=== PATIENT | female | born 1970 | race Two or more races ===

== ENCOUNTER → 2019-11-26 09:03 | Outpatient (BNVA) | payer OTHER, SELFPAY | PROVIDERS: PCP Internal Medicine; Referring Provider Internal Medicine; Visit Provider Dietitian, Registered | DX: Z76.89 Persons encountering health services in other specified circumstances (principal) ==

== ENCOUNTER → 2020-02-23 13:11 | Outpatient (BNVA) | payer OTHER, SELFPAY | PROVIDERS: PCP Internal Medicine; Referring Provider Internal Medicine; Visit Provider Dietitian, Registered | DX: Z76.89 Persons encountering health services in other specified circumstances (principal) ==

== ENCOUNTER → 2020-05-04 16:13 | Outpatient (BNVA) | payer OTHER, SELFPAY | PROVIDERS: PCP Internal Medicine; Visit Provider Internal Medicine Gastroenterology ==

== ENCOUNTER → 2020-05-24 10:20 | Outpatient (BNVA) | payer OTHER, SELFPAY | PROVIDERS: PCP Internal Medicine; Visit Provider Surgery | DX: K64.9 Unspecified hemorrhoids (principal) | CPT/HCPCS: 46600 ==

== ENCOUNTER 2020-06-09 08:34 | Day surgery (SDC) | payer OTHER, SELFPAY ==
[2020-06-02 16:02] VITALS: BMI 35.2
--- NOTE | 2020-06-07 13:34 | HO.ANESPROP2 ---
Documented by User: Zahra Nascimento 06/07/20 13:37 HPI - Anesthesia Eval Consult details Narrative: 50yo F for EUA, Hemorrhoidectomy PMFSH Active Problems Active Problems: All Active Problems (Updated 06/02/20 @ 15:52 by Marcie Bess) Obesity (BMI 30-39.9) (Acute) Oropharyngeal dysphagia (Acute) Internal hemorrhoids (Acute) History of colon polyps (Acute) Bleeding hemorrhoids (Acute) Chronic constipation (Acute) Irritable bowel syndrome (Acute) Past Medical History Medical History Admission for repair of scarred tissue Asthma Bleeding hemorrhoids Chronic constipation GERD (gastroesophageal reflux disease) Irritable bowel syndrome Family History Family History Father Diabetes Brother Heart attack Paternal Grandmother Cancer Maternal Grandmother Cancer Surgical History Surgical History H/O colonoscopy H/O eye surgery H/O: hysterectomy History of arthroscopy of both knees History of esophagogastroduodenoscopy (EGD) Hx of appendectomy Social History Social History Household Members: Spouse Are you a primary home care assistant to a significant other at home: No Do you presently have visiting nurse or other home services: No Alcohol intake: current Alcohol intake frequency: does not drink Smoking Status: Never smoker Use of substances other than those prescribed or required for medical reasons: No Have you been hit, kicked, punched, or otherwise hurt by someone within the past year? If so, by whom?: No Advance Directives: No Advance Directives Information Provided: No Advance Directives on File: No Recently lost weight without trying: No Meds Allergies Allergy/AdvReac Type Severity Reaction Status Date / Time aspirin [ASPIRIN] Allergy Severe HIVES Verified 06/02/20 16:00 Fish Containing Products Allergy Severe HIVES/DYSPN Verified 06/02/20 16:00 EA oxycodone [From PERCOCET] Allergy Severe PALPITATION Verified 06/02/20 16:00 S/HIVES pumpkin Allergy Severe THROAT Verified 06/02/20 16:00 SWELLING squash Allergy Severe THROAT Verified 06/02/20 16:00 SWELLING Home Medications Medication Instructions Recorded Confirmed Last Taken Type albuterol sulfate 90 mcg/actuation 2 puff INHALATION Q6H PRN 05/24/20 06/02/20 Unknown History aerosol inhaler fluticasone propionate [Flovent 2 puff INHALATION BID 06/02/20 06/02/20 Unknown History HFA] Exam Exam Date and Time: June 07, 2020 1334 Height,Weight and Vital Signs: Height 5 ft Weight 81.647 kg Assessment and Plan Assessment Anesthesia Assessment: Chart Reviewed Documented by User: Mel Lebron 06/09/20 09:32 [facility], [facility] Past Medical History Medical History Admission for repair of scarred tissue Asthma Bleeding hemorrhoids Chronic constipation GERD (gastroesophageal reflux disease) Irritable bowel syndrome Family History Family History Father Diabetes Brother Heart attack Paternal Grandmother Cancer Maternal Grandmother Cancer Surgical History Surgical History H/O colonoscopy H/O eye surgery H/O: hysterectomy History of arthroscopy of both knees History of esophagogastroduodenoscopy (EGD) Hx of appendectomy Social History Social History Household Members: Spouse Are you a primary home care assistant to a significant other at home: No Do you presently have visiting nurse or other home services: No Alcohol intake: current Alcohol intake frequency: does not drink Smoking Status: Never smoker Use of substances other than those prescribed or required for medical reasons: No Have you been hit, kicked, punched, or otherwise hurt by someone within the past year? If so, by whom?: No Advance Directives: No Advance Directives Information Provided: No Advance Directives on File: No Recently lost weight without trying: No Meds Allergies Allergy/AdvReac Type Severity Reaction Status Date / Time aspirin [ASPIRIN] Allergy Severe HIVES Verified 06/02/20 16:00 Fish Containing Products Allergy Severe HIVES/DYSPN Verified 06/02/20 16:00 EA oxycodone [From PERCOCET] Allergy Severe PALPITATION Verified 06/02/20 16:00 S/HIVES pumpkin Allergy Severe THROAT Verified 06/02/20 16:00 SWELLING squash Allergy Severe THROAT Verified 06/02/20 16:00 SWELLING Home Medications Medication Instructions Recorded Confirmed Last Taken Type albuterol sulfate 90 mcg/actuation 2 puff INHALATION Q6H PRN 05/24/20 06/02/20 Unknown History aerosol inhaler fluticasone propionate [Flovent 2 puff INHALATION BID 06/02/20 06/02/20 Unknown History HFA] Exam Airway Mallampati Class: II TM Dist: >3cm Neck ROM: Full Loose/Missing/Broken Teeth: No Heart: RRR Lungs: CTA Assessment and Plan Assessment Anesthesia Assessment: Anesthesia Plan Discussed and Chart Reviewed Final Anesthetic Review NPO: Yes ASA Class: II Final Preanesthetic Review: Meds/Allgs Chart Reviewed, Consent Obtained/Reviewed and Anes Risks/Benef Reviewed Patient Risk: Low Procedure Risk: Intermediate Anesthetic Plan Anesthetic Plan: GA Disposition: Standard PACU
[2020-06-09] VITALS (9 sets, daily range): BP systolic 101–130; BP diastolic 52–79; PULSE 71–91; RESP 12–16; TEMP 36.1–36.6; O2SAT 91–100
[2020-06-09] MEDS: Lactated Ringers 1,000 ML 100 ML IVCONT (09:15)
--- NOTE | 2020-06-09 09:28 | MHC.SHP ---
Pre-Procedural Eval Section B Chief Complaint: Bleeding hemorrhoids Allergies: Allergies Allergy/AdvReac Type Severity Reaction Status Date / Time aspirin [ASPIRIN] Allergy Severe HIVES Verified 06/02/20 16:00 Fish Containing Products Allergy Severe HIVES/DYSPN Verified 06/02/20 16:00 EA oxycodone [From PERCOCET] Allergy Severe PALPITATION Verified 06/02/20 16:00 S/HIVES pumpkin Allergy Severe THROAT Verified 06/02/20 16:00 SWELLING squash Allergy Severe THROAT Verified 06/02/20 16:00 SWELLING Plan I have reviewed the history and physical and performed a pertinent physical examination on my patient. No changes have occurred unless specified.
--- NOTE | 2020-06-09 10:21 | W.PM.OPN ---
Operative Note Operative Note Date of Service: 06/09/20 Narrative: Preop diagnosis: External hemorrhoids with pain and bleeding Postop diagnosis: The same Procedure: Exam under anesthesia, hemorrhoidectomy x2 columns Surgeon: Jony Graff MD The patient is a 50-year-old female with chronic problems with pain and bleeding of her hemorrhoids. She describes bulky hemorrhoidal columns and these were seen on examination in the office. She wanted to proceed with hemorrhoidectomy. She understood the technique of the procedure as well as the risks, benefits, and alternatives. She was brought to the operating room and placed in prone -knife position under general anesthesia via endotracheal tube. The buttocks were retracted with wide tape laterally. The perianal area was prepped and draped in the usual sterile fashion. A surgical time-out was done. The patient received Cefotan 2 g IV preoperatively. Examination of the anal orifice revealed bulky hemorrhoidal columns on the left posterior as well as on the right anterior. This appeared to be mostly external hemorrhoids. I inserted the Jose Gan retractor. I examined the anal canal circumferentially. There were no other lesions seen. These bulky hemorrhoidal columns were seen and were mostly external although with some internal component. I applied a Cornell grasper at the hemorrhoidal column anteriorly and this was retracted out into the field. I placed figure-eight stitch at the pedicle using chromic 3-0 and made an incision around this hemorrhoidal column to the perianal skin using a blade 15. His hemorrhoid column was then excised above the plane of sphincters using scissors. I closed this incision with a running chromic 3-0 stitch with additional hemostatic sutures being placed. I proceeded to apply a Cornell grasper at the hemorrhoidal column posteriorly as well. Again I made a [id number] stitch at the pedicle. I made an incision around this hemorrhoidal column of the perianal skin using blade 15. I excised this above the plane of sphincters using scissors. I closed this incision with running chromic 3-0 stitch. Hemostasis was ensured by additional chromic 3-0 [id number] sutures. Once hemostasis was ensured I proceeded toe then infiltrate the perianal area with Marcaine 0.5% for postop analgesia. The procedure was then completed. The patient tolerated the procedure well. There were no complications noted. Initial and final counts of sponges and instruments were correct. Estimated blood loss about 20 cc The patient was extubated without difficulty and transferred to the recovery room with stable vital signs.
--- NOTE | 2020-06-09 10:25 | PM.OP ---
Brief Operative Note Date of Service: 06/09/20 Pre-op diagnosis: hemorrhoids with complication Post-op diagnosis: same Procedure: Exam under anesthesia hemorrhoidectomy Surgeon: Jony Graff MD Anesthesia: GETA Estimated blood loss (mL): 20 Pathology: other (Hemorrhoids) Condition: stable Disposition: PACU
[2020-06-09] MEDS: Acetaminophen 325 MG TABLET 650 MG PO (12:21)
== END 2020-06-09 13:59 | disposition home or self-care (01) ==
PROVIDERS: PCP Internal Medicine; Visit Provider Surgery
PROC: (CPT 46260; principal; 2020-06-09 10:10)
DX: K64.8 Other hemorrhoids (principal); K64.4 Residual hemorrhoidal skin tags; K59.09 Other constipation; K21.9 Gastro-esophageal reflux disease without esophagitis; J45.909 Unspecified asthma, uncomplicated; Z79.51 Long term (current) use of inhaled steroids; Z79.899 Other long term (current) drug therapy; Z88.8 Allergy status to other drugs, medicaments and biological substances
CPT/HCPCS: 46260; 88304; J1100; J1170; J2250; J2405; J3010

== ENCOUNTER → 2020-06-22 11:14 | Outpatient (BNVA) | payer OTHER, SELFPAY | PROVIDERS: PCP Internal Medicine; Visit Provider Surgery ==

== ENCOUNTER → 2020-07-20 08:50 | Outpatient (BNVA) | payer OTHER, SELFPAY | PROVIDERS: PCP Internal Medicine; Visit Provider Surgery ==

== ENCOUNTER → 2020-11-09 12:55 | Outpatient (BNVA) | payer OTHER, SELFPAY | PROVIDERS: PCP Internal Medicine; Visit Provider Internal Medicine Gastroenterology ==

== ENCOUNTER 2020-11-25 23:24 | Emergency (ER) | payer OTHER, SELFPAY ==
--- NOTE | ~2020-11-25 | XR_ITS ---
EXAMINATION: XR CHEST CLINICAL INFORMATION: Cough. Chest tightness. COMPARISON: 05/05/2019 TECHNIQUE: 2 views of the chest were obtained. FINDINGS: The lungs are well expanded. There is no focal consolidation, edema, or effusion. No pneumothorax. The cardiomediastinal silhouette is within normal limits. No acute osseous abnormality. XR/XR chest 2V IMPRESSION: Clear lungs.
[2020-11-26 00:04] VITALS: BP 135/73; PULSE 86; RESP 16; TEMP 36.9; O2SAT 99; BMI 36.5
--- NOTE | 2020-11-26 00:15 | ECG_ITS ---
Test Reason : CHEST TIGHTNESS Blood Pressure : / mmHG Vent. Rate : 070 BPM Atrial Rate : 070 BPM P-R Int : 172 ms QRS Dur : 080 ms QT Int : 428 ms P-R-T Axes : 064 006 038 degrees QTc Int : 462 ms Normal sinus rhythm Normal ECG When compared with ECG of 26-NOV-2020 00:17, No significant change was found Referred By: Mel Hidalgo Electronically Signed By:THALIA ISSA
--- NOTE | 2020-11-26 00:17 | ECG_ITS ---
Test Reason : CHEST ALIX Blood Pressure : / mmHG Vent. Rate : 077 BPM Atrial Rate : 077 BPM P-R Int : 158 ms QRS Dur : 080 ms QT Int : 394 ms P-R-T Axes : 063 006 038 degrees QTc Int : 445 ms Normal sinus rhythm Normal ECG When compared with ECG of 05-MAY-2019 16:11, No significant change was found Referred By: Mel Hidalgo Electronically Signed By:THALIA ISSA
[2020-11-26] MEDS: Acetaminophen 325 MG TABLET 975 MG PO (02:04)
[2020-11-26 02:25] LABS: Appearance Urine HAZY; Color Urine YELLOW; Glucose Urine UA NEG (NEG); Leukocyte Esterase Urine NEG (NEG); Nitrite Urine NEG (NEG); Specific Gravity - Urine 1.025 (1.005-1.025); UACC Culture Trigger NO; Urine Blood 2+ (NEG); Urine Ketones NEG (NEG); Urine Protein NEG (NEG-TRACE)
[2020-11-26 02:27] LABS: UPreg QC Valid YES; Urine Pregnancy NEGATIVE (NEGATIVE)
[2020-11-26 02:34] LABS: Bacteria Urine 3+ /LPF; Mucus Urine 2+ /LPF; Squamous Epithelial Cell Urine 1+ /LPF
[2020-11-26 03:25] LABS: MANUAL DIFF FLAG NO
[2020-11-26 03:27] LABS: Basophils Absolute Auto 0.1 X10*3/uL (0.0-0.2); Basophils Percent Auto 0.4 % (0-2); Eosinophils Absolute Auto 0.2 X10*3/uL (0.0-0.4); Eosinophils Percent Auto 1.2 % (0-4); Hematocrit 35.6 % (37-47); Hemoglobin 11.9 g/dl (12.0-16.0); Imm Gran Abs Auto 0.04 X10*3/uL (0.00-0.03); Imm Gran Pct Auto 0.3 % (0.0-0.4); Lymphocytes Absolute Auto 2.5 X10*3/uL (1.2-4.9); Lymphocytes Percent Auto 17.2 % (20-40); Mean Corpuscular HGB Conc 33.4 g/dl (31.0-35.0); Mean Corpuscular Hemoglobin 31.1 pg (27.0-33.0); Monocytes Absolute Auto 0.9 X10*3/uL (0.1-1.2); Monocytes Percent Auto 6.2 % (2-11); Neutrophils Absolute Auto 11.1 X10*3/uL (2.0-8.3); Neutrophils Percent Auto 74.7 % (45-73); Platelet Count 331 X10*3/uL (160-400); Red Blood Count 3.83 X10*6/uL (4.20-5.50); White Blood Count 14.8 X10*3/uL (4.8-10.8)
[2020-11-26 03:48] LABS: Alanine Aminotransferase 18 U/L (0-31); Alkaline Phosphatase 86 U/L (39-117); Anion Gap 11 (12-20); Aspartate Amino Transferase 17 U/L (5-31); Bilirubin Total 0.6 mg/dL (0.0-1.0); Blood Urea Nitrogen 10 mg/dL (9-16); Calcium 9.2 mg/dL (8.4-10.2); Carbon Dioxide 27 mmol/L (22-29); Chloride 104 mmol/L (96-108); Creatinine Clr Calc Pharmacy 84.4; Estimated Glomerular Filt Rate > 60; Glucose Random 102 mg/dL (60-115); Potassium 3.7 mmol/L (3.3-5.1); Sodium 138 mmol/L (135-145); Total Protein 6.9 g/dL (6.5-8.0)
--- NOTE | 2020-11-26 04:41 | ED.GENADULT ---
HPI - General Adult General Chief complaint: General Medical Stated complaint: chest tightness, body pain Time Seen by Provider: 11/26/20 01:23 Source: patient Mode of arrival: ambulatory History of Present Illness HPI narrative: 50-year-old female with history of fibromyalgia states that she has had burning sensation and body aches all down her back in into her legs without fever, chills, nausea, vomiting, urinary pain/burning/frequency, and she denies any shortness of breath. She denies any trauma. Related Data Home Medications Medication Instructions Recorded Confirmed albuterol sulfate 90 mcg/actuation 2 puff INHALATION Q6H PRN 05/24/20 11/09/20 aerosol inhaler fluticasone propionate 110 2 puff INHALATION BID 06/02/20 11/09/20 mcg/actuation HFA aerosol inhaler (Flovent HFA) ondansetron 4 mg disintegrating mg PO 11/09/20 11/09/20 tablet Previous Rx's Medication Instructions Recorded dicyclomine 20 mg tablet 20 mg PO TID 90 Days #270 tab 01/12/20 acetaminophen 650 mg 650 mg PO Q8H PRN #30 tab 06/09/20 tablet,extended release (Tylenol 8 Hour) tramadol 50 mg tablet 50 mg PO Q6H PRN #40 tab 06/09/20 menthol 0.44 %-zinc oxide 20.6 % 1 appl TOPICAL QID PRN #71 g 06/22/20 topical ointment (Calmoseptine) docusate sodium 100 mg capsule 100 mg PO BID #60 cap 11/09/20 (Colace) lansoprazole 30 mg capsule,delayed 30 mg PO BID 90 Days #180 cap 11/09/20 release Allergies Allergy/AdvReac Type Severity Reaction Status Date / Time aspirin [ASPIRIN] Allergy Severe HIVES Verified 11/09/20 12:56 Fish Containing Products Allergy Severe HIVES/DYSPN Verified 11/09/20 12:56 EA oxycodone [From PERCOCET] Allergy Severe PALPITATION Verified 11/09/20 12:56 S/HIVES pumpkin Allergy Severe THROAT Verified 11/09/20 12:56 SWELLING squash Allergy Severe THROAT Verified 11/09/20 12:56 SWELLING Zucchini Allergy Mild Hives, Uncoded 11/09/20 12:57 Dysphagia Review of Systems Review of Systems: Pertinent positives and negatives as stated in HPI and 10 point review of systems is otherwise negative. [facility] Past Medical History Source: nursing notes reviewed Medical History Admission for repair of scarred tissue Asthma Bleeding hemorrhoids Chronic constipation GERD (gastroesophageal reflux disease) Irritable bowel syndrome Surgical History H/O colonoscopy H/O eye surgery H/O: hysterectomy History of arthroscopy of both knees History of esophagogastroduodenoscopy (EGD) Hx of appendectomy Family History Family History Father Diabetes Brother Heart attack Paternal Grandmother Cancer Maternal Grandmother Cancer Social History Social History Household Members: Spouse Are you a primary hospice care consultant to a significant other at home: No Do you presently have visiting nurse or other home services: No Alcohol intake: never Patient Tobacco Use Status: Never used Tobacco Use of substances other than those prescribed or required for medical reasons: No Advance Directives: No Advance Directives Information Provided: Yes Patient : No Physical Exam Vital Signs: Vital Signs: Last Vital Signs Temp 98.2 F 11/26/20 05:13 Pulse 73 11/26/20 05:13 Resp 18 11/26/20 05:13 BP 104/60 11/26/20 05:13 Pulse Ox 97 11/26/20 05:13 Body Mass Index 36.5 VITAL SIGNS: Reviewed. GENERAL: Well developed, well nourished, in no acute distress. HEAD: Normocephalic/atraumatic EYES: PERRLA, EOMI OROPHARYNX: no oral lesions noted, posterior pharynx clear LUNGS: Normal breath sounds. No adventitious sounds or accessory muscle use. SpO2<97> CARDIOVASCULAR: Regular rate and rhythm without noted murmurs ABDOMEN: Soft, non-tender, non-distended with bowel sounds, no CVA tenderness MUSCULOSKELETAL: No tenderness, deformities, or effusions noted on gross inspection. EXTREMITIES: No cyanosis, clubbing or edema. SKIN: Inspection of the skin reveals no rashes NEUROLOGIC: Alert and oriented x 4. Strength and sensation to light touch were grossly intact x 4. Course Course Course Narrative: 50-year-old female with history and clinical presentation suggestive of acute chronic exacerbation of underlying fibromyalgia, low clinical suspicion for renal colic/diverticulitis but will rule out UTI or infectious etiologies. Patient responded well to 1 g of Tylenol and review of all labs are without acute findings. Despite there being a leukocytosis abdomen is otherwise benign, UA is clear, and chest x-ray is without acute findings. Patient was discharged in stable condition and had had complete resolution of her symptoms. Medical Decision Making Lab Data Result diagrams: 11/26/20 03:21 11/26/20 03:21 Labs: Lab Results 11/26/20 11/26/20 11/26/20 Range/Units 02:11 02:11 03:21 WBC 14.8 H (4.8-10.8) X10*3/uL RBC 3.83 L (4.20-5.50) X10*6/uL Hgb 11.9 L (12.0-16.0) g/dl Hct 35.6 L (37-47) % MCV 93.0 (80-98) fL MCH 31.1 (27.0-33.0) pg MCHC 33.4 (31.0-35.0) g/dl RDW 12.0 (11.0-16.0) % Plt Count 331 (160-400) X10*3/uL MPV 10.0 (9.4-12.3) fL Immature Gran % (Auto) 0.3 (0.0-0.4) % Neut % (Auto) 74.7 H (45-73) % Lymph % (Auto) 17.2 L (20-40) % [place] % (Auto) 6.2 (2-11) % Eos % (Auto) 1.2 (0-4) % Baso % (Auto) 0.4 (0-2) % Lymph # (Auto) 2.5 (1.2-4.9) X10*3/uL [place] # (Auto) 0.9 (0.1-1.2) X10*3/uL Eos # (Auto) 0.2 (0.0-0.4) X10*3/uL Baso # (Auto) 0.1 (0.0-0.2) X10*3/uL Abs Immat Gran (auto) 0.04 H (0.00-0.03) X10*3/uL Absolute Neuts (auto) 11.1 H (2.0-8.3) X10*3/uL Absolute Nucleated RBC 0.000 (0.0-0.012) X10*3/uL Nucleated RBC % (auto) 0.0 (0.0-0.2) /100WBC Sodium (135-145) mmol/L Potassium (3.3-5.1) mmol/L Chloride (96-108) mmol/L Carbon Dioxide (22-29) mmol/L Anion Gap (12-20) BUN (9-16) mg/dL Creatinine (0.5-1.4) mg/dL Estim Creat Clear Calc Estimated GFR Random Glucose (60-115) mg/dL Calcium (8.4-10.2) mg/dL Total Bilirubin (0.0-1.0) mg/dL AST (5-31) U/L ALT (0-31) U/L Alkaline Phosphatase (39-117) U/L Total Protein (6.5-8.0) g/dL Albumin (3.5-5.0) g/dL Urine Color YELLOW Urine Appearance HAZY Urine pH 6.0 (5.0-8.0) Ur Specific [place] 1.025 (1.005-1.025) Urine Protein NEG (NEG-TRACE) MG/DL Urine Glucose (UA) NEG (NEG) MG/DL Urine Ketones NEG (NEG) MG/DL Urine Blood 2+ H (NEG) Urine Nitrite NEG (NEG) Ur Leukocyte Esterase NEG (NEG) Urine RBC 1-4 (0) /HPF Urine WBC 1-4 (0-4) /HPF Ur Squamous Epith Cells 1+ /LPF Urine Bacteria 3+ /LPF Urine Mucus 2+ /LPF Urine Test NEGATIVE (NEGATIVE) 11/26/20 Range/Units 03:21 WBC (4.8-10.8) X10*3/uL RBC (4.20-5.50) X10*6/uL Hgb (12.0-16.0) g/dl Hct (37-47) % MCV (80-98) fL MCH (27.0-33.0) pg MCHC (31.0-35.0) g/dl RDW (11.0-16.0) % Plt Count (160-400) X10*3/uL MPV (9.4-12.3) fL Immature Gran % (Auto) (0.0-0.4) % Neut % (Auto) (45-73) % Lymph % (Auto) (20-40) % [place] % (Auto) (2-11) % Eos % (Auto) (0-4) % Baso % (Auto) (0-2) % Lymph # (Auto) (1.2-4.9) X10*3/uL [place] # (Auto) (0.1-1.2) X10*3/uL Eos # (Auto) (0.0-0.4) X10*3/uL Baso # (Auto) (0.0-0.2) X10*3/uL Abs Immat Gran (auto) (0.00-0.03) X10*3/uL Absolute Neuts (auto) (2.0-8.3) X10*3/uL Absolute Nucleated RBC (0.0-0.012) X10*3/uL Nucleated RBC % (auto) (0.0-0.2) /100WBC Sodium 138 (135-145) mmol/L Potassium 3.7 (3.3-5.1) mmol/L Chloride 104 (96-108) mmol/L Carbon Dioxide 27 (22-29) mmol/L Anion Gap 11 L (12-20) BUN 10 (9-16) mg/dL Creatinine 0.77 (0.5-1.4) mg/dL Estim Creat Clear Calc 84.4 Estimated GFR > 60 Random Glucose 102 (60-115) mg/dL Calcium 9.2 (8.4-10.2) mg/dL Total Bilirubin 0.6 (0.0-1.0) mg/dL AST 17 (5-31) U/L ALT 18 (0-31) U/L Alkaline Phosphatase 86 (39-117) U/L Total Protein 6.9 (6.5-8.0) g/dL Albumin 4.0 (3.5-5.0) g/dL Urine Color Urine Appearance Urine pH (5.0-8.0) Ur Specific [place] (1.005-1.025) Urine Protein (NEG-TRACE) MG/DL Urine Glucose (UA) (NEG) MG/DL Urine Ketones (NEG) MG/DL Urine Blood (NEG) Urine Nitrite (NEG) Ur Leukocyte Esterase (NEG) Urine RBC (0) /HPF Urine WBC (0-4) /HPF Ur Squamous Epith Cells /LPF Urine Bacteria /LPF Urine Mucus /LPF Urine Test (NEGATIVE) ECG Data Attestation: I personally reviewed and interpreted this ECG as follows: Prior ECG tracings: available for review (05/05/2019 no acute changes on comparison) Interpretation: Normal sinus rhythm, HR -70, no STEMI, SD/QRS/QTC with in normal limits Discharge Plan Discharge Clinical Impression: Body aches Patient Disposition: Home, Self-Care Instructions: Fibromyalgia (ED) Additional Instructions: 1. Resume all home medications as prescribed. 2. Tylenol 1000 mg, orally, every 6 hours as needed for pain control. Do not exceed 4000 mg within 24 hours. 3. Follow-up with your primary care provider on Friday morning for re-evaluation further outpatient management. Return to the ER for acute worsening of symptoms. Prescriptions: No Action dicyclomine 20 mg tablet 20 mg PO TID 90 Days Qty: 270 RF: 1 Flovent HFA 110 mcg/actuation HFA aerosol inhaler 2 puff inhalation BID RF: 0 tramadol 50 mg tablet 50 mg PO Q6H PRN (Reason: pain) Qty: 40 RF: 0 acetaminophen [Tylenol 8 Hour] 650 mg tablet extended release 650 mg PO Q8H PRN (Reason: pain) Qty: 30 RF: 0 ondansetron 4 mg tablet,disintegrating PO RF: 0 docusate sodium [Colace] 100 mg capsule 100 mg PO BID Qty: 60 RF: 3 lansoprazole 30 mg capsule,delayed release(DR/EC) 30 mg PO BID 90 Days Qty: 180 RF: 1 albuterol sulfate 90 mcg/actuation HFA aerosol inhaler 2 puff inhalation Q6H PRN (Reason: Wheezing) RF: 0 Calmoseptine 0.44-20.6 % ointment 1 appl topical QID PRN (Reason: skin irritation) Qty: 71 RF: 0 Interventions: ED Discharge Assessment Last Done: 11/26/20 05:09 Discharge Date/Time: 11/26/20 05:32
[2020-11-26 05:13] VITALS: BP 104/60; PULSE 73; RESP 18; TEMP 36.8; O2SAT 97
--- NOTE | 2020-11-26 05:14 | PC.NURSE ---
Pt alert and oriented x4, calm and cooperative. Pt states pain has improved and is ready for dc. Pt educated on dc. Pt left with spouse. No IV in place. Vitals stable. Pt ambulated and steady on feet.
== END 2020-11-26 05:32 | disposition home or self-care (01) ==
PROVIDERS: Emergency Provider Student in an Organized Health Care Education/Training Program
DX: M79.10 Myalgia, unspecified site (principal); R07.89 Other chest pain; Z79.899 Other long term (current) drug therapy
CPT/HCPCS: 36415; 71046; 80053; 81001; 81025; 85025; 93005; 99283; 99285

== ENCOUNTER → 2021-03-08 11:04 | Outpatient (BNVA) | payer OTHER, SELFPAY | PROVIDERS: PCP Internal Medicine; Visit Provider Internal Medicine Gastroenterology ==

== ENCOUNTER → 2022-02-27 14:06 | Outpatient (BNVA) | payer OTHER, SELFPAY | PROVIDERS: PCP Internal Medicine; Visit Provider Physician Assistant Surgical | DX: E66.9 Obesity, unspecified (principal) ==

== ENCOUNTER → 2022-04-02 15:58 | Outpatient (BNVA) | payer OTHER, SELFPAY | PROVIDERS: PCP Internal Medicine; Visit Provider Dietitian, Registered | DX: E66.9 Obesity, unspecified (principal) | CPT/HCPCS: 97802 ==

== ENCOUNTER → 2022-04-08 13:11 | Outpatient (BNVA) | payer OTHER, SELFPAY | PROVIDERS: PCP Internal Medicine; Visit Provider Physician Assistant Surgical | DX: Z13.89 Encounter for screening for other disorder (principal) ==

== ENCOUNTER → 2022-04-10 12:17 | Outpatient (REF) | payer OTHER, SELFPAY ==
--- NOTE | ~2022-04-10 | XR_ITS ---
EXAMINATION: XR CHEST CLINICAL INFORMATION: Obesity COMPARISON: Previous chest x-ray November 2020 TECHNIQUE: 2 views of the chest were obtained. FINDINGS: No significant abnormality is noted involving the heart, lungs, mediastinum, bony thorax or soft tissues. XR/XR chest 2V IMPRESSION: Unremarkable examination.
--- NOTE | 2022-04-10 12:23 | ECG_ITS ---
Test Reason : E66.9 Obesity Blood Pressure : / mmHG Vent. Rate : 072 BPM Atrial Rate : 072 BPM P-R Int : 156 ms QRS Dur : 076 ms QT Int : 392 ms P-R-T Axes : 053 002 030 degrees QTc Int : 429 ms Normal sinus rhythm Normal ECG When compared with ECG of 26-NOV-2020 04:32, No significant change was found Referred By: José Cuevas Electronically Signed By:Luisito Olmstead
[2022-04-10 12:30] LABS: MANUAL DIFF FLAG NO
[2022-04-10 13:04] LABS: Basophils Absolute Auto 0.1 X10*3/uL (0.0-0.2); Basophils Percent Auto 0.7 % (0-2); Eosinophils Absolute Auto 0.2 X10*3/uL (0.0-0.4); Eosinophils Percent Auto 2.9 % (0-4); Hematocrit 39.5 % (37.0-47.0); Hemoglobin 12.7 g/dl (12.0-16.0); Imm Gran Abs Auto 0.03 X10*3/uL (0.00-0.03); Imm Gran Pct Auto 0.4 % (0.0-0.4); Lymphocytes Absolute Auto 1.9 X10*3/uL (1.2-4.9); Lymphocytes Percent Auto 22.6 % (20-40); Mean Corpuscular HGB Conc 32.2 g/dl (31.0-35.0); Mean Corpuscular Volume 93.2 fL (80.0-98.0); Mean Platelet Volume 11.5 fL (9.4-12.3); Monocytes Absolute Auto 0.5 X10*3/uL (0.1-1.2); Monocytes Percent Auto 5.6 % (2-11); Neutrophils Absolute Auto 5.6 x10*3/uL (2.0-8.3); Neutrophils Percent Auto 67.8 % (45-73); Platelet Count 318 X10*3/uL (160-400); Red Blood Count 4.24 X10*6/uL (4.20-5.50); Red Cell Distribution Width 11.6 % (11.0-16.0); White Blood Count 8.2 X10*3/uL (4.8-10.8)
[2022-04-10 13:13] LABS: Estimated Average Glucose 91 mg/dL; Hemoglobin A1c % 4.8 %
[2022-04-10 13:53] LABS: Alanine Aminotransferase 33 U/L (0-31); Albumin Level 4.2 g/dL (3.5-5.0); Alkaline Phosphatase 90 U/L (39-117); Anion Gap 13 (12-20); Aspartate Amino Transferase 27 U/L (5-31); Bilirubin Total 0.6 mg/dL (0.0-1.0); Blood Urea Nitrogen 14 mg/dL (9-16); Calcium 9.1 mg/dL (8.4-10.2); Carbon Dioxide 23 mmol/L (22-29); Chloride 109 mmol/L (96-108); Cholesterol 176 mg/dL; Estimated Glomerular Filt Rate > 60; Glucose Random 97 mg/dL (60-115); HDL Cholesterol 36 mg/dL; Iron 118 mcg/dL (30-160); LDL Cholesterol Calculated 114 mg/dl; Percent Iron Saturation 38 % (15-50); Potassium 4.4 mmol/L (3.3-5.1); Sodium 141 mmol/L (135-145); Total Iron Binding Capacity 312 mcg/dL (228-428); Triglycerides 133 mg/dL; Unsaturated Iron Binding 194 ug/dL
[2022-04-10 14:11] LABS: Ferritin 130 ng/mL (10-250); Folate 9.4 ng/mL (> or = 4.0); Insulin 17 uU/mL (2-29); TSH reflex Free T4 2.11 uIU/mL (0.32-4.0); Vitamin B12 441 pg/mL (200-900); Vitamin D 25-OH Total 11.2 ng/mL (>30)
[2022-04-11 14:59] LABS: Calcium (PTHI) 9.2 mg/dL (8.6-10.4); PTHI 93 pg/mL (16-77)
[2022-04-15 14:34] LABS: Zinc 74 mcg/dL (60-130)
[2022-04-16 22:09] LABS: Vitamin A 36 mcg/dL (38-98)
[2022-04-18 14:33] LABS: Vitamin B1 11 nmol/L (8-30)
== END ==
LOC: HO.CARD 12:17
PROVIDERS: Visit Provider Physician Assistant Surgical
DX: E66.9 Obesity, unspecified (principal); G47.33 Obstructive sleep apnea (adult) (pediatric)
CPT/HCPCS: 36415; 71046; 80053; 80061; 82306; 82607; 82728; 82746; 83036; 83525; 83540; 83970; 84425; 84443; 84590; 84630; 85025; 86140; 93005

== ENCOUNTER → 2022-04-16 08:28 | Outpatient (BNVA) | payer OTHER, SELFPAY | PROVIDERS: PCP Internal Medicine; Visit Provider Physician Assistant Surgical | DX: Z13.89 Encounter for screening for other disorder (principal) ==

== ENCOUNTER 2022-04-16 18:22 | Outpatient (REF) | payer OTHER, SELFPAY ==
[2022-04-17 14:14] LABS: H Pylori Breath Test Negative (Negative)
== END 2022-04-16 18:23 | disposition home or self-care (01) ==
LOC: HO.LNP 18:22
PROVIDERS: Visit Provider Physician Assistant Surgical
DX: E66.9 Obesity, unspecified (principal); G47.33 Obstructive sleep apnea (adult) (pediatric)
CPT/HCPCS: 83013

== ENCOUNTER 2022-04-19 19:55 | Emergency (ER) | payer OTHER, SELFPAY ==
--- NOTE | ~2022-04-19 | XR_ITS ---
EXAMINATION: XR ABDOMEN KUB CLINICAL INDICATION: Rectal pain and constipation COMPARISON: CT abdomen pelvis 06/28/2018 TECHNIQUE: AP view of the abdomen. FINDINGS: Small amount of formed stool in the rectum and scattered throughout the nondilated colon. No dilated air-filled bowel loops. No appreciable bowel wall thickening. No gross large volume free air on this limited supine exam. Visualized lung bases appear clear. No acute osseous injury identified. XR/XR KUB IMPRESSION: Nonobstructive bowel gas pattern.
--- NOTE | 2022-04-19 20:07 | ED.GENADULT ---
HPI - General Adult General Chief complaint: Abdominal Pain <BHARAT Lamb - Last Filed: 04/19/22 20:08> Stated complaint: lower abd pain, constipated <BHARAT Lamb - Last Filed: 04/19/22 20:08> Time Seen by Provider: 04/19/22 23:38 <BHARAT Lamb - Last Filed: 04/19/22 20:08> Source: patient <Dmitriy Sanchez MD - Last Filed: 04/20/22 00:35> Mode of arrival: ambulatory <Dmitriy Sanchez MD - Last Filed: 04/20/22 00:35> Limitations: no limitations <Dmitriy Sanchez MD - Last Filed: 04/20/22 00:35> History of Present Illness HPI narrative: 51-year-old female who presents emergency department for evaluation constipation. She states that she has a history of IBS and has periods of constipation appears of diarrhea. She states she was unable to move her bowels for 2 days. She states that since having a hemorrhoidectomy 1 year prior she has had more difficulty with constipation. Patient states she was having lower abdominal pain which she describes as a cramping sensation which was worse whenever she tried to move her bowels. She states she had chills and nausea but no vomiting. <Dmitriy Sanchez MD - Last Filed: 04/20/22 00:35> Related Data Home medications: Home Medications Medication Instructions Recorded Confirmed albuterol sulfate 90 mcg/actuation 2 puff inhalation Q6H PRN Wheezing 05/24/20 02/27/22 aerosol inhaler fluticasone propionate 110 2 puff inhalation BID 06/02/20 02/27/22 mcg/actuation HFA aerosol inhaler (Flovent HFA) Previous Rx's Medication Instructions Recorded lansoprazole 30 mg capsule,delayed 30 mg PO BID 90 days #180 caps 03/08/21 release sennosides 8.6 mg-docusate sodium 1 tab-cap PO BEDTIME 90 days #90 04/03/22 50 mg tablet (Laxative Stool tabs Softener With Senna) cholecalciferol (vitamin D3) 125 125 mcg PO DAILY #90 caps 04/10/22 mcg (5,000 unit) capsule cyanocobalamin (vitamin B-12) 500 500 mcg PO DAILY #90 tabs 04/10/22 mcg tablet <BHARAT Lamb - Last Filed: 04/19/22 20:08> Allergies/adverse reactions: Allergies Allergy/AdvReac Type Severity Reaction Status Date / Time aspirin [ASPIRIN] Allergy Severe HIVES Verified 02/27/22 14:21 Fish Containing Products Allergy Severe HIVES/DYSPN Verified 02/27/22 14:21 EA oxycodone [From PERCOCET] Allergy Severe PALPITATION Verified 02/27/22 14:21 S/HIVES pumpkin Allergy Severe THROAT Verified 02/27/22 14:21 SWELLING squash Allergy Severe THROAT Verified 02/27/22 14:21 SWELLING Zucchini Allergy Mild Hives, Uncoded 11/09/20 12:57 Dysphagia <BHARAT Lamb - Last Filed: 04/19/22 20:08> Review of Systems Review of Systems: Yes all other systems are reviewed and are negative <Dmitriy Sanchez MD - Last Filed: 04/20/22 00:35> [facility] Past Medical History Medical History: Medical History Admission for repair of scarred tissue Asthma Bleeding hemorrhoids Chronic constipation GERD (gastroesophageal reflux disease) Irritable bowel syndrome <BHARAT Lamb - Last Filed: 04/19/22 20:08> Surgical History: Surgical History H/O colonoscopy H/O eye surgery H/O: hysterectomy History of arthroscopy of both knees History of esophagogastroduodenoscopy (EGD) Hx of appendectomy <BHARAT Lamb - Last Filed: 04/19/22 20:08> Family History Family History: Family History Father Diabetes Brother Heart attack Paternal Grandmother Cancer Maternal Grandmother Cancer <BHARAT Lamb - Last Filed: 04/19/22 20:08> Social History Social History: Social History Household Members: Spouse Are you a primary post anesthesia care unit nurse to a significant other at home: No Do you presently have visiting nurse or other home services: No Alcohol intake: never Patient Tobacco Use Status: Never used Tobacco Advance Directives: No Advance Directives Information Provided: No <BHARAT Lamb - Last Filed: 04/19/22 20:08> Physical Exam ED Vital Signs: Vital Signs - 24 hr 04/19/22 20:08 04/19/22 23:48 Temperature 97.6 F 97.8 F Pulse Rate 96 78 Respiratory Rate 16 20 Blood Pressure 129/88 115/54 L Pulse Oximetry 99 97 Oxygen Delivery Method Room Air Room Air BMI result Body Mass Index 29.8 <BHARAT Lamb - Last Filed: 04/19/22 20:08> Vital Signs - 24 hr 04/19/22 20:08 04/19/22 23:48 Temperature 97.6 F 97.8 F Pulse Rate 96 78 Respiratory Rate 16 20 Blood Pressure 129/88 115/54 L Pulse Oximetry 99 97 Oxygen Delivery Method Room Air Room Air BMI result Body Mass Index 29.8 Vital signs were normal. <Dmitriy Sanchez MD - Last Filed: 04/20/22 00:35> General: Awake, alert, female patient, very pleasant cooperative, no distress HEENT: Head normal cephalic atraumatic, pupils equal round reactive light, sclera contact however normal, mouth revealed moist membranes Neck: Supple Lungs: Clear to auscultation Abdomen: Soft, nontender, nondistended, normoactive bowel sounds Back: No CVA tender Extremities: Normal Neuro: Nonfocal <Dmitriy Sanchez MD - Last Filed: 04/20/22 00:35> Course Course Course Narrative: RME performed by Emily Leija PA-C. Patient is a 51 year old female presenting to the emergency department with rectal pain, abdominal pain, and constipation. Labs ordered. Patient placed back in the waiting room pending results and room availability. <BHARAT Lamb - Last Filed: 04/19/22 20:08> Medical Decision Making Medical Decision Making MDM Narrative: 51-year-old female who presents emergency department for evaluation of constipation x2 days with lower abdominal pain, chills and nausea. Patient's filled examination was unremarkable. Vital signs were normal. Laboratory evaluation included a CBC, CMP and lipase which were normal. While the patient was waiting to be evaluated in the emergency department she states she had a large bowel movement is feeling significantly better. Patient was advised to continue taking her medications as prescribed by your providers and she was also advised to increase the fiber in her diet and use Metamucil once a day. <Dmitriy Sanchez MD - Last Filed: 04/20/22 00:35> Differential Diagnosis Differential diagnosis includes but is not limited to constipation, obstipation, bowel obstruction <Dmitriy Sanchez MD - Last Filed: 04/20/22 00:35> Lab Data MDM Lab Attestation statement: I reviewed the patient's lab results. <Dmitriy Sanchez MD - Last Filed: 04/20/22 00:35> Result Diagrams: 04/19/22 20:28 04/19/22 20:28 <BHARAT Lamb - Last Filed: 04/19/22 20:08> Labs: Lab Results 04/19/22 04/19/22 Range/Units 20:28 20:28 WBC 10.6 (4.8-10.8) X10*3/uL RBC 4.31 (4.20-5.50) X10*6/uL Hgb 13.0 (12.0-16.0) g/dl Hct 38.8 (37.0-47.0) % MCV 90.0 (80.0-98.0) fL MCH 30.2 (27.0-33.0) pg MCHC 33.5 (31.0-35.0) g/dl RDW 11.6 (11.0-16.0) % Plt Count 341 (160-400) X10*3/uL MPV 10.8 (9.4-12.3) fL Immature Gran % (Auto) 0.4 (0.0-0.4) % Neut % (Auto) 69.1 (45-73) % Lymph % (Auto) 22.4 (20-40) % [place] % (Auto) 5.2 (2-11) % Eos % (Auto) 2.4 (0-4) % Baso % (Auto) 0.5 (0-2) % Lymph # (Auto) 2.4 (1.2-4.9) X10*3/uL [place] # (Auto) 0.6 (0.1-1.2) X10*3/uL Eos # (Auto) 0.3 (0.0-0.4) X10*3/uL Baso # (Auto) 0.1 (0.0-0.2) X10*3/uL Abs Immat Gran (auto) 0.04 H (0.00-0.03) X10*3/uL Absolute Neuts (auto) 7.3 (2.0-8.3) x10*3/uL Absolute Nucleated RBC 0.000 (0.0-0.012) X10*3/uL Nucleated RBC % (auto) 0.0 (0.0-0.2) /100WBC Sodium 139 (135-145) mmol/L Potassium 4.2 (3.3-5.1) mmol/L Chloride 105 (96-108) mmol/L Carbon Dioxide 27 (22-29) mmol/L Anion Gap 11 L (12-20) BUN 18 H (9-16) mg/dL Creatinine 0.85 (0.5-1.4) mg/dL Estim Creat Clear Calc 85.4 Estimated GFR > 60 Random Glucose 116 H (60-115) mg/dL Calcium 9.5 (8.4-10.2) mg/dL Magnesium 2.0 (1.6-2.6) mg/dL Total Bilirubin 0.5 (0.0-1.0) mg/dL AST 26 (5-31) U/L ALT 25 (0-31) U/L Alkaline Phosphatase 86 (39-117) U/L Total Protein 7.5 (6.5-8.0) g/dL Albumin 4.5 (3.5-5.0) g/dL Lipase 14 (8-78) U/L <BHARAT Lamb - Last Filed: 04/19/22 20:08> Lab Results 04/19/22 04/19/22 Range/Units 20:28 20:28 WBC 10.6 (4.8-10.8) X10*3/uL RBC 4.31 (4.20-5.50) X10*6/uL Hgb 13.0 (12.0-16.0) g/dl Hct 38.8 (37.0-47.0) % MCV 90.0 (80.0-98.0) fL MCH 30.2 (27.0-33.0) pg MCHC 33.5 (31.0-35.0) g/dl RDW 11.6 (11.0-16.0) % Plt Count 341 (160-400) X10*3/uL MPV 10.8 (9.4-12.3) fL Immature Gran % (Auto) 0.4 (0.0-0.4) % Neut % (Auto) 69.1 (45-73) % Lymph % (Auto) 22.4 (20-40) % [place] % (Auto) 5.2 (2-11) % Eos % (Auto) 2.4 (0-4) % Baso % (Auto) 0.5 (0-2) % Lymph # (Auto) 2.4 (1.2-4.9) X10*3/uL [place] # (Auto) 0.6 (0.1-1.2) X10*3/uL Eos # (Auto) 0.3 (0.0-0.4) X10*3/uL Baso # (Auto) 0.1 (0.0-0.2) X10*3/uL Abs Immat Gran (auto) 0.04 H (0.00-0.03) X10*3/uL Absolute Neuts (auto) 7.3 (2.0-8.3) x10*3/uL Absolute Nucleated RBC 0.000 (0.0-0.012) X10*3/uL Nucleated RBC % (auto) 0.0 (0.0-0.2) /100WBC Sodium 139 (135-145) mmol/L Potassium 4.2 (3.3-5.1) mmol/L Chloride 105 (96-108) mmol/L Carbon Dioxide 27 (22-29) mmol/L Anion Gap 11 L (12-20) BUN 18 H (9-16) mg/dL Creatinine 0.85 (0.5-1.4) mg/dL Estim Creat Clear Calc 85.4 Estimated GFR > 60 Random Glucose 116 H (60-115) mg/dL Calcium 9.5 (8.4-10.2) mg/dL Magnesium 2.0 (1.6-2.6) mg/dL Total Bilirubin 0.5 (0.0-1.0) mg/dL AST 26 (5-31) U/L ALT 25 (0-31) U/L Alkaline Phosphatase 86 (39-117) U/L Total Protein 7.5 (6.5-8.0) g/dL Albumin 4.5 (3.5-5.0) g/dL Lipase 14 (8-78) U/L <Dmitriy Sanchez MD - Last Filed: 04/20/22 00:35> Discharge Plan Discharge Clinical Impression: Constipation Qualifiers: Constipation type: unspecified constipation type Qualified Code(s): K59.00 - Constipation, unspecified <BHARAT Lamb - Last Filed: 04/19/22 20:08> Patient Disposition: Home, Self-Care <BHARAT Lamb - Last Filed: 04/19/22 20:08> Instructions: Constipation (ED) <BHARAT Lamb - Last Filed: 04/19/22 20:08> Additional Instructions: Continue taking your medications as prescribed by your providers. Take Metamucil 1 tsp in 8 oz of water/fluid daily. This will increase the fiber in your diet and hopefully help prevent recurrence of your constipation. Follow-up with your doctor in 2 days. Please return to the emergency department if your symptoms get worse or if you develop any symptoms that are concerning to you. <BHARAT Lamb - Last Filed: 04/19/22 20:08> Prescriptions: No Action sennosides-docusate sodium [Lax Stool Softener With Senna] 8.6-50 mg tablet 1 tab-cap PO BEDTIME 90 Days Qty: 90 1RF cholecalciferol (vitamin D3) 125 mcg (5,000 unit) capsule 125 mcg PO DAILY Qty: 90 0RF cyanocobalamin (vitamin B-12) 500 mcg tablet 500 mcg PO DAILY Qty: 90 0RF Flovent HFA 110 mcg/actuation HFA aerosol inhaler 2 puff inhalation BID albuterol sulfate 90 mcg/actuation HFA aerosol inhaler 2 puff inhalation Q6H PRN (Reason: Wheezing) lansoprazole 30 mg capsule,delayed release(DR/EC) 30 mg PO BID 90 Days Qty: 180 1RF <BHARAT Lamb - Last Filed: 04/19/22 20:08>
[2022-04-19 20:08] VITALS: BP 129/88; PULSE 96; RESP 16; TEMP 36.4; O2SAT 99; BMI 29.8
[2022-04-19 20:36] LABS: MANUAL DIFF FLAG NO
[2022-04-19 20:37] LABS: Basophils Absolute Auto 0.1 X10*3/uL (0.0-0.2); Basophils Percent Auto 0.5 % (0-2); Eosinophils Absolute Auto 0.3 X10*3/uL (0.0-0.4); Eosinophils Percent Auto 2.4 % (0-4); Hematocrit 38.8 % (37.0-47.0); Imm Gran Abs Auto 0.04 X10*3/uL (0.00-0.03); Imm Gran Pct Auto 0.4 % (0.0-0.4); Lymphocytes Absolute Auto 2.4 X10*3/uL (1.2-4.9); Lymphocytes Percent Auto 22.4 % (20-40); Mean Corpuscular HGB Conc 33.5 g/dl (31.0-35.0); Mean Corpuscular Hemoglobin 30.2 pg (27.0-33.0); Mean Platelet Volume 10.8 fL (9.4-12.3); Monocytes Absolute Auto 0.6 X10*3/uL (0.1-1.2); Monocytes Percent Auto 5.2 % (2-11); Neutrophils Absolute Auto 7.3 x10*3/uL (2.0-8.3); Neutrophils Percent Auto 69.1 % (45-73); Platelet Count 341 X10*3/uL (160-400); Red Blood Count 4.31 X10*6/uL (4.20-5.50); Red Cell Distribution Width 11.6 % (11.0-16.0); White Blood Count 10.6 X10*3/uL (4.8-10.8)
[2022-04-19 20:59] LABS: Alanine Aminotransferase 25 U/L (0-31); Albumin Level 4.5 g/dL (3.5-5.0); Alkaline Phosphatase 86 U/L (39-117); Anion Gap 11 (12-20); Aspartate Amino Transferase 26 U/L (5-31); Bilirubin Total 0.5 mg/dL (0.0-1.0); Blood Urea Nitrogen 18 mg/dL (9-16); Calcium 9.5 mg/dL (8.4-10.2); Carbon Dioxide 27 mmol/L (22-29); Chloride 105 mmol/L (96-108); Creatinine Clr Calc Pharmacy 85.4; Estimated Glomerular Filt Rate > 60; Glucose Random 116 mg/dL (60-115); Lipase 14 U/L (8-78); Potassium 4.2 mmol/L (3.3-5.1); Sodium 139 mmol/L (135-145); Total Protein 7.5 g/dL (6.5-8.0)
--- NOTE | 2022-04-19 22:57 | PC.NURSE ---
pt brought back from waiting room this rn assumed care of pt @ [id number]. partner at bedside. pt provided with urine specimen yumiko when able to produce urine. pt awaiting to be seen by ed provider
[2022-04-19 23:48] VITALS: BP 115/54; PULSE 78; RESP 20; TEMP 36.6; O2SAT 97
--- NOTE | 2022-04-19 23:48 | MHC.EDTECH ---
Pt unable to provide urine sample at this time. Pt made aware that sample is ordered and given water. Pt call ivis in reach and Nanci Morrison made aware
--- NOTE | 2022-04-20 00:46 | PC.NURSE ---
pt ambulatory at discharge. vss. skin pwd. pt provided with discharge packet. pt verbalized understanding of discharge plan
== END 2022-04-20 00:47 | disposition home or self-care (01) ==
PROVIDERS: Physician Assistant Medical; Emergency Provider Emergency Medicine Emergency Medical Services
DX: K59.00 Constipation, unspecified (principal); R10.30 Lower abdominal pain, unspecified; Z79.899 Other long term (current) drug therapy
CPT/HCPCS: 36415; 74018; 80053; 83690; 83735; 85025; 99283; 99284

== ENCOUNTER → 2022-04-29 13:47 | Outpatient (BNVA) | payer OTHER, SELFPAY | PROVIDERS: Visit Provider Physician Assistant Surgical | DX: Z13.89 Encounter for screening for other disorder (principal) ==

== ENCOUNTER → 2022-04-30 11:00 | Outpatient (BNVA) | payer OTHER, SELFPAY | PROVIDERS: Referring Provider Physician Assistant Surgical; Visit Provider Counselor Mental Health | DX: F43.20 Adjustment disorder, unspecified (principal); E66.9 Obesity, unspecified | CPT/HCPCS: 90791 ==

== ENCOUNTER 2022-05-27 08:33 | Outpatient (REF) | payer OTHER, SELFPAY ==
--- NOTE | ~2022-05-27 | FL_ITS ---
EXAMINATION: XR FLUOROSCOPY UPPER GI WITH AIR CLINICAL INFORMATION: Obesity. COMPARISON: None available. TECHNIQUE: Routine upper GI air-contrast study was performed in upright and lying position. FINDINGS: Following oral administration of thick barium and effervescent granules there is normal antegrade flow seen of bolus from the oral cavity through the pharynx, esophagus into stomach without any evidence of obstruction, narrowing or stricture. The course, caliber and peristalsis of the esophagus is normal. On placing patient supine and prone the course, caliber and peristalsis of the stomach and duodenum is normal. The mucosal pattern of stomach and the duodenum is normal. No gastroesophageal reflux or hiatal hernia seen. FLUOROSCOPY TIME: 1.9 minutes DOSE AREA PRODUCT: 28.581 uGy-m2 (microgray-meter squared) FL/FL upper GI w air IMPRESSION: Unremarkable upper GI examination.
== END 2022-05-27 08:34 | disposition home or self-care (01) ==
LOC: HO.US 08:33
PROVIDERS: Visit Provider Physician Assistant Surgical
DX: Z01.818 Encounter for other preprocedural examination (principal); E66.9 Obesity, unspecified; K21.9 Gastro-esophageal reflux disease without esophagitis; G47.33 Obstructive sleep apnea (adult) (pediatric)
CPT/HCPCS: 74246

== ENCOUNTER 2022-05-28 08:16 | Outpatient (REF) | payer OTHER, SELFPAY ==
--- NOTE | ~2022-05-28 | US_ITS ---
EXAMINATION: US COMPLETE ABDOMEN WITH LIVER ELASTOGRAPHY CLINICAL INFORMATION: Obesity COMPARISON: CT of the abdomen and pelvis June 2018 TECHNIQUE: Real-time imaging of the abdominal viscera. Noninvasive ultrasound liver fibrosis assessment is performed using Danay ElastPQ point quantification shear wave elastography (2D-SWE) with a C5-2 MHz transducer. Multiple elastography samples are obtained. FINDINGS: PANCREAS: Normal. ABDOMINAL AORTA: The proximal, middle, and distal aortic segments are normal in caliber. INFERIOR VENA CAVA: Visualized portions are normal. LIVER: Liver texture echotexture is increased. The liver demonstrates normal size, and contour. No focal lesion or intrahepatic biliary duct dilatation. The right lobe measures 15 cm in length. The left lobe measures 13 cm in length. Portal flow is normal/hepatopedal Shear wave liver elastography median stiffness is 1.4 m/s (reference: normal median stiffness is 1.3 m/s or less). IQR/median stiffness to assess sampling precision is 0.06 (reference: good quality data set is IQR/median stiffness of 0.15 or less). GALLBLADDER: Normal. The gallbladder is physiologically distended without evidence of stones, sludge, polyps, wall thickening or pericholecystic fluid. COMMON BILE DUCT: Normal in caliber measuring 0.7 cm in diameter. RIGHT KIDNEY: Normal. No hydronephrosis. No renal calculi or focal parenchymal lesions. The kidney measures 11 cm in maximum dimension. LEFT KIDNEY: Normal. No hydronephrosis. No renal calculi or focal parenchymal lesions. The kidney measures 10 cm in maximum dimension. SPLEEN: Normal. The spleen measures 8 cm in maximum dimension. FREE FLUID: None. US/US abdomen comp w elastography IMPRESSION: 1. Impression: Echogenic liver probably representing fatty infiltration. 2. Liver elastography: Adequate liver sampling. Normal liver stiffness. REFERENCE: Society of Radiologists in Ultrasound Liver Stiffness Thresholds (2020): LIVER STIFFNESS THRESHOLDS: *Liver Stiffness equal or less than 1.3 m/s: High probability of being normal. *Liver Stiffness less than 1.7 m/s: In the absence of other known clinical signs, rules out compensated advanced chronic liver disease. *Liver Stiffness 1.7-2.1 m/s: Suggestive of compensated advanced chronic liver disease but need further test for confirmation. *Liver Stiffness over 2.1 m/s: Rules in compensated advanced chronic liver disease. *Liver Stiffness over 2.4 m/s: Suggestive of clinically significant portal hypertension. QUALITY OF DATA SET: *IQR/Median value equal or less than 0.15 implies a quality data set. *IQR/Median value over 0.15 implies a poor quality data set. SIGNIFICANT CHANGE FROM PRIOR EXAM: Significant change if liver stiffness measurement is 10% or greater from prior exam. OTHER CONSIDERATIONS: The stage of liver fibrosis may be overestimated in the setting of acute hepatitis, liver inflammation, elevated liver function tests, hepatic vascular congestion, obstructive cholestasis, non-fasting state, and infiltrative diseases such as amyloidosis and lymphoma. In some patients with NAFLD, the liver stiffness thresholds for compensated advanced chronic liver disease may be lower. In causes other than viral hepatitis and NAFLD, liver stiffness thresholds are not well established.
== END 2022-05-28 08:17 | disposition home or self-care (01) ==
LOC: HO.US 08:16
PROVIDERS: Visit Provider Physician Assistant Surgical
DX: E66.9 Obesity, unspecified (principal); G47.33 Obstructive sleep apnea (adult) (pediatric)
CPT/HCPCS: 76705; 76981

== ENCOUNTER → 2022-06-18 15:31 | Outpatient (BNVA) | payer OTHER, SELFPAY | PROVIDERS: Visit Provider Surgery | DX: E66.9 Obesity, unspecified (principal); K58.9 Irritable bowel syndrome, unspecified; K59.09 Other constipation; K64.9 Unspecified hemorrhoids; G47.33 Obstructive sleep apnea (adult) (pediatric); F43.20 Adjustment disorder, unspecified; Z68.34 Body mass index [BMI] 34.0-34.9, adult | CPT/HCPCS: 99212 ==

== ENCOUNTER → 2022-07-02 09:09 | Outpatient (BNVA) | payer OTHER, SELFPAY | PROVIDERS: PCP Student in an Organized Health Care Education/Training Program; Visit Provider Physician Assistant Surgical ==

== ENCOUNTER → 2022-07-08 09:39 | Outpatient (BNVA) | payer OTHER, SELFPAY | PROVIDERS: PCP Student in an Organized Health Care Education/Training Program; Visit Provider Surgery | DX: E66.9 Obesity, unspecified (principal); G47.33 Obstructive sleep apnea (adult) (pediatric); R13.12 Dysphagia, oropharyngeal phase ==

== ENCOUNTER → 2022-07-09 08:09 | Outpatient (BNVA) | payer OTHER, SELFPAY | PROVIDERS: PCP Internal Medicine; Visit Provider Internal Medicine Gastroenterology ==

== ENCOUNTER → 2022-07-12 12:59 | Outpatient (BNVA) | payer OTHER, SELFPAY | PROVIDERS: PCP Student in an Organized Health Care Education/Training Program; Visit Provider Surgery ==

== ENCOUNTER 2022-07-17 07:42 | Inpatient (IN) | payer OTHER, SELFPAY ==
[2022-07-11 10:14] VITALS: BMI 32.7
[2022-07-12 12:59] LABS: MANUAL DIFF FLAG NO
[2022-07-12 14:02] LABS: Basophils Absolute Auto 0.1 X10*3/uL (0.0-0.2); Basophils Percent Auto 0.5 % (0-2); Eosinophils Absolute Auto 0.1 X10*3/uL (0.0-0.4); Eosinophils Percent Auto 1.4 % (0-4); Hematocrit 40.2 % (37.0-47.0); Hemoglobin 13.3 g/dl (12.0-16.0); Imm Gran Abs Auto 0.03 X10*3/uL (0.00-0.03); Imm Gran Pct Auto 0.3 % (0.0-0.4); Lymphocytes Percent Auto 20.5 % (20-40); Mean Corpuscular HGB Conc 33.1 g/dl (31.0-35.0); Mean Corpuscular Hemoglobin 30.2 pg (27.0-33.0); Mean Corpuscular Volume 91.4 fL (80.0-98.0); Mean Platelet Volume 11.9 fL (9.4-12.3); Monocytes Absolute Auto 0.6 X10*3/uL (0.1-1.2); Monocytes Percent Auto 6.2 % (2-11); Neutrophils Absolute Auto 6.8 x10*3/uL (2.0-8.3); Neutrophils Percent Auto 71.1 % (45-73); Platelet Count 321 X10*3/uL (160-400); Red Cell Distribution Width 11.9 % (11.0-16.0); White Blood Count 9.5 X10*3/uL (4.8-10.8)
[2022-07-12 14:12] LABS: Prothrombin Time 11.7 SEC (10.0-13.1)
[2022-07-12 14:13] LABS: Estimated Average Glucose 97 mg/dL
[2022-07-12 14:15] LABS: Partial Thromboplastin Time 38.9 SEC (26.0-36.4)
[2022-07-12 14:38] LABS: Alanine Aminotransferase 26 U/L (0-31); Albumin Level 4.5 g/dL (3.5-5.0); Alkaline Phosphatase 92 U/L (39-117); Anion Gap 14 (12-20); Aspartate Amino Transferase 23 U/L (5-31); Bilirubin Total 0.5 mg/dL (0.0-1.0); Blood Urea Nitrogen 23 mg/dL (9-16); C Reactive Protein 1.87 mg/dL (< or = 0.50); Calcium 9.7 mg/dL (8.4-10.2); Carbon Dioxide 27 mmol/L (22-29); Chloride 104 mmol/L (96-108); Cholesterol 182 mg/dL; Creatinine Clr Calc Pharmacy 72.2; Estimated Glomerular Filt Rate > 60; Glucose Random 82 mg/dL (60-115); HDL Cholesterol 39 mg/dL; Iron 67 mcg/dL (30-160); LDL Cholesterol Calculated 124 mg/dl; Percent Iron Saturation 21 % (15-50); Potassium 4.3 mmol/L (3.3-5.1); Sodium 141 mmol/L (135-145); Total Iron Binding Capacity 325 mcg/dL (228-428); Total Protein 7.8 g/dL (6.5-8.0); Triglycerides 97 mg/dL; Unsaturated Iron Binding 258 ug/dL
[2022-07-12 15:00] LABS: Ferritin 146 ng/mL (10-250); TSH reflex Free T4 2.28 uIU/mL (0.32-4.0); Vitamin B12 1644 pg/mL (200-900); Vitamin D 25-OH Total 63.4 ng/mL (>30)
--- NOTE | 2022-07-15 15:07 | HO.ANESPROP2 ---
Documented by User: Zahra Nascimento NP 07/15/22 15:08 HPI - Anesthesia Eval Consult details Narrative: 52yo F for Gastrectomy Sleeve,Egd,poss diaphragmatic Hernia,poss ventral hernia, poss open PMFSH Active Problems Active Problems: All Active Problems (Updated 07/11/22 @ 10:02 by Nichole Carson RN) Obesity (BMI 30-39.9) (Acute) Oropharyngeal dysphagia (Acute) Internal hemorrhoids (Acute) History of colon polyps (Acute) JOSE (obstructive sleep apnea) (Acute) Adjustment disorder, unspecified (Acute) Bleeding hemorrhoids (Acute) Chronic constipation (Acute) Irritable bowel syndrome (Acute) Past Medical History Medical History Admission for repair of scarred tissue Anxiety Arthritis Asthma Bleeding hemorrhoids Chronic constipation GERD (gastroesophageal reflux disease) Irritable bowel syndrome Sleep apnea Family History Family History Father Diabetes Brother Heart attack Paternal Grandmother Cancer Maternal Grandmother Cancer Surgical History Surgical History (Updated 07/17/22 @ 10:25 by Brittney Beckett MD) H/O colonoscopy H/O eye surgery H/O: hysterectomy History of arthroscopy of both knees History of esophagogastroduodenoscopy (EGD) Hx of appendectomy Hx of breast reduction, elective Hx of hemorrhoidectomy Vina teeth extracted Social History Social History Household Members: Spouse Are you a primary post acute care registered nurse to a significant other at home: Yes Do you presently have visiting nurse or other home services: No Alcohol intake: never Patient Tobacco Use Status: Never used Tobacco Use of substances other than those prescribed or required for medical reasons: No Have you been hit, kicked, punched, or otherwise hurt by someone within the past year? If so, by whom?: No Are you DNR?: No Advance Directives: No Advance Directives Information Provided: No Advance Directives on File: No Recently lost weight without trying: No Eating poorly because of decreased appetite: No Nutrition Risks: No Nutritional Risk Patient : No Poor oral hygiene: No Meds Allergies Allergy/AdvReac Type Severity Reaction Status Date / Time aspirin [ASPIRIN] Allergy Severe HIVES Verified 07/09/22 08:26 Fish Containing Products Allergy Severe HIVES/DYSPN Verified 07/09/22 08:26 EA oxycodone [From PERCOCET] Allergy Severe PALPITATION Verified 07/09/22 08:26 S/HIVES pumpkin Allergy Severe THROAT Verified 07/09/22 08:26 SWELLING squash Allergy Severe THROAT Verified 07/09/22 08:26 SWELLING Zucchini Allergy Mild Hives, Uncoded 07/09/22 08:26 Dysphagia Home Medications Medication Instructions Recorded Confirmed Last Taken Type albuterol sulfate 90 mcg/actuation 2 puff inhalation Q6H PRN Wheezing 05/24/20 07/11/22 Unknown History aerosol inhaler fluticasone propionate 110 2 puff inhalation BID 06/02/20 07/11/22 Unknown History mcg/actuation HFA aerosol inhaler (Flovent HFA) trospium 60 mg capsule,extended 60 mg PO DAILY 07/09/22 07/11/22 Unknown History release 24 hr buspirone 5 mg tablet 5 mg PO TID PRN Anxiety 07/11/22 07/11/22 Unknown History Exam Exam Date and Time: July 15, 2022 1508 Height,Weight and Vital Signs: Height 5 ft Weight 75.977 kg Pertinent Lab Results Pertinent Lab Results: Laboratory Tests 07/12/22 07/12/22 07/12/22 12:55 12:56 12:56 WBC 9.5 RBC 4.40 Hgb 13.3 Hct 40.2 MCV 91.4 MCH 30.2 MCHC 33.1 RDW 11.9 Plt Count 321 MPV 11.9 Immature Gran % (Auto) 0.3 Neut % (Auto) 71.1 Lymph % (Auto) 20.5 Meagher % (Auto) 6.2 Eos % (Auto) 1.4 Baso % (Auto) 0.5 Lymph # (Auto) 2.0 Meagher # (Auto) 0.6 Eos # (Auto) 0.1 Baso # (Auto) 0.1 Abs Immat Gran (auto) 0.03 Absolute Neuts (auto) 6.8 Absolute Nucleated RBC 0.000 Nucleated RBC % (auto) 0.0 PT 11.7 INR 1.0 APTT 38.9 H Sodium Potassium Chloride Carbon Dioxide Anion Gap BUN Creatinine Estim Creat Clear Calc Estimated GFR Random Glucose Estimat Average Glucose Hemoglobin A1c % Calcium Iron TIBC % Saturation Unsat Iron Binding Ferritin Total Bilirubin AST ALT Alkaline Phosphatase C-Reactive Protein Total Protein Albumin Triglycerides Cholesterol LDL Cholesterol, Calc HDL Cholesterol Vitamin B12 25-OH Vitamin D Total TSH Blood Type O Positive Antibody Screen NEGATIVE 07/12/22 07/12/22 12:56 12:56 WBC RBC Hgb Hct MCV MCH MCHC RDW Plt Count MPV Immature Gran % (Auto) Neut % (Auto) Lymph % (Auto) Meagher % (Auto) Eos % (Auto) Baso % (Auto) Lymph # (Auto) Meagher # (Auto) Eos # (Auto) Baso # (Auto) Abs Immat Gran (auto) Absolute Neuts (auto) Absolute Nucleated RBC Nucleated RBC % (auto) PT INR APTT Sodium 141 Potassium 4.3 Chloride 104 Carbon Dioxide 27 Anion Gap 14 BUN 23 H Creatinine 0.83 Estim Creat Clear Calc 72.2 Estimated GFR > 60 Random Glucose 82 Estimat Average Glucose 97 Hemoglobin A1c % 5.0 Calcium 9.7 Iron 67 TIBC 325 % Saturation 21 Unsat Iron Binding 258 Ferritin 146 Total Bilirubin 0.5 AST 23 ALT 26 Alkaline Phosphatase 92 C-Reactive Protein 1.87 H Total Protein 7.8 Albumin 4.5 Triglycerides 97 Cholesterol 182 LDL Cholesterol, Calc 124 HDL Cholesterol 39 Vitamin B12 1644 H 25-OH Vitamin D Total 63.4 TSH 2.28 Blood Type Antibody Screen Narrative Narrative: EKG 03/2022 Vent. Rate : 072 BPM ? ? Atrial Rate : 072 BPM ?? P-R Int : 156 ms? QRS Dur : 076 ms ? ? QT Int : 392 ms ? ? ? P-R-T Axes : 053 002 030 degrees ?? QTc Int : 429 ms ? Normal sinus rhythm Normal ECG When compared with ECG of 26-NOV-2020 04:32, No significant change was found Assessment and Plan Assessment Anesthesia Assessment: Chart Reviewed Documented by User: Brittney Beckett MD 07/17/22 10:28 [facility] Active Problems Active Problems: All Active Problems (Updated 07/17/22 @ 10:20by Brittney Beckett MD) Obesity (BMI 30-39.9) (Acute) Oropharyngeal dysphagia (Acute) Internal hemorrhoids (Acute) History of colon polyps (Acute) JOSE (obstructive sleep apnea) (Acute). Uses CPAP machine Adjustment disorder, unspecified (Acute) Bleeding hemorrhoids (Acute) Chronic constipation (Acute) Irritable bowel syndrome (Acute) Asthma. Stable. Inhaler prn Anxiety Past Medical History Medical History Admission for repair of scarred tissue Anxiety Arthritis Asthma Bleeding hemorrhoids Chronic constipation GERD (gastroesophageal reflux disease) Irritable bowel syndrome Sleep apnea Family History Family History Father Diabetes Brother Heart attack Paternal Grandmother Cancer Maternal Grandmother Cancer Family history of problems with anesthesia: No Surgical History Surgical History (Updated 07/17/22 @ 10:25 by Brittney Beckett MD) H/O colonoscopy H/O eye surgery H/O: hysterectomy History of arthroscopy of both knees History of esophagogastroduodenoscopy (EGD) Hx of appendectomy Hx of breast reduction, elective Hx of hemorrhoidectomy Vina teeth extracted History of Problems with Anesthesia: No Social History Social History Household Members: Spouse Are you a primary post acute care registered nurse to a significant other at home: Yes Do you presently have visiting nurse or other home services: No Alcohol intake: never Patient Tobacco Use Status: Never used Tobacco Use of substances other than those prescribed or required for medical reasons: No Have you been hit, kicked, punched, or otherwise hurt by someone within the past year? If so, by whom?: No Are you DNR?: No Advance Directives: No Advance Directives Information Provided: No Advance Directives on File: No Recently lost weight without trying: No Eating poorly because of decreased appetite: No Nutrition Risks: No Nutritional Risk Patient : No Poor oral hygiene: No Meds Allergies Allergy/AdvReac Type Severity Reaction Status Date / Time aspirin [ASPIRIN] Allergy Severe HIVES Verified 07/09/22 08:26 Fish Containing Products Allergy Severe HIVES/DYSPN Verified 07/09/22 08:26 EA oxycodone [From PERCOCET] Allergy Severe PALPITATION Verified 07/09/22 08:26 S/HIVES pumpkin Allergy Severe THROAT Verified 07/09/22 08:26 SWELLING squash Allergy Severe THROAT Verified 07/09/22 08:26 SWELLING Zucchini Allergy Mild Hives, Uncoded 07/09/22 08:26 Dysphagia Home Medications Medication Instructions Recorded Confirmed Last Taken Type albuterol sulfate 90 mcg/actuation 2 puff inhalation Q6H PRN Wheezing 05/24/20 07/11/22 Unknown History aerosol inhaler fluticasone propionate 110 2 puff inhalation BID 06/02/20 07/11/22 Unknown History mcg/actuation HFA aerosol inhaler (Flovent HFA) trospium 60 mg capsule,extended 60 mg PO DAILY 07/09/22 07/11/22 Unknown History release 24 hr buspirone 5 mg tablet 5 mg PO TID PRN Anxiety 07/11/22 07/11/22 Unknown History Exam Height,Weight and Vital Signs: Height 5 ft Weight 75.977 kg Vital Signs Temp Pulse Resp BP Pulse Ox O2 Del Method 07/17/22 08:24 97.2 F 81 16 102/50 L 97 Room Air Pertinent Lab Results Pertinent Lab Results: Laboratory Tests 07/12/22 07/12/22 07/12/22 12:55 12:56 12:56 WBC 9.5 RBC 4.40 Hgb 13.3 Hct 40.2 MCV 91.4 MCH 30.2 MCHC 33.1 RDW 11.9 Plt Count 321 MPV 11.9 Immature Gran % (Auto) 0.3 Neut % (Auto) 71.1 Lymph % (Auto) 20.5 Meagher % (Auto) 6.2 Eos % (Auto) 1.4 Baso % (Auto) 0.5 Lymph # (Auto) 2.0 Meagher # (Auto) 0.6 Eos # (Auto) 0.1 Baso # (Auto) 0.1 Abs Immat Gran (auto) 0.03 Absolute Neuts (auto) 6.8 Absolute Nucleated RBC 0.000 Nucleated RBC % (auto) 0.0 PT 11.7 INR 1.0 APTT 38.9 H Sodium Potassium Chloride Carbon Dioxide Anion Gap BUN Creatinine Estim Creat Clear Calc Estimated GFR Random Glucose Estimat Average Glucose Hemoglobin A1c % Calcium Iron TIBC % Saturation Unsat Iron Binding Ferritin Total Bilirubin AST ALT Alkaline Phosphatase C-Reactive Protein Total Protein Albumin Triglycerides Cholesterol LDL Cholesterol, Calc HDL Cholesterol Vitamin B12 25-OH Vitamin D Total TSH Blood Type O Positive Antibody Screen NEGATIVE 07/12/22 07/12/22 12:56 12:56 WBC RBC Hgb Hct MCV MCH MCHC RDW Plt Count MPV Immature Gran % (Auto) Neut % (Auto) Lymph % (Auto) Meagher % (Auto) Eos % (Auto) Baso % (Auto) Lymph # (Auto) Meagher # (Auto) Eos # (Auto) Baso # (Auto) Abs Immat Gran (auto) Absolute Neuts (auto) Absolute Nucleated RBC Nucleated RBC % (auto) PT INR APTT Sodium 141 Potassium 4.3 Chloride 104 Carbon Dioxide 27 Anion Gap 14 BUN 23 H Creatinine 0.83 Estim Creat Clear Calc 72.2 Estimated GFR > 60 Random Glucose 82 Estimat Average Glucose 97 Hemoglobin A1c % 5.0 Calcium 9.7 Iron 67 TIBC 325 % Saturation 21 Unsat Iron Binding 258 Ferritin 146 Total Bilirubin 0.5 AST 23 ALT 26 Alkaline Phosphatase 92 C-Reactive Protein 1.87 H Total Protein 7.8 Albumin 4.5 Triglycerides 97 Cholesterol 182 LDL Cholesterol, Calc 124 HDL Cholesterol 39 Vitamin B12 1644 H 25-OH Vitamin D Total 63.4 TSH 2.28 Blood Type Antibody Screen Laboratory Results - last 24 hr 07/16/22 13:47 COVID-19 ([facility]) Negative COVID-19 Clin Com See Note Airway Mallampati Class: II TM Dist: >3cm Neck ROM: Full Loose/Missing/Broken Teeth: Yes (Missing wisdom teeth. Denies broken or loose teeth) Heart: RRR Lungs: CTAB. No wheezing Assessment and Plan Assessment Anesthesia Assessment: Anesthesia Plan Discussed Final Anesthetic Review Family History of Problems with Anesthesia: No History of Problems with Anesthesia: No NPO: Yes ASA Class: III Final Preanesthetic Review: No Changes in Pt Med Stat, Meds/Allgs Chart Reviewed, Consent Obtained/Reviewed and Anes Risks/Benef Reviewed Patient Risk: Intermediate Procedure Risk: Intermediate Assessment/Block/Sedation in SS: Assess/Block/Sedation- Anesthetic Plan Anesthetic Plan: GA Disposition: Standard PACU and Inp. Admit - Standard Bed
[2022-07-15 15:54] LABS: Calcium (PTHI) 9.8 mg/dL (8.6-10.4); PTHI 51 pg/mL (16-77)
[2022-07-16 14:09] LABS: COVID-19 Test Negative (Negative); IDNOW Serial# 08D9AD1C
[2022-07-17] VITALS (12 sets, daily range): BP systolic 102–131; BP diastolic 50–85; PULSE 76–99; RESP 16–18; TEMP 36.2–36.9; O2SAT 91–98; BMI 31.8
--- OUTSIDE RECORDS SUMMARY | 2022-07-17 07:47 | XMS_ITS | Continuity of Care Document ---
Author Name Unknown Organization [facility] Address Unknown Care Team Providers Care Signal Tower Director Name Role Phone José Davis MD Primary Care Physician [place] [facility] [place](s): 08/29/21 - 09/28/21 [facility] Allergies, Adverse Reactions, Alerts Substance Reaction Severity Status aspirin hives Active narcotic analgesics Active Fish hives Active Pollen Active Other Food Allergy pumpkin, zuchinni, squash Active Percocet 5/325 palpitations Active traMADol hallucinations Active Immunizations Given and Recorded Vaccine Date Status Refusal Reason SARS-CoV-2 (COVID-19) mRNA-1273 vaccine 04/13/20 R ecorded SARS-CoV-2 (COVID-19) mRNA-1273 vaccine 03/16/20 R ecorded influenza virus vaccine, inactivated 1 12/28/19 Gi jb influenza virus vaccine, inactivated 2 03/02/19 Gi jb influenza virus vaccine, inactivated 01/27/18 Give n influenza virus vaccine, inactivated 01/31/16 Give n influenza virus vaccine, inactivated 11/23/13 Give n influenza virus vaccine, inactivated 03/09/12 Give n pneumococcal 23-valent vaccine 06/04/17 Given tetanus/diphtheria/pertussis, acel(Tdap) 01/31/16 Given tetanus-diphtheria toxoids (Td) 05/12/02 Given 1Result Comment: [facility] [id number] 2Result Comment: [facility] [id number] Medications albuterol 0.083% inhalation solution 3 mL = 2.5 mg, Inhalation, Every 6 hours, PRN as needed for wheezing, # 125 each, 5 Refills, Maintenance, 06/08/18 8:19:36 EDT Start Date: 06/08/18 Status: Ordered albuterol CFC free 90 mcg/inh inhalation aerosol 2, puffs, Inhalation, Every 6 hours, PRN, # 1 each, Refills 2, Tot. Refills 2, Maintenance, 05/07/19 8:27:00 EDT, Aerosol, Route to Pharmacy Electronically, [id number], [facility]/pharmacy #[id number], 152, cm, 05/07/19 7:59:00 EDT, Heigh... Start Date: 05/07/19 Status: Ordered Combivent Respimat 20 mcg-100 mcg/inh inhalation aerosol TAKE 1 INHALATION INTO THE LUNGS ONCE DAILY Start Date: 07/11/21 Status: Ordered fluticasone CFC free 110 mcg/inh inhalation aerosol 2 puffs, Inhalation, 2 times a day, # 3 each, 3 Refills, Maintenance, 01/27/20 13:31:00 EST, Aerosol, [facility], 152, cm, 12/28/19 15:10:00 EST, Height Start Date: 01/27/20 Status: Ordered hydrocortisone 2.5% topical cream 0 Refills, Maintenance, 06/29/19 13:49:00 EDT Start Date: 06/29/19 Status: Ordered HydrOXYzine Prescribed by derm, 0 Refills, Maintenance, 11/27/17 15:22:45 EDT Start Date: 11/27/17 Status: Ordered lansoprazole 30 mg oral enteric coated capsule TAKE 1 CAPSULE BY MOUTH TWICE A DAY Start Date: 07/11/21 Status: Ordered Senna Plus 50 mg-8.6 mg oral tablet 1 tablet, By Mouth, 2 times a day, 0 Refills, Maintenance, 03/02/19 14:15:00 EST Start Date: 03/02/19 Status: Ordered sucralfate 1 gm oral tablet 1 Gm, 1, tablet, By Mouth, 4 times a day, # 120 tablet, Refills 0, Maintenance, 02/22/19 12:49:00 EST Start Date: 02/22/19 Status: Ordered Problem List Condition Effective Dates Status Health Status Inform ant Adjustment disorder with anxiety(Confirmed) Active Asthma(Confirmed) Active Dysplasia of cervix, high gr dante BRII 2(Confirmed) 2005 Active ; Chronic urticaria(Confirmed) 02/2005 Active Constipation, chronic(Confirmed) Active Eczema(Confirmed) Active History of adenomatous polyp of colon(Confirmed) 2 09/22/16 Active Microscopic hematuria(Confirmed) 1999 Active Migraine(Confirmed) 2005 Active Nonulcer dyspepsia(Confirmed) 2003 Active Obese class II(Confirmed) Active Obsessive behavior(Confirmed) Active Obstructive sleep apnea (AH! 16.4, O2 85%)(Confirmed) 10/23/19 Active 1Status post hysterectomy 2tubular and serrated Social History Social History Type Response Smoking Status Never smoker entered on: 05/21/13 Sex
--- OUTSIDE RECORDS SUMMARY | 2022-07-17 07:47 | XMS_ITS | Continuity of Care Document ---
Author Name Unknown Organization [facility] Address [address] [place], [place] [address]i ve [address] [place] [address]- Care Team Providers Care Upholstery Parts Sorter Name Role Phone José Davis MD Primary Care Physician Encounter [facility] Date(s): 09/03/21 - 11/01/21 [facility] [address] [place] [address]- Attending Physician: Dhruv Barron Referring Physician: José Davis MD Allergies, Adverse Reactions, Alerts Substance Reaction Severity [...] toxoids (Td) 05/12/02 Given 1Result Comment: FLU [facility] [id number] 2Result Comment: FL[facility] [id number] Medications albuterol 0.083% inhalation solution 3 mL [...] 8:27:00 EDT, Aerosol, Route to Pharmacy Electronically, [id number], [facility]/pharmacy #[id number], 152, cm, 05/07/19 7:59:00 EDT, Heigh... [...] Status Never smoker entered on: 05/21/13 Sex Care Team Personnel Name: Susan RIOS, José Bowden [facility] [place], [place] [address]
--- OUTSIDE RECORDS SUMMARY | 2022-07-17 07:47 | XMS_ITS | Continuity of Care Document ---
Author Name Unknown Organization [facility] Address [address] [place] [address]- Care Team Providers Care Coke Crusher Operator Name Role Phone Susan RIOS, José Bowden Primary Care Physician En[place] [facility] [place] Date(s): 10/24/20 - 11/23/20 [facility] [address] [place] [address]- Allergies, Adverse Reactions, Alerts Substance Reaction Severity [...] toxoids (Td) 05/12/02 Given 1Result Comment: FLU [facility] [id number] 2Result Comment: FLU [facility] [id number] Medications albuterol 0.083% inhalation solution 3 mL [...] 8:27:00 EDT, Aerosol, Route to Pharmacy Electronically, [id number], [facility]/pharmacy #[id number], 152, cm, 05/07/19 7:59:00 EDT, Heigh... Start Date: 05/07/19 Status: Ordered baclofen 10 mg oral tablet 10 mg, 1, tablet, By Mouth, 3 times a day, # 30 tablet, Refills 0, Tot. Refills 0, Maintenance, 03/27/20 10:25:00 EST, Route to Pharmacy Electronically, [facility]/pharmacy #[id number], Partial fill upon patient request if the prescription is for a schedule II opi... Start Date: 03/27/20 Stop Date: 04/06/20 Status: Ordered CPAP Machine See Instructions, # 1 each, Maintenance, Auto CPAP 6-16 cm pressure with heat, humidity and compliance tracking, 11/02/19 13:35:00 EDT, Compound Start Date: 11/02/19 Status: Ordered CPAP Equipment See Instructions, # 1 each, Refills 11, Tot. Refills 11, Maintenance, Mask, tubing, filters, head gear, chin strap, water chamber. Use nightly with compressor, 11/02/19 13:35:00 EDT, Compound Start Date: 11/02/19 Status: Ordered dicyclomine 20 mg oral tablet 1 tablet = 20 mg, By Mouth, 4 times a day, 0 Refills, Maintenance, 02/22/19 12:49:00 EST Start Date: 02/22/19 Status: Ordered fluticasone CFC free 110 mcg/inh [...] 15:22:45 EDT Start Date: 11/27/17 Status: Ordered Senna Plus 50 mg-8.6 mg [...] Effective Dates Status Health Status Inform ant Colon adenomas (tubular and serrated)(Confirmed) 09/22/16 Active Adjustment disorder with anxiety(Confirmed) Active Asthma(Confirmed) Active Dysplasia of cervix, high gr dante BRII 2(Confirmed) 2005 Active ; Chronic urticaria(Confirmed) 02/2005 Active Constipation, chronic(Confirmed) Active Eczema(Confirmed) Active Microscopic hematuria(Confirmed) 1999 Active Migraine(Confirmed) 2005 Active Nonulcer dyspepsia(Confirmed) 2003 Active Obsessive behavior(Confirmed) Active Obstructive sleep apnea (AH! 16.4, O2 85%)(Confirmed) 10/23/19 Active 1Status post hysterectomy Social History Social History Type Response Smoking Status Never smoker entered on: 05/21/13 Sex
--- OUTSIDE RECORDS SUMMARY | 2022-07-17 07:47 | XMS_ITS | Continuity of Care Document ---
Author Name Unknown Organization [facility] Address [address] [place] [address]- Care Team Providers Care Classroom Paraprofessional Name Role Phone José Davis MD Primary Care Physician [place] [facility] [place] [facility] [place](s[place] 03/16/19 - 07/14/19 [facility] [address] [place] [address]- [facility] Attending Physician: José Davis MD Allergies, Adverse Reactions, Alerts Substance Reaction Severity Status aspirin hives Active narcotic analgesics Active Fish hives Active Pollen Active Other Food Allergy pumpkin, zuchinni, squash Active Percocet 5/325 palpitations Active traMADol hallucinations Active Immunizations Given and Recorded Vaccine Date Status Refusal Reason influenza virus vaccine, inactivated 1 03/02/19 Gi jb influenza virus vaccine, inactivated 01/27/18 Give n influenza virus vaccine, inactivated 01/31/16 Give n influenza virus vaccine, inactivated 11/23/13 Give n influenza virus vaccine, inactivated 03/09/12 Give n pneumococcal 23-valent vaccine 06/04/17 Given tetanus/diphtheria/pertussis, acel(Tdap) 01/31/16 Given tetanus-diphtheria toxoids (Td) 05/12/02 Given 1Result Comment: FLU [facility] [id number] Medications albuterol 0.083% inhalation solution 3 mL [...] 8:27:00 EDT, Aerosol, Route to Pharmacy Electronically, [id number], [facility]/pharmacy #[id number], 152, cm, 05/07/19 7:59:00 EDT, Heigh... Start Date: 05/07/19 Status: Ordered busPIRone 5 mg oral tablet 5 mg, 1, tablet, By Mouth, 3 times a day, 2 tablets 3 times a day as of 06/29/2019, # 90 tablet, Refills 5, Tot. Refills 5, Maintenance, 06/28/19 16:34:00 EDT, Route to Pharmacy Electronically, [facility]/pharmacy #[id number], 152, cm, 05/07/19 7:59:00 EDT, Height,... Start Date: 06/28/19 Stop Date: 12/25/19 Status: Ordered dicyclomine 20 mg oral tablet 1 tablet = 20 mg, By Mouth, 4 times a day, 0 Refills, Maintenance, 02/22/19 12:49:00 EST Start Date: 02/22/19 Status: Ordered doxycycline hyclate 100 mg oral tablet 1 tablet = 100 mg, By Mouth, 2 times a day, for 10 days, # 20 tablet, 0 Refills, Acute 07/16/19 16:34:00 EDT, 07/06/19 16:34:00 EDT, [facility]/pharmacy #[id number], 152, cm, 07/06/19 16:02:00 EDT, Height, 82.7, kg, 11/24/17 15:44:00 EDT, Dry Weight Start Date: 07/06/19 Stop Date: 07/16/19 Status: Ordered fluticasone CFC free 110 mcg/inh inhalation aerosol 2 puffs, Inhalation, 2 times a day, # 12 Gm, 2 Refills, Maintenance, 05/07/19 8:26:00 EDT, Aerosol,[facility]/pharmacy #[id number], 152, cm, 05/07/19 7:59:00 EDT, Height, 82.7, kg, 11/24/17 15:44:00 EDT, Dry Weight Start Date: 05/07/19 Status: Ordered hydrocortisone 2.5% topical cream 0 Refills, Maintenance, 06/29/19 13:49:00 EDT Start Date: 06/29/19 Status: Ordered HydrOXYzine Prescribed by derm, 0 Refills, Maintenance, 11/27/17 15:22:45 EDT Start Date: 11/27/17 Status: Ordered lansoprazole 30 mg oral enteric coated capsule 0 Refills, Maintenance, 06/29/19 13:49:00 EDT Start Date: 06/29/19 Status: Ordered raNITIdine 300 mg oral capsule 1 capsule = 300 mg, By Mouth, Daily at bedtime, # 30 capsule, 0 Refills, Maintenance, 06/29/19 13:50:00 EDT, Capsule Start Date: 06/29/19 Status: Ordered Senna Plus 50 mg-8.6 mg [...] Nonulcer dyspepsia(Confirmed) 2003 Active Obsessive behavior(Confirmed) Active 1Status post hysterectomy Social History Social History Type Response Smoking Status Never smoker entered on: 05/21/13 Sex
--- OUTSIDE RECORDS SUMMARY | 2022-07-17 07:47 | XMS_ITS | Continuity of Care Document ---
Author Name Unknown Organization [facility] ter Address [address] [place] [address]- Care Team Providers Care Stone Rigger Name Role Phone José Davis MD Primary Care Physician [place] [facility] [place] - 03/10/[address] [address]- [facility] Attending Physician: José Davis MD Allergies, [...] toxoids (Td) 05/12/02 Given 1Result Comment: FLU [facility] [id number] Medications albuterol 0.083% inhalation solution 3 mL = 2.5 mg, Inhalation, Every 6 hours, PRN as needed for wheezing, # 125 each, 5 Refills, Maintenance, 06/08/18 8:19:36 EDT Start Date: 06/08/18 Status: Ordered albuterol CFC free 90 mcg/inh inhalation aerosol 2, puffs, Inhalation, Every 6 hours, PRN, # 1 each, Refills 2, Tot. Refills 2, Maintenance, 11/24/17 16:17:59 EDT, Aerosol, Route to Pharmacy Electronically, [id number], [facility]/pharmacy #[id number], Compound Start Date: 11/24/17 Status: Ordered dicyclomine 20 mg oral tablet 1 tablet = 20 mg, By Mouth, 4 times a day, 0 Refills, Maintenance, 02/22/19 12:49:00 EST Start Date: 02/22/19 Status: Ordered Flovent 110 mcg Inhaler HFA 2, puffs, Inhalation, 3 times a day, Refills 0, Maintenance, 03/02/19 14:15:00 EST Start Date: 03/02/19 Status: Ordered HydrOXYzine Prescribed by derm, 0 Refills, Maintenance, 11/27/17 15:22:45 EDT Start Date: 11/27/17 Status: Ordered MiraLax oral powder for reconstitution 17 g, By Mouth, Daily, (dissolve in water or juice), # 527 Gm, 11 Refills, Maintenance, 08/11/18 17:19:34 EDT Start Date: 08/11/18 Status: Ordered pantoprazole 40 mg oral delayed release tablet 1 tablet = 40 mg, By Mouth, 2 times a day, # 60 tablet, 0 Refills, Maintenance, 03/02/19 14:15:00 EST, CR Tablet Start Date: 03/02/19 Status: Ordered raNITIdine 300 mg oral tablet 1 tablet = 300 mg, By Mouth, 2 times a day, 0 Refills, Maintenance, 03/02/19 14:20:00 EST Start Date: 03/02/19 Status: Ordered Senna Plus 50 mg-8.6 mg [...]
--- OUTSIDE RECORDS SUMMARY | 2022-07-17 07:48 | XMS_ITS | Continuity of Care Document ---
Author Name Unknown Organization [facility] Adult Address [address] [place] [address]- Care Team Providers Care Shell Maker Lockstitch Name Role Phone José Davis MD Primary Care Physician Encounter [facility] Date(s): 01/03/20 - 02/02/20 [facility] Adult [address] [place] [address]- Allergies, Adverse Reactions, Alerts Substance Reaction Severity Status aspirin hives Active narcotic analgesics Active Fish hives Active Pollen Active Other Food Allergy pumpkin, zuchinni, squash Active Percocet 5/325 palpitations Active traMADol hallucinations Active Immunizations Given and Recorded Vaccine Date Status Refusal Reason influenza virus vaccine, inactivated 1 12/28/19 Gi jb influenza virus vaccine, inactivated 2 03/02/19 Gi jb influenza virus vaccine, inactivated 01/27/18 Give n influenza virus vaccine, inactivated 01/31/16 Give n influenza virus vaccine, inactivated 11/23/13 Give n influenza virus vaccine, inactivated 03/09/12 Give n pneumococcal 23-valent vaccine 06/04/17 Given tetanus/diphtheria/pertussis, acel(Tdap) 01/31/16 Given tetanus-diphtheria toxoids (Td) 05/12/02 Given 1Result Comment: FLU [facility] 30538-531-90 2Result Comment: FLU [facility] 70104-381-25 Medications albuterol 0.083% inhalation solution 3 mL [...] 8:27:00 EDT, Aerosol, Route to Pharmacy Electronically, [id number], [facility]/pharmacy #[id number], 152, cm, 05/07/19 7:59:00 EDT, Heigh... Start Date: 05/07/19 Status: Ordered CPAP Machine See Instructions, # [...] 13:49:00 EDT Start Date: 06/29/19 Status: Ordered Senna Plus [...]
--- OUTSIDE RECORDS SUMMARY | 2022-07-17 07:48 | XMS_ITS | Continuity of Care Document ---
Author Name Unknown Organization [facility] Adult Address [address] [place] [address]- Care Team Providers Care Dining Car Waiter/Waitress Name Role Phone José Davis MD Primary Care Physician Encounter [facility] [place] Date(s): 09/08/19 - 10/08/19 [facility] Adult [address] [place] [address]- [facility] Allergies, Adverse Reactions, Alerts Substance Reaction Severity [...] toxoids (Td) 05/12/02 Given 1Result Comment: FLU [facility] 42550-412-16 Medications albuterol 0.083% inhalation solution 3 mL [...] 8:27:00 EDT, Aerosol, Route to Pharmacy Electronically, [id number], [facility]/pharmacy #[id number], 152, cm, 05/07/19 7:59:00 EDT, Heigh... Start Date: 05/07/19 Status: Ordered busPIRone 5 mg oral tablet 5 mg, 1, tablet, By Mouth, 3 times a day, 2 tablets 3 times a day as of 06/29/2019, # 90 tablet, Refills 5, Tot. Refills 5, Maintenance, 06/28/19 16:34:00 EDT, Route to Pharmacy Electronically, [facility]/pharmacy #[id number], 152, cm, 05/07/19 7:59:00 EDT, Height,... Start Date: 06/28/19 Stop Date: 12/25/19 Status: Ordered dicyclomine 20 mg oral tablet 1 tablet = 20 mg, By Mouth, 4 times a day, 0 Refills, Maintenance, 02/22/19 12:49:00 EST Start Date: 02/22/19 Status: Ordered fluticasone CFC free 110 mcg/inh inhalation aerosol 2 puffs, Inhalation, 2 times a day, # 12 Gm, 2 Refills, Maintenance, 09/12/19 22:43:00 EDT, [facility]ol[id number], cm, 07/06/19 16:02:00 EDT, Height, 82.7, kg, 11/24/17 15:44:00 EDT, Dry Weight Start Date: 09/12/19 Status: Ordered hydrocortisone 2.5% topical cream 0 [...]
--- OUTSIDE RECORDS SUMMARY | 2022-07-17 07:48 | XMS_ITS | Continuity of Care Document ---
Author Name Unknown Organization [facility] Adult Address [address] [place] [address]- Care Team Providers Care Community Advocate Name Role Phone José Davis MD Primary Care Physician [place] [facility] [place](s): 02/29/20 - 03/30/20 [facility] Adult [address] [place] [address]- Allergies, Adverse Reactions, Alerts Substance Reaction Severity [...] toxoids (Td) 05/12/02 Given 1Result Comment: FLU [facility] 23180-967-40 2Result Comment: FLU [facility] 69074-899-63 Medications albuterol 0.083% inhalation solution 3 mL [...] 8:27:00 EDT, Aerosol, Route to Pharmacy Electronically, [id number], [facility]/pharmacy #[id number], 152, cm, 05/07/19 7:59:00 EDT, Heigh... Start Date: 05/07/19 Status: Ordered baclofen 10 mg oral tablet 10 mg, 1, tablet, By Mouth, 3 times a day, # 30 tablet, Refills 0, Tot. Refills 0, Maintenance, 03/27/20 10:25:00 EST, Route to Pharmacy Electronically, [facility]/pharmacy #[id number], Partial fill upon patient request if [...]
--- OUTSIDE RECORDS SUMMARY | 2022-07-17 07:48 | XMS_ITS | Continuity of Care Document ---
Author Name Unknown Organization [facility] Adult Address [address] [place] [address]- Care Team Providers Care Commercial Analyst Name Role Phone Vianney Brandon Primary Care Physician Encounter [facility] Date(s): 02/27/22 - 03/29/22 [facility] Adult [address] [place] [address]- Allergies, Adverse Reactions, Alerts Substance Reaction Severity Status aspirin hives Active narcotic analgesics Active Fish hives Active traMADol hallucinations Active Percocet 5/325 palpitations Active Pollen Active Other Food Allergy pumpkin, zuchinni, squash Active Immunizations Given and Recorded Vaccine Date Status Refusal Reason pneumococcal 20-valent conjugate vaccine 1 03/01/22 Given influenza virus vaccine, inactivated 03/01/22 Give n influenza virus vaccine, inactivated 2 12/28/19 Gi jb influenza virus vaccine, inactivated 3 03/02/19 Gi jb influenza virus vaccine, inactivated 01/27/18 Give n influenza virus vaccine, inactivated 01/31/16 Give n influenza virus vaccine, inactivated 11/23/13 Give n influenza virus vaccine, inactivated 03/09/12 Give n [id number] bivalent booster vax 11/15/21 Recorded SARS-CoV-2 (COVID-19) mRNA-1273 vaccine 04/13/20 R ecorded SARS-CoV-2 (COVID-19) mRNA-1273 vaccine 03/16/20 R ecorded pneumococcal 23-valent vaccine 06/04/17 Given tetanus/diphtheria/pertussis, acel(Tdap) 01/31/16 Given tetanus-diphtheria toxoids (Td) 05/12/02 Given 1Result Comment: [facility] [id number] 2Result Comment: FLU [facility] 05995-229-22 3Result Comment: FLU [facility] 81243-267-88 Medications albuterol 0.083% inhalation solution 3 mL [...] 8:27:00 EDT, Aerosol, Route to Pharmacy Electronically, [id number], [facility]/pharmacy #[id number], 152, cm, 05/07/19 7:59:00 EDT, Heigh... Start Date: 05/07/19 Status: Ordered Combivent Respimat 20 mcg-100 mcg/inh inhalation aerosol TAKE 1 INHALATION INTO THE LUNGS ONCE DAILY Start Date: 07/11/21 Status: Ordered CPAP Machine See Instructions, # 1 each, Maintenance, use nightly for [place] Dx G47.33 AutoCPAP 6-16 cm H20, use Daily when sleeping, 03/01/22 13:08:00 EST, Supply Start Date: 03/01/22 Status: Ordered CPAP Equipment See Instructions, # 1 each, Refills 11, Tot. Refills 11, Maintenance, Dx G47.33 Mask tubing filtershead gear chin strap water chamber, 03/01/22 13:08:00 EST, Supply Start Date: 03/01/22 Status: Ordered fluticasone CFC free 110 mcg/inh [...] 12:49:00 EST Start Date: 02/22/19 Status: Ordered trospium chloride 20 mg oral tablet 1 tablet = 20 mg, By Mouth, 2 times a day, # 60 tablet, 0 Refills, Maintenance, 01/30/22 12:38:00 EST, Tablet, Partial fill upon patient request if the prescription is for a schedule II opioid drug. Start Date: 01/30/22 Status: Ordered Problem List Condition Confirmation Course Effective Dates Status Health St atus Informant Adjustment disorder with anxiety Confirmed Active Asthma Confirmed Active Dysplasia of cervix, high grade BRII 2 1 Confirmed 2005 Active ; Chronic urticaria Confirmed 02/2005 Active Constipation, chronic Confirmed Active Eczema Confirmed Active History of adenomatous polyp of colon 2 Confirmed 09/22/16 Active Microscopic hematuria Confirmed 1999 Active Migraine Confirmed 2005 Active Nonulcer dyspepsia Confirmed 2003 Active Obsessive behavior Confirmed Active Obstructive sleep apnea (AH! 16.4, O2 85%) Confirmed 10/23/19 Active Severe obesity (BMI 35.0-39.9) with comorbidity Confirmed Active 1Status post hysterectomy 2tubular and serrated Social History Social History Type Response Smoking Status Never smoker entered on: 05/21/13 Sex Patient Care team information Care Team Personnel Name: Shane Sánchez RN, Jazmyne Position: [facility] RN Member Role: Primary Care Nurse Name: Vianney Brandon Position: [facility] Associate Professional Member Role: PCP Address: Address: [address] [place] [address]. [address] [place] [address]- Care Team Related Persons Name: MIKE LEACH Address: [address] [address]
--- OUTSIDE RECORDS SUMMARY | 2022-07-17 07:48 | XMS_ITS | Continuity of Care Document ---
Author Name Unknown Organization [facility] ter Address [address] [place] [address]- Care Team Providers Care Sample Wrapper Name Role Phone José Davis MD Primary Care Physician Encounter [facility] Date(s): 01/01/20 - 02/20/[address] [address] Attending Physician: José Davis MD Admitting Physician: José Davis MD Referring Physician: José Davis MD Allergies, Adverse [...] toxoids (Td) 05/12/02 Given 1Result Comment: FLU [facility] 88100-539-53 2Result Comment: FLU [facility] 64937-356-80 Medications albuterol 0.083% inhalation solution 3 mL [...] 8:27:00 EDT, Aerosol, Route to Pharmacy Electronically, [id number], [facility]/pharmacy #[id number], 152, cm, 05/07/19 7:59:00 EDT, Hearacelis... Start Date: 05/07/19 Status: Ordered CPAP Machine [...]
--- OUTSIDE RECORDS SUMMARY | 2022-07-17 07:48 | XMS_ITS | Continuity of Care Document ---
Author Name Unknown Organization [facility] Adult Address [address] [place] [address]- Care Team Providers Care Manager Software Name Role Phone José Davis MD Primary Care Physician En[place] [facility] Date(s): 03/27/20 - 04/26/[address] [facility] Adult [address] [place] [address]- Allergies, Adverse Reactions, Alerts Substance Reaction Severity [...] toxoids (Td) 05/12/02 Given 1Result Comment: FLU [facility] 92269-443-64 2Result Comment: FLU [facility] 67409-061-54 Medications albuterol 0.083% inhalation solution 3 mL [...] 8:27:00 EDT, Aerosol, Route to Pharmacy Electronically, [id number], [facility]/pharmacy #[id number], 152, cm, 05/07/19 7:59:00 EDT, Heigh... Start Date: 05/07/19 Status: Ordered baclofen 10 mg oral tablet 10 mg, 1, tablet, By Mouth, 3 times a day, # 30 tablet, Refills 0, Tot. Refills 0, Maintenance, 03/27/20 10:25:00 EST, Route to Pharmacy Electronically, [facility]/pharmacy #[id number], Partial fill upon patient request if [...]
--- OUTSIDE RECORDS SUMMARY | 2022-07-17 07:48 | XMS_ITS | Continuity of Care Document ---
Author Name Unknown Organization [facility] Adult Address [address] [place] [address]- Care Team Providers Care Inspector Eyeglass Frames Name Role Phone José Davis MD Primary Care Physician [place] [facility] [place] 03/[place]/20 - 04/07/20 [facility] Adult [address] [place] [address]- Encounter Diagnosis Back pain(Discharge Diagnosis) - 03/31/20 Obstructive sleep apnea (AH! 16.4, O2 85%)(Discharge Diagnosis) - 03/31/20 Nonulcer dyspepsia(Discharge Diagnosis) - 03/31/20 Dyspnea on effort(Discharge Diagnosis) - 03/31/20 Attending Physician: José Davis MD Allergies, Adverse [...] toxoids (Td) 05/12/02 Given 1Result Comment: FLU [facility] 10007-520-06 2Result Comment: FLU [facility] 06257-576-18 Medications albuterol 0.083% inhalation solution 3 mL [...] 8:27:00 EDT, Aerosol, Route to Pharmacy Electronically, [id number], [facility]/pharmacy #[id number], 152, cm, 05/07/19 7:59:00 EDT, Heigh... Start Date: 05/07/19 Status: Ordered baclofen 10 mg oral tablet 10 mg, 1, tablet, By Mouth, 3 times a day, # 30 tablet, Refills 0, Tot. Refills 0, Maintenance, 03/27/20 10:25:00 EST, Route to Pharmacy Electronically, [facility]/pharmacy #[id number], Partial fill upon patient [...] O2 85%)(Confirmed) 10/23/19 Active 1Status post hysterectomy Diagnosis Diagnosis Type Effective Dates Health Status Clinical Service Informant Back pain Discharge Diagnosis 03/31/20 Obstructive sleep apnea (AH! 16.4, O2 85%) Discharge Diagnosis 03/31/20 Nonulcer dyspepsia Discharge Diagnosis 03/31/20 Dyspnea on effort Discharge Diagnosis 03/31/20 Vital Signs Most recent to oldest [Reference Range]: 1 Height 152 cm (03/31/20 10:05 AM) Social History Social History Type Response Smoking Status Never smoker entered on: 05/21/13 Sex
--- OUTSIDE RECORDS SUMMARY | 2022-07-17 07:48 | XMS_ITS | Continuity of Care Document ---
Author Name Unknown Organization [facility] Adult Address [address] [place] [address]- Care Team Providers Care Agribusiness Professor Name Role Phone Susan RIOS, José Bowden Primary Care Physician Encounter [place] Date(s): 09/11/20 - 10/11/20 [facility] Adult [address] [place] [address]- Allergies, Adverse Reactions, Alerts Substance Reaction Severity [...] toxoids (Td) 05/12/02 Given 1Result Comment: FLU [facility] 78733-266-84 2Result Comment: FLU [facility] 58961-351-14 Medications albuterol 0.083% inhalation solution 3 mL [...] 8:27:00 EDT, Aerosol, Route to Pharmacy Electronically, [id number], [facility]/pharmacy #[id number], 152, cm, 05/07/19 7:59:00 EDT, Heigh... Start Date: 05/07/19 Status: Ordered baclofen 10 mg oral tablet 10 mg, 1, tablet, By Mouth, 3 times a day, # 30 tablet, Refills 0, Tot. Refills 0, Maintenance, 03/27/20 10:25:00 EST, Route to Pharmacy Electronically, [facility]/pharmacy #[id number], Partial fill upon [...]
--- OUTSIDE RECORDS SUMMARY | 2022-07-17 07:48 | XMS_ITS | Continuity of Care Document ---
Author Name Unknown Organization [facility] Adult Address [address] [place] [address]- Care Team Providers Care Soda Drier Feeder Name Role Phone José Davis MD Primary Care Physician En[place] [facility] [place] Date(s): 03/02/19 - 03/09/19 [facility] Adult [address] [place] [address] [facility] Encounter Diagnosis Dizziness(Discharge Diagnosis) - 03/02/19 Hematochezia(Discharge Diagnosis) - 03/02/19 Paresthesias(Discharge Diagnosis) - 03/02/19 Attending Physician: José Davis MD Allergies, Adverse [...] toxoids (Td) 05/12/02 Given 1Result Comment: FLU [facility] 57211-070-53 Medications albuterol 0.083% inhalation solution 3 mL [...] 16:17:59 EDT, Aerosol, Route to Pharmacy Electronically, [id number], [facility]/pharmacy #[id number], Compound Start Date: 11/24/17 [...] Active Obsessive behavior(Confirmed) Active 1Status post hysterectomy Diagnosis Diagnosis Type Effective Dates Health Status Cl inical Service Informant Dizziness Discharge Diagnosis 03/02/19 Hematochezia Discharge Diagnosis 03/02/19 Paresthesias Discharge Diagnosis 03/02/19 Vital Signs Most recent to oldest [Reference Range]: 1 Height 152 cm (03/02/19 1:44 PM) Weight 79.3 kg (03/02/19 1:44 PM) Oxygen Saturation [94-100 %] 99 % (03/02/19 1:44 PM) Pulse Rate [55-90 bpm] 92 bpm *H* (03/02/19 1:44 PM) Body Mass Index [18.5-24.99] 34.32 *>HHI* (03/02/19 1:44 PM) Blood Pressure [90-138/55-84 mm Hg] 110/ 62mm Hg (03/02/19 1:44 PM) Mode of Delivery (Oxygen) Room air (03/02/19 1:44 PM) Blood pressure sites Arm, left (03/02/19 1:44 PM) Weight Obtained Via Standing scale (03/02/19 1:44 PM) Social History Social History Type Response Smoking Status Never smoker entered on: 05/21/13 Sex
--- OUTSIDE RECORDS SUMMARY | 2022-07-17 07:48 | XMS_ITS | Continuity of Care Document ---
Author Name Unknown Organization [facility] Adult Address [address] [place] [address]- Care Team Providers Care Computational Scientist Name Role Phone Vianney Brandon Primary Care Physician Encounter [facility] Date(s): 03/01/22 - 03/31/[address] [facility] Adult [address] [place] [address]- Encounter Diagnosis Viral respiratory infection(Discharge Diagnosis) - 02/09/21 Urinary urgency(Discharge Diagnosis) - 02/09/21 Attending Physician: Admtr, Get Allergies, Adverse Reactions, Alerts Substance Reaction Severity Status aspirin hives Active narcotic analgesics Active traMADol hallucinations Active Percocet 5/325 palpitations Active Fish hives Active Pollen Active Other [...] influenza virus vaccine, inactivated 03/09/12 Give n [id number] bivalent booster vax 11/15/21 Recorded SARS-CoV-2 (COVID-19) mRNA-1273 vaccine 04/13/20 R ecorded SARS-CoV-2 (COVID-19) mRNA-1273 vaccine 03/16/20 R ecorded pneumococcal 23-valent vaccine 06/04/17 Given tetanus/diphtheria/pertussis, acel(Tdap) 01/31/16 Given tetanus-diphtheria toxoids (Td) 05/12/02 Given 1Result Comment: [facility] [id number] 2Result Comment: FLU [facility] 63658-992-43 3Result Comment: FLU [facility] 07229-030-21 Medications albuterol 0.083% inhalation solution 3 mL [...] 8:27:00 EDT, Aerosol, Route to Pharmacy Electronically, [id number], [facility]/pharmacy #[id number], 152, cm, 05/07/19 7:59:00 EDT, Hearacelis... Start Date: 05/07/19 Status: Ordered Combivent Respimat [...] Active 1Status post hysterectomy 2tubular and serrated Diagnosis Diagnosis Type Effective Dates Health Status Clinical Service Informant Viral respiratory infection Discharge Diagnosis 02/09/21 Urinary urgency Discharge Diagnosis 02/09/21 Procedures Procedure Date Related Diagnosis Body Site Status Hemorrhoidectomy 06/09/20 Complete d Colonoscopy 1, 2 04/23/19 Complete d Esophagogastroduodenoscopy and biopsy 04/23/19 Completed 1TA transverse colon 25 year repeat Social History Social History Type Response Smoking Status Never smoker entered on: 05/21/13 Sex EKG study * Event Display: EKG Authored Date: Note * Event Display: Non [facility] Lab Results Authored Date: * Event Display: Non [facility] Lab Results Authored Date: * Event Display: Non [facility] Lab Results Authored Date: * Event Display: Non [facility] Lab Results Authored Date: * Event Display: Non [facility] Lab Results Authored Date: * Event Display: Non [facility] Lab Results Authored Date: * Event Display: Radiology Result Scanned Authored Date: * Rafat Mack: PERFORM Event Display: Radiology Results Scanned Authored Date: * Claudia Zhao: PERFORM Event Display: Radiology Results Scanned Authored Date: Patient Care team information Care Team Personnel Name: Jazmyne Segundo RN Position: [facility] RN Member Role: Primary Care Nurse Name: Vianney Brandon Position: [facility] Associate Professional Member Role: PCP Address: Address: [address] [place] [address]. [address] [place] [address]- Care Team Related Persons Name: MIKE ELACH Address: [address] [address]
--- OUTSIDE RECORDS SUMMARY | 2022-07-17 07:48 | XMS_ITS | Continuity of Care Document ---
Author Name Unknown Organization [facility] Adult Address [address] [place] [address]- Care Team Providers Care Counterintelligence Analyst Name Role Phone José Davis MD Primary Care Physician [place] [facility] [place] Date(s): 07/06/19 - 08/05/19 [facility] Adult [address] [place] [address]- [facility] Attending Physician: Admtr, Ar8 Allergies, Adverse Reactions, Alerts Substance Reaction Severity [...] (Td) 05/12/02 Given 1Result Comment: FLU [facility] 38718-396-95 Medications albuterol 0.083% inhalation solution 3 mL [...] 8:27:00 EDT, Aerosol, Route to Pharmacy Electronically, [id number], [facility]/pharmacy #[id number], 152, cm, 05/07/19 7:59:00 EDT, Heigh... Start Date: 05/07/19 Status: Ordered busPIRone 5 mg oral tablet 5 mg, 1, tablet, By Mouth, 3 times a day, 2 tablets 3 times a day as of 06/29/2019, # 90 tablet, Refills 5, Tot. Refills 5, Maintenance, 06/28/19 16:34:00 EDT, Route to Pharmacy Electronically, [facility]/pharmacy #[id number], 152, cm, 05/07/19 [...] Gm, 2 Refills, Maintenance, 05/07/19 8:26:00 EDT, [id number], cm, 05/07/19 7:59:00 EDT, Height, [...] Active Obsessive behavior(Confirmed) Active 1Status post hysterectomy Procedures Procedure Date Related Diagnosis Body Site Status Colonoscopy 1 04/23/19 Completed 1TA transverse colon Social History Social History Type Response Smoking Status Never smoker entered on: 05/21/13 Sex
--- OUTSIDE RECORDS SUMMARY | 2022-07-17 07:48 | XMS_ITS | Continuity of Care Document ---
Author Name Unknown Organization [facility] Adult Address [address] [place] [address]- Care Team Providers Care Ticker Wirer Name Role Phone José Dvais MD Primary Care Physician Encounter [facility] Date(s): 02/04/20 - 03/05/20 [facility] Adult [address] [place] [address]- Allergies, Adverse Reactions, Alerts Substance Reaction Severity [...] toxoids (Td) 05/12/02 Given 1Result Comment: FLU [facility] 29844-747-23 2Result Comment: FLU [facility] 11481-943-40 Medications albuterol 0.083% inhalation solution 3 mL [...] 8:27:00 EDT, Aerosol, Route to Pharmacy Electronically, [id number], [facility]/pharmacy #[id number], 152, cm, 05/07/19 7:59:00 EDT, [...]
--- OUTSIDE RECORDS SUMMARY | 2022-07-17 07:48 | XMS_ITS | Continuity of Care Document ---
Author Name Unknown Organization [facility] Address [address] [place] [address]- Care Team Providers Care Shopping Centre Manager Name Role Phone Susan RIOS, José Bowden Primary Care Physician Encounter [facility] ACCT R [id number] Date(s): 12/14/21 - 01/13/22 [facility] [address] [place] [address]- Attending Physician: Get Zelaya Admitting Physician: Admtr, Ar8 Referring Physician: Admtr, Ar8 Allergies, Adverse Reactions, Alerts [...] influenza virus vaccine, inactivated 2 03/02/19 Gi bj influenza virus vaccine, inactivated 01/27/18 Give n influenza virus vaccine, inactivated 01/31/16 Give n influenza virus vaccine, inactivated 11/23/13 Give n influenza virus vaccine, inactivated 03/09/12 Give n pneumococcal 23-valent vaccine 06/04/17 Given tetanus/diphtheria/pertussis, acel(Tdap) 01/31/16 Given tetanus-diphtheria toxoids (Td) 05/12/02 Given 1Result Comment: FLU [facility] 29268-241-05 2Result Comment: FLU [facility] 21087-196-93 Medications albuterol 0.083% inhalation solution 3 mL [...] 8:27:00 EDT, Aerosol, Route to Pharmacy Electronically, [id number], [facility]/pharmacy #[id number], 152, cm, 05/07/19 7:59:00 [...] Date: 02/22/19 Status: Ordered Problem List Condition Confirmation Course [...] 2005 Active 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 16.4, O2 85%) Confirmed 10/23/19 Active 1Status post hysterectomy 2tubular and serrated Social History Social History Type Response Smoking Status Never smoker entered on: 05/21/13 Sex Patient Care team information Care Team Personnel Name: Jazmyne Segundo RN Position: [facility] PCO RN Member Role: Primary Care Nurse Name: José Davis MD Position: [facility] Primary Care Physician Member Role: PCP Address: Address: [employer] [address] [place] [address]- Care Team Related Persons Name: MIKE LEACH Address: home [address] [place] [address]
--- OUTSIDE RECORDS SUMMARY | 2022-07-17 07:48 | XMS_ITS | Continuity of Care Document ---
Author Name Unknown Organization [facility] Address [address] [place] [address]- Care Team Providers Care Compactor Driver Name Role Phone José Davis MD Primary Care Physician Encounter [facility] ACCT R [id number] Date(s): 12/14/21 - 12/21/21 [facility] [address] [place] [address]- Attending Physician: Vahe Randall DO Referring Physician: José Davis MD Allergies, Adverse Reactions, Alerts Substance Reaction Severity Status aspirin hives Active narcotic analgesics Active Percocet 5/325 palpitations Active traMADol hallucinations Active Other Food Allergy pumpkin, zuchinni, squash Active Fish hives Active Pollen Active Immunizations Given and Recorded Vaccine Date [...] toxoids (Td) 05/12/02 Given 1Result Comment: FLU [facility] 60036-635-19 2Result Comment: FLU [facility] 03994-847-29 Medications albuterol 0.083% inhalation solution 3 mL [...] 8:27:00 EDT, Aerosol, Route to Pharmacy Electronically, [id number], [facility]/pharmacy #[id number], 152, cm, 05/07/19 7:59:00 EDT, Heigh... [...] Active 1Status post hysterectomy 2tubular and serrated Vital Signs Most recent to oldest [Reference Range]: 1 2 Height 152 cm (12/14/21 6:31 PM) 152 cm (12/14/21 6:14 PM) Oxygen Saturation [94-100 %] 99 % (12/14/21 6:31 PM) Pulse Rate [55-90 bpm] 76 bpm (12/14/21 6:31 PM) Blood Pressure [90-138/55-84 mm Hg] 111/ 55mm Hg (12/14/21 6:31 PM) Respiratory Rate [16-30 br/min] 16 br/mi n (12/14/21 6:31 PM) Temperature [96.8-100.4 DegF] 98.6 DegF (12/14/21 6:31 PM) Mode of Delivery (Oxygen) Room air (12/14/21 6:31 PM) Room air (12/14/21 6:14 PM) Blood pressure sites Arm, left (12/14/21 6:31 PM) Arm, right (12/14/21 6:14 PM) Temperature Route Temporal (12/14/21 6:14 PM) Social History Social History Type Response Smoking Status Never smoker entered on: 05/21/13 Sex Patient Care team information Personnel Name: José Davis MD Address: Address: [address] Floor [facility] [place], [place] [address]
--- OUTSIDE RECORDS SUMMARY | 2022-07-17 07:48 | XMS_ITS | Continuity of Care Document ---
Author Name Unknown Organization [facility] Address [address] [place] [address]- Care Team Providers Care Assembly Machine Feeder Name Role Phone Susan RIOS, José Bowden Primary Care Physician Encounter [facility] Date(s): 01/30/21 - 03/01/21 [facility] Adult [address] [place] [address]- Allergies, Adverse Reactions, Alerts Substance Reaction Severity [...] (Td) 05/12/02 Given 1Result Comment: FLU [facility] 15418-043-74 2Result Comment: FLU [facility] 06585-060-19 Medications albuterol 0.083% inhalation solution 3 mL [...] 8:27:00 EDT, Aerosol, Route to Pharmacy Electronically, [id number], [facility]/pharmacy #[id number], 152, cm, 05/07/19 7:59:00 EDT, Heigh... Start Date: 05/07/19 Status: Ordered baclofen 10 mg oral tablet 10 mg, 1, tablet, By Mouth, 3 times a day, # 30 tablet, Refills 0, Tot. Refills 0, Maintenance, 03/27/20 10:25:00 EST, Route to Pharmacy Electronically, [facility]/pharmacy #[id number], Partial fill upon [...]
--- OUTSIDE RECORDS SUMMARY | 2022-07-17 07:48 | XMS_ITS | Continuity of Care Document ---
Author Name Unknown Organization [facility] Address [address] [place] [address]- Care Team Providers Care Patternmaker Helper Name Role Phone José Davis MD Primary Care Physician Encounter [facility] Date(s): 03/31/20 - 04/30/20 [facility] Adult [address] [place] [address]- Attending Physician: Admtr, Ar8 Allergies, Adverse Reactions, [...] (Td) 05/12/02 Given 1Result Comment: FLU [facility] 13212-008-27 2Result Comment: FLU [facility] 21183-338-58 Medications albuterol 0.083% inhalation solution 3 mL [...] 8:27:00 EDT, Aerosol, Route to Pharmacy Electronically, [id number], [facility]/pharmacy #[id number], 152, cm, 05/07/19 7:59:00 EDT, Heigh... Start Date: 05/07/19 Status: Ordered baclofen 10 mg oral tablet 10 mg, 1, tablet, By Mouth, 3 times a day, # 30 tablet, Refills 0, Tot. Refills 0, Maintenance, 03/27/20 10:25:00 EST, Route to Pharmacy Electronically, [facility]/pharmacy #[id number], Partial fill upon [...] O2 85%)(Confirmed) 10/23/19 Active 1Status post hysterectomy Procedures Procedure Date Related Diagnosis Body Site Status Colonoscopy 1 04/23/19 Completed 1TA transverse colon Social History Social History Type Response Smoking Status Never smoker entered on: 05/21/13 Sex
--- OUTSIDE RECORDS SUMMARY | 2022-07-17 07:48 | XMS_ITS | Continuity of Care Document ---
Author Name Unknown Organization [facility] ter Address [address] [place] [address]- Care Team Providers Care Resolution Analyst Name Role Phone José Davis MD Primary Care Physician Encounter [facility] Date(s): 12/21/21 - 01/30/[address] [address] Attending Physician: José Davis MD Admitting Physician: José Davis MD Referring Physician: José Davis MD Allergies, Adverse Reactions, Alerts Substance Reaction Severity Status aspirin hives Active narcotic analgesics Active Other Food Allergy pumpkin, zuchinni, squash Active traMADol hallucinations Active Percocet 5/325 palpitations Active Fish hives Active Pollen Active Immunizations [...] toxoids (Td) 05/12/02 Given 1Result Comment: FLU [facility] 68552-214-63 2Result Comment: FLU [facility] 19136-517-30 Medications albuterol 0.083% inhalation solution 3 mL [...] 8:27:00 EDT, Aerosol, Route to Pharmacy Electronically, [id number], [facility]/pharmacy #[id number], 152, cm, 05/07/19 7:59:00 [...] Team Personnel Name: Jazmyne Segundo RN Position: [facility] PCO RN Member Role: Primary Care Nurse Name: José Davis MD Position: [facility] Primary Care Physician Member Role: PCP Address: Address: [address] [place] [address]- Care Team Related Persons Name: MIKE LEACH Address: home [address] [place] [address]
--- OUTSIDE RECORDS SUMMARY | 2022-07-17 07:48 | XMS_ITS | Continuity of Care Document ---
Author Name Unknown Organization [facility] Address [address] [place] [address]- Care Team Providers Care Senior Geotechnical Engineer Name Role Phone José Davis MD Primary Care Physician Encounter [facility] Date(s): 07/11/21 - 08/10/21 [facility] Adult [address] [place] [address]- Encounter Diagnosis Viral respiratory infection(Discharge Diagnosis) - 02/09/21 Urinary urgency(Discharge Diagnosis) - 02/09/21 Attending Physician: Admtr, Ar8 Allergies, Adverse Reactions, [...] 05/12/02 Given 1Result Comment: FLU [facility] 32257-122-80 2Result Comment: FLU [facility] 85982-908-10 Medications albuterol 0.083% inhalation solution 3 mL [...] 8:27:00 EDT, Aerosol, Route to Pharmacy Electronically, [id number], [facility]/pharmacy #[id number], 152, cm, 05/07/19 7:59:00 EDT, [place]... Start Date: 05/07/19 Status: Ordered Combivent Respimat [...]
--- OUTSIDE RECORDS SUMMARY | 2022-07-17 07:48 | XMS_ITS | Continuity of Care Document ---
Author Name Unknown Organization [facility] Address [address] [place] [address]- Care Team Providers Care Grinding Machine Operator Automatic Name Role Phone José Davis MD Primary Care Physician Encounter [facility] Date(s): 02/07/20 - 03/08/20 [facility] Adult [address] [place] [address]- Attending Physician: Admtr, Ar8 Allergies, Adverse Reactions, [...] (Td) 05/12/02 Given 1Result Comment: FLU [facility] 65205-823-76 2Result Comment: [facility]U [facility] 93094-934-05 Medications albuterol 0.083% inhalation solution 3 mL [...] 8:27:00 EDT, Aerosol, Route to Pharmacy Electronically, [id number], [facility]/pharmacy #[id number], 152, cm, 05/07/19 7:59:00 EDT, [...]
--- OUTSIDE RECORDS SUMMARY | 2022-07-17 07:48 | XMS_ITS | Continuity of Care Document ---
Author Name Unknown Organization [facility] Address [address] [place] [address]- Care Team Providers Care Client Business Manager Name Role Phone José Davis MD Primary Care Physician Encounter [facility] Date(s): 04/08/20 - 05/08/20 [facility] Adult [address] [place] [address]- Allergies, Adverse Reactions, Alerts Substance Reaction Severity [...] (Td) 05/12/02 Given 1Result Comment: FLU [facility] 03940-841-59 2Result Comment: FLU [facility] 12778-808-25 Medications albuterol 0.083% inhalation solution 3 mL [...] 8:27:00 EDT, Aerosol, Route to Pharmacy Electronically, [id number], [facility]/pharmacy #[id number], 152, cm, 05/07/19 7:59:00 EDT, Heigh... Start Date: 05/07/19 Status: Ordered baclofen 10 mg oral tablet 10 mg, 1, tablet, By Mouth, 3 times a day, # 30 tablet, Refills 0, Tot. Refills 0, Maintenance, 03/27/20 10:25:00 EST, Route to Pharmacy Electronically, [facility]/pharmacy #[id number], Partial fill upon patient request [...]
--- OUTSIDE RECORDS SUMMARY | 2022-07-17 07:48 | XMS_ITS | Continuity of Care Document ---
Author Name Unknown Organization [facility] Address [address] [place] [address]- Care Team Providers Care Roasterman Name Role Phone José Davis MD Primary Care Physician Encounter [facility] Date(s): 09/08/20 - 10/08/20 [facility] Adult [address] [place] [address]- Attending Physician: Admtr, Ar8 Allergies, Adverse Reactions, [...] 05/12/02 Given 1Result Comment: FLU [facility] 44649-178-54 2Result Comment: FLU [facility] 94354-043-91 Medications albuterol 0.083% inhalation solution 3 mL = 2.5 mg, Inhalation, Every 6 hours, PRN as needed for wheezing, # 125 each, 5 Refills, Maintenance, 04/15/19 8:19:36 EDT Start Date: 06/08/18 Status: Ordered albuterol CFC free 90 mcg/inh inhalation aerosol 2, puffs, Inhalation, Every 6 hours, PRN, # 1 each, Refills 2, Tot. Refills 2, Maintenance, 05/07/19 8:27:00 EDT, Aerosol, Route to Pharmacy Electronically, [id number], [facility]/pharmacy #[id number], 152, cm, 05/07/19 7:59:00 EDT, Heigh... Start Date: 05/07/19 Status: Ordered baclofen 10 mg oral tablet 10 mg, 1, tablet, By Mouth, 3 times a day, # 30 tablet, Refills 0, Tot. Refills 0, Maintenance, 03/27/20 10:25:00 EST, Route to Pharmacy Electronically, [facility]/pharmacy #[id number], Partial fill upon patient request [...] Site Status Hemorrhoidectomy 06/09/20 Complete d Colonoscopy 1 04/23/19 Completed 1TA transverse colon Social History Social History Type Response Smoking Status Never smoker entered on: 05/21/13 Sex
--- OUTSIDE RECORDS SUMMARY | 2022-07-17 07:48 | XMS_ITS | Continuity of Care Document ---
Author Name Unknown Organization [facility] Address [address] [place] [address]- Care Team Providers Care Toll Testboard Worker Name Role Phone José Davis MD Primary Care Physician [place] [facility] Date(s): 07/09/21 - 08/08/21 [facility] Adult [address] [place] [address]- Allergies, Adverse Reactions, Alerts Substance Reaction Severity [...] 05/12/02 Given 1Result Comment: FLU [facility] 85607-209-73 2Result Comment: FLU [facility] 33405-497-56 Medications albuterol 0.083% inhalation solution 3 mL [...] 8:27:00 EDT, Aerosol, Route to Pharmacy Electronically, [id number], [facility]/pharmacy #[id number], 152, cm, 05/07/19 7:59:00 EDT, [...]
--- OUTSIDE RECORDS SUMMARY | 2022-07-17 07:48 | XMS_ITS | Continuity of Care Document ---
Author Name Unknown Organization [facility] Address [address] [place] [address]- Care Team Providers Care Whiting Can Worker Name Role Phone José Davis MD Primary Care Physician Encounter [facility] ACCT R [id number] Date(s): 09/08/20 - 09/15/20 [facility] Adult [address] [place] [address]- Encounter Diagnosis Pain in joint, multiple sites(Discharge Diagnosis) - 09/08/20 Muscle pain(Discharge Diagnosis) - 09/08/20 Paresthesias(Discharge Diagnosis) - 09/08/20 Attending Physician: José Davis MD Allergies, Adverse [...] (Td) 05/12/02 Given 1Result Comment: FLU [facility] 67907-767-67 2Result Comment: FLU [facility] 65784-550-70 Medications albuterol 0.083% inhalation solution 3 mL [...] 8:27:00 EDT, Aerosol, Route to Pharmacy Electronically, [id number], [facility]/pharmacy #[id number], 152, cm, 05/07/19 7:59:00 EDT, Heigh... Start Date: 05/07/19 Status: Ordered baclofen 10 mg oral tablet 10 mg, 1, tablet, By Mouth, 3 times a day, # 30 tablet, Refills 0, Tot. Refills 0, Maintenance, 03/27/20 10:25:00 EST, Route to Pharmacy Electronically, [facility]/pharmacy #[id number], Partial fill upon patient request [...] Effective Dates Health Status Clinical Service Informant Pain in joint, multiple sites Discharge Diagnosis 09/08/20 Muscle pain Discharge Diagnosis 09/08/20 Paresthesias Discharge Diagnosis 09/08/20 Vital Signs Most recent to oldest [Reference Range]: 1 Height 152 cm (09/08/20 10:39 AM) Weight 85.0 kg (09/08/20 10:39 AM) Oxygen Saturation [94-100 %] 99 % (09/08/20 10:39 AM) Pulse Rate [55-90 bpm] 88 bpm (09/08/20 10:39 AM) Body Mass Index [18.5-24.99] 36.79 *>HHI* (09/08/20 10:39 AM) Blood Pressure [90-138/55-84 mm Hg] 113/ 68mm Hg (09/08/20 10:39 AM) Mode of Delivery (Oxygen) Room air (09/08/20 10:39 AM) Blood pressure sites Arm, left (09/08/20 10:39 AM) Weight Obtained Via Standing scale (09/08/20 10:39 AM) Social History Social History Type Response Smoking Status Never smoker entered on: 05/21/13 Sex
--- OUTSIDE RECORDS SUMMARY | 2022-07-17 07:48 | XMS_ITS | Continuity of Care Document ---
Author Name Unknown Organization [facility] ter Address [address] [place] [address]- Care Team Providers Care Shells Inspector Name Role Phone José Davis MD Primary Care Physician En[place] [facility] [place] [place] Date(s): 03/02/19 - 03/02/[address] [address]- [facility] Attending Physician: José Davis MD Allergies, [...] (Td) 05/12/02 Given 1Result Comment: FLU [facility] 98151-897-79 Medications albuterol 0.083% inhalation solution 3 mL [...] 16:17:59 EDT, Aerosol, Route to Pharmacy Electronically, [id number], [facility]/pharmacy #[id number], Compound Start Date: 11/24/17 Status: Ordered [...]
--- OUTSIDE RECORDS SUMMARY | 2022-07-17 07:48 | XMS_ITS | Continuity of Care Document ---
Author Name Unknown Organization [facility] Adult Address [address] [place] [address]- Care Team Providers Care Media Center Assistant Name Role Phone José Davis MD Primary Care Physician En[place] [facility] Date(s): 06/29/19 - 07/06/19 [facility] Adult [address] [place] [address] [facility] Encounter Diagnosis Adjustment disorder with anxiety(Discharge Diagnosis) - 06/29/19 Globus sensation(Discharge Diagnosis) - 06/29/19 Attending Physician: José Davis MD Allergies, Adverse [...] toxoids (Td) 05/12/02 Given 1Result Comment: FLU [facility] 03035-897-27 Medications albuterol 0.083% inhalation solution 3 mL [...] 8:27:00 EDT, Aerosol, Route to Pharmacy Electronically, [id number], [facility]/pharmacy #[id number], 152, cm, 05/07/19 7:59:00 EDT, Heigh... Start Date: 05/07/19 Status: Ordered busPIRone 5 mg oral tablet 5 mg, 1, tablet, By Mouth, 3 times a day, 2 tablets 3 times a day as of 06/29/2019, # 90 tablet, Refills 5, Tot. Refills 5, Maintenance, 06/28/19 16:34:00 EDT, Route to Pharmacy Electronically, [facility]/pharmacy #[id number], 152, cm, 05/07/19 7:59:00 EDT, Height,... [...] Acute 07/16/19 16:34:00 EDT, 07/06/19 16:34:00 EDT, [facility]/pharmacy #[id number], 152, cm, 07/06/19 16:02:00 EDT, Height, 82.7, kg, 11/24/17 15:44:00 EDT, Dry Weight Start Date: 07/06/19 Stop Date: 07/16/19 Status: Ordered fluticasone CFC free 110 mcg/inh inhalation aerosol 2 puffs, Inhalation, 2 times a day, # 12 Gm, 2 Refills, Maintenance, 05/07/19 8:26:00 EDT, Aerosol,[facility]/pharmacy #[id number], 152, cm, 05/07/19 7:59:00 EDT, Height, [...] Effective Dates Health Status Clinical Service Informant Adjustment disorder with anxiety Discharge Diagnosis 06/29/19 Globus sensation Discharge Diagnosis 06/29/19 Social History Social History Type Response Smoking Status Never smoker entered on: 05/21/13 Sex
--- OUTSIDE RECORDS SUMMARY | 2022-07-17 07:48 | XMS_ITS | Continuity of Care Document ---
Author Name Unknown Organization [facility] Adult Address [address] [place] [address]- Care Team Providers Care Top Lift Compresser Name Role Phone José Davis MD Primary Care Physician Encounter [facility] Date(s): 12/30/19 - 04/28/20 [facility] Adult [address] [place] [address]- Attending Physician: José Davis MD Allergies, Adverse [...] Given 1Result Comment: FLU [facility] 34416-826-53 2Result Comment: FLU [facility] 13440-698-17 Medications albuterol 0.083% inhalation solution 3 mL [...] 8:27:00 EDT, Aerosol, Route to Pharmacy Electronically, [id number], [facility]/pharmacy #[id number], 152, cm, 05/07/19 7:59:00 EDT, Heigh... Start Date: 05/07/19 Status: Ordered baclofen 10 mg oral tablet 10 mg, 1, tablet, By Mouth, 3 times a day, # 30 tablet, Refills 0, Tot. Refills 0, Maintenance, 03/27/20 10:25:00 EST, Route to Pharmacy Electronically, [facility]/pharmacy #[id number], Partial fill upon patient request if [...]
--- OUTSIDE RECORDS SUMMARY | 2022-07-17 07:48 | XMS_ITS | Continuity of Care Document ---
Author Name Unknown Organization [facility] Adult Address [address] [place] [address]- Care Team Providers Care Kennel Operator Name Role Phone Susan RIOS, José Bowden Primary Care Physician Encounter [facility] Date(s): 02/09/21 - 03/11/21 [facility] Adult [address] [place] [address]- Encounter Diagnosis Viral respiratory infection(Discharge Diagnosis) - [...] 1Result Comment: FLU [facility] 29003-112-18 2Result Comment: FLU [facility] 95670-828-53 Medications albuterol 0.083% inhalation solution 3 mL [...] 8:27:00 EDT, Aerosol, Route to Pharmacy Electronically, [id number], [facility]/pharmacy #[id number], 152, cm, 05/07/19 7:59:00 EDT, Heigh... Start Date: 05/07/19 Status: Ordered baclofen 10 mg oral tablet 10 mg, 1, tablet, By Mouth, 3 times a day, # 30 tablet, Refills 0, Tot. Refills 0, Maintenance, 03/27/20 10:25:00 EST, Route to Pharmacy Electronically, [facility]/pharmacy #[id number], Partial fill upon patient request [...] 06/09/20 Complete d Colonoscopy 1 04/23/19 Completed Esophagogastroduodenoscopy and biopsy 04/23/19 Completed 1TA transverse colon Social History Social History Type Response Smoking Status Never smoker entered on: 05/21/13 Sex
--- OUTSIDE RECORDS SUMMARY | 2022-07-17 07:48 | XMS_ITS | Continuity of Care Document ---
Author Name Unknown Organization [facility] Address [address] [place] [address]- Care Team Providers Care Chemistry Intern Name Role Phone José Davis MD Primary Care Physician Encounter [facility] Date(s): 05/07/19 - 05/14/19 [facility] Adult [address] [place] [address]- [facility] Encounter Diagnosis Shortness of breath(Discharge Diagnosis) - 05/07/19 Anxiety(Discharge Diagnosis) - 05/07/19 Attending Physician: Not on Staff, Attending MD Referring Physician: Jsoé Davis MD Allergies, Adverse Reactions, Alerts Substance [...] toxoids (Td) 05/12/02 Given 1Result Comment: FLU [facility] 81392-956-03 Medications albuterol 0.083% inhalation solution 3 mL [...] 8:27:00 EDT, Aerosol, Route to Pharmacy Electronically, [id number], [facility]/pharmacy #[id number], 152, cm, 05/07/19 7:59:00 EDT, Hearacelis... Start Date: 05/07/19 Status: Ordered busPIRone 5 mg oral tablet 5 mg, 1, tablet, By Mouth, 3 times a day, # 90 tablet, Refills 0, Tot. Refills 0, Maintenance, 05/07/19 8:29:00 EDT, [id number], cm, 05/07/19 7:59:00 EDT, Height, 82.7, kg, 11/24/17 15:44:00 EDT, Dry Weight Start Date: 05/07/19 Status: Ordered dicyclomine 20 mg oral tablet 1 tablet = 20 mg, By Mouth, 4 times a day, 0 Refills, Maintenance, 02/22/19 12:49:00 EST Start Date: 02/22/19 Status: Ordered fluticasone CFC free 110 mcg/inh inhalation aerosol 2 puffs, Inhalation, 2 times a day, # 12 Gm, 2 Refills, Maintenance, 05/07/19 8:26:00 EDT, [facility]ol[id number], cm, 05/07/19 7:59:00 EDT, Height, 82.7, kg, 11/24/17 15:44:00 EDT, Dry Weight Start Date: 05/07/19 Status: Ordered HydrOXYzine Prescribed by derm, 0 Refills, Maintenance, 11/27/17 15:22:45 EDT Start Date: 11/27/17 Status: Ordered pantoprazole 40 mg oral delayed [...] Dates Health Status Cl inical Service Informant Shortness of breath Discharge Diagnosis 05/07/19 Anxiety Discharge Diagnosis 05/07/19 Vital Signs Most recent to oldest [Reference Range]: 1 Height 152 cm (05/07/19 7:59 AM) Weight 81.3 kg (05/07/19 7:59 AM) Oxygen Saturation [94-100 %] 97 % (05/07/19 7:59 AM) Pulse Rate [55-90 bpm] 78 bpm (05/07/19 7:59 AM) Body Mass Index [18.5-24.99] 35.19 *>HHI* (05/07/19 7:59 AM) Blood Pressure [90-138/55-84 mm Hg] 94/6 4mm Hg (05/07/19 7:59 AM) Mode of Delivery (Oxygen) Room air (05/07/19 7:59 AM) Blood pressure sites Arm, right (05/07/19 7:59 AM) Weight Obtained Via Standing scale (05/07/19 7:59 AM) Social History Social History Type Response Smoking Status Never smoker entered on: 05/21/13 Sex
--- OUTSIDE RECORDS SUMMARY | 2022-07-17 07:48 | XMS_ITS | Continuity of Care Document ---
Author Name Unknown Organization [facility] Adult Address [address] [place] [address]- Care Team Providers Care Molasses Coloring Operator Name Role Phone José Davis MD Primary Care Physician Encounter [facility] Date(s): 01/26/20 - 02/25/20 [facility] Adult [address] [place] [address]- Allergies, Adverse Reactions, Alerts Substance Reaction Severity [...] (Td) 05/12/02 Given 1Result Comment: FLU [facility] 89551-143-22 2Result Comment: FLU [facility] 77091-147-65 Medications albuterol 0.083% inhalation solution 3 mL [...] 8:27:00 EDT, Aerosol, Route to Pharmacy Electronically, [id number], [facility]/pharmacy #[id number], 152, cm, 05/07/19 7:59:00 [...]
--- OUTSIDE RECORDS SUMMARY | 2022-07-17 07:49 | XMS_ITS | Continuity of Care Document ---
Author Name Unknown Organization [facility] Adult Address [address] [place] [address]- Care Team Providers Care Engineering Coordinator Name Role Phone José Davis MD Primary Care Phys[id number] Date[facility] 11/19/19 - 11/26/19 [facility] Adult [address] [place] [address]- [facility] Attending Physician: Not on Staff, Attending MD Referring Physician: José Davis MD Allergies, [...] (Td) 05/12/02 Given 1Result Comment: FLU [facility] 78190-837-07 Medications albuterol 0.083% inhalation solution 3 mL [...] 8:27:00 EDT, Aerosol, Route to Pharmacy Electronically, [id number], [facility]/pharmacy #[id number], 152, cm, 05/07/19 7:59:00 [...] 2 Refills, Maintenance, 09/12/19 22:43:00 EDT, Aerosol, [facility]/pharmacy #[id number], 152, cm, 07/06/19 16:02:00 [...] O2 85%)(Confirmed) 10/23/19 Active 1Status post hysterectomy Vital Signs Most recent to oldest [Reference Range]: 1 Height 152 cm (11/19/19 2:12 PM) Weight 84.1 kg (11/19/19 2:12 PM) Oxygen Saturation [94-100 %] 97 % (11/19/19 2:12 PM) Pulse Rate [55-90 bpm] 92 bpm *H* (11/19/19 2:12 PM) Body Mass Index [18.5-24.99] 36.4 *>HHI* (11/19/19 2:12 PM) Blood Pressure [90-138/55-84 mm Hg] 100/ 62mm Hg (11/19/19 2:12 PM) Mode of Delivery (Oxygen) Room air (11/19/19 2:12 PM) Blood pressure sites Arm, left (11/19/19 2:12 PM) Weight Obtained Via Standing scale (11/19/19 2:12 PM) Social History Social History Type Response Smoking Status Never smoker entered on: 05/21/13 Sex
--- OUTSIDE RECORDS SUMMARY | 2022-07-17 07:49 | XMS_ITS | Continuity of Care Document ---
Author Name Unknown Organization [facility] Adult Address [address] [place] [address]- Care Team Providers Care Generation Engineer Name Role Phone José Davis MD Primary Care Physician Encounter [facility] Date(s): 12/14/21 - 01/16/22 [facility] Adult [address] [place] [address]- Attending Physician: José Davis MD Allergies, Adverse [...] toxoids (Td) 05/12/02 Given 1Result Comment: FLU [facility] 85263-641-77 2Result Comment: FLU [facility] 34530-501-34 Medications albuterol 0.083% inhalation solution 3 mL [...] 8:27:00 EDT, Aerosol, Route to Pharmacy Electronically, [id number], [facility]/pharmacy #[id number], 152, cm, 05/07/19 7:59:00 EDT, [...] Team Personnel Name: Jazmyne Segundo RN Position: [facility] PCO RN Member Role: Primary Care Nurse Name: José Davis MD Position: [facility] Primary Care Physician Member Role: PCP Address: Address: [address] [place] [address] [address]rd [place] [address]- Care Team Related Persons Name: MIKE LEACH Address: home [address] [place] [address]
--- OUTSIDE RECORDS SUMMARY | 2022-07-17 07:49 | XMS_ITS | Continuity of Care Document ---
Author Name Unknown Organization [facility] Adult Address [address] [place] [address]- Care Team Providers Care Biology Adjunct Instructor Name Role Phone José Davis MD Primary Care Physician En[facility] Date(s): 03/02/19 - 03/12/19 [facility] Adult [address] [place] [address]- [facility] Attending Physician: Admtr, Ar8 Allergies, [...] toxoids (Td) 05/12/02 Given 1Result Comment: FLU [facility] 29063-285-32 Medications albuterol 0.083% inhalation solution 3 mL [...] 16:17:59 EDT, Aerosol, Route to Pharmacy Electronically, [id number], [facility]/pharmacy #[id number], Compound Start Date: 11/24/17 Status: Ordered [...]
--- OUTSIDE RECORDS SUMMARY | 2022-07-17 07:49 | XMS_ITS | Continuity of Care Document ---
Author Name Unknown Organization [facility] Adult Address [address] [place] [address]- Care Team Providers Care Stationary Boiler Fireman Name Role Phone Susan RIOS, José Bowedn Primary Care Physician Encounter [facility] Date(s): 02/07/20 - 02/14/20 [facility] Adult [address] [place] [address]- Encounter Diagnosis Pre-op evaluation(Discharge Diagnosis) - 02/07/20 Chronic urticaria(Discharge Diagnosis) - 02/07/20 Nonulcer dyspepsia(Discharge Diagnosis) - 02/07/20 Eczema(Discharge Diagnosis) - 02/07/20 IBS (irritable bowel syndrome)(Discharge Diagnosis) - 02/07/20 Migraine(Discharge Diagnosis) - 02/07/20 Constipation, chronic(Discharge Diagnosis) - 02/07/20 Obstructive sleep apnea (AH! 16.4, O2 85%)(Discharge Diagnosis) - 02/07/20 Asthma(Discharge Diagnosis) - 02/07/20 Dyspnea on exertion(Discharge Diagnosis) - 02/07/20 Attending Physician: Not on Staff, Attending MD Referring Physician: Feliz Gallardo MD Allergies, Adverse Reactions, Alerts Substance Reaction [...] (Td) 05/12/02 Given 1Result Comment: FLU [facility] 55753-776-39 2Result Comment: FLU [facility] 36371-131-36 Medications albuterol 0.083% inhalation solution 3 mL [...] 8:27:00 EDT, Aerosol, Route to Pharmacy Electronically, [id number], [facility]/pharmacy #[id number], 152, cm, 05/07/19 7:59:00 [...] Effective Dates Health Status Clinical Service Informant Dyspnea on exertion Discharge Diagnosis 02/07/20 Asthma Discharge Diagnosis 02/07/20 Obstructive sleep apnea (AH! 16.4, O2 85%) Discharge Diagnosis 02/07/20 Migraine Discharge Diagnosis 02/07/20 Constipation, chronic Discharge Diagnosis 02/07/20 IBS (irritable bowel syndrome) Discharge Diagnosis 02/07/20 Chronic urticaria Discharge Diagnosis 02/07/20 Eczema Discharge Diagnosis 02/07/20 Nonulcer dyspepsia Discharge Diagnosis 02/07/20 Pre-op evaluation Discharge Diagnosis 02/07/20 Vital Signs Most recent to oldest [Reference Range]: 1 Height 152 cm (02/07/20 9:42 AM) Weight 84 kg (02/07/20 9:42 AM) Oxygen Saturation [94-100 %] 96 % (02/07/20 9:42 AM) Pulse Rate [55-90 bpm] 89 bpm (02/07/20 9:42 AM) Body Mass Index [18.5-24.99] 36.36 *>HHI* (02/07/20 9:42 AM) Blood Pressure [90-138/55-84 mm Hg] 112/ 70mm Hg (02/07/20 9:42 AM) Mode of Delivery (Oxygen) Room air (02/07/20 9:42 AM) Blood pressure sites Arm, left (02/07/20 9:42 AM) Weight Obtained Via Standing scale (02/07/20 9:42 AM) Social History Social History Type Response Smoking Status Never smoker entered on: 05/21/13 Sex
--- OUTSIDE RECORDS SUMMARY | 2022-07-17 07:49 | XMS_ITS | Continuity of Care Document ---
Author Name Unknown Organization [facility] Address [address] [place] [address] ve [address] [place] [address]- Care Team Providers Care Anesthesiologist Name Role Phone Susan RIOS, José Bowden Primary Care Physician Encounter [facility] Date(s): 10/02/21 - 11/01/21 [facility] [address] [place] [address]- Attending Physician: Admeva, Royce8 Admitting Physician: Admtr, Ar8 Referring Physician: Admtr, [...] Given 1Result Comment: FLU [facility] 18236-827-73 2Result Comment: FLU [facility] 30704-976-62 Medications albuterol 0.083% inhalation solution 3 mL [...] 8:27:00 EDT, Aerosol, Route to Pharmacy Electronically, [id number], [facility]/pharmacy #[id number], 152, cm, 05/07/19 7:59:00 EDT, Hearacelis... [...] Personnel Name: Susan RIOS, José Bowden [facility] [address] [facility] [place], [place] [address]
--- OUTSIDE RECORDS SUMMARY | 2022-07-17 07:49 | XMS_ITS | Continuity of Care Document ---
Author Name Unknown Organization [facility] Adult Address [address] [place] [address]- Care Team Providers Care Mandrel Puller Name Role Phone José Davis MD Primary Care Physician [facility] [facility] Date(s): 07/30/21 - 08/29/21 [facility] Adult [address] [place] [address]- Allergies, Adverse Reactions, Alerts Substance Reaction Severity [...] Comment: FLU [facility] 45401-335-66 2Result Comment: FLU [facility] 79915-854-16 Medications albuterol 0.083% inhalation solution 3 mL [...] 8:27:00 EDT, Aerosol, Route to Pharmacy Electronically, [id number], [facility]/pharmacy #[id number], 152, cm, [...]
--- OUTSIDE RECORDS SUMMARY | 2022-07-17 07:49 | XMS_ITS | Continuity of Care Document ---
Author Name Unknown Organization [facility] Address [address] [place] [address]- Care Team Providers Care Plisse Machine Operator Helper Name Role Phone José Davis MD Primary Care Physician Encounter [facility] Date(s): 02/04/20 - 03/05/20 [facility] Adult [address] [place] [address]- Allergies, Adverse Reactions, Alerts Substance Reaction Severity [...] Given 1Result Comment: FLU [facility] 26644-774-98 2Result Comment: FLU [facility] 06693-132-02 Medications albuterol 0.083% inhalation solution 3 mL [...] 8:27:00 EDT, Aerosol, Route to Pharmacy Electronically, [id number], [facility]/pharmacy #[id number], 152, cm, 05/07/19 [...]
--- OUTSIDE RECORDS SUMMARY | 2022-07-17 07:49 | XMS_ITS | Continuity of Care Document ---
Author Name Unknown Organization [facility] Adult Address [address] [place] [address]- Care Team Providers Care Title Inspector Name Role Phone Susan RIOS, José Bowden Primary Care Physician Encounter [facility] Date(s): 04/19/21 - 05/19/21 [facility] Adult [address] [place] [address]- Allergies, Adverse Reactions, Alerts Substance Reaction Severity [...] toxoids (Td) 05/12/02 Given 1Result Comment: FLU [facility] 96789-251-87 2Result Comment: FLU [facility] 69411-950-63 Medications albuterol 0.083% inhalation solution 3 mL [...] 8:27:00 EDT, Aerosol, Route to Pharmacy Electronically, [id number], [facility]/pharmacy #[id number], 152, cm, 05/07/19 7:59:00 EDT, Heigh... Start Date: 05/07/19 Status: Ordered baclofen 10 mg oral tablet 10 mg, 1, tablet, By Mouth, 3 times a day, # 30 tablet, Refills 0, Tot. Refills 0, Maintenance, 03/27/20 10:25:00 EST, Route to Pharmacy Electronically, [facility]/pharmacy #[id number], Partial fill upon patient [...]
--- OUTSIDE RECORDS SUMMARY | 2022-07-17 07:49 | XMS_ITS | Continuity of Care Document ---
Author Name Unknown Organization [facility] Adult Address [address] [place] [address]- Care Team Providers Care Digital Strategist Senior Manager Name Role Phone Susan RIOS, José Bowden Primary Care Physician [place] [facility] [place](s[place] 08/31/20 - 09/30/20 [facility] Adult [address] [place] [address]- Allergies, Adverse Reactions, Alerts Substance Reaction Severity [...] toxoids (Td) 05/12/02 Given 1Result Comment: FLU [facility] 42287-895-50 2Result Comment: FLU [facility] 67744-809-02 Medications albuterol 0.083% inhalation solution 3 mL [...] 8:27:00 EDT, Aerosol, Route to Pharmacy Electronically, [id number], [facility]/pharmacy #[id number], 152, cm, 05/07/19 7:59:00 EDT, Heigh... Start Date: 05/07/19 Status: Ordered baclofen 10 mg oral tablet 10 mg, 1, tablet, By Mouth, 3 times a day, # 30 tablet, Refills 0, Tot. Refills 0, Maintenance, 03/27/20 10:25:00 EST, Route to Pharmacy Electronically, [facility]/pharmacy #[id number], Partial fill upon patient request [...]
--- OUTSIDE RECORDS SUMMARY | 2022-07-17 07:49 | XMS_ITS | Continuity of Care Document ---
Author Name Unknown Organization [facility] Address [address] [place] [address]- Care Team Providers Care Agricultural Economist Name Role Phone José Davis MD Primary Care Physician Encounter [facility] Date(s): 07/06/19 - 07/13/19 [facility] Adult [address] [place] [address]- [facility] Encounter Diagnosis Throat pain(Discharge Diagnosis) - 07/06/19 Attending Physician: José Davis MD Allergies, Adverse [...] 1Result Comment: FLU [facility] 43708-980-82 Medications albuterol 0.083% inhalation solution 3 mL [...] 8:27:00 EDT, Aerosol, Route to Pharmacy Electronically, [id number], [facility]/pharmacy #[id number], 152, cm, 05/07/19 7:59:00 EDT, Heigh... Start Date: 05/07/19 Status: Ordered busPIRone 5 mg oral tablet 5 mg, 1, tablet, By Mouth, 3 times a day, 2 tablets 3 times a day as of 06/29/2019, # 90 tablet, Refills 5, Tot. Refills 5, Maintenance, 06/28/19 16:34:00 EDT, Route to Pharmacy Electronically, [facility]/pharmacy #[id number], 152, cm, 05/07/19 7:59:00 EDT, [...] Acute 07/16/19 16:34:00 EDT, 07/06/19 16:34:00 EDT, [facility]/pharmacy #[id number], 152, cm, 07/06/19 16:02:00 EDT, Height, 82.7, kg, 11/24/17 15:44:00 EDT, Dry Weight Start Date: 07/06/19 Stop Date: 07/16/19 Status: Ordered fluticasone CFC free 110 mcg/inh inhalation aerosol 2 puffs, Inhalation, 2 times a day, # 12 Gm, 2 Refills, Maintenance, 05/07/19 8:26:00 EDT, Aerosol,[facility]/pharmacy #[id number], 152, cm, 05/07/19 7:59:00 EDT, [...] Diagnosis Diagnosis Type Effective Dates Health Status Clini natali Service Informant Throat pain Discharge Diagnosis 07/06/19 Vital Signs Most recent to oldest [Reference Range]: 1 Height 152 cm (07/06/19 4:02 PM) Weight 82.7 kg (07/06/19 4:02 PM) Oxygen Saturation [94-100 %] 97 % (07/06/19 4:02 PM) Pulse Rate [55-90 bpm] 86 bpm (07/06/19 4:02 PM) Body Mass Index [18.5-24.99] 35.79 *>HHI* (07/06/19 4:02 PM) Blood Pressure [90-138/55-84 mm Hg] 102/ 72mm Hg (07/06/19 4:02 PM) Mode of Delivery (Oxygen) Room air (07/06/19 4:02 PM) Blood pressure sites Arm, left (07/06/19 4:02 PM) Weight Obtained Via Standing scale (07/06/19 4:02 PM) Social History Social History Type Response Smoking Status Never smoker entered on: 05/21/13 Sex
--- OUTSIDE RECORDS SUMMARY | 2022-07-17 07:49 | XMS_ITS | Continuity of Care Document ---
Author Name Unknown Organization [facility] Adult Address [address] [place] [address]- Care Team Providers Care Convention Services Director Name Role Phone José Davis MD Primary Care Physician [place] [facility] [place] 05/07[place] - 05/17/19 [facility] Adult [address] [place] [address]- [facility] Attending Physician: Admtr, Ar8 Allergies, [...] Comment: FLU [facility] 45694-760-46 Medications albuterol 0.083% inhalation solution 3 mL [...] 8:27:00 EDT, Aerosol, Route to Pharmacy Electronically, [id number], [id number], 152, cm, 05/07/19 7:59:00 EDT, Hearacelis... Start Date: 05/07/19 Status: Ordered busPIRone 5 mg oral tablet 5 mg, 1, tablet, By Mouth, 3 times a day, # 90 tablet, Refills 0, Tot. Refills 0, Maintenance, 05/07/19 8:29:00 EDT, [facility], [id number], 152, cm, 05/07/19 7:59:00 EDT, Height, [...] Gm, 2 Refills, Maintenance, 05/07/19 8:26:00 EDT, [id number], cm, 05/07/19 7:59:00 EDT, Height, [...] Refills, Maintenance, 03/02/19 14:20:00 EST Start Date: 1/7/20 Status: Ordered Senna Plus 50 mg-8.6 mg [...]
--- OUTSIDE RECORDS SUMMARY | 2022-07-17 07:49 | XMS_ITS | Continuity of Care Document ---
Author Name Unknown Organization [facility] Address [address] [place] [address]- Care Team Providers Care Loan Secretary Name Role Phone Susan RIOS, José Bowden Primary Care Physician Encounter [facility] Date(s): 01/29/21 - 02/28/21 [facility] Adult [address] [place] [address]- Allergies, Adverse Reactions, Alerts Substance Reaction Severity Status aspirin hives Active narcotic analgesics Active Fish hives Active Pollen Active Other Food Allergy pumpkin, zuchinni, squash Active Percocet 5/ palpitations Active traMADol hallucinations Active Immunizations Given [...] Comment: FLU [facility] 11800-628-94 2Result Comment: FLU [facility] 29300-105-83 Medications albuterol 0.083% inhalation solution 3 mL [...] 8:27:00 EDT, Aerosol, Route to Pharmacy Electronically, [id number], [facility]/pharmacy #[id number], 152, cm, 05/07/19 7:59:00 EDT, Heigh... Start Date: 05/07/19 Status: Ordered baclofen 10 mg oral tablet 10 mg, 1, tablet, By Mouth, 3 times a day, # 30 tablet, Refills 0, Tot. Refills 0, Maintenance, 03/27/20 10:25:00 EST, Route to Pharmacy Electronically, [facility]/pharmacy #[id number], Partial fill upon patient request if [...]
--- OUTSIDE RECORDS SUMMARY | 2022-07-17 07:49 | XMS_ITS | Continuity of Care Document ---
Author Name Unknown Organization [facility] Adult Address [address] [place] [address]- Care Team Providers Care Heel Seat Laster Name Role Phone José Davis MD Primary Care Physician [place] [facility] [place](s): 07/11/21 - 07/18/21 [facility] Adult [address] [place] [address]- Encounter Diagnosis Asthma(Discharge Diagnosis) - 07/11/21 Migraine(Discharge Diagnosis) - 07/11/21 Chronic urticaria(Discharge Diagnosis) - 07/11/21 Urinary incontinence(Discharge Diagnosis) - 07/11/21 Dysplasia of cervix, high grade BRII 2(Discharge Diagnosis) - 07/11/21 Fibromyalgia(Discharge Diagnosis) - 07/11/21 History of adenomatous polyp of colon(Discharge Diagnosis) - 07/11/21 Obstructive sleep apnea (AH! 16.4, O2 85%)(Discharge Diagnosis) - 07/11/21 Adjustment disorder with anxiety(Discharge Diagnosis) - 07/11/21 Eczema(Discharge Diagnosis) - 07/11/21 Obese class II(Discharge Diagnosis) - 07/11/21 Physical exam(Discharge Diagnosis) - 07/11/21 Attending Physician: José Davsi MD Allergies, Adverse Reactions, Alerts Substance Reaction Severity Status aspirin hives Active narcotic analgesics Active Fish hives Active Pollen Active Other Food Allergy pumpkin, zuchinni, squash Active Percocet palpitations Active traMADol hallucinations Active Immunizations Given [...] (Td) 05/12/02 Given 1Result Comment: FLU [facility] 33881-656-12 2Result Comment: FLU [facility] 59114-140-67 Medications albuterol 0.083% inhalation solution 3 mL [...] 8:27:00 EDT, Aerosol, Route to Pharmacy Electronically, [id number], [facility]/pharmacy #[id number], 152, cm, 05/07/19 7:59:00 EDT, [...] Effective Dates Health Status Clinical Service Informant Asthma Discharge Diagnosis 07/11/21 Migraine Discharge Diagnosis 07/11/21 Chronic urticaria Discharge Diagnosis 07/11/21 Adjustment disorder with anxiety Discharge Diagnosis 07/11/21 Obstructive sleep apnea (AH! 16.4, O2 85%) Discharge Diagnosis 07/11/21 Dysplasia of cervix, high grade BRII 2 Discharge Diagnosis 07/11/21 History of adenomatous polyp of colon Discharge Diagnosis 07/11/21 Obese class II Discharge Diagnosis 07/11/21 Physical exam Discharge Diagnosis 07/11/21 Fibromyalgia Discharge Diagnosis 07/11/21 Urinary incontinence Discharge Diagnosis 07/11/21 Eczema Discharge Diagnosis 07/11/21 Vital Signs Most recent to oldest [Reference Range]: 1 Height 152 cm (07/11/21 12:47 PM) Weight 88.2 kg (07/11/21 12:47 PM) Oxygen Saturation [94-100 %] 98 % (07/11/21 12:47 PM) Pulse Rate [55-90 bpm] 74 bpm (07/11/21 12:47 PM) Body Mass Index [18.5-24.99] 38.18 *>HHI* (07/11/21 12:47 PM) Blood Pressure [90-138/55-84 mm Hg] 102/ 65mm Hg (07/11/21 12:47 PM) Temperature [96.8-100.4 DegF] 97.9 DegF (07/11/21 12:47 PM) Mode of Delivery (Oxygen) Room air (07/11/21 12:47 PM) Blood pressure sites Arm, left (07/11/21 12:47 PM) Temperature Route Temporal (07/11/21 12:47 PM) Weight Obtained Via Standing scale (07/11/21 12:47 PM) Social History Social History Type Response Smoking Status Never smoker entered on: 05/21/13 Sex
--- OUTSIDE RECORDS SUMMARY | 2022-07-17 07:49 | XMS_ITS | Continuity of Care Document ---
Author Name Unknown Organization [facility] Adult Address [address] [place] [address]- Care Team Providers Care Staff Physician Name Role Phone Vianney Brandon Primary Care Physician [place] [facility] [place] 02/26/22 - 03/28/22 [facility] Adult [address] [place] [address]- Allergies, Adverse Reactions, Alerts Substance Reaction Severity Status aspirin hives Active narcotic analgesics Active Fish hives Active Pollen Active traMADol hallucinations Active Percocet 5/325 palpitations Active Other Food Allergy pumpkin, zuchinni, squash [...] influenza virus vaccine, inactivated 03/09/12 Give n [id number] bivalent booster vax 11/15/21 Recorded SARS-CoV-2 (COVID-19) mRNA-1273 vaccine 04/13/20 R ecorded SARS-CoV-2 (COVID-19) mRNA-1273 vaccine 03/16/20 R ecorded pneumococcal 23-valent vaccine 06/04/17 Given tetanus/diphtheria/pertussis, acel(Tdap) 01/31/16 Given tetanus-diphtheria toxoids (Td) 05/12/02 Given 1Result Comment: [facility] 8075-3790-66 2Result Comment: FLU [facility] 76028-161-25 3Result Comment: FLU [facility] 16788-450-98 Medications albuterol 0.083% inhalation solution 3 mL [...] 8:27:00 EDT, Aerosol, Route to Pharmacy Electronically, [id number], [facility]/pharmacy #[id number], 152, cm, 05/07/19 7:59:00 EDT, Heigh... [...] Personnel Name: Shane Sánchez RN, Jazmyne Position: [facility] RN Member Role: Primary Care Nurse Name: Vianney Brandon Position: [facility] Associate Professional Member Role: PCP Address: Address: [address] [place] [address]. [address] [place] [address]- Care Team Related Persons Name: MIKE LEACH Address: [address] [address]
--- OUTSIDE RECORDS SUMMARY | 2022-07-17 07:49 | XMS_ITS | Continuity of Care Document ---
Author Name Unknown Organization [facility] Adult Address [address] [place] [address]- Care Team Providers Care Air And Hydronic Balancing Technician Name Role Phone José Davis MD Primary Care Physician [place] [facility] [place](s[place] 03/27/20 - 04/03/20 [facility] Adult [address] [place] [address]- Encounter Diagnosis Upper back pain(Discharge Diagnosis) - 03/27/20 Attending Physician: José Davis MD Allergies, Adverse [...] 1Result Comment: FLU [facility] 34228-200-15 2Result Comment: FLU [facility] 13804-884-61 Medications albuterol 0.083% inhalation solution 3 mL [...] 8:27:00 EDT, Aerosol, Route to Pharmacy Electronically, [id number], [facility]/pharmacy #[id number], 152, cm, 05/07/19 7:59:00 EDT, Heigh... Start Date: 05/07/19 Status: Ordered baclofen 10 mg oral tablet 10 mg, 1, tablet, By Mouth, 3 times a day, # 30 tablet, Refills 0, Tot. Refills 0, Maintenance, 03/27/20 10:25:00 EST, Route to Pharmacy Electronically, [facility]/pharmacy #[id number], Partial fill upon patient request [...] Dates Health Status Cl inical Service Informant Upper back pain Discharge Diagnosis 03/27/20 Vital Signs Most recent to oldest [Reference Range]: 1 Height 152 cm (03/27/20 9:26 AM) Weight Obtained Via Standing scale (03/27/20 9:26 AM) Social History Social History Type Response Smoking Status Never smoker entered on: 05/21/13 Sex
--- OUTSIDE RECORDS SUMMARY | 2022-07-17 07:49 | XMS_ITS | Continuity of Care Document ---
Author Name Unknown Organization [facility] Adult Address [address] [place] [address]- Care Team Providers Care Irrigator Overhead Name Role Phone José Davis MD Primary Care Physician En[place] [facility] [place] Date(s): 02/08/20 - 03/09/20 [facility] Adult [address] [place] [address]- Allergies, Adverse Reactions, Alerts Substance Reaction Severity [...] 1Result Comment: FLU [facility] 26937-007-71 2Result Comment: FLU [facility] 77014-285-86 Medications albuterol 0.083% inhalation solution 3 mL [...] 8:27:00 EDT, Aerosol, Route to Pharmacy Electronically, [id number], [facility]/pharmacy #[id number], 152, cm, 05/07/19 7:59:00 [...]
--- OUTSIDE RECORDS SUMMARY | 2022-07-17 07:49 | XMS_ITS | Continuity of Care Document ---
Author Name Unknown Organization [facility] Adult Address [address] [place] [address]- Care Team Providers Care Raftsman Name Role Phone Vianney Brandon Primary Care Physician Encounter [facility] [place] Date(s): 03/01/22 - 03/08/[address] [facility] Adult [address] [place] [address]- Encounter Diagnosis Severe obesity (BMI 35.0-39.9) with comorbidity(Discharge Diagnosis) - 03/01/22 Obstructive sleep apnea (AH! 16.4, O2 85%)(Discharge Diagnosis) - 03/01/22 Attending Physician: Vianney Brandon Allergies, Adverse Reactions, Alerts Substance Reaction Severity [...] influenza virus vaccine, inactivated 03/09/12 Give n [id number] bivalent booster vax 11/15/21 Recorded SARS-CoV-2 (COVID-19) mRNA-1273 vaccine 04/13/20 R ecorded SARS-CoV-2 (COVID-19) mRNA-1273 vaccine 03/16/20 R ecorded pneumococcal 23-valent vaccine 06/04/17 Given tetanus/diphtheria/pertussis, acel(Tdap) 01/31/16 Given tetanus-diphtheria toxoids (Td) 05/12/02 Given 1Result Comment: [facility] [id number] 2Result Comment: FLU [facility] 07542-238-77 3Result Comment: FLU [facility] 83397-722-79 Medications albuterol 0.083% inhalation solution 3 mL [...] 8:27:00 EDT, Aerosol, Route to Pharmacy Electronically, [id number], [id number], 152, cm, 05/07/19 7:59:00 EDT, [...] Effective Dates Health Status Clinical Service Informant Severe obesity (BMI 35.0-39.9) with comorbidity Discharge Diagnosis 03/01/22 Obstructive sleep apnea (AH! 16.4, O2 85%) Discharge Diagnosis 03/01/22 Vital Signs Most recent to oldest [Reference Range]: 1 Height 152 cm (03/01/22 11:52 AM) Weight 90.2 kg (03/01/22 11:52 AM) Oxygen Saturation [94-100 %] 99 % (03/01/22 11:52 AM) Pulse Rate [55-90 bpm] 86 bpm (03/01/22 11:52 AM) Body Mass Index [18.5-24.99 kg/m2] 39.04 kg/m2 *>HHI* (03/01/22 11:52 AM) Blood Pressure [90-138/55-84 mm Hg] 116/ 73mm Hg (03/01/22 11:52 AM) Temperature [96.8-100.4 DegF] 97.2 DegF (03/01/22 11:52 AM) Mode of Delivery (Oxygen) Room air (03/01/22 11:52 AM) Blood pressure sites Arm, left (03/01/22 11:52 AM) Temperature Route Temporal (03/01/22 11:52 AM) Weight Obtained Via Standing scale (03/01/22 11:52 AM) Social History Social History Type Response Smoking Status Never smoker entered on: 05/21/13 Sex Note * Coral Gan: PERFORM, SIGN, VERIFY Event Display: Patient Education/Instruction Authored Date: [id number] [facility] *[facility] Clinical Summary Name CLIFFORD LEACH Age 51 Years 1970 PCP Alex NICHOLSON, Vianney Eisenberg PCP Visit Date 03/01/2022 11:51:00 Additional Instructions: Scheduled Appointments?? Future Appointments ?No Future Appointments Scheduled Follow-Up Instructions ?? Diagnosis Morbid (severe) obesity due to excess calories; Obstructive sleep apnea (adult) (pediatric) Medications: Please continue your medications until treatment is completed or stopped by your provider. Discuss any questions related to medications with your provider. New Medications - Durable Medical Equipment (CPAP Machine) use nightly for [place] Dx G47.33 AutoCPAP 6-16 cm H20, use Daily when sleeping. Refills: 0. Next Dose: Durable Medical Equipment (CPAP Equipment) Dx G47.33 Mask tubing filters head gear chin strap waterchamber. Refills: 11. Next Dose: Medications to Continue with No Changes These medications were not printed or sent to your pharmacy Albuterol (albuterol 0.083% inhalation solution) 3 Milliliter Inhalation every 6 hours as needed asneeded for wheezing. Refills: 5. Next Dose: Albuterol (albuterol CFC free 90 mcg/inh inhalation aerosol) 2 puff(s) Inhalation every 6 hours as needed for wheezing. Refills: 2. Next Dose: Albuterol/Ipratropium (Combivent Respimat 20 mcg-100 mcg/inh inhalation aerosol) TAKE 1 INHALATION INTO THE LUNGS ONCE DAILY. Next Dose: Docusate-Senna (Senna Plus 50 mg-8.6 mg oral tablet) 1 tab(s) Oral twice a day. Next Dose: Fluticasone (fluticasone CFC free 110 mcg/inh inhalation aerosol) 2 puff(s) Inhalation twice a day.Refills: 3. Next Dose: Hydrocortisone Topical (hydrocortisone 2.5% topical cream) Next Dose: HydrOXYzine Prescribed by derm. Next Dose: Lansoprazole (lansoprazole 30 mg oral enteric coated capsule) TAKE 1 CAPSULE BY MOUTH TWICE A DAY. Next Dose: Sucralfate (sucralfate 1 gm oral tablet) 1 tab(s) Oral 4 times a day. Next Dose: Trospium Chloride (trospium chloride 20 mg oral tablet) 1 tab(s) Oral twice a day. Next Dose: Allergy Info:?? traMADol; Percocet 5/325; Other Food Allergy; Pollen; Fish; narcotic analgesics; aspirin Medications Given This Visit Medication Dose Route influenza virus vaccine, inactivated (influenza virus, inactivated vacc) 0.5 mL Intramuscular pneumococcal 20-valent conjugate vaccine (pneumococcal 20-valent vacc) 0.5 mL Intramuscular Future Orders ?No future orders Vital Signs Height 152 cm Weight 90.2 kg BMI 39.04 kg/m2 Blood Pressure 116 mm Hg/73 mm Hg Temperature 97.2 DegF Pulse Rate 86 bpm Respiratory Rate 02 Sat Mode of Delivery 99 %/Room air You can now view a summary of your hospital visit from the comfort of your home through a free online portal called [employer]. [employer] is a website that allows you to securely view your medical information including discharge summary, medications and follow-up visits. ??You can alsosend a secure electronic message to your doctor???s office to request appointments, renew medications or just ask a question. You can enroll at [email or web address] or register during your next office visit. Disclaimer:?? The information provided is of a general nature and is intended to be used in conjunction with the recommendations and advice of your health care practitioner. ??Every effort has been made to ensure that the information provided is accurate and complete at the time it is provided to you however, as your needs change, or, as new ??information becomes available, different or additional instructions may be required. If you have questions, please consult with your primary care provider or pharmacist, as appropriate. ??This information is not intended to serve as substitution for assessment and evaluation by a qualified health care provider. If you do not have a primary care provider, you may find a [facility] provider by calling [facility] [employer] at [phone]. For information about the plan of care including goals and instructions for your diagnosis, please see the patient education orders section of this document. Patient Education Materials?? The content of this educational material or handout may have been modified, supplemented, or adapted from its original content and format to support your individualized medical care. Patient Care team information Care Team Personnel Name: Jazmyne Segundo RN Position: [facility] RN Member Role: Primary Care Nurse Name: Vianney Brandon Position: [facility] Associate Professional Member Role: PCP Address: Address: [address] [place] [address]- Care Team Related Persons Name: MIKE LEACH Address: [address] [address]
--- OUTSIDE RECORDS SUMMARY | 2022-07-17 07:49 | XMS_ITS | Continuity of Care Document ---
Author Name Unknown Organization [facility] Adult Address [address] [place] [address]- Care Team Providers Care Learning Support Specialist Name Role Phone José Davis MD Primary Care Physician Encounter [facility] Date(s): 02/09/21 - 02/16/21 [facility] Adult [address] [place] [address]- Attending Physician: José Davis MD Allergies, Adverse [...] Given 1Result Comment: FLU [facility] 34503-537-62 2Result Comment: FLU [facility] 96839-663-20 Medications albuterol 0.083% inhalation solution 3 mL [...] 8:27:00 EDT, Aerosol, Route to Pharmacy Electronically, [id number], [facility]/pharmacy #[id number], 152, cm, 05/07/19 7:59:00 EDT, Heigh... Start Date: 05/07/19 Status: Ordered baclofen 10 mg oral tablet 10 mg, 1, tablet, By Mouth, 3 times a day, # 30 tablet, Refills 0, Tot. Refills 0, Maintenance, 03/27/20 10:25:00 EST, Route to Pharmacy Electronically, [facility]/pharmacy #[id number], Partial fill upon patient request [...]
--- OUTSIDE RECORDS SUMMARY | 2022-07-17 07:49 | XMS_ITS | Continuity of Care Document ---
Author Name Unknown Organization [facility] Adult Address [address] [place] [address]- Care Team Providers Care Pillow Agent Name Role Phone Susan RIOS, José Bowden Primary Care Physician [place] [facility] [place] [facility] [id number] Date(s): 08/31/20 - 09/07/20 [facility] Adult [address] [place] [address]- Attending Physician: Sachin RIOS, Hao Allergies, Adverse Reactions, Alerts Substance Reaction Severity [...] toxoids (Td) 05/12/02 Given 1Result Comment: FLU [facility] 19781-779-39 2Result Comment: FLU [facility] 74881-681-60 Medications albuterol 0.083% inhalation solution 3 mL [...] 8:27:00 EDT, Aerosol, Route to Pharmacy Electronically, [id number], [facility]/pharmacy #[id number], 152, cm, [...] HydrOXYzine Prescribed by derm, 0 Refills, Maintenance, 10/04/18 15:22:45 EDT Start Date: 11/27/17 Status: Ordered [...] oldest [Reference Range]: 1 Height 152 cm (08/31/20 8:27 AM) Weight 83.91 kg (08/31/20 8:27 AM) Body Mass Index [18.5-24.99] 36.32 *>HHI* (08/31/20 8:27 AM) Weight Obtained Via Patient/family state d (08/31/20 8:27 AM) Social History Social History Type Response Smoking Status Never smoker entered on: 05/21/13 Sex
--- OUTSIDE RECORDS SUMMARY | 2022-07-17 07:49 | XMS_ITS | Continuity of Care Document ---
Author Name Unknown Organization [facility] Adult Address [address] [place] [address]- Care Team Providers Care Supervisor Cab Name Role Phone José Davis MD Primary Care Physician Encounter [facility] Date(s): 01/09/21 - 02/08/21 [facility] Adult [address] [place] [address]- Allergies, Adverse Reactions, Alerts Substance Reaction Severity [...] 05/12/02 Given 1Result Comment: FLU [facility] 16922-328-17 2Result Comment: FLU [facility] 01315-549-26 Medications albuterol 0.083% inhalation solution 3 mL [...] 8:27:00 EDT, Aerosol, Route to Pharmacy Electronically, [id number], [facility]/pharmacy #[id number], 152, cm, 05/07/19 7:59:00 EDT, Heigh... Start Date: 05/07/19 Status: Ordered baclofen 10 mg oral tablet 10 mg, 1, tablet, By Mouth, 3 times a day, # 30 tablet, Refills 0, Tot. Refills 0, Maintenance, 03/27/20 10:25:00 EST, Route to Pharmacy Electronically, [facility]/pharmacy #[id number], Partial fill upon patient request [...]
--- OUTSIDE RECORDS SUMMARY | 2022-07-17 07:49 | XMS_ITS | Continuity of Care Document ---
Author Name Unknown Organization [facility] Adult Address [address] [place] [address]- Care Team Providers Care Malt House Operator Name Role Phone José Davis MD Primary Care Physician Encounter [facility] Date(s): 12/28/19 - 01/04/20 [facility] Adult [address] [place] [address]- Encounter Diagnosis Dyspnea on exertion(Discharge Diagnosis) - 12/28/19 Asthma(Discharge Diagnosis) - 12/28/19 Palpitations(Discharge Diagnosis) - 12/28/19 Attending Physician: José Davis MD Allergies, Adverse [...] 1Result Comment: FLU [facility] 33176-197-21 2Result Comment: FLU [facility] 33359-782-58 Medications albuterol 0.083% inhalation solution 3 mL [...] 8:27:00 EDT, Aerosol, Route to Pharmacy Electronically, [id number], [facility]/pharmacy #[id number], 152, cm, 05/07/19 [...] 2 Refills, Maintenance, 09/12/19 22:43:00 EDT, Aerosol, [facility]/pharmacy #[id number], 152, cm, 07/06/19 16:02:00 [...] Service Informant Dyspnea on exertion Discharge Diagnosis 12/28/19 Asthma Discharge Diagnosis 12/28/19 Palpitations Discharge Diagnosis 12/28/19 Vital Signs Most recent to oldest [Reference Range]: 1 Height 152 cm (12/28/19 3:10 PM) Weight 84.5 kg (12/28/19 3:10 PM) Oxygen Saturation [94-100 %] 99 % (12/28/19 3:10 PM) Pulse Rate [55-90 bpm] 87 bpm (12/28/19 3:10 PM) Body Mass Index [18.5-24.99] 36.57 *>HHI* (12/28/19 3:10 PM) Blood Pressure [90-138/55-84 mm Hg] 110/ 62mm Hg (12/28/19 3:10 PM) Mode of Delivery (Oxygen) Room air (12/28/19 3:10 PM) Blood pressure sites Arm, left (12/28/19 3:10 PM) Weight Obtained Via Standing scale (12/28/19 3:10 PM) Social History Social History Type Response Smoking Status Never smoker entered on: 05/21/13 Sex
--- OUTSIDE RECORDS SUMMARY | 2022-07-17 07:49 | XMS_ITS | Continuity of Care Document ---
Author Name Unknown Organization [facility] Adult Address [address] [place] [address]- Care Team Providers Care Staking Technician Name Role Phone Susan RIOS, José Bowden Primary Care Physician [place] [facility] 12/14[place]21 - 01/13/22 [facility] Adult [address] [place] [address]- Allergies, Adverse Reactions, Alerts Substance Reaction Severity Status aspirin hives Active narcotic analgesics Active Pollen Active traMADol hallucinations Active Percocet 5/325 palpitations Active Fish hives Active Other Food Allergy pumpkin, zuchinni, squash [...] 05/12/02 Given 1Result Comment: FLU [facility] 18881-853-27 2Result Comment: FLU [facility] 56641-381-51 Medications albuterol 0.083% inhalation solution 3 mL [...] 8:27:00 EDT, Aerosol, Route to Pharmacy Electronically, [id number], [facility]/pharmacy #[id number], 152, cm, 05/07/19 7:59:00 EDT, Heigh... [...] Team Personnel Name: Jazmyne Segundo RN Position: [facility] RN Member Role: Primary Care Nurse Name: José Davis MD Position: [facility] Primary Care Physician Member Role: PCP Address: Address: [address] [place] [address] [address] [place] [address]- Care Team Related Persons Name: MIKE LEACH Address: home [address] [place] [address]
--- OUTSIDE RECORDS SUMMARY | 2022-07-17 07:49 | XMS_ITS | Continuity of Care Document ---
Author Name Unknown Organization [facility] Adult Address [address] [place] [address]- Care Team Providers Care Dredge Operator Name Role Phone José Davis MD Primary Care Physician [place] [facility] [place]07[place] - 09/06/21 [facility] Adult [address] [place] [address]- Allergies, Adverse Reactions, Alerts Substance Reaction Severity [...] toxoids (Td) 05/12/02 Given 1Result Comment: FLU [facility] 55119-750-97 2Result Comment: FLU [facility] 84635-198-51 Medications albuterol 0.083% inhalation solution 3 mL [...] 8:27:00 EDT, Aerosol, Route to Pharmacy Electronically, [id number], [facility]/pharmacy #[id number], 152, cm, 05/07/19 7:59:00 EDT, Heigh... [...]
--- OUTSIDE RECORDS SUMMARY | 2022-07-17 07:49 | XMS_ITS | Continuity of Care Document ---
Author Name Unknown Organization [facility] Adult Address [address] [place] [address]- Care Team Providers Care Metal Hardener Name Role Phone Susan RIOS, José Bowden Primary Care Physician Encounter [facility] Date(s): 12/17/21 - 01/16/22 [facility] Adult [address] [place] [address]- Encounter Diagnosis Viral respiratory infection(Discharge Diagnosis) - [...] (Td) 05/12/02 Given 1Result Comment: FLU [facility] 41639-653-17 2Result Comment: FLU [facility] 09440-385-94 Medications albuterol 0.083% inhalation solution 3 mL [...] 8:27:00 EDT, Aerosol, Route to Pharmacy Electronically, [id number], [facility]/pharmacy #[id number], 152, cm, 05/07/19 7:59:00 EDT, Heigh... [...] Team Personnel Name: Jazmyne Segundo RN Position: [facility] RN Member Role: Primary Care Nurse Name: José Davis MD Position: [facility] Primary Care Physician Member Role: PCP Address: Address: [address] [place] [address] [place] [address]- Care Team Related Persons Name: MIKE LEACH Address: [address] [address]
--- NOTE | 2022-07-17 08:01 | PHA.MEDREC ---
Pharmacy Consult ? Medication Reconciliation Pharmacy has completed the medication reconciliation. Reviewed med rec done by nursing
[2022-07-17] MEDS: Lactated Ringers 1,000 ML 100 ML IVCONT ×2 (08:40→14:51)
--- NOTE | 2022-07-17 10:28 | MHC.SHP ---
Pre-Procedural Eval Section A Date of Service: 07/17/22 The patient is an INPATIENT: Yes The History & Physical has been completed within 30 days and I have reviewed it.: Yes Section B Chief Complaint: Obesity Allergies: Allergies Allergy/AdvReac Type Severity Reaction Status Date / Time aspirin [ASPIRIN] Allergy Severe HIVES Verified 07/09/22 08:26 Fish Containing Products Allergy Severe HIVES/DYSPN Verified 07/09/22 08:26 EA oxycodone [From PERCOCET] Allergy Severe PALPITATION Verified 07/09/22 08:26 S/HIVES pumpkin Allergy Severe THROAT Verified 07/09/22 08:26 SWELLING squash Allergy Severe THROAT Verified 07/09/22 08:26 SWELLING Zucchini Allergy Mild Hives, Uncoded 07/09/22 08:26 Dysphagia Plan I have reviewed the history and physical and performed a pertinent physical examination on my patient. No changes have occurred unless specified. Time Spent With Patient Time: Total time managing care of this patient today ____ minutes.
--- NOTE | 2022-07-17 10:29 | P.OP_ITS ---
Operative Note Operative Note Date of Service: 07/17/22 Narrative: Preop diagnosis: [Obesity, obstructive sleep apnea, irritable bowel syndrome, NAFLD] Postop diagnosis: [Same, enlarged, thickened liver, grossly normal stomach and spleen; no evidence of hiatal hernia] Procedure: [Laparoscopic sleeve gastrectomy, gastropexy and intraoperative esophagogastroscopy] Surgeon: Robert Martin MD Assist: [Johanna Loo PA-C] Anesthesia: [GET, Marcaine, 0.5% with epi] Estimated blood loss: [10cc] Specimen: [Portion of stomach with fundus] Intraoperative findings: [No evidence of a hiatal hernia; stomach appeared grossly normal intraluminally & on laparoscopy; liver was enlarged/thickened, visualized anterior spleen was normal] Indications: [The patient is a 52-year-old woman with a struggle with her obesity that has been refractory to medical management. She entered the surgical weight loss program on 02/27/2022 with a BMI of 37.8/weight of 193.8 lb and history of obstructive sleep apnea and NAFLD. After being provided with Education and demonstrating successful weight loss through healthy lifestyle changes, options of continued medical weight loss verses bariatric surgery reviewed. Patient wanted to proceed with a laparoscopic sleeve gastrectomy as recommended. The plan to proceed with a laparoscopic sleeve gastrectomy, intraoperative endoscopy, possible hiatal hernia repair and possible ventral hernia repair with the inherent risks include, but are not limited to: Bleeding that could require another operation or blood transfusion; the inherent risks of transfusion reaction infectious disease from blood transfusions; the risk of staple line leaks that could cause sepsis, multi-system organ failure and ; the risk of mesenteric or deep vein thrombosis of the lower extremities that could cause a fatal pulmonary embolism was reviewed; the risk of GERD that could require conversion to gastric bypass was discussed; the risk of recurrent hiatal hernia, especially in the setting of weight regain was reviewed. The risk of weight regain if maladaptive eating and sedentary behavior continue was discussed. The importance of proper diet and increased activity to augment surgical weight loss and the fact that no operation would result in weight loss of poor dietary decisions and sedentary behavior are resumed were discussed at length and apparently understood. The patient had the option of having a distributor cleaner present and declined this option.] Procedure: [The patient was identified in the preoperative holding area by myself and again in the operating suite by myself and the OR team. Patient was placed supine on the operating table. Safety straps were utilized and a footboard utilized. The patient was induced in general endotracheal anesthesia administered with excellent effect. An appropriate time-out was performed. The patient's abdomen was then widely prepped and draped in the usual manner for surgery using chlorprep. Antibiotics per protocol were administered by Anesthesia. After infiltrating preemptive local in the skin and subcutaneous tissues in the left upper quadrant, a stab incision was made sharply in the left subcostal abdomen and the Veress needle inserted without incident. An appropriate drop test was performed then a pneumoperitoneum of 15 mmHg was obtained using carbon dioxide. Opening pressures were 8 mmHg. Next, a 5 mm 0 degree scope over a 5 mm Optiview trocar was used to access the abdomen via the epigastric incision in the midline. Once the abdomen was entered, the the trocar obturator was removed and the laparoscope was used to confirm there was no injury from the Veress needle nor trocar insertion injury to the bowel or mesentery, then the scope was switched to a 5 mm 45 degree laparoscope. Next, using preemptive local, additional 5 mm trocars were placed under direct laparoscopic vision on the patient's left abdomen, then right and the 5 mm midline trocar upsized to a 12 mm to accommodate the stapler. The patient was then positioned in reverse Trendelenburg and the liver retractor deployed through the right lateral 5 mm trocar and secured. A 40 Upper Sorbian ViSiGi bougie was inserted by Anesthesia per os and advanced to the stomach to decompress. It was then withdrawn to the GE junction all under direct laparoscopic vision. Dissection was begun along the greater curvature using the 5 mm [place] LigaSure for hemostasis and continued to the left dave of the diaphragm. Dissection was then carried towards the pylorus to 3-4 cm from the pylorus and retro gastric adhesions lysed. The gastroesophageal fat pad was carefully mobilized taking care to avoid injury to the esophagus and stomach and dissection carried towards the short gastrics taking care to avoid injury to the spleen and splenic artery. The diaphragmatic hiatus was carefully examined for a hernia, and no apparent hernia was appreciated. Next, the 40 Fr ViSiGi bougie was advanced by anesthesia under direct vision and laparoscopic guidance and positioned in the antrum approximately 3 cm from the pylorus using laparoscopic graspers to serve as a guide for a stapled sleeve gastrectomy. Stapling was performed with [employer] End[employer]-RICARDA stapler with a purple 45 and then orange 45 and 60 loads. The bougie served as a guide to maintain the same sleeve caliber to avoid stricture & sleeve distortion. The 10 mm clip web press operator helper offset was used to apply additional clips to the staple line. Care was taken to be cristina e that the sleeve laid flat and was without stricture. Once the sleeve was complete, the portion of stomach was placed in the lower abdomen to be sent for removal and permanent section. The staple line, gastrocolic omentum, spleen and short gastric areas were all inspected for hemostasis which was found to be good. Next, the bougie was withdrawn under laparoscopic vision used to suction the esophagus and hypopharynx and then discarded. After inspecting again for hemostasis, a gastropexy was performed using 2-0 Polysorb suture to secure the sleeve gastrectomy to the gastrocolic omentum. Next, I broke scrub perform an on-table upper endoscopy to assess the sleeve and the esophagus and stomach. The patient was returned to neutral position and the Olympus 160 gastroscope was advanced taking care to preserve the endotracheal tube. The esophagus was intubated without incident. Minimal air was insufflated and the scope advanced into the newly formed sleeve. The staple line was inspected for hemostasis and the morphology of the sleeve appeared straight with a uniform diameter. Intraoperatively, there was no evidence of staple line leak seen during laparoscopy as air was insufflated via endoscope. The scope was then used to aspirate the air from the sleeve withdrawn and removed. I then rescrubbed to return to the operative field and again inspected the field for hemostasis. After final assessment for hemostasis, the patient was returned to neutral position, a Keely used to withdraw the resected gastric specimen which was sent for permanent section. The fascia of the 12 mm midline was closed using an 0 Polysorb figure of 8 on a suture passer under direct laparoscopic vision. The abdomen was then deflated and all trocars removed. The suture was then tied and the skin closed with 4-0 Monocryl subcuticular sutures. The abdomen was then washed and dried, benzoin and Steri-Strips applied followed by Tegaderms. The patient tolerated the procedure well was then extubated the recover in stable condition. All sponge needle and instrument counts were correct x2. At the patient's request, I contacted her , Baltazar by telephone at [phone] to apprise him of the operation and typical postoperative course. His questions seemed to be satisfactorily answered.]
--- NOTE | 2022-07-17 13:48 | PM.DS ---
DS: Providers Provider Date of Service: 07/19/22 Date of admission: 07/17/22 07:42 Primary care physician: Unknown Physician DS: Summary Hospital Course Hospital Course: ADMITTING DIAGNOSIS: morbid obesity,?JOSE, IBS ? DISCHARGE DIAGNOSIS: same, s/p laparoscopic sleeve gastrectomy and gastropexy ? PAST SURGICAL HISTORY:? H/O colonoscopy H/O eye surgery H/O: hysterectomy History of arthroscopy of both knees History of esophagogastroduodenoscopy (EGD) Hx of appendectomy ? PROCEDURE: upper endoscopy, laparoscopic sleeve gastrectomy and gastropexy ? DISCHARGE SUMMARY: ? History of Present Illness: ? The patient is a? 52? year-old woman with a BMI of? ? 31.8? kg/m2 and associated co-morbidities as described above. The patient had extensive work-up, lost? 30 ? lbs preoperatively and was electively scheduled for laparoscopic, possible open sleeve gastrectomy and gastropexy. Risks and complications of the surgery were discussed with the patient in advance, particularly the possibility of , pulmonary embolism, anastomotic leak, bleeding, bowel injury, GERD, cardiac, renal or pulmonary complications. The patient understood all the risks and was in agreement with the surgical plan. ? Hospital Course: The patient underwent an uneventful laparoscopic sleeve gastrectomy with gastropexy on the day of admission. Postoperatively, the patient was transferred to the surgical floor. The patient received IV Acetaminophen and IV dilaudid for pain control. Patient was started on bariatric phase 1 diet POD #0. On postoperative day one, the patient reported some nausea and pain without vomiting, fevers, or tachycardia. The patient's abdomen was soft.?Due to nausea, pain, and difficulty meeting fluid intake goals, the patient was kept in hospital until POD #2. On the morning of postoperative day two, the patient was continued on 1 ounce of water or ice every half hour. The patient's nausea and pain improved, and she was able to ambulate adequately and tolerate liquids well. Since the patient is doing well, we decided that the patient was ready to be discharged. The patient was given instructions to follow-up with me next week and to call my office for any fever over 101, persistent abdominal pain, nausea, vomiting, GERD, symptoms of DVT such as calf tenderness, or leg swelling, or pulmonary embolism such as chest pain or shortness of breath.? The patient was also instructed to drink 40-60 ounces of liquids per day using the 1-ounce cups. The patient had been given prescriptions for Tylenol for pain, Zofran prn for nausea, and pantoprazole and carafate previously. The patient was encouraged to ambulate and use the incentive spirometer. The patient was allowed to shower, but no baths, and encouraged to stay active at home. All of these instructions were given to the patient personally. All questions were answered and the patient understood all instructions, the instructions were also given to the patient in print. Time Spent with Patient Time attestation: Total time managing care of this patient today ____ minutes. Discharge coordination time: Less than 30 minutes Quality: Safe Use of Opioids Does Pt have an Active Cancer Diagnosis on the Problem List?: No Quality: Stroke Does the patient have a stroke diagnosis?: No Physical Exam Vital Signs: Vital Signs: Last Vital Signs Temp 97.9 F 07/17/22 13:35 Pulse 99 07/17/22 13:40 Resp 16 07/17/22 13:40 BP 115/71 07/17/22 13:40 Pulse Ox 94 07/17/22 13:40 O2 Del Method Simple Mask 07/17/22 13:40 O2 Flow Rate 4 07/17/22 13:40 BMI result Body Mass Index 31.8 DS: Data Data Completed and Pending Pending studies at discharge: Pending at discharge 07/17/22 13:03 Surgical [PTH] Routine Labs on day of discharge: Laboratory Results - last 24 hr 07/16/22 13:47 COVID-19 ([facility]) Negative COVID-19 Clin Com See Note Discharge Plan Discharge Anticipated Discharge Date/Time: 07/18/22 10:00 Patient Disposition: Home, Self-Care Discharge Diagnosis: s/p laparoscopic sleeve gastrectomy Referrals: Physician,Unknown J [Primary Care Provider] - 1 Week Discharge Medications: Continued fluticasone propionate [Flovent HFA] 110 mcg/actuation HFA aerosol inhaler 2 puff inhalation BID buspirone 5 mg Tablet 5 mg PO TID PRN (Reason: Anxiety) albuterol sulfate 90 mcg/actuation HFA aerosol inhaler 2 puff inhalation Q6H PRN (Reason: Wheezing) trospium 60 mg capsule,extended release 24hr 60 mg PO DAILY sennosides-docusate sodium [Lax Stool Softener With Senna] 8.6-50 mg tablet 2 tab-cap PO BEDTIME 90 Days Qty: 180 1RF ondansetron HCl 4 mg tablet 4 mg PO Q6H PRN (Reason: nausea and vomiting) Qty: 20 0RF pantoprazole 40 mg tablet,delayed release (DR/EC) 40 mg PO QAM 30 Days Qty: 30 2RF sucralfate 100 mg/mL suspension 10 ml PO BID 30 Days Qty: 600 2RF acetaminophen 500 mg/15 mL liquid 500 mg PO Q6H PRN (Reason: fever or pain) Qty: 237 2RF Discontinued vitamin A 3,000 mcg (10,000 unit) capsule 1 cap PO DAILY Qty: 60 0RF cyanocobalamin (vitamin B-12) 500 mcg tablet 500 mcg PO DAILY Qty: 90 0RF cholecalciferol (vitamin D3) 125 mcg (5,000 unit) capsule 125 mcg PO DAILY Qty: 90 0RF polyethylene glycol 3350 [Miralax] 17 gram powder in packet See Rx Instructions PO DAILY Qty: 14 0RF Rx Instructions: Take 7 packets 2 days before surgery and 7 packets 1 day before surgery. Mix each packet with 8 oz's of water before surgery. Discharge Orders: Discharge Order (Routine); Ordered 07/19/22 Ordered By: Tracy Wu Activity on Discharge: No heavy lifting Stand Alone Forms: Patient Portal Discharge page Care Plan Goals: weight loss Health Concerns: obesity Plan of Treatment: No tub baths, sex or returning to work until discussed at first post op appointment. No alcohol, tobacco or illegal drug use. Continue to use incentive spirometer hourly while awake. Walk in home for 5- 10 minutes every 2 hours during the first week. Wear abdominal binder with activity. Follow all meal plan instructions from your bariatric surgeon. Review bariatric handbook and call with any questions. Discharge Instructions 1. Please call your doctor or come back to the emergency room should any new symptoms arise. 2. Activity: abstain from alcohol,? limited stair climbing, no bending, no driving, no exercise, no illicit substances, no lifting, no sex, no tub bath, no work. 4. Diet: follow your bariatric surgeons recommendations for advancing diet. 5. Dressing Change/Wound Care: Your incisions are covered with waterproof dressings. You can shower with these and pat dry. Do not rub over dressings or incisions. If the area is tender, you may apply an ice pack for short intervals (no more than 20 minutes on, followed by at least 20 minutes off). Do not apply heat. Do not use creams, lotions, or topical antibiotics unless instructed to do so by your surgeon. 6. Call your doctor if: - Your temperature exceeds 101.5 F - You experience excessive pain or swelling - You have an unexpected reaction to medication - You have excessive bleeding - You experience continued vomiting/nausea - Your incision begins to separate - Your incision shows signs of infection such as increased redness, swelling, excessive pain, heat, or drainage (light blood or clear fluid is normal) General instructions: No lifting greater than 10 lbs for the next 6 weeks[address] within 24 hours of taking narcotic pain medications. If you do not move your bowels in the next 2 days, please take milk of magnesia over the counter. Please follow the post op diet and do not advance your diet until you are seen in the office in about 2 weeks. Please walk around your home every hour or two to prevent blood clots from forming in your legs. You do not need to wake from sleeping to walk. Please sleep in a bed or couch to prevent kinking at the hips and knees. Please take your incentive spirometer (your lung plain clothes police officer) home with you and use it for the next few days to prevent pneumonias. You may shower, no hot tubs, baths or swimming pools. Please call the office with any questions or concerns such as increasing abdominal pain, fever, chills, shortness of breath, chest pain, leg pain or swelling, or redness or drainage from your incisions. Please make sure you are consuming 40-60 ounces of total fluids per day. Avoid all carbonation. Do not hesitate to contact the office with any questions at . The patient's medical history has been reviewed and they are considered low risk for post op DVT and therefore DVT prophylaxis is not considered necessary. Travel after surgery was reviewed. The patient has not disclosed any travel plans during the first 30 days after surgery and they have been advised that within the first 30 days after surgery any bus, plane, train or car travel over 2 hours in duration is contraindicated due to the possibility of developing blood clots from immobility. Any travel, needs to include periods of ambulation of 10 minutes in duration every 2 hours.? The patient was instructed to discuss any plans for travel during this period with their bariatric surgeon. Assessment: s/p laparoscopic sleeve gastrectomy with gastropexy
[2022-07-17 14:06] LABS: Hematocrit 34.8 % (37.0-47.0); Hemoglobin 11.5 g/dl (12.0-16.0)
[2022-07-17 14:46] LABS: Anion Gap 15 (12-20); Blood Urea Nitrogen 14 mg/dL (9-16); Calcium 8.7 mg/dL (8.4-10.2); Carbon Dioxide 24 mmol/L (22-29); Chloride 105 mmol/L (96-108); Creatinine Clr Calc Pharmacy 71.1; Estimated Glomerular Filt Rate > 60; Glucose Random 124 mg/dL (60-115); Potassium 4.1 mmol/L (3.3-5.1); Sodium 140 mmol/L (135-145)
[2022-07-17] MEDS: ondansetron HCL 4 MG/2 ML VIAL IVPUSH ×2 (14:50→23:21)
[2022-07-17] MEDS: Acetaminophen 1,000 MG/100 ML PIGGYBACK 16.7 MG IV ×2 (14:52→20:32)
[2022-07-17] MEDS: Metoclopramide HCl 10 MG/2 ML VIAL IVPUSH ×2 (15:18→21:32)
--- NOTE | 2022-07-17 15:40 | PM.PNGS ---
Subjective Subjective Date of Service: 07/17/22 Interval history: Patient is rather somnolent. Per nursing, she reported some nausea and just received Zofran. Physical Exam Vital Signs: Vital Signs: Last Vital Signs Temp 98.4 F 07/17/22 15:01 Pulse 89 07/17/22 15:01 Resp 16 07/17/22 15:01 BP 114/61 07/17/22 15:01 Pulse Ox 96 07/17/22 15:01 O2 Del Method Nasal Cannula 07/17/22 15:01 O2 Flow Rate 2.0 07/17/22 15:01 BMI result Body Mass Index 31.8 On exam she is nontoxic She is in no acute respiratory distress Abdominal binder is intact with appropriate incisional tenderness Objective Data Active Medications Albuterol Sulfate (Albuterol Sulfate 90 Mcg 8 Gm Inhaler) 2 puff INHALE Q6H PRN PRN Reason: Wheezing Buspirone HCl (Buspirone Hcl 5 Mg Tablet) 5 mg PO TID PRN PRN Reason: Anxiety Famotidine (Famotidine/Pf 20 Mg/2 Ml Vial) 20 mg IVPUSH BID PATRICIA Fluticasone Propionate (Fluticasone Propionate 100 Mcg Blst.W.Dev) 2 puff INHALE RBID PATRICIA Hydromorphone HCl (Hydromorphone Hcl 0.5 Mg/0.5 Ml Syringe) 0.25 mg IVPUSH Q4H PRN; Protocol PRN Reason: Pain, Moderate(Pain Scale 4-6) Lactated Ringer's (Lr) 1,000 mls @ 100 mls/hr IVCONT .Q10H [facility] Last Admin: 07/17/22 14:51 Dose: 100 mls/hr Documented By: SILVANA Cefazolin Sodium/Dextrose (Ancef) 2 gm in 50 mls @ 100 mls/hr IV POSTOP ONE Stop: 07/17/22 17:29 Acetaminophen (Ofirmev) 1,000 mg in 100 mls @ 16.7 mls/hr IV .Q6H PATRICIA Last Admin: 07/17/22 14:52 Dose: 16.7 mls/hr Documented By: SILVANA Metoclopramide HCl (Metoclopramide Hcl 10 Mg/2 Ml Vial) 10 mg IVPUSH Q6H PRN PRN Reason: Nausea Last Admin: 07/17/22 15:18 Dose: 10 mg Documented By: ANTHONY Ondansetron HCl (Ondansetron Hcl 4 Mg/2 Ml Vial) 4 mg IVPUSH Q8H [facility] Last Admin: 07/17/22 14:50 Dose: 4 mg Documented By: SILVANA Sodium Chloride (0.9 % Sodium Chloride Flush 3 Ml Syringe) 3 ml IVFLUSH QSHIFT [facility] Labs 07/17/22 13:58 07/17/22 13:58 Labs: Laboratory Results - last 24 hr 07/17/22 13:58 Anion Gap 15 Estim Creat Clear Calc 71.1 Estimated GFR > 60 Random Glucose 124 H Calcium 8.7 D Procedures Date of Service Date of Service: 07/17/22 Progress Note: A&P Assessment and plan (1) S/P laparoscopic sleeve gastrectomy: Status: Acute (2) Obesity (BMI 30-39.9): Status: Acute (3) JOSE (obstructive sleep apnea): Status: Acute (4) Irritable bowel syndrome: Status: Acute Plan Start sips of water when nausea is better controlled Out of bed when more awake Trend labs Time Spent With Patient Time: Total time managing care of this patient today ____ minutes. Quality Stroke Does the patient have a stroke diagnosis?: No VTE Prior VTE?: No VTE Risk Level:: Surgical - moderate VTE Device Contraindication: N/A - Device Ordered VTE Drug Contraindication: Treatment Not Indicated
[2022-07-17] MEDS: HYDROmorphone HCl 0.5 MG/0.5 ML SYRINGE 0.25 MG IVPUSH (16:30)
[2022-07-17] MEDS: ceFAZolin Sodium/Dextrose,Iso 2 GM/50 ML PIGGYBACK IV (16:31)
[2022-07-17] MEDS: 0.9 % Sodium Chloride Flush 3 ML SYRINGE IVFLUSH ×2 (16:33→23:21)
[2022-07-17 17:03] LABS: Zinc 82 mcg/dL (60-130)
[2022-07-17] MEDS: Fluticasone Propionate 100 MCG BLST.W.DEV 2 PUFF INHALE (19:39)
[2022-07-17] MEDS: Famotidine/PF 20 MG/2 ML VIAL IVPUSH (20:34)
[2022-07-18] VITALS (7 sets, daily range): BP systolic 106–116; BP diastolic 55–60; PULSE 70–88; RESP 16–17; TEMP 36–36.6; O2SAT 95–98
[2022-07-18] MEDS: Lactated Ringers 1,000 ML 100 ML IVCONT ×3 (00:34→18:37)
[2022-07-18] MEDS: HYDROmorphone HCl 0.5 MG/0.5 ML SYRINGE 0.25 MG IVPUSH ×4 (03:40→22:31)
[2022-07-18] MEDS: Acetaminophen 1,000 MG/100 ML PIGGYBACK 16.7 MG IV ×4 (04:40→20:11)
[2022-07-18 06:02] LABS: MANUAL DIFF FLAG NO
[2022-07-18 06:08] LABS: Basophils Percent Auto 0.1 % (0-2); Eosinophils Percent Auto 0.1 % (0-4); Hematocrit 34.3 % (37.0-47.0); Hemoglobin 11.3 g/dl (12.0-16.0); Imm Gran Abs Auto 0.06 X10*3/uL (0.00-0.03); Imm Gran Pct Auto 0.4 % (0.0-0.4); Lymphocytes Absolute Auto 1.1 X10*3/uL (1.2-4.9); Lymphocytes Percent Auto 7.9 % (20-40); Mean Corpuscular HGB Conc 32.9 g/dl (31.0-35.0); Mean Corpuscular Hemoglobin 30.1 pg (27.0-33.0); Mean Corpuscular Volume 91.5 fL (80.0-98.0); Mean Platelet Volume 11.6 fL (9.4-12.3); Monocytes Absolute Auto 0.8 X10*3/uL (0.1-1.2); Monocytes Percent Auto 5.8 % (2-11); Neutrophils Absolute Auto 12.3 x10*3/uL (2.0-8.3); Neutrophils Percent Auto 85.7 % (45-73); Platelet Count 296 X10*3/uL (160-400); Red Blood Count 3.75 X10*6/uL (4.20-5.50); Red Cell Distribution Width 11.6 % (11.0-16.0); White Blood Count 14.3 X10*3/uL (4.8-10.8)
[2022-07-18] MEDS: ondansetron HCL 4 MG/2 ML VIAL IVPUSH ×2 (06:24→14:37)
[2022-07-18 06:28] LABS: Anion Gap 15 (12-20); Blood Urea Nitrogen 9 mg/dL (9-16); Calcium 9.1 mg/dL (8.4-10.2); Carbon Dioxide 24 mmol/L (22-29); Chloride 103 mmol/L (96-108); Creatinine Clr Calc Pharmacy 77.7; Estimated Glomerular Filt Rate > 60; Glucose Random 91 mg/dL (60-115); Potassium 4.5 mmol/L (3.3-5.1); Sodium 137 mmol/L (135-145)
--- NOTE | 2022-07-18 06:50 | PM.PNGS ---
Subjective Subjective Date of Service: 07/18/22 Patient reports: no new complaints, feels better, still having pain and nausea Interval history: The patient reports ongoing nausea and pain. She is tolerating sips and denies any chest pain, regurgitation, shortness of breath or difficulty breathing, however she notes that the pain and nausea are limiting her p.o. intake. She has been up and walking but notes that the pain is preventing her from getting up and walking [place]. Physical Exam Vital Signs: Vital Signs: Last Vital Signs Temp 97 F 07/18/22 04:00 Pulse 75 07/18/22 04:00 Resp 16 07/18/22 04:00 BP 109/58 L 07/18/22 04:00 Pulse Ox 96 07/18/22 04:00 O2 Del Method Room Air 07/18/22 04:00 O2 Flow Rate 2.0 07/17/22 15:01 BMI result Body Mass Index 31.8 On exam she is nontoxic Her sclerae anicteric Her abdominal binder is in place with appropriate incisional tenderness Objective Data Active Medications Albuterol Sulfate (Albuterol Sulfate 90 Mcg 8 Gm Inhaler) 2 puff INHALE Q6H PRN PRN Reason: Wheezing Buspirone HCl (Buspirone Hcl 5 Mg Tablet) 5 mg PO TID PRN PRN Reason: Anxiety Famotidine (Famotidine/Pf 20 Mg/2 Ml Vial) 20 mg IVPUSH BID [facility] Last Admin: 07/17/22 20:34 Dose: 20 mg Documented By: BEATA Fluticasone Propionate (Fluticasone Propionate 100 Mcg Blst.W.Dev) 2 puff INHALE RBID [facility] Last Admin: 07/17/22 19:39 Dose: 2 puff Documented By: CECE Hydromorphone HCl (Hydromorphone Hcl 0.5 Mg/0.5 Ml Syringe) 0.25 mg IVPUSH Q4H PRN; Protocol PRN Reason: Pain, Moderate(Pain Scale 4-6) Last Admin: 07/18/22 03:40 Dose: 0.25 mg Documented By: JOSE GUADALUPE Lactated Ringer's (Lr) 1,000 mls @ 100 mls/hr IVCONT .Q10H [facility] Last Admin: 07/18/22 00:34 Dose: 100 mls/hr Documented By: JOSE GUADALUPE Acetaminophen (Ofirmev) 1,000 mg in 100 mls @ 16.7 mls/hr IV .Q6H [facility] Last Admin: 07/18/22 04:40 Dose: 16.7 mls/hr Documented By: JOSE GUADALUPE Metoclopramide HCl (Metoclopramide Hcl 10 Mg/2 Ml Vial) 10 mg IVPUSH Q6H PRN PRN Reason: Nausea Last Admin: 07/17/22 21:32 Dose: 10 mg Documented By: JOSE GUADALUPE Ondansetron HCl (Ondansetron Hcl 4 Mg/2 Ml Vial) 4 mg IVPUSH Q8H [facility] Last Admin: 07/18/22 06:24 Dose: 4 mg Documented By: BEATA Sodium Chloride (0.9 % Sodium Chloride Flush 3 Ml Syringe) 3 ml IVFLUSH QSHIFT [facility] Last Admin: 07/17/22 23:21 Dose: 3 ml Documented By: BEATA Labs 07/18/22 05:17 07/18/22 05:17 Labs: Laboratory Results - last 24 hr 07/12/22 07/17/22 07/18/22 12:56 13:58 05:17 MCV 91.5 MCH 30.1 MCHC 32.9 RDW 11.6 Plt Count 296 MPV 11.6 Immature Gran % (Auto) 0.4 Neut % (Auto) 85.7 H Lymph % (Auto) 7.9 L [place] % (Auto) 5.8 Eos % (Auto) 0.1 Baso % (Auto) 0.1 Lymph # (Auto) 1.1 L [place] # (Auto) 0.8 Eos # (Auto) 0.0 Baso # (Auto) 0.0 Abs Immat Gran (auto) 0.06 H Absolute Neuts (auto) 12.3 H Absolute Nucleated RBC 0.000 Nucleated RBC % (auto) 0.0 Anion Gap 15 Estim Creat Clear Calc 71.1 Estimated GFR > 60 Random Glucose 124 H Calcium 8.7 D Zinc 82 07/18/22 05:17 MCV MCH MCHC RDW Plt Count MPV Immature Gran % (Auto) Neut % (Auto) Lymph % (Auto) [place] % (Auto) Eos % (Auto) Baso % (Auto) Lymph # (Auto) [place] # (Auto) Eos # (Auto) Baso # (Auto) Abs Immat Gran (auto) Absolute Neuts (auto) Absolute Nucleated RBC Nucleated RBC % (auto) Anion Gap 15 Estim Creat Clear Calc 77.7 Estimated GFR > 60 Random Glucose 91 Calcium 9.1 Zinc Procedures Date of Service Date of Service: 07/18/22 Progress Note: A&P Assessment and plan (1) S/P laparoscopic sleeve gastrectomy: Status: Acute (2) Obesity (BMI 30-39.9): Status: Acute (3) JOSE (obstructive sleep apnea): Status: Acute (4) Adjustment disorder, unspecified: Status: Acute (5) Irritable bowel syndrome: Status: Acute (6) Chronic constipation: Status: Acute Plan The PA will stop by to review dietary instructions, however given her ongoing pain and nausea, I would hold on discharge this morning and will re-evaluate her this afternoon. If she is not making progress with nausea and pain management, we may need to keep her until tomorrow morning. Will reassess later. Time Spent With Patient Time: Total time managing care of this patient today ____ minutes. Quality Stroke Does the patient have a stroke diagnosis?: No VTE Prior VTE?: No VTE Risk Level:: Surgical - moderate VTE Device Contraindication: N/A - Device Ordered VTE Drug Contraindication: Treatment Not Indicated
[2022-07-18] MEDS: Fluticasone Propionate 100 MCG BLST.W.DEV 2 PUFF INHALE ×2 (08:04→19:36)
[2022-07-18] MEDS: Famotidine/PF 20 MG/2 ML VIAL IVPUSH ×2 (08:36→20:12)
[2022-07-18] MEDS: 0.9 % Sodium Chloride Flush 3 ML SYRINGE IVFLUSH (08:36)
[2022-07-18] MEDS: Metoclopramide HCl 10 MG/2 ML VIAL IVPUSH (11:34)
--- NOTE | 2022-07-18 16:10 | PC.NURSE ---
Patient complaining of intermittent nausea as well as pain 8/10 to upper abdomen. Unable pass flatus. Ambulating q2h. Drinking 1/[address] Martin aware. Zofran frequency increased to q6h. Medicated for pain with continuous tylenol and prn dilaudid per order with good effect.
--- NOTE | 2022-07-18 18:04 | HO.POSTANES ---
Post Anesthesia Evaluation Post Anesthesia Evaluation Date of Service: 07/18/22 Vital Signs: Vital Signs Temp Pulse Resp BP Pulse Ox O2 Del Method 07/18/22 15:15 96.8 F 74 16 106/55 L 96 Room Air 07/18/22 10:29 98 Room Air 07/18/22 08:05 88 16 07/18/22 07:40 97.8 F 72 16 114/57 L 98 Room Air Anesthesia: General Endotracheal-GETA Mental Status: Awake Nausea/Vomiting: Mild Hydration: Adequate Anesthesia-Related Issues: No Anes. Related Issues Comments: Patient having some gas pain , improved from earlier this morning , being monitored and managed by the primary team .
[2022-07-19] MEDS: Acetaminophen 1,000 MG/100 ML PIGGYBACK 16.7 MG IV ×2 (02:54→08:26)
[2022-07-19] MEDS: Lactated Ringers 1,000 ML 100 ML IVCONT (02:54)
[2022-07-19 03:11] VITALS: BP 119/59; PULSE 73; RESP 16; TEMP 36.6; O2SAT 94
[2022-07-19 05:52] LABS: MANUAL DIFF FLAG NO
[2022-07-19 05:59] LABS: Basophils Absolute Auto 0.1 X10*3/uL (0.0-0.2); Basophils Percent Auto 0.4 % (0-2); Eosinophils Absolute Auto 0.1 X10*3/uL (0.0-0.4); Eosinophils Percent Auto 0.8 % (0-4); Hematocrit 33.6 % (37.0-47.0); Hemoglobin 10.7 g/dl (12.0-16.0); Imm Gran Abs Auto 0.04 X10*3/uL (0.00-0.03); Imm Gran Pct Auto 0.3 % (0.0-0.4); Lymphocytes Absolute Auto 2.6 X10*3/uL (1.2-4.9); Lymphocytes Percent Auto 22.2 % (20-40); Mean Corpuscular HGB Conc 31.8 g/dl (31.0-35.0); Mean Corpuscular Hemoglobin 29.5 pg (27.0-33.0); Mean Corpuscular Volume 92.6 fL (80.0-98.0); Mean Platelet Volume 11.5 fL (9.4-12.3); Monocytes Absolute Auto 0.7 X10*3/uL (0.1-1.2); Monocytes Percent Auto 6.1 % (2-11); Neutrophils Absolute Auto 8.2 x10*3/uL (2.0-8.3); Neutrophils Percent Auto 70.2 % (45-73); Platelet Count 283 X10*3/uL (160-400); Red Blood Count 3.63 X10*6/uL (4.20-5.50); Red Cell Distribution Width 11.7 % (11.0-16.0); White Blood Count 11.7 X10*3/uL (4.8-10.8)
[2022-07-19 06:15] LABS: Anion Gap 13 (12-20); Blood Urea Nitrogen 9 mg/dL (9-16); Calcium 8.8 mg/dL (8.4-10.2); Carbon Dioxide 25 mmol/L (22-29); Chloride 106 mmol/L (96-108); Creatinine Clr Calc Pharmacy 80.9; Estimated Glomerular Filt Rate > 60; Glucose Random 63 mg/dL (60-115); Potassium 3.7 mmol/L (3.3-5.1); Sodium 140 mmol/L (135-145)
--- NOTE | 2022-07-19 06:39 | PM.PNGS ---
Subjective Subjective Date of Service: 07/19/22 Interval history: POD #2 s/p LSG by Dr Martin. Patient was not discharged home yesterday due to complaints of nausea, abd pain and intolerance of bariatric phase 1 diet. She states she feels much better this am. Nausea has resolved, abd pain is now minimal over epigastrium and she is tolerating phase 1 diet. States she is ready to go home this am. Last dose of dilaudid was 10:30 last night and no emetics given since yesterday afternoon. Physical Exam Vital Signs: Vital Signs: Last Vital Signs Temp 97.8 F 07/19/22 03:11 Pulse 73 07/19/22 03:11 Resp 16 07/19/22 03:11 BP 119/59 L 07/19/22 03:11 Pulse Ox 94 07/19/22 03:11 O2 Del Method Room Air 07/19/22 03:11 O2 Flow Rate 2.0 07/17/22 15:01 BMI result Body Mass Index 31.8 Const: General: cooperative, healthy appearing, comfortable and no acute distress GI: Inspection: Yes incision (surgical dressings dry and intact with tegaderm) Palpation (GI): Soft to palpation, nontender and no guarding Extrem: General: Yes no pedal edema and Yes no calf tenderness Objective Data Active Medications Albuterol Sulfate (Albuterol Sulfate 90 Mcg 8 Gm Inhaler) 2 puff INHALE Q6H PRN PRN Reason: Wheezing Buspirone HCl (Buspirone Hcl 5 Mg Tablet) 5 mg PO TID PRN PRN Reason: Anxiety Famotidine (Famotidine/Pf 20 Mg/2 Ml Vial) 20 mg IVPUSH BID [facility] Last Admin: 07/18/22 20:12 Dose: 20 mg Documented By: CASTILJensen Fluticasone Propionate (Fluticasone Propionate 100 Mcg Blst.W.Dev) 2 puff INHALE RBID [facility] Last Admin: 07/18/22 19:36 Dose: 2 puff Documented By: MATCHETAN Hydromorphone HCl (Hydromorphone Hcl 0.5 Mg/0.5 Ml Syringe) 0.25 mg IVPUSH Q4H PRN; Protocol PRN Reason: Pain, Moderate(Pain Scale 4-6) Last Admin: 05/25/23 22:31 Dose: 0.25 mg Documented By: GENARO Lactated Ringer's (Lr) 1,000 mls @ 100 mls/hr IVCONT .Q10H [facility] Last Admin: 07/19/22 02:54 Dose: 100 mls/hr Documented By: GENARO Acetaminophen (Ofirmev) 1,000 mg in 100 mls @ 16.7 mls/hr IV .Q6H [facility] Last Admin: 07/19/22 02:54 Dose: 16.7 mls/hr Documented By: GENARO Metoclopramide HCl (Metoclopramide Hcl 10 Mg/2 Ml Vial) 10 mg IVPUSH Q6H PRN PRN Reason: Nausea Last Admin: 07/18/22 11:34 Dose: 10 mg Documented By: ROX Ondansetron HCl (Ondansetron Hcl 4 Mg/2 Ml Vial) 4 mg IVPUSH Q6H PRN PRN Reason: Nausea and Vomiting Last Admin: 07/18/22 14:37 Dose: 4 mg Documented By: ROX Sodium Chloride (0.9 % Sodium Chloride Flush 3 Ml Syringe) 3 ml IVFLUSH QSHIFT [facility] Last Admin: 07/19/22 00:24 Dose: Not Given Documented By: GENARO Non-Admin Reason: IV Running Labs 07/19/22 05:21 07/19/22 05:21 Labs: Laboratory Results - last 24 hr 07/19/22 07/19/22 05:21 05:21 MCV 92.6 MCH 29.5 MCHC 31.8 RDW 11.7 Plt Count 283 MPV 11.5 Immature Gran % (Auto) 0.3 Neut % (Auto) 70.2 Lymph % (Auto) 22.2 [place] % (Auto) 6.1 Eos % (Auto) 0.8 Baso % (Auto) 0.4 Lymph # (Auto) 2.6 [place] # (Auto) 0.7 Eos # (Auto) 0.1 Baso # (Auto) 0.1 Abs Immat Gran (auto) 0.04 H Absolute Neuts (auto) 8.2 Absolute Nucleated RBC 0.000 Nucleated RBC % (auto) 0.0 Anion Gap 13 Estim Creat Clear Calc 80.9 Estimated GFR > 60 Random Glucose 63 Calcium 8.8 Procedures Date of Service Date of Service: 07/19/22 Progress Note: A&P Assessment and plan (1) Obesity (BMI 30-39.9): Status: Acute Assessment and Plan: POD # 2 for patient s/p LSG. Patient is doing very well this am tolerating phase 1 diet,ambulating with minimal abd pain. She is being advanced to bariatric phase 2 this am and will be discharged home. She will start Celebrate 4:1 protein shake today and I will contact her later today for follow up. Case discussed with Dr Martin (2) JOSE (obstructive sleep apnea): Status: Acute Assessment and Plan: Continue to use CPAP nightly Time Spent With Patient Time: Total time managing care of this patient today ____ minutes. Quality Stroke Does the patient have a stroke diagnosis?: No VTE Prior VTE?: No VTE Risk Level:: Surgical - moderate VTE Device Contraindication: N/A - Device Ordered VTE Drug Contraindication: Treatment Not Indicated
[2022-07-19 07:39] VITALS: BP 117/68; PULSE 70; RESP 16; TEMP 36.1; O2SAT 98
[2022-07-19] MEDS: Fluticasone Propionate 100 MCG BLST.W.DEV 2 PUFF INHALE (07:52)
[2022-07-19 07:53] VITALS: PULSE 78; RESP 16
[2022-07-19] MEDS: Famotidine/PF 20 MG/2 ML VIAL IVPUSH (08:25)
--- NOTE | 2022-07-19 09:28 | MHC.CM.PN ---
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
[2022-07-19 17:34] LABS: Vitamin A 55 mcg/dL (38-98)
[2022-07-21 04:29] LABS: Vitamin B1 11 nmol/L (8-30)
== END 2022-07-19 12:21 | disposition home or self-care (01) | DRG 621 ==
LOC: HO.SSSA 13:48 → HO.S3 13:58
PROVIDERS: Physician Assistant Surgical; Admitting Provider Surgery; PCP Student in an Organized Health Care Education/Training Program; Visit Provider Surgery
PROC: 0DB64Z3 Excision of Stomach, Percutaneous Endoscopic Approach, Vertical (ICD-10-PCS; CPT 43845; principal; 2022-07-17 10:10)
DX: E66.01 Morbid (severe) obesity due to excess calories (principal); K21.9 Gastro-esophageal reflux disease without esophagitis; M19.90 Unspecified osteoarthritis, unspecified site; F41.9 Anxiety disorder, unspecified; G47.33 Obstructive sleep apnea (adult) (pediatric); K76.0 Fatty (change of) liver, not elsewhere classified; K58.9 Irritable bowel syndrome, unspecified; Z20.822 Contact with and (suspected) exposure to COVID-19; Z68.37 Body mass index [BMI] 37.0-37.9, adult; Z79.51 Long term (current) use of inhaled steroids; Z79.899 Other long term (current) drug therapy
CPT/HCPCS: 36415; 80048; 80053; 80061; 82306; 82607; 82728; 83036; 83540; 83970; 84425; 84443; 84590; 84630; 85014; 85018; 85025; 85610; 85730; 86140; 86850; 86900; 86901; 87635; 88307; 88342; 94640; C9088; C9145; J0131; J0690; J1100; J1170; J2250; J2405; J2765; J3010

== ENCOUNTER → 2022-07-23 10:51 | Outpatient (BNVA) | payer OTHER, SELFPAY | PROVIDERS: PCP Student in an Organized Health Care Education/Training Program; Visit Provider Physician Assistant Surgical ==

== ENCOUNTER → 2022-07-30 10:36 | Outpatient (BNVA) | payer OTHER, SELFPAY | PROVIDERS: PCP Student in an Organized Health Care Education/Training Program; Visit Provider Physician Assistant Surgical ==

== ENCOUNTER → 2022-08-06 08:29 | Outpatient (BNVA) | payer OTHER, SELFPAY | PROVIDERS: PCP Student in an Organized Health Care Education/Training Program; Visit Provider Physician Assistant Surgical ==

== ENCOUNTER → 2022-08-19 12:07 | Outpatient (BNVA) | payer OTHER, SELFPAY | PROVIDERS: PCP Student in an Organized Health Care Education/Training Program; Visit Provider Physician Assistant Surgical ==

== ENCOUNTER 2022-09-04 11:28 | Emergency (ER) | payer OTHER, SELFPAY ==
[2022-09-04 11:33] VITALS: BP 108/47; PULSE 83; RESP 16; TEMP 36.3; O2SAT 97; BMI 28.7
--- NOTE | 2022-09-04 11:34 | ED_ITS ---
HPI - General Adult General Chief complaint: Recheck/Abnormal Lab/Rx Stated complaint: Low blood pressure Time Seen by Provider: 09/04/22 11:43 Source: patient, RN notes reviewed and old records reviewed Mode of arrival: ambulatory History of Present Illness HPI narrative: 52-year-old female with a past medical history of anxiety, anxiety, asthma, constipation, GERD, IBS, sleep apnea, s/p gastric sleeve 07/17/22, recently discharged from inpatient on 08/[address] for hypokalemia/colitis, sent to ED today from PCPs office for hypotension 86/53 in the office. Patient states she was seeing PCP for follow-up from recent admission. Reports mild lightheadedness, and continued abdominal discomfort since discharge, not worsening. Otherwise patient denies symptoms at present. Denies vomiting, fever, chills, CP/SOB, dysuria/hematuria, room spinning dizziness Onset (ago): hour(s) Related Data Home Medications Medication Instructions Recorded Confirmed albuterol sulfate 90 mcg/actuation 2 puff inhalation Q6H PRN Wheezing 05/24/20 08/19/22 aerosol inhaler fluticasone propionate 110 2 puff inhalation BID 06/02/20 08/19/22 mcg/actuation HFA aerosol inhaler (Flovent HFA) trospium 60 mg capsule,extended 60 mg PO DAILY 07/09/22 08/19/22 release 24 hr buspirone 5 mg tablet 5 mg PO TID PRN Anxiety 07/11/22 08/19/22 Previous Rx's Medication Instructions Recorded acetaminophen 500 mg/15 mL oral 500 mg (15 mL) PO Q6H PRN fever or 07/08/22 liquid pain #237 mL pantoprazole 40 mg tablet,delayed 40 mg PO QAM 30 days #30 tabs 07/08/22 release sucralfate 100 mg/mL oral 10 ml PO BID 30 days #600 mL 07/08/22 suspension sennosides 8.6 mg-docusate sodium 2 tab-cap PO BEDTIME 90 days #180 07/09/22 50 mg tablet (Laxative Stool tabs Softener With Senna) bisacodyl 10 mg rectal suppository 10 mg IN DAILY PRN constipation 07/30/22 (Dulcolax (bisacodyl)) #12 ea bisacodyl 10 mg rectal suppository 10 mg IN DAILY 7 days #7 ea 09/04/22 docusate sodium 100 mg tablet 200 mg PO BID 30 days #120 tabs 09/04/22 magnesium hydroxide 400 mg/5 mL 5 ml PO BEDTIME PRN constipation 09/04/22 oral suspension (Milk of Magnesia) #355 mL sennosides 8.6 mg-docusate sodium 1 tab-cap PO TID 30 days #90 tabs 09/04/22 50 mg tablet Allergies Allergy/AdvReac Type Severity Reaction Status Date / Time aspirin [ASPIRIN] Allergy Severe HIVES Verified 09/04/22 11:33 Fish Containing Products Allergy Severe HIVES/DYSPN Verified 09/04/22 11:33 EA oxycodone [From PERCOCET] Allergy Severe PALPITATION Verified 09/04/22 11:33 S/HIVES pumpkin Allergy Severe THROAT Verified 09/04/22 11:33 SWELLING squash Allergy Severe THROAT Verified 09/04/22 11:33 SWELLING Zucchini Allergy Mild Hives, Uncoded 09/04/22 11:33 Dysphagia Review of Systems Review of Systems: Constitutional: No Fever, No Fatigue, No Malaise ENT/Mouth: No Ear Pain, No Nasal Congestion, No sore throat, No Rhinorrhea, No Swallowing Difficulty Eyes: No Eye Pain, No Swelling, No Discharge, No Vision Changes Cardiovascular: No Chest Pain, No SOB, No Edema, No Palpitations Respiratory: No Cough, No Sputum, No Dyspnea Gastrointestinal: No Nausea, No Vomiting, No Diarrhea, + Abdominal pain (chronic) Genitourinary: No Dysuria, No Urinary Frequency, No Hematuria, No Urinary Incontinence/retention, No Flank Pain Musculoskeletal: No joint pain, No Myalgias Skin: No Skin Lesions, No rash Neuro: No Weakness, No Loss of Consciousness, +lightheaded, No Headache Yes all other systems are reviewed and are negative Constitutional: Constitutional: Reports as per [facility] Past Medical History Attestation statement: The following information was validated with the patient. Source: old records reviewed Medical History (Updated 09/04/22 @ 16:01 by BHARAT Goldman) Adjustment disorder, unspecified Admission for repair of scarred tissue Anxiety Arthritis Asthma Bleeding hemorrhoids Chronic constipation GERD (gastroesophageal reflux disease) Irritable bowel syndrome Sleep apnea Surgical History H/O colonoscopy H/O eye surgery H/O: hysterectomy History of arthroscopy of both knees History of esophagogastroduodenoscopy (EGD) Hx of appendectomy Hx of breast reduction, elective Hx of hemorrhoidectomy [place] teeth extracted Family History Family History Father Diabetes Brother Heart attack Paternal Grandmother Cancer Maternal Grandmother Cancer Social History Social History Household Members: Spouse Housing: House Are you a primary ambulatory care nurse to a significant other at home: Yes Do you presently have visiting nurse or other home services: No Alcohol intake: never Patient Tobacco Use Status: Never used Tobacco Second Hand Smoke Exposure: No service: No Current occupational status: employed Physical Exam ED Vital Signs: Vital Signs - 24 hr 09/04/22 11:33 09/04/22 12:52 09/04/22 13:19 Temperature 97.3 F Pulse Rate 83 67 Respiratory Rate 16 Blood Pressure 108/47 L 102/65 99/54 L Pulse Oximetry 97 Oxygen Delivery Method Room Air 09/04/22 13:19 09/04/22 13:20 09/04/22 14:06 Temperature 98.3 F Pulse Rate 68 68 79 Respiratory Rate 16 Blood Pressure 97/55 L 103/60 104/63 Pulse Oximetry 98 Oxygen Delivery Method Room Air 09/04/22 15:35 Temperature Pulse Rate 67 Respiratory Rate 18 Blood Pressure 103/67 Pulse Oximetry 100 Oxygen Delivery Method Room Air BMI result Body Mass Index 28.7 Const General: cooperative, healthy appearing and no acute distress Orientation/consciousness: patient oriented x3 Limitations: no limitations HENMT Head: Yes normal to inspection and Yes atraumatic Ears: hearing grossly normal bilaterally General nose exam: Normal external nose present Face and sinus: Yes normal facial exam Eyes General: appearance normal, both eyes and all related structures EOM: EOMs intact bilaterally Neck Neck: Yes normal visual inspection and Yes no meningeal signs Resp Effort & Inspection: normal respiratory effort and no respiratory distress Auscultation: clear to auscultation bilaterally Cardio Rate: regular rate Heart sounds: S1 normal heart sound present and S2 normal heart sound present GI Inspection: Yes normal to inspection Palpation (GI): Soft to palpation, Tenderness to palpation present (GI) in the epigastrum (mild (chronic per patient)), no guarding and not rigid General: Yes no CVA tenderness Back/Spine/Pelvis Back: no CVA tenderness Skin Rashes: no rashes Wounds: no wounds Neuro General: patient oriented x3, tone normal and no meningeal signs Gait exam (Neuro): Normal gait present Extrem General: Yes normal to inspection Course Course Course Narrative: This is an RME: Additional HPI, ROS, PE not included below will be deferred to primary provider. Patient is a 52-year-old female presenting to the emergency department from PCP office (Dr. Vianney Johnson) for low blood pressure readings in the office. Patient states initial BP was 86/53, with repeat BP of 83/52. Patient states she was just discharged from a 5-day inpatient stay in [place], [place] last week. She states she was inpatient for dehydration, hypokalemia, and diarrhea. States she has an appointment with her ticketing agent tomorrow. She reports mild lightheadedness, but denies any abdominal pain, recent diarrhea, chest pain or dyspnea. -1415--on chart review BP appears chronically on lower side. Most recent 104/63 -no leukocytosis. H&H stable. Labs otherwise unremarkable. UA not infected, 80 ketones > will give 2 L IVF. Consulted bariatrics, Dr. Martin -Dr. Martin evaluated patient in the ED, recommended a bowel regimen and diet. Patient provided with listed out instructions, will be scanned into patients chart. Patient has received 2L IV fluid during the ED stay, asymptomatic. Feels safe for discharge home at this time Results discussed with patient including worrisome signs and symptoms and strict return precautions, and when to return to the emergency department. They verbalized understanding and feel safe for discharge at this time. Medications Administered Discontinued Medications Generic Name Dose Route Start Last Admin Trade Name Freq PRN Reason Stop Dose Admin Sodium Chloride 1,000 mls @ 999 mls/hr 09/04/22 12:45 09/04/22 14:00 Ns IV 09/04/22 13:45 999 mls/hr .Q1H1M PATRICIA Infusion Sodium Chloride 1,000 mls @ 999 mls/hr 09/04/22 14:30 09/04/22 15:34 Ns IV 09/04/22 15:30 999 mls/hr .Q1H1M PATRICIA Infusion Potassium Chloride 40 meq 09/04/22 12:32 09/04/22 13:01 Potassium Chloride Er 20 Meq Tab.Er.Prt PO 09/04/22 12:33 40 meq ONCE ONE Administration Medical Decision Making Medical Decision Making MDM Narrative: 52-year-old female with a past medical history of anxiety, anxiety, asthma, constipation, GERD, IBS, sleep apnea, s/p gastric sleeve 07/17/22, recently discharged from inpatient on 08/[address] for hypokalemia/colitis, sent to ED today from PCPs office for hypotension 86/53 in the office. On exam vital signs stable, BP on lower side of 108/47 however improved from reported PCP BP. Abdomen soft with mild epigastric tenderness, no rebound or guarding, no focal neuro deficits. Concern for metabolic/infectious etiologies. Low suspicion for recurrent colitis, pancreatitis/cholecystitis/lithiasis or postoperative complication as symptoms are chronic/unchanged from recent admission. Low concern for appendicitis/diverticulitis, ACS Plan: EKG, labs, UA, IVF, orthostatics, Consult bariatric Please refer to course for remaining clinical decision making, interpretation of labs/imaging results, and discussions with consultants and/or family members. Differential Diagnosis Differential Diagnoses: The differential diagnosis associated with the presentation includes As above Admission/Observation Consideration of admission/observation: Escalation of care including admission/observation considered Consult Healthcare Provider Management of the patient was discussed with: Dot Compliance Specialist (Bariatric BHARAT) Lab Data MDM Lab Attestation statement: I reviewed the patient's lab results. 09/04/22 11:45 09/04/22 11:44 Labs: Lab Results 09/04/22 09/04/22 09/04/22 Range/Units 11:44 11:45 12:41 WBC 10.7 (4.8-10.8) X10*3/uL RBC 3.64 L (4.20-5.50) X10*6/uL Hgb 10.8 L (12.0-16.0) g/dl Hct 33.3 L (37.0-47.0) % MCV 91.5 (80.0-98.0) fL MCH 29.7 (27.0-33.0) pg MCHC 32.4 (31.0-35.0) g/dl RDW 12.5 (11.0-16.0) % Plt Count 272 (160-400) X10*3/uL MPV 11.3 (9.4-12.3) fL Immature Gran % (Auto) 0.4 (0.0-0.4) % Neut % (Auto) 73.1 H (45-73) % Lymph % (Auto) 18.2 L (20-40) % [place] % (Auto) 6.7 (2-11) % Eos % (Auto) 1.3 (0-4) % Baso % (Auto) 0.3 (0-2) % Lymph # (Auto) 2.0 (1.2-4.9) X10*3/uL [place] # (Auto) 0.7 (0.1-1.2) X10*3/uL Eos # (Auto) 0.1 (0.0-0.4) X10*3/uL Baso # (Auto) 0.0 (0.0-0.2) X10*3/uL Abs Immat Gran (auto) 0.04 H (0.00-0.03) X10*3/uL Absolute Neuts (auto) 7.9 (2.0-8.3) x10*3/uL Absolute Nucleated RBC 0.000 (0.0-0.012) X10*3/uL Nucleated RBC % (auto) 0.0 (0.0-0.2) /100WBC Sodium 140 (135-145) mmol/L Potassium 3.4 (3.3-5.1) mmol/L Chloride 106 (96-108) mmol/L Carbon Dioxide 23 (22-29) mmol/L Anion Gap 14 (12-20) BUN 19 H (9-16) mg/dL Creatinine 0.71 (0.5-1.4) mg/dL Estim Creat Clear Calc 79.0 Estimated GFR > 60 Random Glucose 92 (60-115) mg/dL Calcium 9.5 D (8.4-10.2) mg/dL Magnesium 1.9 (1.6-2.6) mg/dL Total Bilirubin 0.5 (0.0-1.0) mg/dL AST 20 (5-31) U/L ALT 10 (0-31) U/L Alkaline Phosphatase 64 (39-117) U/L Total Protein 6.7 (6.5-8.0) g/dL Albumin 3.7 (3.5-5.0) g/dL Lipase 23 (8-78) U/L Urine Color Dark Yellow Urine Appearance Clear Urine pH 6.0 (5.0-9.0) Ur Specific [place] 1.020 (1.005-1.025) Urine Protein Negative (Neg-Trace) mg/dL Urine Glucose (UA) Negative (Negative) mg/dL Urine Ketones 80 (Negative) mg/dL Urine Blood Negative (Negative) Urine Nitrite Negative (Negative) Ur Leukocyte Esterase Negative (Negative) Independent Interpretation I performed an independent interpretation of an: EKG (EKG normal sinus rhythm at a rate of 66. IN interval 162. QTC 417. No STEMI) Radiology Impression Discussion of test interpretation with radiology: I have reviewed the radiologist's reading. External Record Review External record reviewed: Inpatient record, Office record, Outpatient record, Prior outpatient labs, Prior outpatient radiology, Primary care record and Outside ED record Tests considered The following testing was considered but not selected: As above Prescription Management I considered prescription management with: Pain Medication Chronic Conditions Patient?s care impacted by: Other (Gastric sleeve, JOSE) Discharge Plan Discharge Clinical Impression: Chronic constipation, Low blood pressure Patient Disposition: Home, Self-Care Instructions: Constipation (DC), Hypotension (ED) Additional Instructions: Your blood work was reassuring. Her blood pressure has been soft. You were seen by our bariatric surgeon, Dr Martin your provided with a list of instructions Please have close follow-up in their clinic next week, call [phone] Check your blood pressure at home If her unable to eat or drink, or not having bowel movements in the next 48 hours return to the emergency department Prescriptions: New docusate sodium 100 mg tablet 200 mg PO BID 30 Days Qty: 120 0RF sennosides-docusate sodium 8.6-50 mg tablet 1 tab-cap PO TID 30 Days Qty: 90 0RF magnesium hydroxide [Milk of Magnesia] 400 mg/5 mL suspension 5 ml PO BEDTIME PRN (Reason: constipation) Qty: 355 0RF bisacodyl 10 mg suppository 10 mg IN DAILY 7 Days Qty: 7 0RF No Action bisacodyl [Dulcolax (bisacodyl)] 10 mg suppository 10 mg IN DAILY PRN (Reason: constipation) Qty: 12 0RF fluticasone propionate [Flovent HFA] 110 mcg/actuation HFA aerosol inhaler 2 puff inhalation BID buspirone 5 mg Tablet 5 mg PO TID PRN (Reason: Anxiety) albuterol sulfate 90 mcg/actuation HFA aerosol inhaler 2 puff inhalation Q6H PRN (Reason: Wheezing) trospium 60 mg capsule,extended release 24hr 60 mg PO DAILY sennosides-docusate sodium [Lax Stool Softener With Senna] 8.6-50 mg tablet 2 tab-cap PO BEDTIME 90 Days Qty: 180 1RF pantoprazole 40 mg tablet,delayed release (DR/EC) 40 mg PO QAM 30 Days Qty: 30 2RF sucralfate 100 mg/mL suspension 10 ml PO BID 30 Days Qty: 600 2RF acetaminophen 500 mg/15 mL liquid 500 mg PO Q6H PRN (Reason: fever or pain) Qty: 237 2RF [place] [facility] [place] [facility]] Vianney Johnson PA [Primary Care Provider] - Interventions: ED Discharge Assessment Last Done: 09/04/22 16:05 Discharge Date/Time: 09/04/22 16:08
[2022-09-04 11:49] LABS: MANUAL DIFF FLAG NO
[2022-09-04 11:50] LABS: Basophils Percent Auto 0.3 % (0-2); Eosinophils Absolute Auto 0.1 X10*3/uL (0.0-0.4); Eosinophils Percent Auto 1.3 % (0-4); Hematocrit 33.3 % (37.0-47.0); Hemoglobin 10.8 g/dl (12.0-16.0); Imm Gran Abs Auto 0.04 X10*3/uL (0.00-0.03); Imm Gran Pct Auto 0.4 % (0.0-0.4); Lymphocytes Percent Auto 18.2 % (20-40); Mean Corpuscular HGB Conc 32.4 g/dl (31.0-35.0); Mean Corpuscular Hemoglobin 29.7 pg (27.0-33.0); Mean Corpuscular Volume 91.5 fL (80.0-98.0); Mean Platelet Volume 11.3 fL (9.4-12.3); Monocytes Absolute Auto 0.7 X10*3/uL (0.1-1.2); Monocytes Percent Auto 6.7 % (2-11); Neutrophils Absolute Auto 7.9 x10*3/uL (2.0-8.3); Neutrophils Percent Auto 73.1 % (45-73); Platelet Count 272 X10*3/uL (160-400); Red Blood Count 3.64 X10*6/uL (4.20-5.50); Red Cell Distribution Width 12.5 % (11.0-16.0); White Blood Count 10.7 X10*3/uL (4.8-10.8)
[2022-09-04 12:07] LABS: Alanine Aminotransferase 10 U/L (0-31); Albumin Level 3.7 g/dL (3.5-5.0); Alkaline Phosphatase 64 U/L (39-117); Anion Gap 14 (12-20); Aspartate Amino Transferase 20 U/L (5-31); Bilirubin Total 0.5 mg/dL (0.0-1.0); Blood Urea Nitrogen 19 mg/dL (9-16); Calcium 9.5 mg/dL (8.4-10.2); Carbon Dioxide 23 mmol/L (22-29); Chloride 106 mmol/L (96-108); Estimated Glomerular Filt Rate > 60; Glucose Random 92 mg/dL (60-115); Magnesium 1.9 mg/dL (1.6-2.6); Potassium 3.4 mmol/L (3.3-5.1); Sodium 140 mmol/L (135-145); Total Protein 6.7 g/dL (6.5-8.0)
[2022-09-04 12:49] LABS: Appearance Urine Clear; Color Urine Dark Yellow; Glucose Urine UA Negative (Negative); Leukocyte Esterase Urine Negative (Negative); Nitrite Urine Negative (Negative); Urine Blood Negative (Negative); Urine Ketones 80 mg/dL (Negative); Urine Protein Negative (Neg-Trace)
[2022-09-04 12:52] VITALS: BP 102/65
--- NOTE | 2022-09-04 12:57 | ECG_ITS ---
Test Reason : HYPOTENSIVE Blood Pressure : / mmHG Vent. Rate : 066 BPM Atrial Rate : 066 BPM P-R Int : 162 ms QRS Dur : 078 ms QT Int : 398 ms P-R-T Axes : 049 003 018 degrees QTc Int : 417 ms Normal sinus rhythm Normal ECG When compared with ECG of 10-APR-2022 12:35, No significant change was found Referred By: Bronwyn Johnson Electronically Signed By:MALENA ADAMS MD
[2022-09-04 13:01] LABS: Lipase 23 U/L (8-78)
[2022-09-04] MEDS: Potassium Chloride ER 20 MEQ TAB.ER.PRT 40 MEQ PO (13:01)
[2022-09-04] MEDS: 0.9 % Sodium Chloride 1,000 ML 999 ML IV ×2 (13:03→14:43)
[2022-09-04 13:19] VITALS: BP 97/55; BP 99/54; PULSE 67; PULSE 68
[2022-09-04 13:20] VITALS: BP 103/60; PULSE 68
[2022-09-04 14:06] VITALS: BP 104/63; PULSE 79; RESP 16; TEMP 36.8; O2SAT 98
--- NOTE | 2022-09-04 15:17 | P.CONGS_ITS ---
History of Present Illness Consult details Consult date: 09/04/22 Narrative: The patient is a 52-year-old woman who underwent laparoscopic sleeve gastrectomy on 07/17/2022. She has a history of irritable bowel with constipation features. She was last seen in routine follow-up, then went to [place] for the 27 of August and was admitted to a [place] hospital on 08/23/2022 due to co nstipation, colitis and dehydration. Patient notes that she was told that she had hypokalemia and on CT, had colitis. Studies and reports are not available. The patient has a history of irritable bowel with constipation features and has a follow-up with Dr. Hickman, her almond roaster for tomorrow. The patient notes that she is drinking somewhere between 20-25 oz of water/liquid per day and following postoperative diet. She denies any dizziness, chest pain, shortness of breath but was evaluated her PCP office today and noted to be hypotensive, so she was sent to the walk-in clinic. Patient is receiving 2 L of IV fluid and denies any chest pain, difficulty breathing, shortness of breath, dizziness, lightheadedness. She states she is here purely because she was told by her PCP to report to the emergency department. She is having issues with hard pellet it stool in taking 3 fiber gummies, p.r.n. docusate, 2 senna tablets daily. She was instructed to purchase bisacodyl suppositories, which she is using occasionally. She denies any chest pain, nausea, vomiting, dysphagia, odynophagia or hematemesis. She was using Premier protein twice a day and just beginning to eat 4 forks of protein and 2 a vegetable, usually check an and a green beans. Review of Systems Review of Systems: Yes all other systems are reviewed and are negative Constitutional: Constitutional: Reports as per [facility] Past Medical History Medical History (Updated 09/04/22 @ 15:24 by Robert Martin MD) Adjustment disorder, unspecified Admission for repair of scarred tissue Anxiety Arthritis Asthma Bleeding hemorrhoids Chronic constipation GERD (gastroesophageal reflux disease) Irritable bowel syndrome Sleep apnea Family History Family History Father Diabetes Brother Heart attack Paternal Grandmother Cancer Maternal Grandmother Cancer Surgical History Surgical History H/O colonoscopy H/O eye surgery H/O: hysterectomy History of arthroscopy of both knees History of esophagogastroduodenoscopy (EGD) Hx of appendectomy Hx of breast reduction, elective Hx of hemorrhoidectomy [place] teeth extracted Social History Social History Household Members: Spouse Housing: House Are you a primary director of managed care to a significant other at home: Yes Do you presently have visiting nurse or other home services: No Alcohol intake: never Patient Tobacco Use Status: Never used Tobacco Smoked in Last 30 Days: No Second Hand Smoke Exposure: No Use of substances other than those prescribed or required for medical reasons: No Advance Directives: Yes Advance Directives Information Provided: No Advance Directives on File: No service: No Current occupational status: employed Meds Allergies Allergy/AdvReac Type Severity Reaction Status Date / Time aspirin [ASPIRIN] Allergy Severe HIVES Verified 09/04/22 11:33 Fish Containing Products Allergy Severe HIVES/DYSPN Verified 09/04/22 11:33 EA oxycodone [From PERCOCET] Allergy Severe PALPITATION Verified 09/04/22 11:33 S/HIVES pumpkin Allergy Severe THROAT Verified 09/04/22 11:33 SWELLING squash Allergy Severe THROAT Verified 09/04/22 11:33 SWELLING Zucchini Allergy Mild Hives, Uncoded 09/04/22 11:33 Dysphagia Active Medications: Current Medications Sodium Chloride (Ns) 1,000 mls @ 999 mls/hr IV .Q1H1M PATRICIA Stop: 09/04/22 15:30 Last Admin: 09/04/22 14:43 Dose: 999 mls/hr Home Medications Medication Instructions Recorded Confirmed Last Taken Type albuterol sulfate 90 mcg/actuation 2 puff inhalation Q6H PRN Wheezing 05/24/20 08/19/22 Unknown History aerosol inhaler fluticasone propionate 110 2 puff inhalation BID 06/02/20 08/19/22 Unknown History mcg/actuation HFA aerosol inhaler (Flovent HFA) trospium 60 mg capsule,extended 60 mg PO DAILY 07/09/22 08/19/22 Unknown History release 24 hr buspirone 5 mg tablet 5 mg PO TID PRN Anxiety 07/11/22 08/19/22 Unknown History Physical Exam Vital Signs: Vital Signs: Last Vital Signs Temp 98.3 F 09/04/22 14:06 Pulse 79 09/04/22 14:06 Resp 16 09/04/22 14:06 BP 104/63 09/04/22 14:06 Pulse Ox 98 09/04/22 14:06 O2 Del Method Room Air 09/04/22 14:06 BMI result Body Mass Index 28.7 The patient is non-toxic & in good spirits NC/AT, PERRLA, EOMI Mood, affect & judgment all appear appropriate Sclera anicteric conjunctiva pink and moist Oropharynx is clear with no aphthous ulcers, Mallampati class 4, mucous membranes moist Neck is supple with no masses, adenopathy or bruits Thyroid is nontender and free of dominant masses Heart is regular, normal S1-S2 no rubs or murmurs Lungs are clear and equal anteriorly with no audible wheezing, rubs or dullness to percussion Abdomen is overweight with no demonstrable hernias. No HSM, rebound, rigidity, guarding, masses or bruits are present. Rectal exam is deferred Skin has good turgor and is free of rashes Extremities free of cyanosis clubbing edema Results Labs 09/04/22 11:45 09/04/22 11:44 Labs: Abnormal lab results 09/04/22 09/04/22 Range/Units 11:44 11:45 RBC 3.64 L (4.20-5.50) X10*6/uL Hgb 10.8 L (12.0-16.0) g/dl Hct 33.3 L (37.0-47.0) % Neut % (Auto) 73.1 H (45-73) % Lymph % (Auto) 18.2 L (20-40) % Abs Immat Gran (auto) 0.04 H (0.00-0.03) X10*3/uL BUN 19 H (9-16) mg/dL Short CBC 09/04/22 Range/Units 11:45 WBC 10.7 (4.8-10.8) X10*3/uL Hgb 10.8 L (12.0-16.0) g/dl Hct 33.3 L (37.0-47.0) % Plt Count 272 (160-400) X10*3/uL BMP 09/04/22 11:44 Sodium 140 Potassium 3.4 Chloride 106 Carbon Dioxide 23 BUN 19 H Creatinine 0.71 Calcium 9.5 D Liver Function 09/04/22 Range/Units 11:44 Total Bilirubin 0.5 (0.0-1.0) mg/dL AST 20 (5-31) U/L ALT 10 (0-31) U/L Alkaline Phosphatase 64 (39-117) U/L Albumin 3.7 (3.5-5.0) g/dL Urine 09/04/22 Range/Units 12:41 Urine Color Dark Yellow Urine Appearance Clear Urine pH 6.0 (5.0-9.0) Ur Specific [place] 1.020 (1.005-1.025) Urine Protein Negative (Neg-Trace) mg/dL Urine Glucose (UA) Negative (Negative) mg/dL All other labs normal. Assessment and Plan (1) Overweight (BMI 25.0-29.9): Status: Acute (2) S/P laparoscopic sleeve gastrectomy: Status: Acute (3) JOSE (obstructive sleep apnea): Status: Acute (4) Dehydration: Status: Acute Plan I spoke with the patient, her and Bronwyn Johnson in the ED. Unfortunately, the patient's chronic constipation isn't being managed and her dehydration is creating a recurring problem that is affecting her ability to hydrate as well as address her constipation. Given this, I wrote down instructions to begin docusate, 2 tablets in the morning and 2 tablets in the evening; resume celebrate 4 in 1 protein shakes; for the next week, she should utilize bisacodyl suppositories once a day to try to remove the stool burden and is also instructed to take milk of magnesia. She has been on senna, 2 tablets without result and is instructed to increase this to 3 tablets a day and follow- up with her almond roaster as arranged tomorrow. She will follow up with bariatric clinic next week and will call to schedule an appointment. Patient has received 2 L of IV fluid, continues to be asymptomatic and is in agreement with this plan and understands the importance of being proactive with her diet, bowel regime and follow-up. Patient is far in out out from surgery that her anemia is likely the result of ongoing nutritional issues/lack of MVI and iron rather than bleeding from the operation. This will be addressed on an outpatient basis. Time Spent With Patient Time: Total time managing care of this patient today ____ minutes. Procedures Date of Service Date of Service: 09/04/22
[2022-09-04 15:35] VITALS: BP 103/67; PULSE 67; RESP 18; O2SAT 100
== END 2022-09-04 16:08 | disposition home or self-care (01) ==
PROVIDERS: Physician Assistant; Registered Nurse Emergency; Emergency Provider Emergency Medicine; PCP Student in an Organized Health Care Education/Training Program
DX: K59.00 Constipation, unspecified (principal); I95.9 Hypotension, unspecified; Z98.84 Bariatric surgery status; Z79.899 Other long term (current) drug therapy
CPT/HCPCS: 36415; 80053; 81003; 83690; 83735; 85025; 93005; 96360; 96361; 99284; 99285

== ENCOUNTER → 2022-09-04 11:48 | Outpatient (BNV) | payer OTHER, SELFPAY | PROVIDERS: Emergency Provider Emergency Medicine; PCP Student in an Organized Health Care Education/Training Program; Visit Provider Surgery | DX: E66.3 Overweight (principal); Z98.84 Bariatric surgery status; G47.33 Obstructive sleep apnea (adult) (pediatric); E86.0 Dehydration | CPT/HCPCS: 99284 ==

== ENCOUNTER → 2022-09-04 12:57 | Outpatient (BNV) | payer OTHER, SELFPAY | PROVIDERS: Emergency Provider Emergency Medicine; PCP Student in an Organized Health Care Education/Training Program; Visit Provider Internal Medicine Cardiovascular Disease | DX: I10 Essential (primary) hypertension (principal) | CPT/HCPCS: 93010 ==

== ENCOUNTER → 2022-09-05 09:59 | Outpatient (BNVA) | payer OTHER, SELFPAY | PROVIDERS: PCP Student in an Organized Health Care Education/Training Program; Visit Provider Internal Medicine Gastroenterology ==

== ENCOUNTER 2022-09-06 11:49 | Outpatient (REF) | payer OTHER, SELFPAY ==
[2022-09-06 11:57] LABS: MANUAL DIFF FLAG NO
[2022-09-06 12:01] LABS: Basophils Percent Auto 0.4 % (0-2); Eosinophils Absolute Auto 0.2 X10*3/uL (0.0-0.4); Hematocrit 35.8 % (37.0-47.0); Hemoglobin 11.5 g/dl (12.0-16.0); Imm Gran Abs Auto 0.02 X10*3/uL (0.00-0.03); Imm Gran Pct Auto 0.2 % (0.0-0.4); Lymphocytes Absolute Auto 2.3 X10*3/uL (1.2-4.9); Lymphocytes Percent Auto 23.2 % (20-40); Mean Corpuscular HGB Conc 32.1 g/dl (31.0-35.0); Mean Corpuscular Hemoglobin 29.9 pg (27.0-33.0); Mean Corpuscular Volume 93.2 fL (80.0-98.0); Mean Platelet Volume 11.4 fL (9.4-12.3); Monocytes Absolute Auto 0.6 X10*3/uL (0.1-1.2); Neutrophils Absolute Auto 6.7 x10*3/uL (2.0-8.3); Neutrophils Percent Auto 68.2 % (45-73); Platelet Count 250 X10*3/uL (160-400); Red Blood Count 3.84 X10*6/uL (4.20-5.50); Red Cell Distribution Width 12.7 % (11.0-16.0); White Blood Count 9.9 X10*3/uL (4.8-10.8)
[2022-09-06 12:06] LABS: INTERNATIONAL NORM RATIO 1.1 (0.9-1.1); Prothrombin Time 12.3 SEC (10.0-13.1)
[2022-09-06 12:14] LABS: Alanine Aminotransferase 8 U/L (0-31); Albumin Level 3.9 g/dL (3.5-5.0); Alkaline Phosphatase 65 U/L (39-117); Anion Gap 13 (12-20); Aspartate Amino Transferase 20 U/L (5-31); Bilirubin Total 0.5 mg/dL (0.0-1.0); Blood Urea Nitrogen 17 mg/dL (9-16); Calcium 9.9 mg/dL (8.4-10.2); Carbon Dioxide 26 mmol/L (22-29); Chloride 106 mmol/L (96-108); Estimated Glomerular Filt Rate > 60; Glucose Random 79 mg/dL (60-115); Phosphorus 2.8 mg/dL (2.7-4.5); Potassium 3.9 mmol/L (3.3-5.1); Sodium 141 mmol/L (135-145); Total Protein 6.9 g/dL (6.5-8.0)
== END 2022-09-06 11:50 | disposition home or self-care (01) ==
LOC: HO.LAB 11:49
PROVIDERS: PCP Student in an Organized Health Care Education/Training Program; Visit Provider Surgery
DX: E86.0 Dehydration (principal); E66.3 Overweight; D64.9 Anemia, unspecified; K59.09 Other constipation; G47.33 Obstructive sleep apnea (adult) (pediatric); Z98.84 Bariatric surgery status; E46 Unspecified protein-calorie malnutrition
CPT/HCPCS: 36415; 80053; 83735; 84100; 84134; 85025; 85610

== ENCOUNTER 2022-09-06 12:55 | Outpatient (AMB) | payer OTHER, SELFPAY ==
[2022-09-06 12:57] VITALS: BP 100/58; PULSE 70; TEMP 35.9; O2SAT 98; BMI 28.2
--- NOTE | 2022-09-06 12:57 | MHC.OFFVISWM ---
Intake VS Expanded 09/06/22 12:57 Height 5 ft Weight 144 lb 6.4 oz BMI 28.2 BP 100/58 L Blood Pressure Location Rt brachial Blood Pressure Position Sitting Pulse 70 Pulse Source Pulse Oximeter Temp 96.7 F L Temperature Source Temporal Artery Scan Pulse Oximetry 98 Oxygen Delivery Method Room Air Body Fat 48.6 Body Fat Percentage 33.6 Free Fat Mass 95.6 Muscle Mass 90.8 Visceral Mass 7.0 Water Mass 68.0 BMR 1,303 Intake Visit Reasons: (OV) PO LSG 07/17/22, ER f/u Allergies aspirin [ASPIRIN] Allergy (Severe, Verified 09/06/22 13:04) HIVES Fish Containing Products Allergy (Severe, Verified 09/06/22 13:04) HIVES/DYSPNEA oxycodone [From PERCOCET] Allergy (Severe, Verified 09/06/22 13:04) PALPITATIONS/HIVES pumpkin Allergy (Severe, Verified 09/06/22 13:04) THROAT SWELLING squash Allergy (Severe, Verified 09/06/22 13:04) THROAT SWELLING Zucchini Allergy (Mild, Uncoded 09/04/22 11:33) Hives, Dysphagia HPI HPI Comments History of Present Illness Details The patient returns for follow-up after her ER visit a couple days ago. The patient overall reports she is feeling much better and is making a conscious effort to stay hydrated. She is back on celebrate 4 in 1 protein shakes and notes that the new bowel regime of 2 docusate in the morning, 2 docusate at night, daily MiraLax and senna 3 tablets is working well. She has stopped using the suppositories. She has no nausea, vomiting or heartburn. She was instructed to stop the sucralfate since it causes constipation. She denies any dizziness, lightheadedness, dysphagia, odynophagia or hematemesis. [facility] Medical History (Updated 09/05/22 @ 14:54 by Robert Martin MD) Adjustment disorder, unspecified Admission for repair of scarred tissue Anxiety Arthritis Asthma Bleeding hemorrhoids Chronic constipation GERD (gastroesophageal reflux disease) Irritable bowel syndrome Sleep apnea Surgical History H/O colonoscopy H/O eye surgery H/O: hysterectomy History of arthroscopy of both knees History of esophagogastroduodenoscopy (EGD) Hx of appendectomy Hx of breast reduction, elective Hx of hemorrhoidectomy [place] teeth extracted Family History Father Diabetes Brother Heart attack Paternal Grandmother Cancer Maternal Grandmother Cancer Social History Household Members: Spouse Housing: House Are you a primary child care assistant to a significant other at home: Yes Do you presently have visiting nurse or other home services: No Alcohol intake: never Patient Tobacco Use Status: Never used Tobacco Second Hand Smoke Exposure: No service: No Current occupational status: employed Review of Systems Const All systems reviewed & are unremarkable except as noted in HPI and below Physical Exam Vital Signs: Last Vital Signs Temp 96.7 F L 09/06/22 12:57 Pulse 70 09/06/22 12:57 BP 100/58 L 09/06/22 12:57 Pulse Ox 98 09/06/22 12:57 Oxygen Delivery Method Room Air 09/06/22 12:57 BMI result Body Mass Index 28.2 On exam, she is anicteric and nontoxic She is in no acute respiratory distress Her abdomen is soft and nontender with no rebound, rigidity or guarding Results Reviewed Results Reviewed: Labs dated 09/06/2022 Hemoglobin is 11.5 with normal indices; white blood cell count normal at 9.9, platelet count 250k Electrolytes are within normal parameters including a potassium 3.9, calcium of 9.9, phosphorus 2.8 and magnesium 2.0 BUN has improved to 17 from 19 and creatinine 0.67 Pre-albumin is low at 16.0 Assessment & Plan Assessment & Plan (1) S/P laparoscopic sleeve gastrectomy: Code(s): Z98.84 - Bariatric surgery status (2) Overweight (BMI 25.0-29.9): Code(s): E66.3 - Overweight (3) Anemia: Code(s): D64.9 - Anemia, unspecified (4) Chronic constipation: Code(s): K59.09 - Other constipation (5) JOSE (obstructive sleep apnea): Code(s): G47.33 - Obstructive sleep apnea (adult) (pediatric) Plan The patient notes that she is doing much better, especially while making a concerted effort to stay hydrated. Her current bowel regime is working well and she is encouraged to stay on this to avoid constipation. She will resume the 4 in 1 celebrate protein shakes and notes that she had rather significant nausea followed by vomiting when she tried taking the celebrate vitamin tablet. She is advised to discuss this with José Cuevas PA-C at her follow-up visit in a couple weeks. Patient will see me the week after her follow-up with José Cuevas PA-C and will reach out and contact me if she has return of constipation, hydration issues or other concerns. We discussed her low pre-albumin in the fact that she needs to concentrate on both hydration and protein intake. Her questions seemed to be satisfactorily answered. Coding Level of Care Code Global (13256) Diagnoses S/P laparoscopic sleeve gastrectomy Z98.84 Overweight (BMI 25.0-29.9) E66.3 Anemia D64.9 Chronic constipation K59.09 JOSE (obstructive sleep apnea) G47.33
== END 2022-09-06 14:05 | disposition home or self-care (01) ==
PROVIDERS: PCP Student in an Organized Health Care Education/Training Program; Visit Provider Surgery
DX: E66.3 Overweight (principal); Z68.28 Body mass index [BMI] 28.0-28.9, adult; Z90.3 Acquired absence of stomach [part of]; Z98.84 Bariatric surgery status; D64.9 Anemia, unspecified; K59.09 Other constipation; G47.33 Obstructive sleep apnea (adult) (pediatric)
CPT/HCPCS: 99024

== ENCOUNTER 2022-09-17 13:01 | Outpatient (AMB) | payer OTHER, SELFPAY ==
--- NOTE | 2022-09-17 13:03 | MHC.OFFVISWM ---
Intake VS Expanded 09/17/22 13:11 Height 5 ft Weight 143 lb 3.2 oz BMI 28.0 BP 103/55 L Blood Pressure Location Rt brachial Blood Pressure Position Sitting Pulse 66 Pulse Source Pulse Oximeter Temp 97.0 F Temperature Source Temporal Artery Scan Pulse Oximetry 98 Oxygen Delivery Method Room Air Body Fat 48.2 Body Fat Percentage 33.7 Free Fat Mass 94.8 Muscle Mass 90.0 Visceral Mass 7.0 Water Mass 67.2 BMR 1,293 Intake Visit Reasons: (OV) PO LSG 07/17/22 Cardiac Monitor Required: No Allergies aspirin [ASPIRIN] Allergy (Severe, Verified 09/17/22 13:08) HIVES Fish Containing Products Allergy (Severe, Verified 09/17/22 13:08) HIVES/DYSPNEA oxycodone [From PERCOCET] Allergy (Severe, Verified 09/17/22 13:08) PALPITATIONS/HIVES pumpkin Allergy (Severe, Verified 09/17/22 13:08) THROAT SWELLING squash Allergy (Severe, Verified 09/17/22 13:08) THROAT SWELLING Zucchini Allergy (Mild, Uncoded 09/04/22 11:33) Hives, Dysphagia Medication List - Last Reconciled 09/17/22 by BHARAT Ramirez albuterol sulfate 90 mcg/actuation 2 puffs inhalation Q6H PRN bisacodyl 10 mg [place] DAILY 7 days docusate sodium 200 mg (2 x 100 mg) PO BID 30 days fluticasone propionate 110 mcg/actuation (Flovent HFA) 2 puffs inhalation BID linaclotide (Linzess) 145 mcg PO DAILY 30 days linaclotide (Linzess) 145 mcg PO DAILY magnesium hydroxide (Milk of Magnesia) 5 mL PO BEDTIME PRN pantoprazole 40 mg PO QAM 30 days sennosides-docusate sodium 8.6-50 mg 1 tab-cap PO TID 30 days HPI HPI Comments History of Present Illness Details This?a?52?yo female who is s/p LSG without hiatal hernia repair on?07/15/[address] Martin. Presents for 2 month post op visit. Weight today is 143.2 pounds, with a BMI of 27.9.? There has been a 50.6 pound weight loss,(initial weight 193.8 pounds) since starting the program on 02/27/22 reflecting a 26.1% total body weight loss and a weight loss of 23.9 pounds since surgery (operative weight 167.1 pounds) reflecting a 14.3% TBWL since surgery.? No complaints of nausea, emesis, abdominal pain or reflux. She was in the ER w abd pain and had sig constipation. She saw Dr Martin and was RX senna 1 tid, Colace 2 tabs BID. and suppository as needed. She has seen Dr Hickman of GI and was Rx Linzess. She states last BM was 3 days ago and difficult. Taking Celebrate MVI daily.? Present meal plan includes: 2 shakes Celebrate 4:1, 2 scoops each Fit crunch bar 2 spoons yogurt 2 forks protein, Drinking 50-60 oz water ? Exercise routine includes: walking outside, 4 days per week, 1.5 miles stationary bike at home 20 minutes every other day.? [facility] Medical History (Updated 09/05/22 @ 14:54 by Robert Martin MD) Adjustment disorder, unspecified Admission for repair of scarred tissue Anxiety Arthritis Asthma Bleeding hemorrhoids Chronic constipation GERD (gastroesophageal reflux disease) Irritable bowel syndrome Sleep apnea Surgical History H/O colonoscopy H/O eye surgery H/O: hysterectomy History of arthroscopy of both knees History of esophagogastroduodenoscopy (EGD) Hx of appendectomy Hx of breast reduction, elective Hx of hemorrhoidectomy [place] teeth extracted Family History Father Diabetes Brother Heart attack Paternal Grandmother Cancer Maternal Grandmother Cancer Social History Household Members: Spouse Housing: House Are you a primary senior care specialist to a significant other at home: Yes Do you presently have visiting nurse or other home services: No Alcohol intake: never Patient Tobacco Use Status: Never used Tobacco Second Hand Smoke Exposure: No service: No Current occupational status: employed Physical Exam Vital Signs: Last Vital Signs Temp 97.0 F 09/17/22 13:11 Pulse 66 09/17/22 13:11 BP 103/55 L 09/17/22 13:11 Pulse Ox 98 09/17/22 13:11 Oxygen Delivery Method Room Air 09/17/22 13:11 BMI result Body Mass Index 28.0 Const General: healthy appearing and no acute distress Resp Effort & Inspection: normal respiratory effort Auscultation: clear to auscultation bilaterally Cardio Rate: regular rate Rhythm: regular rhythm GI Auscultation: normal bowel sounds Extrem General: Yes normal to inspection Assessment & Plan Assessment & Plan (1) S/P laparoscopic sleeve gastrectomy: Code(s): Z98.84 - Bariatric surgery status Plan: Continue celebrate 4:1 shakes 2 scoops each x 2 Add 1/2 c cottage cheese or turkish yogurt or 4 forks shrimp or 4 forks pork May add 4 forks cooked veg Continue wter intake and exercise as she is doing Likely expand meal plan in 1 month May transition to isopure or premier protein and supplement bariatric MVI (fusion as she didn't tolerate celebrate MVI) rtc 1 month (2) Chronic constipation: Code(s): K59.09 - Other constipation Plan: Continue senna, colace, MOM Linzess added by GI and would defer to GI for bowel management Hx IBS prior to surgery. Medications: Changed From bisacodyl 10 mg TX DAILY 7 days 7 ea 0RF To bisacodyl 10 mg TX DAILY PRN 12 ea 0RF constipation Coding Level of Care Code Global (92264) Diagnoses S/P laparoscopic sleeve gastrectomy Z98.84 Chronic constipation K59.09
[2022-09-17 13:11] VITALS: BP 103/55; PULSE 66; TEMP 36.1; O2SAT 98; BMI 28.0
== END 2022-09-17 14:05 | disposition home or self-care (01) ==
PROVIDERS: PCP Student in an Organized Health Care Education/Training Program; Visit Provider Physician Assistant Surgical
DX: Z68.28 Body mass index [BMI] 28.0-28.9, adult (principal); Z90.3 Acquired absence of stomach [part of]; Z98.84 Bariatric surgery status
CPT/HCPCS: 99024

== ENCOUNTER → 2022-09-17 13:01 | Outpatient (BNVA) | payer OTHER, SELFPAY | PROVIDERS: PCP Student in an Organized Health Care Education/Training Program; Visit Provider Physician Assistant Surgical ==

== ENCOUNTER 2022-09-24 09:02 | Outpatient (AMB) | payer OTHER, SELFPAY ==
--- NOTE | 2022-09-24 09:05 | MHC.OFFVISWM ---
Intake VS Expanded 09/24/22 09:14 Height 5 ft Weight 141 lb 8.588 oz BMI 27.6 BP 100/53 L Blood Pressure Location Lt brachial Blood Pressure Position Sitting Pulse 70 Temp 97.9 F Temperature Source Temporal Artery Scan Intake Visit Reasons: (OV) PO LSG 07/17/22, ER f/u Intake Note: This patient present for ER f/u. Reports no concerns. Community Relations Assistant Required: No Arts Administrator Or Manager: Arts Administrator Or Manager offered & declined Accompanied by: Self / Same As Patient Allergies aspirin [ASPIRIN] Allergy (Severe, Verified 09/24/22 09:14) HIVES Fish Containing Products Allergy (Severe, Verified 09/24/22 09:14) HIVES/DYSPNEA oxycodone [From PERCOCET] Allergy (Severe, Verified 09/24/22 09:14) PALPITATIONS/HIVES pumpkin Allergy (Severe, Verified 09/24/22 09:14) THROAT SWELLING squash Allergy (Severe, Verified 09/24/22 09:14) THROAT SWELLING Zucchini Allergy (Mild, Uncoded 09/24/22 09:14) Hives, Dysphagia Medication List - Last Reconciled 09/24/22 by Robert Martin MD albuterol sulfate 90 mcg/actuation 2 puffs inhalation Q6H PRN bisacodyl 10 mg ID DAILY PRN docusate sodium 200 mg (2 x 100 mg) PO BID 30 days fluticasone propionate 110 mcg/actuation (Flovent HFA) 2 puffs inhalation BID linaclotide (Linzess) 145 mcg PO DAILY 30 days linaclotide (Linzess) 145 mcg PO DAILY magnesium hydroxide (Milk of Magnesia) 5 mL PO BEDTIME PRN pantoprazole 40 mg PO QAM 30 days sennosides-docusate sodium 8.6-50 mg 1 tab-cap PO TID 30 days HPI HPI Comments History of Present Illness Details The patient returns for follow-up after her ER visit. She is congratulated on additional weight loss since her last visit. She notes that her bowel regime now includes Linzess prescribed by Dr. Serrano and she is doing much better. Her last bowel movement was yesterday. The patient overall reports she is feeling much better and is making a conscious effort to stay hydrated. She is back on celebrate 4 in 1 protein shakes and notes that the new bowel regime of 2 docusate in the morning, 2 docusate at night, daily MiraLax and senna 3 tablets is working well. She has no nausea, vomiting or heartburn. She was instructed to stop the sucralfate since it causes constipation. She denies any dizziness, lightheadedness, dysphagia, odynophagia or hematemesis. [facility] Medical History Adjustment disorder, unspecified Admission for repair of scarred tissue Anxiety Arthritis Asthma Bleeding hemorrhoids Chronic constipation GERD (gastroesophageal reflux disease) Irritable bowel syndrome Sleep apnea Surgical History H/O colonoscopy H/O eye surgery H/O: hysterectomy History of arthroscopy of both knees History of esophagogastroduodenoscopy (EGD) Hx of appendectomy Hx of breast reduction, elective Hx of hemorrhoidectomy [place] teeth extracted Family History Father Diabetes Brother Heart attack Paternal Grandmother Cancer Maternal Grandmother Cancer Social History Household Members: Spouse Housing: House Are you a primary rn home care to a significant other at home: Yes Do you presently have visiting nurse or other home services: No Alcohol intake: never Patient Tobacco Use Status: Never used Tobacco Second Hand Smoke Exposure: No service: No Current occupational status: employed Review of Systems Const All systems reviewed & are unremarkable except as noted in HPI and below Physical Exam Vital Signs: Last Vital Signs Temp 97.9 F 09/24/22 09:14 Pulse 70 09/24/22 09:14 BP 100/53 L 09/24/22 09:14 BMI result Body Mass Index 27.6 On exam she is anicteric and nontoxic She is in no acute respiratory distress Her abdomen is soft and nontender; abdomen is benign Assessment & Plan Assessment & Plan (1) S/P laparoscopic sleeve gastrectomy: Code(s): Z98.84 - Bariatric surgery status (2) Overweight (BMI 25.0-29.9): Code(s): E66.3 - Overweight (3) Chronic constipation: Code(s): K59.09 - Other constipation (4) JOSE (obstructive sleep apnea): Code(s): G47.33 - Obstructive sleep apnea (adult) (pediatric) Plan The patient is congratulated on her ongoing weight loss efforts and we reviewed the importance of diet and hydration. The patient seems to understand the importance of her bowel regime and has a follow-up with Dr. Hickman in Gastroenterology as well as a follow-up appointment in a month with José Cuevas PA-C, regarding diet. The importance of being proactive if she has issues with dehydration or constipation or weight regain was discussed and apparently understood. The patient will follow-up with me as needed. Coding Level of Care Code Global (73046) Diagnoses S/P laparoscopic sleeve gastrectomy Z98.84 Overweight (BMI 25.0-29.9) E66.3 Chronic constipation K59.09 JOSE (obstructive sleep apnea) G47.33
[2022-09-24 09:14] VITALS: BP 100/53; PULSE 70; TEMP 36.6; BMI 27.6
== END 2022-09-24 09:32 | disposition home or self-care (01) ==
PROVIDERS: PCP Student in an Organized Health Care Education/Training Program; Visit Provider Surgery
DX: Z98.84 Bariatric surgery status (principal); E66.3 Overweight; K59.09 Other constipation; G47.33 Obstructive sleep apnea (adult) (pediatric)
CPT/HCPCS: 99024

== ENCOUNTER → 2022-09-24 09:02 | Outpatient (BNVA) | payer OTHER, SELFPAY | PROVIDERS: PCP Student in an Organized Health Care Education/Training Program; Visit Provider Surgery ==

== ENCOUNTER 2022-09-26 07:58 | Outpatient (AMB) | payer OTHER, SELFPAY ==
--- NOTE | 2022-09-26 08:23 | MHC.OFFVIS ---
Intake Vital Signs 09/26/22 08:28 Height 5 ft Weight 141 lb BMI 27.5 BP 92/47 L Blood Pressure Location Lt brachial Position Sitting Pulse 77 Intake Visit Reasons: follow up Intake Note: Patient follow up for bleeding hemorrhoids. Patient cc: abdominal irritation, nauseas and constipation. [employer] Camera Person Required: No Accompanied by: Self / Same As Patient Allergies aspirin [ASPIRIN] Allergy (Severe, Verified 09/26/22 08:26) HIVES Fish Containing Products Allergy (Severe, Verified 09/26/22 08:26) HIVES/DYSPNEA oxycodone [From PERCOCET] Allergy (Severe, Verified 09/26/22 08:26) PALPITATIONS/HIVES pumpkin Allergy (Severe, Verified 09/26/22 08:26) THROAT SWELLING squash Allergy (Severe, Verified 09/26/22 08:26) THROAT SWELLING Zucchini Allergy (Mild, Uncoded 09/24/22 09:14) Hives, Dysphagia Medication List - Last Reconciled 09/26/22 by Abdoul Hickman MD albuterol sulfate 90 mcg/actuation 2 puffs inhalation Q6H PRN bisacodyl 10 mg [place] DAILY PRN docusate sodium 200 mg (2 x 100 mg) PO BID 30 days fluticasone propionate 110 mcg/actuation (Flovent HFA) 2 puffs inhalation BID linaclotide (Linzess) 145 mcg PO DAILY 30 days linaclotide (Linzess) 145 mcg PO DAILY magnesium hydroxide (Milk of Magnesia) 5 mL PO BEDTIME PRN pantoprazole 40 mg PO QAM 30 days sennosides-docusate sodium 8.6-50 mg 1 tab-cap PO TID 30 days HPI follow up HPI Details GI clinic visit for this 52-year-old female for FU of right upper quadrant pain, IBS and rectal bleeding. Pt scheduled for an urgent FU appt since: pt called and stated that she was hospitalized for 5 days for inflammation of colon and abdominal infection and she stated that she needs an urgent appointment with Dr. Hickman ?CHRONIC ILLNESSES:?Asthma, gastritis, NUD, colitis, morbid obesity, Eczema, history of colon polyps ?LABS IN [facility]: 05/05/19 reviewed normal CBC and LFTs ? IMAGING STUDIES: 06/2018 HIDA SCAN WAS NORMAL. ? June [address] scan showed: ? No acute findings of the abdomen or pelvis. No inflammatory changes. ? There is a moderate colonic stool burden, mostly throughout the right hemicolon. ?07/30/19 BARIUM SWALLOW FROM [facility] WAS REVIEWED: ? Normal oral and pharyngeal phases with no laryngeal penetration or subglottic aspiration. ? Esophagus: Normal in contour and mucosal appearance. Tertiary contractions noted in the distal half of the esophagus with from transit of liquid barium into the stomach. No hiatal hernia. Despite the use of provocative maneuvers, no gastroesophageal reflux was appreciated during the study. A 13 mm barium tablet passed unimpeded into the stomach. No evidence of esophageal web, narrowing or outpouching. No esophageal obstruction. ? IMPRESSION: ? Mild dysmotility with no evidence of stricture. ?ENDOSCOPIC STUDIES: 04/23/19 PATIENT HAD AN EGD AND COLONOSCOPY : ? Endoscopy Findings: ? LARYNX: Changes suggestive of LPRD ? ESOPHAGUS: A single 1 cms healing erosion at the GE junction. ? STOMACH: Gastritis and gastric polyps ? DUODENUM: Two small erosions in the bulb ? Colonoscopy Findings: ? Four polyps removed ? Moderate diverticulosis seen in the sigmoid colon ? Moderate hemorrhoids on retroflexed exam. ? Plan:? Continue present medications (Omeprazole at 20 mg PO once daily) ? Patient has an appointment on 05/13/19 in the GI Clinic with Abdoul Hickman M.D. ? Repeat Colonoscopy interval based on path results - in 3-5 years if ? polyps are adenomatous and 10 years if polyps are hyperplastic. ? A. Small bowel, biopsies: Duodenal mucosa within normal limits; negative for active and chronic duodenitis, intraepithelial lymphocytosis, villous blunting, dysplasia, and carcinoma. ? B. Gastric, antrum, biopsies: Antral mucosa with mild chronic inactive gastritis; ? negative for intestinal metaplasia, dysplasia, carcinoma, and Helicobacter pylori. ? C. Gastric, polyps, polypectomies: Fragments of corpus mucosa with mild chronic inactive gastritis, minimal oxyntic glandular dilation, and changes consistent with a healing erosion/ulceration; negative for intestinal metaplasia, dysplasia, carcinoma, and Helicobacter pylori. ? D. Colon, transverse, polypectomy: Tubular adenoma; negative for high grade dysplasia and carcinoma. ? E. Colon, random, biopsies: Colonic mucosa within normal limits; negative for active and chronic colitis, microscopic colitis, granuloma formation, dysplasia, and carcinoma. ? F. Colon, descending, polypectomies: Fragments of hyperplastic polyp(s). Separate fragments of colonic mucosa within normal limits. ? AUGUST 2016 [facility] AND A TUBULAR ADENOMA WAS REMOVED. ?TODAY'S VISIT Feeling better. Not having a BM every day - has gone twice this week (Sun and Tues) Notes some nausea when she takes her medications in the morning Taking Senna 1 capsule three times daily Stool softeners 2 capsules twice daily Linzess 145 mcg daily for constipation PAST VISIT: Patient had gastric sleeve surgery on 07/17/2022 Seen at [facility] in [place], [place] on 08/23/22 after she had abdominal pain, nausea and vomiting and constipation.? Denies rectal bleeding. CT scan showed colitis - medical records were requested. Treated with IVF, potassium and pain improved. Using suppositories and still not using the bathroom. Senna increased to three times a day, Colace twice a day, MOM 5 ml every night and a suppositories. Had a BM at 7:30 am today.? BM was hard and dark. She is having issues with hard pellet it stool in taking 3 fiber gummies, p.r.n. docusate, 2 senna tablets daily.? She was instructed to purchase bisacodyl suppositories, which she is using occasionally.? She denies any chest pain, nausea, vomiting, dysphagia, odynophagia or hematemesis. Working with [employer] management and has lost 30 lbs since Feb - weighs 168 lbs Was 194 lbs when she started working with [employer]. Has been taking protein shakes and small meals. Has been having constipation Taking 2 tablets of Senna for constipation. Intermittent pain due to hemorrhoids - takes preparation H GERD symptoms improved and only takes Omeprazole prn - has not taken it in a while. Pt changed appt to TV since she had some diarrhea when Has been she woke up. Continues to have chronic constipation and has a BM every other day with some straining. Denies recurrent rectal bleeding since hemorrhoid surgery Complains of heartburn and taking Omeprazole twice for the past 2-3 months Notes heartburn when she takes cheese, salad dressing (balsamic), eggs, strawberries and leeks. Also has fibromyalgia with aches and pains and takes tylenol prn ? ? ? Denies recurrent rectal bleeding since she had hemorrhoidectomy. ? ? ? Stomach gets upset sometimes. ? ? ? Intermittent constipation. ?? ? Complains of constant pain on the right side of the belly button for the past month. ?? ? No change in pain with eating or drinking. ? ? Hurts when she moves or tries to lift something. Sometimes it hurts when she has a BM. Past abd surgeries: appendectomy and C -section. ? Lost 11 lbs by eating more vegetables and fruits. ? Taking more fibre in her diet. ? Heartburn and dysphagia symptoms have resolved and takes lansoprazole and dicyclomine p.r.n. every few days and does not need to take it every day. ? 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 ? 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 ? Taking Lansoprazole twice a day and dicyclomine three times a day with decrease in episodes of throat closing. ? Notes episodes can be related to her diet - she took a grilled cheese sandwich and felt her throat closing [facility] Medical History Adjustment disorder, unspecified Admission for repair of scarred tissue Anxiety Arthritis Asthma Bleeding hemorrhoids Chronic constipation GERD (gastroesophageal reflux disease) Irritable bowel syndrome Sleep apnea Surgical History H/O colonoscopy H/O eye surgery H/O: hysterectomy History of arthroscopy of both knees History of esophagogastroduodenoscopy (EGD) Hx of appendectomy Hx of breast reduction, elective Hx of hemorrhoidectomy [place] teeth extracted Family History Father Diabetes Brother Heart attack Paternal Grandmother Cancer Maternal Grandmother Cancer Social History Household Members: Spouse Housing: House Are you a primary child care group leader to a significant other at home: Yes Do you presently have visiting nurse or other home services: No Alcohol intake: never Patient Tobacco Use Status: Never used Tobacco Second Hand Smoke Exposure: No service: No Current occupational status: employed Review of Systems Const All systems reviewed & are unremarkable except as noted in HPI and below Physical Exam Const General: healthy appearing and no acute distress Nutritional Appearance: overweight Orientation/consciousness: patient oriented x3 Limitations: no limitations HEENT Head: Yes normal to inspection Ears: hearing grossly normal bilaterally Eyes Sclerae: sclerae normal Pupils: Equal, round and reactive pupils present Neck Neck: Yes normal visual inspection Chest Chest palpation & inspection: normal inspection of the chest Resp Effort & Inspection: normal respiratory effort Auscultation: clear to auscultation bilaterally Cardio Palpation: normal PMI Rate: regular rate Rhythm: regular rhythm Heart sounds: S1 normal heart sound present, S2 normal heart sound present and no murmurs GI Palpation (GI): Soft to palpation, nontender and No hepatosplenomegaly present Auscultation: normal bowel sounds Rectal Exam - Female: deferred Skin General skin exam: no rashes or lesions noted Neuro General: patient oriented x3, gait normal and moves all extremities Cranial nerves: Yes Equal, round and reactive pupils present Psych Appearance: grossly normal Mental Status: mental status grossly normal Assessment & Plan Assessment & Plan (1) Chronic constipation: Code(s): K59.09 - Other constipation (2) S/P laparoscopic sleeve gastrectomy: Code(s): Z98.84 - Bariatric surgery status (3) Oropharyngeal dysphagia: Code(s): R13.12 - Dysphagia, oropharyngeal phase (4) History of colon polyps: Comment: 04/23/19 patient had a colonoscopy which showed moderate sigmoid diverticulosis and moderate hemorrhoids. Four polyps were removed and 1 was a tubular adenoma. Patient is advised repeat colonoscopy in 5 years (due 03/2024) Code(s): Z86.010 - Personal history of colonic polyps (5) Internal hemorrhoids: Code(s): K64.8 - Other hemorrhoids Plan 52 YF with Asthma, gastritis, NUD, colitis, obesity, Eczema, history of colon polyps, epigastric/RUQ pain which may be likely due to obstipation. Abdominal CT scan and HIDA scan were normal. Patient complains of oropharyngeal dysphagia/globus sensation. 07/30/19 BARIUM SWALLOW FROM [facility] WAS REVIEWED: Normal oral and pharyngeal phases with no laryngeal penetration or subglottic aspiration. Esophagus: Normal in contour and mucosal appearance. Tertiary contractions noted in the distal half of the esophagus with from transit of liquid barium into the stomach. No hiatal hernia. Despite the use of provocative maneuvers, no gastroesophageal reflux was appreciated during the study. A 13 mm barium tablet passed unimpeded into the stomach. No evidence of esophageal web, narrowing or outpouching. No esophageal obstruction. IMPRESSION: Mild dysmotility with no evidence of stricture. Patient notes improvement in symptoms of heartburn since she changed her diet and lost 28 lbs. She is taking lansoprazole and dicyclomine p.r.n. every few days. Patient notes resolution of rectal bleeding. 09/05/22 Patient had gastric sleeve surgery on 07/17/2022 Seen at [facility] in [place], [place] on 08/23/22 after she had abdominal pain, nausea and vomiting and constipation.? Denies rectal bleeding. CT scan showed colitis - likely ischemic colitis - medical records were requested. Pt advised to FU with GI and schedule an EGD and colon Treated with IVF, potassium and pain improved. Using suppositories and still not using the bathroom. Senna increased to three times a day, Colace twice a day, MOM 5 ml every night and a suppositories Pt advised to continue with above regimen for a week and if no improvement in constipation, to start Linzess Pt advised to stop sucralfate (after checking with Dr Martin) 09/26/22 Pt advised to: 1. Increase Linzess to 290 mcg daily 2. Take Senna 2 capsules twice a day 3. Decrease [place] to 1 tablet twice a day FU appt in 6 weeks. I will hold off colonoscopy for now until constipation resolves. Also it will be difficult for her to take colon prep given dietary restrictions after sleeve gastrectomy (pt had a colonoscopy in 2019 and one adenomatous polyp and three hyerplastic polyps were removed) Medications: New linaclotide (Linzess) 290 mcg PO QAM 30 days 30 caps 3RF K59.09 - Other constipation Changed From sennosides-docusate sodium 8.6-50 mg 1 tab-cap PO TID 30 days 90 tabs 0RF To sennosides-docusate sodium 8.6-50 mg 2 tab-caps (2 x 8.6-50 mg) PO BID 30 days 120 tabs 0RF Refilled sennosides-docusate sodium 8.6-50 mg 1 tab-cap PO TID 30 days 90 tabs 0RF Discontinued linaclotide (Linzess) Discontinued Reason: Ancillary Entered New Order 145 mcg PO DAILY 30 days 30 caps 2RF K59.09 - Other constipation Coding Level of Care Code Est Pt Level 4 (41694) Diagnoses Chronic constipation K59.09 S/P laparoscopic sleeve gastrectomy Z98.84 Oropharyngeal dysphagia R13.12 History of colon polyps Z86.010 Internal hemorrhoids K64.8 Time Spent (min) 23
[2022-09-26 08:28] VITALS: BP 92/47; PULSE 77; BMI 27.5
== END 2022-09-26 09:11 | disposition home or self-care (01) ==
PROVIDERS: PCP Student in an Organized Health Care Education/Training Program; Visit Provider Internal Medicine Gastroenterology
DX: K59.09 Other constipation (principal); Z98.84 Bariatric surgery status; R13.12 Dysphagia, oropharyngeal phase; Z86.010 Personal history of colon polyps; K64.8 Other hemorrhoids
CPT/HCPCS: 99214

== ENCOUNTER → 2022-09-26 07:58 | Outpatient (BNVA) | payer OTHER, SELFPAY | PROVIDERS: PCP Student in an Organized Health Care Education/Training Program; Visit Provider Internal Medicine Gastroenterology ==

== ENCOUNTER 2022-10-24 15:01 | Outpatient (AMB) | payer OTHER, SELFPAY ==
--- NOTE | 2022-10-24 15:08 | MHC.OFFVISWM ---
Intake VS Expanded 10/24/22 15:14 Height 5 ft Weight 132 lb 6.4 oz BMI 25.9 BP 103/56 L Blood Pressure Location Rt brachial Blood Pressure Position Sitting Pulse 67 Pulse Source Pulse Oximeter Temp 96.6 F L Temperature Source Tympanic Pulse Oximetry 97 Oxygen Delivery Method Room Air Body Fat 40.6 Body Fat Percentage 30.7 Free Fat Mass 91.8 Muscle Mass 87.0 Visceral Mass 6.0 Water Mass 65.0 BMR 1,244 Intake Visit Reasons: (OV) PO LSG 07/17/22 Felt Hooker Required: No Allergies aspirin [ASPIRIN] Allergy (Severe, Verified 10/24/22 15:11) HIVES Fish Containing Products Allergy (Severe, Verified 10/24/22 15:11) HIVES/DYSPNEA oxycodone [From PERCOCET] Allergy (Severe, Verified 10/24/22 15:11) PALPITATIONS/HIVES pumpkin Allergy (Severe, Verified 10/24/22 15:11) THROAT SWELLING squash Allergy (Severe, Verified 10/24/22 15:11) THROAT SWELLING Zucchini Allergy (Mild, Uncoded 10/24/22 15:11) Hives, Dysphagia Medication List - Last Reconciled 10/24/22 by BHARAT Ramirez albuterol sulfate 90 mcg/actuation 2 puffs inhalation Q6H PRN fluticasone propionate 110 mcg/actuation (Flovent HFA) 2 puffs inhalation BID linaclotide (Linzess) 147 mcg PO QAM pantoprazole 40 mg PO QAM 30 days sennosides-docusate sodium 8.6-50 mg 1 tab-cap PO TID HPI HPI Comments History of Present Illness Details This?a?52?yo female who is s/p LSG without hiatal hernia repair on?07/15/[address] Martin. Presents for 3 month post op visit. Weight today is 132.4 pounds, with a BMI of 25.8.? There has been a 61.4 pound weight loss,(initial weight 193.8 pounds) since starting the program on 02/27/22 reflecting a 31.6% total body weight loss and a weight loss of 34.7 pounds since surgery (operative weight 167.1 pounds) reflecting a 20.7% TBWL since surgery.? States she feels great, not winded when going up steps, has significantly improved energy levels and she is no longer using her CPAP machine and her states she no longer snores. She wasseen by GI Dr Hickman earlier this month and was having improvement in her constipation on senna, linzess. Present meal plan includes: 2 shakes Celebrate 4 in 1, w unsweetened almond milk 2 scoops each, 8-10 am, 2-4 pm 2 containers sao tomean yogurt, noon, 8 pm 8 forks protein 8 forks veg, 6 pm Drinking 48 oz water ? Exercise routine includes: gym: Cardio classes 45-60 min, 2-3 x per week, walking outside, 1-2 x per week, 60 minutes PFSH Medical History Adjustment disorder, unspecified Admission for repair of scarred tissue Anxiety Arthritis Asthma Bleeding hemorrhoids Chronic constipation GERD (gastroesophageal reflux disease) Irritable bowel syndrome Sleep apnea Surgical History H/O colonoscopy H/O eye surgery H/O: hysterectomy History of arthroscopy of both knees History of esophagogastroduodenoscopy (EGD) Hx of appendectomy Hx of breast reduction, elective Hx of hemorrhoidectomy [place] teeth extracted Family History Father Diabetes Brother Heart attack Paternal Grandmother Cancer Maternal Grandmother Cancer Social History Household Members: Spouse Housing: House Are you a primary career development specialist to a significant other at home: Yes Do you presently have visiting nurse or other home services: No Alcohol intake: never Patient Tobacco Use Status: Never used Tobacco Second Hand Smoke Exposure: No service: No Current occupational status: employed Assessment & Plan Assessment & Plan (1) Overweight (BMI 25.0-29.9): Code(s): E66.3 - Overweight Plan: She does not want to change her meal plan much but will change to shake 8-10, 12-2. meal at 6 Will have her see RD in 6 weeks and then me 6 weeks later for her 6 month post op. Coding Level of Care Code Est Pt Level 3 (01858) Diagnoses Overweight (BMI 25.0-29.9) E66.3
[2022-10-24 15:14] VITALS: BP 103/56; PULSE 67; TEMP 35.9; O2SAT 97; BMI 25.9
== END 2022-10-24 15:56 | disposition home or self-care (01) ==
PROVIDERS: PCP Student in an Organized Health Care Education/Training Program; Visit Provider Physician Assistant Surgical
DX: E66.3 Overweight (principal)
CPT/HCPCS: 99213

== ENCOUNTER → 2022-10-24 15:01 | Outpatient (BNVA) | payer OTHER, SELFPAY | PROVIDERS: PCP Student in an Organized Health Care Education/Training Program; Visit Provider Physician Assistant Surgical ==

== ENCOUNTER → 2022-11-25 15:57 | Outpatient (BNVA) | payer OTHER, SELFPAY | PROVIDERS: PCP Student in an Organized Health Care Education/Training Program; Visit Provider Dietitian, Registered | DX: E66.9 Obesity, unspecified (principal); Z68.24 Body mass index [BMI] 24.0-24.9, adult; Z98.84 Bariatric surgery status; Z71.3 Dietary counseling and surveillance | CPT/HCPCS: 97803 ==

== ENCOUNTER 2022-12-30 09:49 | Outpatient (AMB) | payer OTHER, SELFPAY ==
--- NOTE | 2022-12-30 09:56 | A.OFFVIS_ITS ---
Intake VS Expanded 12/30/22 10:04 BP 92/53 L Blood Pressure Location Rt brachial Pulse 81 Pulse Source Pulse Oximeter Temp 97.1 F Temperature Source Tympanic Pulse Oximetry 98 Oxygen Delivery Method Room Air Height 5 ft Weight 124 lb BMI 24.2 Body Fat % 24.2 Body Fat Mass 28.3 Fat Free Mass 88.8 Visceral Fat Rating 5.0 Body Water % 50.9 Body Water Mass 63.0 Muscle Mass/Score 84.2 Basal Metabolic Rate/Score 1,202 Intake Visit Reasons: (OV) PO LSG 07/17/22 Web Specialist Required: No Allergies aspirin [ASPIRIN] Allergy (Severe, Verified 12/30/22 09:59) HIVES Fish Containing Products Allergy (Severe, Verified 12/30/22 09:59) HIVES/DYSPNEA oxycodone [From PERCOCET] Allergy (Severe, Verified 12/30/22 09:59) PALPITATIONS/HIVES pumpkin Allergy (Severe, Verified 12/30/22 09:59) THROAT SWELLING squash Allergy (Severe, Verified 12/30/22 09:59) THROAT SWELLING Zucchini Allergy (Mild, Uncoded 12/30/22 09:59) Hives, Dysphagia Medication List - Last Reconciled 12/30/22 by BHARAT Ramirez albuterol sulfate 90 mcg/actuation 2 puffs inhalation Q6H PRN fluticasone propionate 110 mcg/actuation (Flovent HFA) 2 puffs inhalation BID linaclotide (Linzess) 147 mcg PO QAM sennosides-docusate sodium 8.6-50 mg 1 tab-cap PO TID HPI HPI Comments History of Present Illness Details This?a?52?yo female who is s/p LSG without hiatal hernia repair on?07/15/[address] Martin. Presents for 6 month post op visit. Weight today is 124 pounds, with a BMI of 24.2.? There has been a 69.8 pound weight loss,(initial weight 193.8 pounds) since starting the program on 02/27/22 reflecting a 36% total body weight loss and a weight loss of 43.1 pounds since surgery (operative weight 167.1 pounds) reflecting a 25.7% TBWL since surgery.? States she feels great, not winded when going up steps, has significantly improved energy levels and she is no longer using her CPAP machine and her states she no longer snores. She wasseen by GI Dr Hickman earlier this month and was having improvement in her constipation on senna, linzess. She saw her PCP and some labs were done. Reports her PCP was not concerned about low BP. States her BP has always been low, her whole life. Not symptomatic Present meal plan includes: 2 shakes Celebrate 4 in 1, w unsweetene d almond milk 2 scoops each, 8-10 am, 2- 4 pm 1 containers serbian yogurt, noon, 8 pm 8 forks protein 8 forks veg, 6 pm Drinking 40-60 oz water ? Exercise routine includes: gym: Cardio classes 45-60 min, 2-3 x per week, walking outside, 1-2 x per week, 60 minutes Any post op complications: none JOSE: resolved DM: never HTN: never Hyperlipidemia: never GERD:?0-5 scale ??0 = no symptoms ??1 = symptoms noticeable but not bothersome 2 =symptoms bothersome but not daily ? 3 = symptoms bothersome and daily 4 = symptoms affect daily activities 5 = symptoms are incapacitating, unable to do daily activities ? How bad is the heartburn: 0 ? Heartburn while lying down: 0 ? Heartburn when standing up: 0 ? Heartburn after meals: 0 ? Does heartburn change your diet: 0 ? Does heartburn wake you up from sleep: 0 ? Do you have difficulty swallowin ? Do you have pain with swallowin ? If you take medicine for your reflux, does this affect your daily life: 0 Satisfaction with present condition - satisfied or not satisfied: satisfied [facility] Medical History Arthritis Anxiety Sleep apnea Adjustment disorder, unspecified GERD (gastroesophageal reflux disease) Asthma Bleeding hemorrhoids Irritable bowel syndrome Chronic constipation Admission for repair of scarred tissue Surgical History Hx of laparoscopic partial gastrectomy [place] teeth extracted Hx of breast reduction, elective Hx of hemorrhoidectomy History of arthroscopy of both knees Hx of appendectomy H/O eye surgery H/O colonoscopy History of esophagogastroduodenoscopy (EGD) H/O: hysterectomy Family History Father Diabetes Brother Heart attack Paternal Grandmother Cancer Maternal Grandmother Cancer Social History Household Members: Spouse Housing: House Are you a primary manager home healthcare to a significant other at home: Yes Do you presently have visiting nurse or other home services: No Alcohol intake: never Patient Tobacco Use Status: Never used Tobacco Second Hand Smoke Exposure: No service: No Current occupational status: employed Review of Systems Const All systems reviewed & are unremarkable except as noted in HPI and below Physical Exam Vital Signs: Last Vital Signs Temp 97.1 F 12/30/22 10:04 Pulse 81 12/30/22 10:04 BP 92/53 L 12/30/22 10:04 Pulse Ox 98 12/30/22 10:04 Oxygen Delivery Method Room Air 12/30/22 10:04 BMI result Body Mass Index 24.2 Const General: cooperative and no acute distress Orientation/consciousness: patient oriented x3 Resp Effort & Inspection: normal respiratory effort Auscultation: clear to auscultation bilaterally Cardio Rate: regular rate Rhythm: regular rhythm GI Inspection: Yes normal to inspection and Yes incision (well healed) Palpation (GI): Soft to palpation and no masses Neuro General: patient oriented x3 Assessment & Plan Assessment & Plan (1) S/P laparoscopic sleeve gastrectomy: Code(s): Z98.84 - Bariatric surgery status Plan: The patient is doing well. She did have labs done through her primary care physician's office but we did not receive them. She will call the office to have them sent over and we will supplement as indicated so as not to check things twice. The patient has a follow-up appointment with Janelle on 01/22/2023. Overall, she has done very well and is very satisfied with her results. She is satisfied with her meal plan at this time. (2) Excess skin: Code(s): L98.7 - Excessive and redundant skin and subcutaneous tissue Plan: Patient will contact us if she develops rash underneath the pannus. Consideration for possible medically necessary panniculectomy in the future if problems arise. Coding Level of Care Code Est Pt Level 3 (21496) Diagnoses S/P laparoscopic sleeve gastrectomy Z98.84 Excess skin L98.7
[2022-12-30 10:04] VITALS: BP 92/53; PULSE 81; TEMP 36.2; O2SAT 98; BMI 24.2
== END 2022-12-30 10:29 | disposition home or self-care (01) ==
PROVIDERS: PCP Student in an Organized Health Care Education/Training Program; Visit Provider Physician Assistant Surgical
DX: L98.7 Excessive and redundant skin and subcutaneous tissue (principal); Z98.84 Bariatric surgery status
CPT/HCPCS: 99213

== ENCOUNTER → 2022-12-30 09:49 | Outpatient (BNVA) | payer OTHER, SELFPAY | PROVIDERS: PCP Student in an Organized Health Care Education/Training Program; Visit Provider Physician Assistant Surgical ==

== ENCOUNTER 2023-01-02 07:29 | Outpatient (AMB) | payer OTHER, SELFPAY ==
--- NOTE | 2023-01-02 07:33 | A.OFFVIS_ITS ---
Intake Vital Signs 01/02/23 07:46 Height 5 ft Weight 124 lb BMI 24.2 BP 96/53 L Blood Pressure Location Lt brachial Position Sitting Pulse 80 Intake Visit Reasons: 6 month follow up Intake Note: Patient follow up for chronic constipation Patient denies any GI issues, constipation is better with new medication/linzess. Maintenance Leader Required: No Accompanied by: Self / Same As Patient Allergies aspirin [ASPIRIN] Allergy (Severe, Verified 01/02/23 07:42) HIVES Fish Containing Products Allergy (Severe, Verified 01/02/23 07:42) HIVES/DYSPNEA oxycodone [From PERCOCET] Allergy (Severe, Verified 01/02/23 07:42) PALPITATIONS/HIVES pumpkin Allergy (Severe, Verified 01/02/23 07:42) THROAT SWELLING squash Allergy (Severe, Verified 01/02/23 07:42) THROAT SWELLING Zucchini Allergy (Mild, Uncoded 12/30/22 09:59) Hives, Dysphagia Medication List - Last Reconciled 01/02/23 by Abdoul Hickman MD albuterol sulfate 90 mcg/actuation 2 puffs inhalation Q6H PRN fluticasone propionate 110 mcg/actuation (Flovent HFA) 2 puffs inhalation BID linaclotide (Linzess) 147 mcg PO QAM sennosides-docusate sodium 8.6-50 mg 1 tab-cap PO TID HPI 6 month follow up HPI Details GI clinic visit for this 52-year-old female for FU of right upper quadrant pain, IBS and rectal bleeding. Pt scheduled for an urgent FU appt since: pt called and stated that she was hospitalized for 5 days for inflammation of colon and abdominal infection and she stated that she needs an urgent appointment with Dr. Hickman ?CHRONIC ILLNESSES:?Asthma, gastritis, NUD, colitis, morbid obesity, Eczema, history of colon polyps ?LABS IN [facility]: 05/05/19 reviewed normal CBC and LFTs ? IMAGING STUDIES: 06/2018 HIDA SCAN WAS NORMAL. ? June [address] scan showed: ? No acute findings of the abdomen or pelvis. No inflammatory changes. ? There is a moderate colonic stool burden, mostly throughout the right hemicolon. ?07/30/19 BARIUM SWALLOW FROM [facility] [place] WAS REVIEWED: ? Normal oral and pharyngeal phases with no laryngeal penetration or subglottic aspiration. ? Esophagus: Normal in contour and mucosal appearance. Tertiary contractions noted in the distal half of the esophagus with from transit of liquid barium into the stomach. No hiatal hernia. Despite the use of provocative maneuvers, no gastroesophageal reflux was appreciated during the study. A 13 mm barium tablet passed unimpeded into the stomach. No evidence of esophageal web, narrowing or outpouching. No esophageal obstruction. ? IMPRESSION: ? Mild dysmotility with no evidence of stricture. ?ENDOSCOPIC STUDIES: 04/23/19 PATIENT HAD AN EGD AND COLONOSCOPY : ? Endoscopy Findings: ? LARYNX: Changes suggestive of LPRD ? ESOPHAGUS: A single 1 cms healing erosion at the GE junction. ? STOMACH: Gastritis and gastric polyps ? DUODENUM: Two small erosions in the bulb ? Colonoscopy Findings: ? Four polyps removed ? Moderate diverticulosis seen in the sigmoid colon ? Moderate hemorrhoids on retroflexed exam. ? Plan:? Continue present medications (Omeprazole at 20 mg PO once daily) ? Patient has an appointment on 05/13/19 in the GI Clinic with Abdoul Hickman M.D. ? Repeat Colonoscopy interval based on path results - in 3-5 years if ? polyps are adenomatous and 10 years if polyps are hyperplastic. ? A. Small bowel, biopsies: Duodenal mucosa within normal limits; negative for active and chronic duodenitis, intraepithelial lymphocytosis, villous blunting, dysplasia, and carcinoma. ? B. Gastric, antrum, biopsies: Antral mucosa with mild chronic inactive gastritis; ? negative for intestinal metaplasia, dysplasia, carcinoma, and H elicobacter pylori. ? C. Gastric, polyps, polypectomies: Fragments of corpus mucosa with mild chronic inactive gastritis, minimal oxyntic glandular dilation, and changes consistent with a healing erosion/ulceration; negative for intestinal metaplasia, dysplasia, carcinoma, and Helicobacter pylori. ? D. Colon, transverse, polypectomy: Tubular adenoma; negative for high grade dysplasia and carcinoma. ? E. Colon, random, biopsies: Colonic mucosa within normal limits; negative for active and chronic colitis, microscopic colitis, granuloma formation, dysplasia, and carcinoma. ? F. Colon, descending, polypectomies: Fragments of hyperplastic polyp(s). Separate fragments of colonic mucosa within normal limits. ? AUGUST 2016 [facility] AND A TUBULAR ADENOMA WAS REMOVED. ?TODAY'S VISIT Feeling better. Linzess is helping and has a BM daily. Taking Linzess and one Senna daily (if she takes two Senna then she is in the bathroom all morning) RUQ pain and nausea is better. Feels good since she lost weight. PAST VISIT: Not having a BM every day - has gone twice this week (Sun and Tues) Notes some nausea when she takes her medications in the morning Taking Senna 1 capsule three times daily Stool softeners 2 capsules twice daily Linzess 145 mcg daily for constipation Patient had gastric sleeve surgery on 07/17/2022 Seen at [facility] in [place], [place] on 08/23/22 after she had abdominal pain, nausea and vomiting and constipation.? Denies rectal bleeding. CT scan showed colitis - medical records were requested. Treated with IVF, potassium and pain improved. Using suppositories and still not using the bathroom. Senna increased to three times a day, Colace twice a day, MOM 5 ml every night and a suppositories. Had a BM at 7:30 am today.? BM was hard and dark. She is having issues with hard pellet it stool in taking 3 fiber gummies, p.r.n. docusate, 2 senna tablets daily.? She was instructed to purchase bisacodyl suppositories, which she is using occasionally.? She denies any chest pain, nausea, vomiting, dysphagia, odynophagia or hematemesis. Working with [employer] and has lost 30 lbs since Feb - weighs 168 lbs Was 194 lbs when she started working with [employer]. Has been taking protein shakes and small meals. Has been having constipation Taking 2 tablets of Senna for constipation. Intermittent pain due to hemorrhoids - takes preparation H GERD symptoms improved and only takes Omeprazole prn - has not taken it in a while. Pt changed appt to TV since she had some diarrhea when Has been she woke up. Continues to have chronic constipation and has a BM every other day with some straining. Denies recurrent rectal bleeding since hemorrhoid surgery Complains of heartburn and taking Omeprazole twice for the past 2-3 months Notes heartburn when she takes cheese, salad dressing (balsamic), eggs, strawberries and leeks. Also has fibromyalgia with aches and pains and takes tylenol prn ? ? ? Denies recurrent rectal bleeding since she had hemorrhoidectomy. ? ? ? Stomach gets upset sometimes. ? ? ? Intermittent constipation. ?? ? Complains of constant pain on the right side of the belly button for the past month. ?? ? No change in pain with eating or drinking. ? ? Hurts when she moves or tries to lift something. Sometimes it hurts when she has a BM. Past abd surgeries: appendectomy and C -section. ? Lost 11 lbs by eating more vegetables and fruits. ? Taking more fibre in her diet. ? Heartburn and dysphagia symptoms have resolved and takes lansoprazole and dicyclomine p.r.n. every few days and does not need to take it every day. ? 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 ? 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 ? Taking Lansoprazole twice a day and dicyclomine three times a day with decrease in episodes of throat closing. ? Notes episodes can be related to her diet - she took a grilled cheese sandwich and felt her throat cl PFSH Medical History Arthritis Anxiety Sleep apnea Adjustment disorder, unspecified GERD (gastroesophageal reflux disease) Asthma Bleeding hemorrhoids Irritable bowel syndrome Chronic constipation Admission for repair of scarred tissue Surgical History Hx of laparoscopic partial gastrectomy [place] teeth extracted Hx of breast reduction, elective Hx of hemorrhoidectomy History of arthroscopy of both knees Hx of appendectomy H/O eye surgery H/O colonoscopy History of esophagogastroduodenoscopy (EGD) H/O: hysterectomy Family History Father Diabetes Brother Heart attack Paternal Grandmother Cancer Maternal Grandmother Cancer Social History Household Members: Spouse Housing: House Are you a primary hospice patient care secretary to a significant other at home: Yes Do you presently have visiting nurse or other home services: No Alcohol intake: never Patient Tobacco Use Status: Never used Tobacco Second Hand Smoke Exposure: No service: No Current occupational status: employed Review of Systems Const Denies fever(s), Denies headache(s) and Denies weight loss Eyes Denies eye discharge and Denies irritation ENT Reports Normal hearing present, Denies dysphagia, Denies dizziness and Denies headache(s) Card Denies chest pain, Denies leg edema and Denies dyspnea on exertion Resp Denies cough, Denies dyspnea on exertion and Denies wheezing GI Denies abdominal pain, Denies change in bowel habits, Denies dysphagia and Denies heartburn Denies difficulty voiding and Denies dysuria Musc Denies back pain and Denies arthralgias Skin/Breast Denies pruritus, Denies rash and Denies jaundice Neuro Reports Normal hearing present, Denies Abnormal speech present, Denies dizziness, Denies headache(s) and Denies seizure-like activity Psych Denies anxiety, Denies depression and Denies panic attacks Endo Denies cold intolerance, Denies flushing and Denies heat intolerance Petar/Lymph Denies easy bleeding and Denies easy bruising Aller/Immun Denies wheezing Physical Exam Const General: healthy appearing and no acute distress Nutritional Appearance: average body habitus Orientation/consciousness: patient oriented x3 Limitations: no limitations HEENT Head: Yes normal to inspection Ears: hearing grossly normal bilaterally Eyes Sclerae: sclerae normal Pupils: Equal, round and reactive pupils present Neck Neck: Yes normal visual inspection Chest Chest palpation & inspection: normal inspection of the chest Resp Effort & Inspection: normal respiratory effort Auscultation: clear to auscultation bilaterally Cardio Palpation: normal PMI Rate: regular rate Rhythm: regular rhythm Heart sounds: S1 normal heart sound present, S2 normal heart sound present and no murmurs GI Palpation (GI): Soft to palpation, nontender and No hepatosplenomegaly present Auscultation: normal bowel sounds Rectal Exam - Female: deferred Skin General skin exam: no rashes or lesions noted Neuro General: patient oriented x3, gait normal and moves all extremities Cranial nerves: Yes Equal, round and reactive pupils present and Yes Normal hearing present Speech: No Abnormal speech present Psych Appearance: grossly normal Mental Status: mental status grossly normal Assessment & Plan Assessment & Plan (1) Chronic constipation: Code(s): K59.09 - Other constipation (2) Oropharyngeal dysphagia: Code(s): R13.12 - Dysphagia, oropharyngeal phase (3) Internal hemorrhoids: Code(s): K64.8 - Other hemorrhoids (4) History of colon polyps: Comment: 04/23/19 patient had a colonoscopy which showed moderate sigmoid diverticulosis and moderate hemorrhoids. Four polyps were removed and 1 was a tubular adenoma. Patient is advised repeat colonoscopy in 5 years (due 03/2024) Code(s): Z86.010 - Personal history of colonic polyps (5) Bleeding hemorrhoids: Code(s): K64.9 - Unspecified hemorrhoids Plan 52 YF with Asthma, gastritis, NUD, colitis, obesity, Eczema, history of colon polyps, epigastric/RUQ pain which may be likely due to obstipation. Abdominal CT scan and HIDA scan were normal. Patient complains of oropharyngeal dysphagia/globus sensation. 07/30/19 BARIUM SWALLOW FROM [facility] [place] WAS REVIEWED: Normal oral and pharyngeal phases with no laryngeal penetration or subglottic aspiration. Esophagus: Normal in contour and mucosal appearance. Tertiary contractions noted in the distal half of the esophagus with from transit of liquid barium into the stomach. No hiatal hernia. Despite the use of provocative maneuvers, no gastroesophageal reflux was appreciated during the study. A 13 mm barium tablet passed unimpeded into the stomach. No evidence of esophageal web, narrowing or outpouching. No esophageal obstruction. IMPRESSION: Mild dysmotility with no evidence of stricture. Patient notes improvement in symptoms of heartburn since she changed her diet and lost 28 lbs. She is taking lansoprazole and dicyclomine p.r.n. every few days. Patient notes resolution of rectal bleeding. 09/05/22 Patient had gastric sleeve surgery on 07/17/2022 Seen at [facility] in [place], [place] on 08/23/22 after she had abdominal pain, nausea and vomiting and constipation.? Denies rectal bleeding. CT scan showed colitis - likely ischemic colitis - medical records were requested. Pt advised to FU with GI and schedule an EGD and colon Treated with IVF, potassium and pain improved. Using suppositories and still not using the bathroom. Senna increased to three times a day, Colace twice a day, MOM 5 ml every night and suppositories Pt advised to continue with above regimen for a week and if no improvement in constipation, to start Linzess Pt advised to stop sucralfate (after checking with Dr Martin) 09/26/22 Pt advised to: 1. Increase Linzess to 290 mcg daily 2. Take Senna 2 capsules twice a day 3. Decrease [place] to 1 tablet twice a day 01/02/23 Feeling better. Linzess is helping and has a BM daily. Taking Linzess and one Senna daily (if she takes two Senna then she is in the bathroom all morning) RUQ pain and nausea is better. Feels good since she lost weight. FU appt in 8 months - patient advised to call if she notes recurrent problem to schedule an earlier appointment. I will hold off colonoscopy for now until constipation resolves. Also it will be difficult for her to take colon prep given dietary restrictions after sleeve gastrectomy (Of note - pt had a colonoscopy in 2019 and one adenomatous polyp and three hyerplastic polyps were removed - FU colon was advised in 5 yrs) Coding Level of Care Code Est Pt Level 3 (97844) Diagnoses Chronic constipation K59.09 Oropharyngeal dysphagia R13.12 Internal hemorrhoids K64.8 History of colon polyps Z86.010 Bleeding hemorrhoids K64.9 Time Spent (min) 18
[2023-01-02 07:46] VITALS: BP 96/53; PULSE 80; BMI 24.2
== END 2023-01-02 08:15 | disposition home or self-care (01) ==
PROVIDERS: Visit Provider Internal Medicine Gastroenterology
DX: K59.09 Other constipation (principal); R13.12 Dysphagia, oropharyngeal phase; K64.8 Other hemorrhoids; Z86.010 Personal history of colon polyps; K64.9 Unspecified hemorrhoids
CPT/HCPCS: 99213

== ENCOUNTER 2023-01-02 07:29 | Outpatient (REF) | payer OTHER, SELFPAY ==
[2023-01-02 11:32] LABS: Iron 55 mcg/dL (30-160); Percent Iron Saturation 21 % (15-50); Total Iron Binding Capacity 256 mcg/dL (228-428); Unsaturated Iron Binding 201 ug/dL
[2023-01-02 11:41] LABS: Ferritin 169 ng/mL (10-250)
[2023-01-06 12:19] LABS: Zinc 74 mcg/dL (60-130)
[2023-01-08 12:59] LABS: Vitamin B1 17 nmol/L (8-30)
[2023-01-09 05:03] LABS: Vitamin A 32 mcg/dL (38-98)
== END 2023-01-02 07:30 | disposition home or self-care (01) ==
LOC: HO.LAB 07:29
PROVIDERS: Absent Provider Physician Assistant Surgical; PCP Student in an Organized Health Care Education/Training Program; Visit Provider Internal Medicine Gastroenterology
DX: E66.3 Overweight (principal); K59.09 Other constipation; R13.12 Dysphagia, oropharyngeal phase; K64.8 Other hemorrhoids; K64.9 Unspecified hemorrhoids; Z86.010 Personal history of colon polyps; Z98.84 Bariatric surgery status
CPT/HCPCS: 36415; 82728; 83540; 84425; 84590; 84630

== ENCOUNTER 2023-02-13 15:53 | Outpatient (AMB) | payer OTHER, SELFPAY ==
--- NOTE | 2023-02-13 15:37 | MHC.AMNUTRGE ---
Intake Intake Visit Reasons: (OV) PO LSG 07/17/22 Embroiderer Required: No Allergies aspirin [ASPIRIN] Allergy (Severe, Verified 01/02/23 07:42) HIVES Fish Containing Products Allergy (Severe, Verified 01/02/23 07:42) HIVES/DYSPNEA oxycodone [From PERCOCET] Allergy (Severe, Verified 01/02/23 07:42) PALPITATIONS/HIVES pumpkin Allergy (Severe, Verified 01/02/23 07:42) THROAT SWELLING squash Allergy (Severe, Verified 01/02/23 07:42) THROAT SWELLING Zucchini Allergy (Mild, Uncoded 12/30/22 09:59) Hives, Dysphagia HPI Nutrition Presentation Details LSG 07/17/22 preop weight 163# - BMI 31.8 weight at 6 MO PO 124# - BMI 24.2 currnet weight at 7 MO 123# Diet Assmnt Details 2 shakes Celebrate 4 in 1, w unsweetened almond milk 2 scoops each, 7-9am , 12pm - she plans to continue the shakes. Is receptive to using [employer] milk 1 vincentian yogurt a few bites of protein and veg Vitamins: in her shakes Hydration: adequate Monitoring/Goals Nutrition problem monitoring total energy intake, level of knowledge/skill, total PRO intake, total CHO intake, weight and oral fluids Outcome progress progressing Learning/Education Readiness to learn good Stages of change maintenance Most Recent Diabetes Results: No Data to Display [facility] Medical History Arthritis Anxiety Sleep apnea Adjustment disorder, unspecified GERD (gastroesophageal reflux disease) Asthma Bleeding hemorrhoids Irritable bowel syndrome Chronic constipation Admission for repair of scarred tissue Surgical History Hx of laparoscopic partial gastrectomy [place] teeth extracted Hx of breast reduction, elective Hx of hemorrhoidectomy History of arthroscopy of both knees Hx of appendectomy H/O eye surgery H/O colonoscopy History of esophagogastroduodenoscopy (EGD) H/O: hysterectomy Family History Father Diabetes Brother Heart attack Paternal Grandmother Cancer Maternal Grandmother Cancer Social History Household Members: Spouse Housing: House Are you a primary direct care staffer to a significant other at home: Yes Do you presently have visiting nurse or other home services: No Alcohol intake: never Patient Tobacco Use Status: Never used Tobacco Second Hand Smoke Exposure: No service: No Current occupational status: employed Assessment & Plan Assessment & Plan (1) S/P laparoscopic sleeve gastrectomy: Code(s): Z98.84 - Bariatric surgery status Plan: nutrition follow up 3 MO as preferred by pt - 05/18 at 4pm Patient Instructions: recommended using fairlife milk 2% with shakes. also recommended adding fruit and healthy fats with yogurt. will begin to increase nutrition to maintenance Coding Level of Care Code Nutr Indiv Subseq ([id number]) Diagnoses S/P laparoscopic sleeve gastrectomy Z98.84 Time Spent (min) 20
== END 2023-02-13 16:11 | disposition home or self-care (01) ==
PROVIDERS: PCP Student in an Organized Health Care Education/Training Program; Visit Provider Dietitian, Registered
DX: Z98.84 Bariatric surgery status (principal)

== ENCOUNTER → 2023-02-13 15:53 | Outpatient (BNVA) | payer OTHER, SELFPAY | PROVIDERS: PCP Student in an Organized Health Care Education/Training Program; Visit Provider Dietitian, Registered | DX: Z98.84 Bariatric surgery status (principal); Z71.3 Dietary counseling and surveillance | CPT/HCPCS: 97803 ==

== ENCOUNTER 2023-05-19 16:09 | Outpatient (AMB) | payer OTHER, SELFPAY ==
--- NOTE | 2023-05-19 16:04 | MHC.AMNUTRGE ---
Intake VS Expanded 05/19/23 16:09 Height 5 ft Weight 123 lb BMI 24.0 Intake Visit Reasons: VIDEO PO LSG 07/17/22 Barrel Roller Operator Required: No Allergies aspirin [ASPIRIN] Allergy (Severe, Verified 01/02/23 07:42) HIVES Fish Containing Products Allergy (Severe, Verified 01/02/23 07:42) HIVES/DYSPNEA oxycodone [From PERCOCET] Allergy (Severe, Verified 01/02/23 07:42) PALPITATIONS/HIVES pumpkin Allergy (Severe, Verified 01/02/23 07:42) THROAT SWELLING squash Allergy (Severe, Verified 01/02/23 07:42) THROAT SWELLING Zucchini Allergy (Mild, Uncoded 12/30/22 09:59) Hives, Dysphagia HPI Nutrition Presentation Details LSG 07/17/22 preop weight 163# - BMI 31.8 weight at 6 MO PO 124# - BMI 24.2 weight at 7 MO 123# weight at 10 MO 123# Diet Assmnt Details 2 shakes Celebrate 4 in 1, w unsweetened almond milk 2 scoops each, 7-9am , 12pm - she plans to continue the shakes. tried fairlife milk but gave GI upset. 1 northern irish yogurt a few bites of protein and veg Vitamins: in her shakes Hydration: adequate Exercise: none - has full custody of 4 grandchildren now. Reports minimal time to exercise but she plans to start waking up a ltitle earlier and doing some videos at home Monitoring/Goals Nutrition problem monitoring total energy intake, level of knowledge/skill, total PRO intake, total CHO intake, weight and oral fluids Outcome progress progressing Learning/Education Readiness to learn good Stages of change maintenance Most Recent Diabetes Results: No Data to Display [facility] Medical History Arthritis Anxiety Sleep apnea Adjustment disorder, unspecified GERD (gastroesophageal reflux disease) Asthma Bleeding hemorrhoids Irritable bowel syndrome Chronic constipation Admission for repair of scarred tissue Surgical History Hx of laparoscopic partial gastrectomy [place] teeth extracted Hx of breast reduction, elective Hx of hemorrhoidectomy History of arthroscopy of both knees Hx of appendectomy H/O eye surgery H/O colonoscopy History of esophagogastroduodenoscopy (EGD) H/O: hysterectomy Family History Father Diabetes Brother Heart attack Paternal Grandmother Cancer Maternal Grandmother Cancer Social History Household Members: Spouse Housing: House Are you a primary nurse healthcare manager to a significant other at home: Yes Do you presently have visiting nurse or other home services: No Alcohol intake: never Patient Tobacco Use Status: Never used Tobacco Second Hand Smoke Exposure: No service: No Current occupational status: employed Assessment & Plan Assessment & Plan (1) S/P laparoscopic sleeve gastrectomy: Code(s): Z98.84 - Bariatric surgery status Plan pt reports she wants to continue with the 2 celebrate 4in1 shakes with almond mmilk, northern irish yogurt and a meal. she will f/u with BHARAT Cuevas at 1 year appt Telehealth Telehealth Location of provider rendering services: other (home address, [facility] ) Location of patient: address on file Patient Identification confirmed using: Name, : Yes Telehealth method: voice only Patient verbally consented to treatment: Yes Patient verbally consented to billing insurance company: Yes Patient informed of any privacy concerns related to visit: Yes Minutes spent on Phone/Video with Pt.: 10 Coding Level of Care Code Nutr Mirian Subseq ([id number]) Diagnoses S/P laparoscopic sleeve gastrectomy Z98.84 Time Spent (min) 10
[2023-05-19 16:09] VITALS: BMI 24.0
== END 2023-05-19 16:17 | disposition home or self-care (01) ==
LOC: HO.HBS 16:09
PROVIDERS: PCP Student in an Organized Health Care Education/Training Program; Visit Provider Dietitian, Registered
DX: Z98.84 Bariatric surgery status (principal)

== ENCOUNTER → 2023-05-19 16:09 | Outpatient (BNVA) | payer OTHER, SELFPAY | PROVIDERS: PCP Student in an Organized Health Care Education/Training Program; Visit Provider Dietitian, Registered | DX: Z98.84 Bariatric surgery status (principal); Z71.3 Dietary counseling and surveillance | CPT/HCPCS: 97803 ==

== ENCOUNTER 2023-05-20 12:57 | Inpatient (IN) | payer OTHER, SELFPAY ==
--- NOTE | ~2023-05-20 | CT_ITS ---
EXAMINATION: CT ABDOMEN AND PELVIS WITH CONTRAST CLINICAL INFORMATION: Epigastric pain with question of gastric sleeve perforation COMPARISON: CT abdomen pelvis 06/28/2018 TECHNIQUE: Multidetector volumetric images were obtained from the superior aspect of the liver through the pubic symphysis following administration 85 mL of Omnipaque 350 intravenous contrast. Sagittal and coronal reformatted images were obtained on the technologist's workstation. Oral contrast: Yes This CT examination was performed using dose optimization techniques as appropriate, variously including the following: *Automated exposure control *Adjustment of mA and/or kV according to patient size (this includes techniques or standardized protocols for targeted exams where dose is matched to indication/reason for exam; i.e. extremities or head) *Use of iterative reconstruction technique DLP: 406 mGy-cm FINDINGS: LUNG BASES: The visualized lung bases are unremarkable. LIVER, GALLBLADDER, AND BILIARY TREE: The liver is normal in size, shape, and attenuation. No focal hepatic lesion or biliary ductal dilatation is present. The gallbladder is quite distended with no evidence of radiopaque gallstones or gross pericholecystic inflammatory changes. There is a question of some minimal gallbladder wall thickening as well as a tiny bit of fluid around the wall of the gallbladder (see godfrey image). Given the patient's epigastric pain would recommend abdominal ultrasound PANCREAS: Unremarkable. SPLEEN: Unremarkable. ADRENAL GLANDS: Unremarkable. KIDNEYS AND URETERS: The kidneys are normal in size, shape, and attenuation. No hydronephrosis, hydroureter, or calculi seen. No perinephric stranding. BLADDER: Unremarkable. GASTROINTESTINAL TRACT: Patient status post gastric sleeve. There is no evidence of contrast leakage. Some mucosal thickening is present near the GE junction which may be due to underfilling. The small and large bowel are unremarkable. The appendix is not seen with certainty but there is no evidence of appendicitis appendicitis. ABDOMINAL WALL: No significant hernia is appreciated. LYMPH NODES: No retroperitoneal lymphadenopathy. VASCULAR: Unremarkable. PELVIC VISCERA: The uterus is not seen. An abnormal adnexal mass is not detected. No free intraperitoneal fluid is present. OSSEOUS STRUCTURES: Unremarkable. CT/CT abdomen pelvis w IV con IMPRESSION: 1. No evidence of gastric sleeve perforation. 2. Distended gallbladder with question of some minimal gallbladder wall thickening and a tiny bit of fluid around the wall of the gallbladder. Given the patient's epigastric pain would recommend abdominal ultrasound. Fleischner guidelines were followed.
--- NOTE | ~2023-05-20 | US_ITS ---
EXAMINATION: US ABDOMEN LIMITED CLINICAL INFORMATION: Abnormal gallbladder on CT.. COMPARISON: CT abdomen pelvis 05/20/2023: Distended gallbladder with question of some minimal gallbladder wall thickening and a tiny bit of fluid around the wall of the gallbladder. Given the patient's epigastric pain would recommend abdominal ultrasound. TECHNIQUE: Real-time imaging of the gallbladder and common bile duct. FINDINGS: GALLBLADDER: The gallbladder is distended and contains multiple small stones. A small amount of fluid can be seen within the wall of the gallbladder. Alamo's sign is positive. COMMON BILE DUCT: Mildly dilated measuring 0.9 cm in diameter. FREE FLUID: None. US/US abdomen limited IMPRESSION: Cholelithiasis and distended gallbladder with some fluid seen in the wall along with positive Alamo's sign. Findings are suggestive of acute cholecystitis.
[2023-05-20 13:35] VITALS: BP 116/59; PULSE 74; RESP 16; TEMP 36.3; O2SAT 99; BMI 24.4
--- NOTE | 2023-05-20 13:37 | ECG_ITS ---
Test Reason : EPIGASTRIC Blood Pressure : / mmHG Vent. Rate : 068 BPM Atrial Rate : 068 BPM P-R Int : 166 ms QRS Dur : 072 ms QT Int : 390 ms P-R-T Axes : 053 011 041 degrees QTc Int : 414 ms Normal sinus rhythm Cannot rule out Anterior infarct , age undetermined Abnormal ECG When compared with ECG of 04-SEP-2022 13:03, No significant change was found Referred By: Saeid Alcantara Electronically Signed By:Luisito Olmstead
--- NOTE | 2023-05-20 13:46 | ED.GENADULT ---
HPI - General Adult General Chief complaint: Abdominal Pain Stated complaint: Abd pain Time Seen by Provider: 05/20/23 16:40 History of Present Illness HPI narrative: The patient is a 53-year-old female who has a history of bariatric surgery almost a year ago. She had a laparoscopic sleeve gastrectomy, gastropexy, an intraoperative esophagogastroscopy on 07/17/[address] Martin. The patient presents today with abdominal pain that started at around 09:00. She describes mid abdominal pain radiating to her back associated with vomiting. No fevers. Related Data Home Medications Medication Instructions Recorded Confirmed albuterol sulfate 90 mcg/actuation 2 puff inhalation Q6H PRN Wheezing 05/24/20 05/20/23 aerosol inhaler sennosides 8.6 mg-docusate sodium 1 tab-cap PO BEDTIME 10/24/22 05/20/23 50 mg tablet hydroxyzine HCl 10 mg tablet 10 mg PO QID PRN itch 05/20/23 05/20/23 sennosides 8.6 mg-docusate sodium 2 tab PO DAILY 05/20/23 05/20/23 50 mg tablet (Senexon-S) Previous Rx's Medication Instructions Recorded linaclotide 290 mcg capsule 290 mcg PO QAM #30 caps 03/27/23 (Linzess) ondansetron 4 mg disintegrating 4 mg PO Q6H PRN nausea and 05/20/23 tablet vomiting #10 tabs Allergies Allergy/AdvReac Type Severity Reaction Status Date / Time aspirin [ASPIRIN] Allergy Severe HIVES Verified 01/02/23 07:42 Fish Containing Products Allergy Severe HIVES/DYSPN Verified 01/02/23 07:42 EA oxycodone [From PERCOCET] Allergy Severe PALPITATION Verified 01/02/23 07:42 S/HIVES pumpkin Allergy Severe THROAT Verified 01/02/23 07:42 SWELLING squash Allergy Severe THROAT Verified 01/02/23 07:42 SWELLING Zucchini Allergy Mild Hives, Uncoded 12/30/22 09:59 Dysphagia Review of Systems Review of Systems: Yes all other systems are reviewed and are negative PMFSH Past Medical History Medical History Arthritis Anxiety Sleep apnea Adjustment disorder, unspecified GERD (gastroesophageal reflux disease) Asthma Bleeding hemorrhoids Irritable bowel syndrome Chronic constipation Admission for repair of scarred tissue Surgical History Hx of laparoscopic partial gastrectomy [place] teeth extracted Hx of breast reduction, elective Hx of hemorrhoidectomy History of arthroscopy of both knees Hx of appendectomy H/O eye surgery H/O colonoscopy History of esophagogastroduodenoscopy (EGD) H/O: hysterectomy Family History Family History Father Diabetes Brother Heart attack Paternal Grandmother Cancer Maternal Grandmother Cancer Social History Social History Household Members: Spouse Housing: House Are you a primary childcare center administrator to a significant other at home: Yes Do you presently have visiting nurse or other home services: No Alcohol intake: never Patient Tobacco Use Status: Never used Tobacco Second Hand Smoke Exposure: No service: No Current occupational status: employed Physical Exam ED Vital Signs: Vital Signs - 24 hr 05/20/23 20:00 Temperature 98.4 F Pulse Rate 61 Respiratory Rate 18 Blood Pressure 115/58 L Pulse Oximetry 99 Oxygen Delivery Method Room Air BMI result Body Mass Index 24.4 Const Other: The patient is awake and alert. She looks mildly uncomfortable. HENMT Other: Face is symmetrical. Mucous membranes moist. Eyes Other: Pupils are round equal, conjunctivae clear Neck Other: No JVD Resp Effort & Inspection: normal respiratory effort Auscultation: clear to auscultation bilaterally Cardio Rate: regular rate Rhythm: regular rhythm Heart sounds: S1 normal heart sound present and S2 normal heart sound present GI Other: Abdomen is flat and soft. She has diffuse upper abdominal tenderness. Skin Other: Skin is dry and unremarkable Neuro Other: The patient is awake and alert. Speech is clear. Face is symmetrical. She moves her extremities symmetrically. Grossly neurologically intact. Extrem Other: No peripheral edema Course Course Course Narrative: RME: 53-year-old female presents to the ED sudden epigastric abdominal pain with nausea vomiting. Patient has history of gastritis and status post 10 months gastric sleeve surgery. Labs imaging ordered. Informed charge nurse to bring to patient to the ED for bed. Medications Administered Discontinued Medications Generic Name Dose Route Start Last Admin Trade Name Freq PRN Reason Stop Dose Admin Acetaminophen 650 mg 05/20/23 13:39 05/20/23 17:19 Acetaminophen 325 Mg Tablet PO 05/20/23 13:40 Not Given ONCE ONE Al Hydroxide/Mg Hydroxide 30 ml 05/20/23 13:39 05/20/23 17:19 Magnesium Hydrox/Alum Hydrox 30 Ml Oral.Susp PO 05/20/23 13:40 Not Given ONCE ONE Diatrizoate Meglum/Diatrizoate Sod 30 ml 05/20/23 18:45 05/20/23 18:45 Diatrizoate Meglumine, Sodium 30 Ml Solution PO 05/20/23 18:46 30 ml ONCE ONE Administration Famotidine 20 mg 05/20/23 16:49 05/20/23 17:19 Famotidine/Pf 20 Mg/2 Ml Vial IVPUSH 05/20/23 16:50 20 mg ONCE ONE Administration Hydromorphone HCl 0.25 mg 05/20/23 22:11 05/21/23 02:42 Hydromorphone Hcl 1 Mg/Ml Syringe IVPUSH 0.25 mg Q4H PRN Administration Pain, Severe (Pain Scale 7-10) Protocol Promethazine HCl 12.5 mg/ 50.5 mls @ 202 mls/hr 05/20/23 16:49 05/20/23 18:39 Sodium Chloride IV 05/20/23 16:50 Infused ONCE ONE Infusion Sodium Chloride 1,000 mls @ 999 mls/hr 05/20/23 17:00 05/20/23 18:39 Ns IV 05/20/23 18:00 Infused .Q1H1M PATRICIA Infusion Sodium Chloride 1,000 mls @ 999 mls/hr 05/20/23 20:30 05/20/23 22:23 Ns IV 05/20/23 21:30 Infused .Q1H1M PATRICIA Infusion Piperacillin Sod/Tazobactam 100 mls @ 200 mls/hr 05/20/23 22:04 05/20/23 23:15 Sod 4.5 gm/ Sodium Chloride IV 05/20/23 22:33 Infused ONCE ONE Infusion Acetaminophen 1,000 mg in 100 mls @ 16.7 mls/hr 05/20/23 23:00 05/21/23 04:39 Ofirmev IV 16.7 mls/hr .Q6H PATRICIA Administration Lactated Ringer's 1,000 mls @ 100 mls/hr 05/20/23 22:30 05/20/23 22:44 Lr IVCONT 100 mls/hr .Q10H PATRICIA Administration Piperacillin Sod/Tazobactam 50 mls @ 100 mls/hr 05/21/23 05:00 05/21/23 05:09 Sod 3.375 gm/ Sodium Chloride IV Infused Q6H PATRICIA Infusion Lactated Ringer's 1,000 mls @ 50 mls/hr 05/21/23 07:15 05/21/23 07:00 Lr IVCONT 50 mls/hr .Q20H PATRICIA Administration Iohexol 100 ml 05/20/23 18:44 05/20/23 18:45 Iohexol 350 Mg/Ml 100 Ml Infus..Btl IV 05/20/23 18:45 85 ml ONCE ONE Administration Lidocaine HCl 15 ml 05/20/23 13:39 05/20/23 17:19 Lidocaine Hcl Viscous 2 % 15 Ml Solution MUCOUS MEM 05/20/23 13:40 Not Given ONCE ONE Morphine Sulfate 4 mg 05/20/23 16:49 05/20/23 17:19 Morphine Sulfate 4 Mg/Ml Cartridge IVPUSH 05/20/23 16:50 4 mg ONCE ONE Administration Protocol Morphine Sulfate 4 mg 05/20/23 20:18 05/20/23 21:22 Morphine Sulfate 4 Mg/Ml Cartridge IVPUSH 05/20/23 20:19 4 mg ONCE ONE Administration Protocol Ondansetron HCl 4 mg 05/20/23 21:21 05/20/23 21:22 Ondansetron Hcl 4 Mg/2 Ml Vial IVPUSH 05/20/23 21:22 4 mg ONCE ONE Administration Sodium Chloride 3 ml 05/21/23 00:00 05/21/23 00:11 0.9 % Sodium Chloride Flush 3 Ml Syringe IVFLUSH Not Given QSHIFT [facility] Medical Decision Making Medical Decision Making [facility] Narrative: The patient is a 53-year-old woman who had bariatric surgery last year. She presents with upper abdominal pain and vomiting x2 days. A CT scan of the abdomen and pelvis with oral contrast has been ordered at triage. This was done with oral contrast. The CT scan was read as showing findings possibly concerning for cholecystitis and an ultrasound was recommended. Ultrasound was then obtained which also suggested cholecystitis. Labs are fairly unremarkable. The patient has a mildly elevated white count but no other significant findings on labs. The patient's vital signs are stable. She does not seem septic. I contacted the bariatric surgery team further care. The patient was started on antibiotics with piperacillin/tazobactam. Lab Data 05/20/23 14:09 05/20/23 14:09 Labs: Lab Results 05/20/23 05/20/23 Range/Units 14:09 21:22 WBC 12.4 H (4.8-10.8) X10*3/uL RBC 3.99 L (4.20-5.50) X10*6/uL Hgb 12.4 (12.0-16.0) g/dl Hct 36.7 L (37.0-47.0) % MCV 92.0 (80.0-98.0) fL MCH 31.1 (27.0-33.0) pg MCHC 33.8 (31.0-35.0) g/dl RDW 11.6 (11.0-16.0) % Plt Count 289 (160-400) X10*3/uL MPV 10.1 (9.4-12.3) fL Immature Gran % (Auto) 0.2 (0.0-0.4) % Neut % (Auto) 80.1 H (45-73) % Lymph % (Auto) 13.2 L (20-40) % [place] % (Auto) 4.6 (2-11) % Eos % (Auto) 1.3 (0-4) % Baso % (Auto) 0.6 (0-2) % Lymph # (Auto) 1.6 (1.2-4.9) X10*3/uL [place] # (Auto) 0.6 (0.1-1.2) X10*3/uL Eos # (Auto) 0.2 (0.0-0.4) X10*3/uL Baso # (Auto) 0.1 (0.0-0.2) X10*3/uL Abs Immat Gran (auto) 0.02 (0.00-0.03) X10*3/uL Absolute Neuts (auto) 9.9 H (2.0-8.3) x10*3/uL Absolute Nucleated RBC 0.000 (0.0-0.012) X10*3/uL Nucleated RBC % (auto) 0.0 (0.0-0.2) /100WBC PT 11.6 (11.1-13.3) SEC INR 1.0 (0.9-1.1) APTT 36.7 (26.0-36.8) SEC Sodium 140 (135-145) mmol/L Potassium 3.9 (3.3-5.1) mmol/L Chloride 105 (96-108) mmol/L Carbon Dioxide 27 (22-29) mmol/L Anion Gap 12 (12-20) BUN 27 H (9-16) mg/dL Creatinine 0.70 (0.5-1.4) mg/dL Estim Creat Clear Calc 73.3 Estimated GFR > 60 Random Glucose 94 (60-115) mg/dL Calcium 9.4 (8.4-10.2) mg/dL Total Bilirubin 0.4 (0.0-1.0) mg/dL AST 40 H (5-31) U/L ALT 23 (0-31) U/L Alkaline Phosphatase 80 (39-117) U/L Troponin I High Sens < 2.7 (<3.5-17.0) ng/L Total Protein 7.5 (6.5-8.0) g/dL Albumin 4.2 (3.5-5.0) g/dL Amylase 78 (28-100) U/L Lipase 20 (8-78) U/L Beta HCG, Quant < 2 mIU/mL Urine Color Yellow Urine Appearance Clear Urine pH 5.5 (5.0-9.0) Ur Specific [place] >= 1.030 H (1.005-1.025) Urine Protein Negative (Neg-Trace) mg/dL Urine Glucose (UA) Negative (Negative) mg/dL Urine Ketones Trace (Negative) mg/dL Urine Blood Negative (Negative) Urine Nitrite Negative (Negative) Ur Leukocyte Esterase Negative (Negative) Discharge Plan Discharge Clinical Impression: Acute cholecystitis Patient Disposition: Admitted As Inpatient Interventions: Admission Worksheet (ED) Last Done: 05/21/23 06:49
[2023-05-20 14:14] LABS: MANUAL DIFF FLAG NO
[2023-05-20 14:17] LABS: Basophils Absolute Auto 0.1 X10*3/uL (0.0-0.2); Basophils Percent Auto 0.6 % (0-2); Eosinophils Absolute Auto 0.2 X10*3/uL (0.0-0.4); Eosinophils Percent Auto 1.3 % (0-4); Hematocrit 36.7 % (37.0-47.0); Hemoglobin 12.4 g/dl (12.0-16.0); Imm Gran Abs Auto 0.02 X10*3/uL (0.00-0.03); Imm Gran Pct Auto 0.2 % (0.0-0.4); Lymphocytes Absolute Auto 1.6 X10*3/uL (1.2-4.9); Lymphocytes Percent Auto 13.2 % (20-40); Mean Corpuscular HGB Conc 33.8 g/dl (31.0-35.0); Mean Corpuscular Hemoglobin 31.1 pg (27.0-33.0); Mean Platelet Volume 10.1 fL (9.4-12.3); Monocytes Absolute Auto 0.6 X10*3/uL (0.1-1.2); Monocytes Percent Auto 4.6 % (2-11); Neutrophils Absolute Auto 9.9 x10*3/uL (2.0-8.3); Neutrophils Percent Auto 80.1 % (45-73); Platelet Count 289 X10*3/uL (160-400); Red Blood Count 3.99 X10*6/uL (4.20-5.50); Red Cell Distribution Width 11.6 % (11.0-16.0); White Blood Count 12.4 X10*3/uL (4.8-10.8)
[2023-05-20 14:30] LABS: Prothrombin Time 11.6 SEC (11.1-13.3)
[2023-05-20 14:33] LABS: Partial Thromboplastin Time 36.7 SEC (26.0-36.8)
[2023-05-20 14:36] LABS: Alanine Aminotransferase 23 U/L (0-31); Albumin Level 4.2 g/dL (3.5-5.0); Alkaline Phosphatase 80 U/L (39-117); Anion Gap 12 (12-20); Aspartate Amino Transferase 40 U/L (5-31); Bilirubin Total 0.4 mg/dL (0.0-1.0); Blood Urea Nitrogen 27 mg/dL (9-16); Calcium 9.4 mg/dL (8.4-10.2); Carbon Dioxide 27 mmol/L (22-29); Chloride 105 mmol/L (96-108); Creatinine Clr Calc Pharmacy 73.3; Estimated Glomerular Filt Rate > 60; Glucose Random 94 mg/dL (60-115); Lipase 20 U/L (8-78); Potassium 3.9 mmol/L (3.3-5.1); Sodium 140 mmol/L (135-145); Total Protein 7.5 g/dL (6.5-8.0)
[2023-05-20 14:40] LABS: HCG Quantitative < 2 mIU/mL; Troponin-I High Sensitivity < 2.7 ng/L (<3.5-17.0)
[2023-05-20] MEDS: 0.9 % Sodium Chloride 1,000 ML 999 ML IV ×2 (17:15→21:22)
[2023-05-20] MEDS: Morphine Sulfate 4 MG/ML CARTRIDGE IVPUSH ×2 (17:19→21:22)
[2023-05-20] MEDS: Famotidine/PF 20 MG/2 ML VIAL IVPUSH (17:19)
--- NOTE | 2023-05-20 17:25 | PC.NURSE ---
alert and oriented, respirations even and unlabored IV established, medicated per the MAR. resting quietly in room, offering no other complaints. awaiting CT scan at this time. call langston within reach
[2023-05-20] MEDS: iohexoL 350 MG/ML 100 ML INFUS..BTL IV (18:45)
[2023-05-20] MEDS: Diatrizoate Meglumine, Sodium 30 ML SOLUTION PO (18:45)
[2023-05-20 20:00] VITALS: BP 115/58; PULSE 61; RESP 18; TEMP 36.9; O2SAT 99
--- NOTE | 2023-05-20 21:15 | MHC.EDTECH ---
This tech took over care of patient at 1900,hourly rounds and vitals completed,patient ambulated to the bathroom with a steady gait, attempting to give a urine sample at this time.
[2023-05-20] MEDS: ondansetron HCL 4 MG/2 ML VIAL IVPUSH (21:22)
--- NOTE | 2023-05-20 21:22 | MHC.EDTECH ---
Urine sample collected and sent to lab.
[2023-05-20 21:29] LABS: Appearance Urine Clear; Color Urine Yellow; Glucose Urine UA Negative (Negative); Leukocyte Esterase Urine Negative (Negative); Nitrite Urine Negative (Negative); PH 5.5 (5.0-9.0); Specific Gravity - Urine >= 1.030 (1.005-1.025); Urine Blood Negative (Negative); Urine Ketones Trace mg/dL (Negative); Urine Protein Negative (Neg-Trace)
--- NOTE | 2023-05-20 22:25 | PM.HPGS ---
History of Present Illness History of Present Illness Date of Service: 05/21/23 Chief complaint: Acute Cholecystitis Narrative: Marcie Lang is a 53 year old female with a hx of LSG 07/17/[address] Martin. Seen in office in f/u yesterday with stable healthy weight and doing well. Developed sudden upper abdominal pain this morning around 9 am after her AM shake. This was associated with nausea and she presented to the ER. Found to have leukocytosis (12 k) with mild left shift and slight transaminitis without hyperbilirubinemia. CT abdomen with question of GB wall thickening without cholelithiasis. RUQ abdominal US pos for multiple layering small stones and GB wall thickening, pos Alamo's sign and mild pericholecystic fluid. In ER pain somewhat relieved with MSO4 but limited control with return of pain. Case discussed w ER attending and Attending Kane. Plan for admission and planned laparoscopic cholecystectomy tomorrow morning. Discussed with pt the plan and she is very much in agreement with planned GB removal tomorrow. Review of Systems Review of Systems: Yes all other systems are reviewed and are negative Constitutional: Constitutional: Reports as per HPI Eyes: Eyes: Reports no additional eye complaints ENT: Reports system reviewed and no additional complaints, except as documented Cardiovascular: Cardiovascular: Reports no additional cardiovascular complaints Respiratory: Respiratory: Reports no additional respiratory complaints Gastrointestinal: Gastrointestinal: Reports abdominal pain (epigastric and ruq) and Reports nausea Genitourinary: Genitourinary: Reports no additional female genitourinary complaints Musculoskeletal: Musculoskeletal: Reports no additional musculoskeletal complaints [facility] Past Medical History Medical History Arthritis Anxiety Sleep apnea Adjustment disorder, unspecified GERD (gastroesophageal reflux disease) Asthma Bleeding hemorrhoids Irritable bowel syndrome Chronic constipation Admission for repair of scarred tissue Family History Family History Father Diabetes Brother Heart attack Paternal Grandmother Cancer Maternal Grandmother Cancer Surgical History Surgical History Hx of laparoscopic partial gastrectomy [place] teeth extracted Hx of breast reduction, elective Hx of hemorrhoidectomy History of arthroscopy of both knees Hx of appendectomy H/O eye surgery H/O colonoscopy History of esophagogastroduodenoscopy (EGD) H/O: hysterectomy Social History Social History Household Members: Spouse Housing: House Are you a primary healthcare advisory services manager to a significant other at home: Yes Do you presently have visiting nurse or other home services: No Alcohol intake: never Patient Tobacco Use Status: Never used Tobacco Smoked in Last 30 Days: No Second Hand Smoke Exposure: No Use of substances other than those prescribed or required for medical reasons: No Are you DNR?: No Advance Directives: No Nutrition Risks: No Nutritional Risk Patient : No service: No Current occupational status: employed Meds Allergies Allergy/AdvReac Type Severity Reaction Status Date / Time aspirin [ASPIRIN] Allergy Severe HIVES Verified 01/02/23 07:42 Fish Containing Products Allergy Severe HIVES/DYSPN Verified 01/02/23 07:42 EA oxycodone [From PERCOCET] Allergy Severe PALPITATION Verified 01/02/23 07:42 S/HIVES pumpkin Allergy Severe THROAT Verified 01/02/23 07:42 SWELLING squash Allergy Severe THROAT Verified 01/02/23 07:42 SWELLING Zucchini Allergy Mild Hives, Uncoded 12/30/22 09:59 Dysphagia Active Medications: Current Medications Hydromorphone HCl (Hydromorphone Hcl 1 Mg/Ml Syringe) 0.25 mg IVPUSH Q4H PRN; Protocol PRN Reason: Pain, Severe (Pain Scale 7-10) Piperacillin Sod/Tazobactam (Sod 4.5 gm/ Sodium Chloride) 100 mls @ 200 mls/hr IV ONCE ONE Stop: 05/20/23 22:33 Acetaminophen (Ofirmev) 1,000 mg in 100 mls @ 16.7 mls/hr IV .Q6H PATRICIA Lactated Ringer's (Lr) 1,000 mls @ 100 mls/hr IVCONT .Q10H PATRICIA Piperacillin Sod/Tazobactam (Sod 3.375 gm/ Sodium Chloride) 50 mls @ 100 mls/hr IV Q6H PATRICIA Ondansetron HCl (Ondansetron Hcl 4 Mg/2 Ml Vial) 4 mg IVPUSH Q8H PRN PRN Reason: Nausea and Vomiting Sodium Chloride (0.9 % Sodium Chloride Flush 3 Ml Syringe) 3 ml IVFLUSH QSHIFT PATRICIA Home Medications Medication Instructions Recorded Confirmed Last Taken Type albuterol sulfate 90 mcg/actuation 2 puff inhalation Q6H PRN Wheezing 05/24/20 05/20/23 Unknown History aerosol inhaler sennosides 8.6 mg-docusate sodium 1 tab-cap PO BEDTIME 10/24/22 05/20/23 Unknown History 50 mg tablet hydroxyzine HCl 10 mg tablet 10 mg PO QID PRN itch 05/20/23 05/20/23 05/19/23 History sennosides 8.6 mg-docusate sodium 2 tab PO DAILY 05/20/23 05/20/23 Unknown History 50 mg tablet (Senexon-S) Physical Exam Vital Signs: Vital Signs: Last Vital Signs Temp 98.4 F 05/20/23 20:00 Pulse 61 05/20/23 20:00 Resp 18 05/20/23 20:00 BP 115/58 L 05/20/23 20:00 Pulse Ox 99 05/20/23 20:00 O2 Del Method Room Air 05/20/23 20:00 BMI result Body Mass Index 24.4 Const: Other: still feels uncomfortable HEENT: Head: Yes normal to inspection Ears: hearing grossly normal bilaterally Resp: Effort & Inspection: normal respiratory effort Auscultation: clear to auscultation bilaterally Cardio: Rate: regular rate Rhythm: regular rhythm GI: Inspection: Yes incision (well healed surgical inc from [facility]) Palpation (GI): Tenderness to palpation present (GI) in the RUQ Auscultation: normal bowel sounds Extrem: General: Yes no pedal edema Psych: Appearance: grossly normal Mental Status: mental status grossly normal Results Results Labs: Short CBC 05/20/23 Range/Units 14:09 WBC 12.4 H (4.8-10.8) X10*3/uL Hgb 12.4 (12.0-16.0) g/dl Hct 36.7 L (37.0-47.0) % Plt Count 289 (160-400) X10*3/uL BMP 05/20/23 14:09 Sodium 140 Potassium 3.9 Chloride 105 Carbon Dioxide 27 BUN 27 H Creatinine 0.70 Calcium 9.4 Liver Function 05/20/23 Range/Units 14:09 Total Bilirubin 0.4 (0.0-1.0) mg/dL AST 40 H (5-31) U/L ALT 23 (0-31) U/L Alkaline Phosphatase 80 (39-117) U/L Albumin 4.2 (3.5-5.0) g/dL Urine 05/20/23 Range/Units 21:22 Urine Color Yellow Urine Appearance Clear Urine pH 5.5 (5.0-9.0) Ur Specific [place] >= 1.030 H (1.005-1.025) Urine Protein Negative (Neg-Trace) mg/dL Urine Glucose (UA) Negative (Negative) mg/dL Abdominal x-ray: report reviewed Abdomen CT scan report/results: report reviewed Abdominal ultrasound report/results: report reviewed Assessment and Plan (1) Acute cholecystitis: Status: Acute NPO IVF-LR at 100 ml/hr analgesia-ATC IV acetaminophen, prn hydromorphone IV ABX-Zosyn 3.375 q 6 hrs add on amylase and lipase cbcd, c7 in am plan for laparoscopic cholecystectomy in am discussed w pt discussed w nsg petroleum products district supervisor, [place] discussed w ER attending, Dr Keyur Elliott, ([place] [employer] district supervisor) smooth Wright, (chief of anesthesia) discussed in full w attending Dr Middleton. Quality Stroke Does the patient have a stroke diagnosis?: No VTE Prior VTE?: No VTE Risk Level:: Surgical - low VTE Device Contraindication: N/A - Device Ordered VTE Drug Contraindication: Treatment Not Indicated Procedures Date of Service Date of Service: 05/21/23
--- NOTE | 2023-05-20 22:26 | PHA.MEDREC ---
Pharmacy Consult ? Medication Reconciliation Pharmacy has completed the medication reconciliation. Comnfirmed medications with patient and through claim history.
[2023-05-20 22:42] VITALS: BP 100/54; PULSE 61; RESP 18; TEMP 36.6; O2SAT 98
[2023-05-20] MEDS: Lactated Ringers 1,000 ML 100 ML IVCONT (22:44)
[2023-05-20] MEDS: Acetaminophen 1,000 MG/100 ML PIGGYBACK 16.7 MG IV (22:45)
[2023-05-20] MEDS: Piperacillin Sodium/Tazobactam 4.5 GM in 0.9 % Sodium Chloride 100 ML IV (22:45)
[2023-05-20 22:54] LABS: Amylase 78 U/L (28-100)
[2023-05-21] VITALS (15 sets, daily range): BP systolic 93–128; BP diastolic 52–70; PULSE 58–77; RESP 10–17; TEMP 36.3–37.3; O2SAT 90–100
--- NOTE | 2023-05-21 00:18 | MHC.EDTECH ---
Hourly rounds completed,patient is resting at this time,call langston in reach
--- NOTE | 2023-05-21 01:53 | MHC.EDTECH ---
Hourly rounds and vitals completed,patient's BP is low 93/52 RN was made aware,patient is resting comfortably at this time.
[2023-05-21] MEDS: HYDROmorphone HCl 1 MG/ML SYRINGE 0.25 MG IVPUSH (02:42)
--- NOTE | 2023-05-21 04:11 | MHC.EDTECH ---
Hourly rounds and vitals completed,patient ambulated to bathroom with a steady gait. patient is resting at this time,call langston in reach
[2023-05-21] MEDS: Acetaminophen 1,000 MG/100 ML PIGGYBACK 16.7 MG IV (04:39)
[2023-05-21] MEDS: Piperacillin Sodium/Tazobactam 3.375 GM in 0.9 % Sodium Chloride 50 ML IV (04:39)
--- NOTE | 2023-05-21 05:59 | PC.NURSE ---
Nursing report given to TIM Matos at short stay. Pt scheduled to go in for gallbladder removal procedure this morning. Unsure of the time. Pt is aware and agrees with plan of care.
--- NOTE | 2023-05-21 06:06 | MHC.EDTECH ---
Hourly rounds and vitals completed,patient is resting at this time,call langston in reach.
[2023-05-21] MEDS: Lactated Ringers 1,000 ML 50 ML IVCONT (07:00)
--- NOTE | 2023-05-21 07:05 | HO.ANESPROP2 ---
[facility] Active Problems Active Problems: All Active Problems (Updated 05/20/23 @ 22:33 by BHARAT Ramirez) Acute cholecystitis (Acute) Excess skin (Acute) Anemia (Acute) Dehydration (Acute) Chronic constipation (Acute) Overweight (BMI 25.0-29.9) (Acute) S/P laparoscopic sleeve gastrectomy (Acute) Obesity (BMI 30-39.9) (Acute) Oropharyngeal dysphagia (Acute) Internal hemorrhoids (Acute) History of colon polyps (Acute) JOSE (obstructive sleep apnea) (Acute) Bleeding hemorrhoids (Acute) Past Medical History Medical History Arthritis Anxiety Sleep apnea Adjustment disorder, unspecified GERD (gastroesophageal reflux disease) Asthma Bleeding hemorrhoids Irritable bowel syndrome Chronic constipation Admission for repair of scarred tissue Family History Family History Father Diabetes Brother Heart attack Paternal Grandmother Cancer Maternal Grandmother Cancer Family history of problems with anesthesia: No Surgical History Surgical History Hx of laparoscopic partial gastrectomy Alexander teeth extracted Hx of breast reduction, elective Hx of hemorrhoidectomy History of arthroscopy of both knees Hx of appendectomy H/O eye surgery H/O colonoscopy History of esophagogastroduodenoscopy (EGD) H/O: hysterectomy History of Problems with Anesthesia: No Social History Social History Household Members: Spouse Housing: House Are you a primary reproductive healthcare assistant to a significant other at home: Yes Do you presently have visiting nurse or other home services: No Alcohol intake: never Patient Tobacco Use Status: Never used Tobacco Smoked in Last 30 Days: No Second Hand Smoke Exposure: No Use of substances other than those prescribed or required for medical reasons: No Are you DNR?: No Advance Directives: No Nutrition Risks: No Nutritional Risk Patient : No service: No Current occupational status: employed Meds Allergies Allergy/AdvReac Type Severity Reaction Status Date / Time aspirin [ASPIRIN] Allergy Severe HIVES Verified 01/02/23 07:42 Fish Containing Products Allergy Severe HIVES/DYSPN Verified 01/02/23 07:42 EA oxycodone [From PERCOCET] Allergy Severe PALPITATION Verified 01/02/23 07:42 S/HIVES pumpkin Allergy Severe THROAT Verified 01/02/23 07:42 SWELLING squash Allergy Severe THROAT Verified 01/02/23 07:42 SWELLING Zucchini Allergy Mild Hives, Uncoded 12/30/22 09:59 Dysphagia Active Medications: Current Medications Hydromorphone HCl (Hydromorphone Hcl 1 Mg/Ml Syringe) 0.25 mg IVPUSH Q4H PRN; Protocol PRN Reason: Pain, Severe (Pain Scale 7-10) Last Admin: 05/21/23 02:42 Dose: 0.25 mg Acetaminophen (Ofirmev) 1,000 mg in 100 mls @ 16.7 mls/hr IV .Q6H [facility] Last Admin: 05/21/23 04:39 Dose: 16.7 mls/hr Lactated Ringer's (Lr) 1,000 mls @ 100 mls/hr IVCONT .Q10H [facility] Last Admin: 05/20/23 22:44 Dose: 100 mls/hr Piperacillin Sod/Tazobactam (Sod 3.375 gm/ Sodium Chloride) 50 mls @ 100 mls/hr IV Q6H [facility] Last Infusion: 05/21/23 05:09 Dose: Infused Ondansetron HCl (Ondansetron Hcl 4 Mg/2 Ml Vial) 4 mg IVPUSH Q8H PRN PRN Reason: Nausea and Vomiting Sodium Chloride (0.9 % Sodium Chloride Flush 3 Ml Syringe) 3 ml IVFLUSH QSHIFT [facility] Last Admin: 05/21/23 00:11 Dose: Not Given Home Medications Medication Instructions Recorded Confirmed Last Taken Type albuterol sulfate 90 mcg/actuation 2 puff inhalation Q6H PRN Wheezing 05/24/20 05/20/23 Unknown History aerosol inhaler sennosides 8.6 mg-docusate sodium 1 tab-cap PO BEDTIME 10/24/22 05/20/23 Unknown History 50 mg tablet hydroxyzine HCl 10 mg tablet 10 mg PO QID PRN itch 05/20/23 05/20/23 05/19/23 History sennosides 8.6 mg-docusate sodium 2 tab PO DAILY 05/20/23 05/20/23 Unknown History 50 mg tablet (Senexon-S) Exam Height,Weight and Vital Signs: Height 5 ft Weight 56.699 kg Last Vital Signs Temp 99.1 F 05/21/23 06:54 Pulse 66 05/21/23 06:54 Resp 16 05/21/23 06:54 BP 115/67 05/21/23 06:54 Pulse Ox 99 05/21/23 06:54 O2 Del Method Room Air 05/21/23 06:54 Pertinent Lab Results Pertinent Lab Results: Laboratory Tests 05/20/23 05/20/23 14:09 21:22 WBC 12.4 H RBC 3.99 L Hgb 12.4 Hct 36.7 L MCV 92.0 MCH 31.1 MCHC 33.8 RDW 11.6 Plt Count 289 MPV 10.1 Immature Gran % (Auto) 0.2 Neut % (Auto) 80.1 H Lymph % (Auto) 13.2 L [place] % (Auto) 4.6 Eos % (Auto) 1.3 Baso % (Auto) 0.6 Lymph # (Auto) 1.6 [place] # (Auto) 0.6 Eos # (Auto) 0.2 Baso # (Auto) 0.1 Abs Immat Gran (auto) 0.02 Absolute Neuts (auto) 9.9 H Absolute Nucleated RBC 0.000 Nucleated RBC % (auto) 0.0 PT 11.6 INR 1.0 APTT 36.7 Sodium 140 Potassium 3.9 Chloride 105 Carbon Dioxide 27 Anion Gap 12 BUN 27 H Creatinine 0.70 Estim Creat Clear Calc 73.3 Estimated GFR > 60 Random Glucose 94 Calcium 9.4 Total Bilirubin 0.4 AST 40 H ALT 23 Alkaline Phosphatase 80 Troponin I High Sens < 2.7 Total Protein 7.5 Albumin 4.2 Amylase 78 Lipase 20 Beta HCG, Quant < 2 Urine Color Yellow Urine Appearance Clear Urine pH 5.5 Ur Specific [place] >= 1.030 H Urine Protein Negative Urine Glucose (UA) Negative Urine Ketones Trace Urine Blood Negative Urine Nitrite Negative Ur Leukocyte Esterase Negative Airway Mallampati Class: II (missing 3 teeth, nothing loose) TM Dist: >3cm Neck ROM: Full Heart: rrr Lungs: cta Assessment and Plan Assessment Anesthesia Assessment: Anesthesia Plan Discussed and Chart Reviewed Final Anesthetic Review Family History of Problems with Anesthesia: No History of Problems with Anesthesia: No NPO: Yes ASA Class: II and Emergency Final Preanesthetic Review: No Changes in Pt Med Stat, Meds/Allgs Chart Reviewed and Consent Obtained/Reviewed Patient Risk: Intermediate Procedure Risk: Intermediate Anesthetic Plan Anesthetic Plan: GA Disposition: Standard PACU
--- NOTE | 2023-05-21 07:26 | P.HPSUR_ITS ---
Pre-Procedural Eval Section A - 24 Hr Update-Section A only Date of Service: 05/21/23 The patient is an INPATIENT: Yes The patient has been examined within 24 hours of the surgical procedure. The History & Physical has been completed within 30 days and I have reviewed it.: Yes Section B - Complete if H&P > 30 days Chief Complaint: Acute Cholecystitis Relevant Family History (Specify if Yes): No Relevant Social History: None Present Medications: None Medical History: No relevant PMH History of Previous Operations: Relevant previous surgery/procedure and date(s) (laparoscopic sleeve gastrectomy) Allergies: Allergies Allergy/AdvReac Type Severity Reaction Status Date / Time aspirin [ASPIRIN] Allergy Severe HIVES Verified 01/02/23 07:42 Fish Containing Products Allergy Severe HIVES/DYSPN Verified 01/02/23 07:42 EA oxycodone [From PERCOCET] Allergy Severe PALPITATION Verified 01/02/23 07:42 S/HIVES pumpkin Allergy Severe THROAT Verified 01/02/23 07:42 SWELLING squash Allergy Severe THROAT Verified 01/02/23 07:42 SWELLING Zucchini Allergy Mild Hives, Uncoded 12/30/22 09:59 Dysphagia Review of Systems Sugical H&P ROS: Negative: Constitution, Cardiovascular, Respiratory, Neurological, Psychiatric, Hem-Onc, Allergic/Immunologic, Genitourinary, Musculoskeletal, Integumentary, Endocrine and Eyes/Ears/Nose/Throat and Yes, Specify: Gastrointestinal (RUQ pain) Exam Surgical H&P Exam: Normal: HEENT, Normal: Heart, Normal: Lungs, Normal: Extremities, Normal: Skin and Normal: Neurological and Significant Findings: A bdomen (RUQ tenderness) Plan Diagnosis/Plan: Unchanged (Patient has acute calculous cholecystitis. Risks of CBD injury, bile leak, infection, bleeding, retained stones and their management were discussed. Patient agrees with the plan.) I have reviewed the history and physical and performed a pertinent physical examination on my patient. No changes have occurred unless specified. Time Spent With Patient Time: Total time managing care of this patient today ____ minutes.
--- NOTE | 2023-05-21 07:56 | PM.OP ---
Brief Operative Note Date of Service: 05/21/23 Pre-op diagnosis: Acute calculous cholecystitis Post-op diagnosis: same Procedure: PROCEDURE DATE: 05/21/2023 PREOPERATIVE DIAGNOSIS: Symptomatic cholelithiasis, mid epigastric and right upper quadrant abdominal pain POSTOPERATIVE DIAGNOSIS: Same as above. PROCEDURE: Laparoscopic cholecystectomy Surgeon: Bob Middleton M.D.. Ph.D. Central Lab Technician: José Cuevas PA-C Anesthesia: General endotracheal anesthesia Estimated blood loss: Minimal FINDINGS AND PROCEDURE: OPERATIVE INDICATIONS: The patient is a 53 year old female patient of Dr. Matrin who underwent a laparoscopic sleeve gastrectomy. The patient had remarkable weight loss so far and had a completely uneventful recovery. The patient was doing very well but has recently been complaining of persistent mid epigastric and right upper quadrant abdominal pain which is mostly postprandial. Last night she had a severe attack for which she presented to the ER. Ultrasound of the abdomen and pelvis was consistent with acute calculous cholecystitis. Based on this information I recommended laparoscopic cholecystectomy to evaluate the patient's symptoms. Risks and complications of the surgery were discussed with the patient in advance particularly the possibility of conversion to an open surgery, bleeding, infection, obstruction, deep vein thrombosis or pulmonary embolism, bile leak or major bile duct injury that may require surgical intervention. The patient understood the risks and was in agreement with the plan. PROCEDURE: After informed consent was obtained by the patient, the patient was transferred to the Operating Room and was placed in the supine position. The patient was given preoperative antibiotics and after successful induction of general anesthesia a Talbot catheter and pneumatic compression devices were placed. The patient was then prepped and draped in the usual sterile manner and abdominal access was established with the Joseph port. The abdomen was insufflated with C02 to a pressure of 15 mmHg. A 5 mm Versi-step port was placed, slightly to the right and superior from the umbilicus. The 5 mm camera was introduced. We inspected the area where the port had been placed and there was no injury. The patient was then placed initially in a steep reverse Trendelenburg position and three additional ports were placed, specifically a 12 mm Versi-step port just to the right of the midline below the xiphoid process and two 5 mm Versi-step ports at the right upper quadrant and right flank. The patient was placed in a steep reverse Trendelenburg position tilted to the left side. The gallbladder was retracted cephalad and laterally. However, the left lobe of the liver was enlarged and was covering the triangle of Calot. A 5 mm Versi-step port was placed at the left flank below the costal margin at the middle axillary line. The Pretzel liver retractor was used to retract the left lobe of the liver. That provided adequate exposure to the triangle of Calot/ There were adhesions between the omentum and the gallbladder wall that were taken down. The peritoneal attachments of the gallbladder at the triangle of Calot posteriorly and anteriorly were taken down. The cystic duct and artery were both seen. They were completely dissected free, skeletonized all the way to the infundibulum of the gallbladder . In a similar fashion we also cleaned the liver bed just behind the cystic artery to make sure there was no additional structures in this area. Once we confirmed that both structures were entering into the gallbladder and there were no other structures in the area, they were both clipped. I used for the cystic duct two clips proximally and for the cystic artery one clip. Both were clipped distally with one clip and were cut in-between. We then using the electrocautery we slowly took down the gallbladder from the liver bed. Small areas of bleeding from the liver parenchyma were controlled with the cautery. After the gallbladder was completely detached from the liver bed, it was placed in an EndoCatch bag and was removed without difficulty from the xiphoid port. We then inspected the clips at the cystic duct and artery and were both in place. There was no active bleeding from the liver bed. At that point the patient was placed in supine position, we deflated the abdomen and we removed all ports under direct vision and no bleeding was noted from any of the port sites. The fascia of the 12 mm port was closed using a #1 Polysorb suture. 30cc Ropivacaine plain were used to infiltrate the fascial closure as well as all skin incisions. The wounds were irrigated with saline mixed with antibiotic solution and then the skin was closed with 4-0 Monocryl subcuticular sutures antibiotic-coated. Steri-strips and OpSites were used to cover all incisions. The patient extubated and was transferred in stable condition to the Recovery Room for further care. I was present and performed all steps of the procedure. Mr. Cuevas was the sales assistant displays. There were no residents to assist with this case. Bob Middleton M.D., Ph.D., F.A.C.S. Surgeon: Brian Middleton MD Anesthesia: GETA and local Was an Central Lab Technician used for this Procedure?: No Central Lab Technician: José Cuevas Estimated blood loss (mL): 10 IV fluids (mL): 1,500 Urine output (mL): 0 (No Talbot to record output) Pathology: other (Gallbladder) Condition: stable Disposition: PACU
--- NOTE | 2023-05-21 09:41 | MHC.CM.PN ---
Addendum entered by Stephie Thomas 05/21/23 10:24: Patient d/c'd home from [facility]. Original Note: Patient transferred to Same Day Surgery before being seen by case management. Continue to monitor for d/c needs.
--- NOTE | 2023-05-21 12:52 | PM.DS ---
DS: Providers Provider Date of Service: 05/21/23 Date of admission: 05/20/23 22:13 Primary care physician: BHARAT Vieira DS: Diagnosis Discharge Diagnosis (1) Acute cholecystitis: Status: Acute DS: Summary Hospital Course Hospital Course: Patient is a pleasant 53-year-old female who presented to the emergency room with sudden onset significant epigastric and right upper quadrant abdominal pain. She does have a history of sleeve gastrectomy dating back approximately [address] scan and abdominal ultrasound were revealing of acute calculous cholecystitis. She was admitted to the hospital overnight and started on IV antibiotics, IV fluids, IV analgesia and was brought to the operating room on 05/21/2023. She underwent an uneventful laparoscopic cholecystectomy and was discharged home the same day. Time Attestation Total time managing care of this patient today: 25 mintues. Discharge Coordination Time (in mins): 25 Quality: Safe Use of Opioids Does Pt have an Active Cancer Diagnosis on the Problem List?: No Quality: Stroke Does the patient have a stroke diagnosis?: No Physical Exam Vital Signs: Vital Signs: Last Vital Signs Temp 97.6 F 05/21/23 12:03 Pulse 72 05/21/23 12:03 Resp 17 05/21/23 12:03 BP 109/62 05/21/23 12:03 Pulse Ox 96 05/21/23 12:03 O2 Del Method Room Air 05/21/23 12:03 O2 Flow Rate 2 05/21/23 11:40 BMI result Body Mass Index 24.4 DS: Data Data Completed and Pending Completed studies during hospitalization [Text1]: Procedures Excision of Stomach, Percutaneous Endoscopic Approach, Vertical (07/17/22) Pending studies at discharge: Pending at discharge 05/21/23 09:13 Surgical [PTH] Routine Labs on day of discharge: Laboratory Results - last 24 hr 05/20/23 05/20/23 14:09 21:22 WBC 12.4 H RBC 3.99 L Hgb 12.4 Hct 36.7 L MCV 92.0 MCH 31.1 MCHC 33.8 RDW 11.6 Plt Count 289 MPV 10.1 Immature Gran % (Auto) 0.2 Neut % (Auto) 80.1 H Lymph % (Auto) 13.2 L [place] % (Auto) 4.6 Eos % (Auto) 1.3 Baso % (Auto) 0.6 Lymph # (Auto) 1.6 [place] # (Auto) 0.6 Eos # (Auto) 0.2 Baso # (Auto) 0.1 Abs Immat Gran (auto) 0.02 Absolute Neuts (auto) 9.9 H Absolute Nucleated RBC 0.000 Nucleated RBC % (auto) 0.0 PT 11.6 INR 1.0 APTT 36.7 Sodium 140 Potassium 3.9 Chloride 105 Carbon Dioxide 27 Anion Gap 12 BUN 27 H Creatinine 0.70 Estim Creat Clear Calc 73.3 Estimated GFR > 60 Random Glucose 94 Calcium 9.4 Total Bilirubin 0.4 AST 40 H ALT 23 Alkaline Phosphatase 80 Troponin I High Sens < 2.7 Total Protein 7.5 Albumin 4.2 Amylase 78 Lipase 20 Beta HCG, Quant < 2 Urine Color Yellow Urine Appearance Clear Urine pH 5.5 Ur Specific [place] >= 1.030 H Urine Protein Negative Urine Glucose (UA) Negative Urine Ketones Trace Urine Blood Negative Urine Nitrite Negative Ur Leukocyte Esterase Negative Discharge Plan Discharge Anticipated Discharge Date/Time: 05/21/23 15:02 Patient Disposition: Home, Self-Care Discharge Diagnosis: Acute calculous cholecystitis Referrals: Vianney Johnson PA [Primary Care Provider] - 1 Week José Davis MD [Physician] - Robert Martin MD, [facility], [facility] [Physician] - (abdominal pain) Discharge Medications: New ondansetron 4 mg tablet,disintegrating 4 mg PO Q6H PRN (Reason: nausea and vomiting) Qty: 10 0RF Continued Linzess 290 mcg capsule 290 mcg PO QAM Qty: 30 3RF hydroxyzine HCl 10 mg tablet 10 mg PO QID PRN (Reason: itch) sennosides-docusate sodium [Senexon-S] 8.6-50 mg tablet 2 tab PO DAILY albuterol sulfate 90 mcg/actuation HFA aerosol inhaler 2 puff inhalation Q6H PRN (Reason: Wheezing) sennosides-docusate sodium 8.6-50 mg tablet 1 tab-cap PO BEDTIME Discharge Orders: Discharge Order (Routine); Ordered 05/21/23 Ordered By: Brian Middleton Activity on Discharge: As tolerated Activity Restrictions/Additional Instructions: 1) Stay on a clear liquid diet that can include the Celebrate protein shakes until you have a bowel movement. Prepare each shake with HALF scoop in 8oz almond milk and do 4 shakes per day, over a 2-hour period each one. Once you have a bowel movement you may advance your diet to your regular diet plan. 2, May shower 3) Leave dressings in place. They will be removed at your office appointment 4) Avoid heavy lifting for 3 weeks 5) Take Tylenol 500mg every 4 hours, around the clock for the next 3-4 days. If pain has improved you may slowly reduce its frequency 6) Avoid aspirin, Motrin, Aleve, Advil, Naproxyn, Ibuprofen for 2 weeks 7) Call Dr. Middleton at [phone] for fever >101F, persistent nausea, vomiting, abdominal pain at the right upper side of the abdomen or right shoulder, yellow color in eyes or skin, shortness of breath, calf pain. I have sent a prescription for ondansetron (Zofran) to your pharmacy which you may use as needed for nausea. Care Plan Goals: Recover from the surgery Health Concerns: None Plan of Treatment: 1) Stay on a clear liquid diet that can include protein shakes until you have a bowel movement. Once you have a bowel movement you may advance your diet to your regular diet plan. 2, May shower 3) Leave dressings in place. They will be removed at your office appointment 4) Avoid heavy lifting for 3 weeks 5) Take Tylenol 500mg every 4 hours, around the clock for the next 3-4 days. If pain has improved you may slowly reduce its frequency 6) Avoid aspirin, Motrin, Aleve, Advil, Naproxyn, Ibuprofen for 2 weeks 7) Call Dr. Middleton at [phone] for fever >101F, persistent nausea, vomiting, abdominal pain at the right upper side of the abdomen or right shoulder, yellow color in eyes or skin, shortness of breath, calf pain. Assessment: Patient will be discharged per recovery room criteria
== END 2023-05-21 15:10 | disposition home or self-care (01) | DRG 419 ==
LOC: HO.ED 22:07 → HO.EDOVER 22:31
PROVIDERS: Physician Assistant; Physician Assistant Surgical; Admitting Provider Surgery; Emergency Provider Emergency Medicine; PCP Student in an Organized Health Care Education/Training Program; Visit Provider Surgery
PROC: 0FT44ZZ Resection of Gallbladder, Percutaneous Endoscopic Approach (ICD-10-PCS; CPT 47562; principal; 2023-05-21 07:30)
DX: K80.00 Calculus of gallbladder with acute cholecystitis without obstruction (principal); Z98.84 Bariatric surgery status; Z79.899 Other long term (current) drug therapy
CPT/HCPCS: 36415; 74177; 76705; 80053; 81003; 82150; 83690; 84484; 84702; 85025; 85610; 85730; 88304; 93005; 99285; J0131; J0330; J1100; J1170; J2250; J2270; J2371; J2405; J2543; J2550; J2704; J2795; J3010; J7120; Q9967

== ENCOUNTER → 2023-05-20 13:37 | Outpatient (BNV) | payer OTHER, SELFPAY | PROVIDERS: Emergency Provider Emergency Medicine; PCP Student in an Organized Health Care Education/Training Program; Visit Provider Internal Medicine Cardiovascular Disease | DX: R94.31 Abnormal electrocardiogram [ECG] [EKG] (principal) | CPT/HCPCS: 93010 ==

== ENCOUNTER → 2023-05-20 22:13 | Outpatient (BNV) | payer OTHER, SELFPAY | PROVIDERS: Admitting Provider Surgery; Emergency Provider Emergency Medicine; PCP Student in an Organized Health Care Education/Training Program; Visit Provider Physician Assistant Surgical | DX: K80.00 Calculus of gallbladder with acute cholecystitis without obstruction (principal); K66.0 Peritoneal adhesions (postprocedural) (postinfection) | CPT/HCPCS: 47562; 99024 ==

== ENCOUNTER 2023-05-23 14:17 | Outpatient (REF) | payer OTHER, SELFPAY ==
--- NOTE | ~2023-05-23 | US_ITS ---
EXAMINATION: US ABDOMEN LIMITED CLINICAL INFORMATION: Right upper quadrant pain. Post recent cholecystectomy. Rule out retained stone.. COMPARISON: Previous abdominal ultrasound and CT May 20, 2023 TECHNIQUE: Real-time imaging of the right upper quadrant abdominal viscera. FINDINGS: PANCREAS: Normal. LIVER: Normal. The liver is normal in size. The liver contour is normal. Parenchymal echogenicity is normal. No focal hepatic lesion. There is no intrahepatic biliary duct dilatation seen. GALLBLADDER: Surgically removed. No fluid collection in the gallbladder fossa. COMMON BILE DUCT: Normal in caliber measuring 0.6 cm in diameter. FREE FLUID: None. US/US abdomen limited IMPRESSION: Normal liver and bile ducts. No common bile duct stone seen.
[2023-05-23 15:14] LABS: MANUAL DIFF FLAG NO
[2023-05-23 15:42] LABS: Basophils Percent Auto 0.5 % (0-2); Eosinophils Absolute Auto 0.2 X10*3/uL (0.0-0.4); Eosinophils Percent Auto 2.1 % (0-4); Hematocrit 37.5 % (37.0-47.0); Hemoglobin 12.4 g/dl (12.0-16.0); Imm Gran Abs Auto 0.02 X10*3/uL (0.00-0.03); Imm Gran Pct Auto 0.2 % (0.0-0.4); Lymphocytes Absolute Auto 2.5 X10*3/uL (1.2-4.9); Lymphocytes Percent Auto 28.5 % (20-40); Mean Corpuscular HGB Conc 33.1 g/dl (31.0-35.0); Mean Corpuscular Hemoglobin 30.5 pg (27.0-33.0); Mean Corpuscular Volume 92.4 fL (80.0-98.0); Mean Platelet Volume 10.6 fL (9.4-12.3); Monocytes Absolute Auto 0.7 X10*3/uL (0.1-1.2); Neutrophils Absolute Auto 5.2 x10*3/uL (2.0-8.3); Neutrophils Percent Auto 60.7 % (45-73); Platelet Count 286 X10*3/uL (160-400); Red Blood Count 4.06 X10*6/uL (4.20-5.50); Red Cell Distribution Width 11.8 % (11.0-16.0); White Blood Count 8.6 X10*3/uL (4.8-10.8)
[2023-05-23 16:06] LABS: Alanine Aminotransferase 119 U/L (0-31); Albumin Level 4.3 g/dL (3.5-5.0); Alkaline Phosphatase 85 U/L (39-117); Amylase 76 U/L (28-100); Aspartate Amino Transferase 48 U/L (5-31); Bilirubin Direct 0.1 mg/dL (0.0-0.5); Bilirubin Total 0.4 mg/dL (0.0-1.0); Lipase 16 U/L (8-78); Total Protein 7.8 g/dL (6.5-8.0)
[2023-05-23 16:27] LABS: Anion Gap 13 (12-20); Blood Urea Nitrogen 14 mg/dL (9-16); Calcium 9.9 mg/dL (8.4-10.2); Carbon Dioxide 29 mmol/L (22-29); Chloride 103 mmol/L (96-108); Estimated Glomerular Filt Rate > 60; Glucose Random 83 mg/dL (60-115); Potassium 4.1 mmol/L (3.3-5.1); Sodium 141 mmol/L (135-145)
== END 2023-05-23 14:18 | disposition home or self-care (01) ==
LOC: HO.US 14:17
PROVIDERS: Visit Provider Physician Assistant Surgical
DX: K81.0 Acute cholecystitis (principal); M25.519 Pain in unspecified shoulder
CPT/HCPCS: 36415; 76705; 80048; 80076; 82150; 83690; 85025

== ENCOUNTER 2023-05-23 15:48 | Outpatient (REF) | payer OTHER, SELFPAY | END 2023-05-23 15:49 | disposition home or self-care (01) | LOC: HO.LAB 15:48 | PROVIDERS: Visit Provider Physician Assistant Surgical | DX: Z13.89 Encounter for screening for other disorder (principal) ==

== ENCOUNTER 2023-05-27 08:07 | Emergency (ER) | payer OTHER, SELFPAY ==
[2023-05-27] VITALS (8 sets, daily range): BP systolic 99–116; BP diastolic 50–64; PULSE 76–107; RESP 16–20; TEMP 36.5–38; O2SAT 93–99; BMI 24.4
--- NOTE | ~2023-05-27 | MR_ITS ---
EXAMINATION: MR ABDOMEN WITHOUT CONTRAST CLINICAL INFORMATION: History of sleeve gastrectomy, Status recent post laparoscopic cholecystectomy, now presents with recurrent [place] epigastric abdominal pain, abnormal liver function test, evaluate for common bile duct stone COMPARISON: None available. TECHNIQUE: Examination was performed in a high field strength MRI scanner. Multiplanar multisequence MR imaging of the abdomen was performed without IV contrast enhancement. MR cholangiopancreatography was performed with heavily T2 weighted sequences. 3-dimensional reconstruction of image data was performed. This was performed under concurrent direct supervision and monitoring by radiologist. Maximum intensity projection images were constructed. FINDINGS: MR CHOLANGIOPANCREATOGRAPHY: Gallbladder is surgically absent. Bilateral intra hepatic bile ducts, common hepatic duct and common bile duct are normal in size without filling defects. Common bile duct measures 7.3 mm in diameter, within normal limits for postcholecystectomy status, patent down to the duodenal papilla. Pancreatic duct is normal in size. LIVER: The liver shows no focal lesion. The calculated hepatic fat percentage is 4.1%, compatible with normal. PANCREAS: No focal pancreatic lesion with abnormal signal can be seen. SPLEEN: Spleen is normal in size without focal lesion. ADRENAL: Bilateral adrenal glands are normal in shape and size. KIDNEYS: Bilateral kidneys are normal in size without focal lesion. MR/MR MRCP IMPRESSION: 1. Status post cholecystectomy. 2. No evidence of choledocholithiasis.
--- NOTE | ~2023-05-27 | US_ITS ---
EXAMINATION: US ABDOMEN LIMITED CLINICAL INFORMATION: Right upper quadrant pain status post cholecystectomy.. Question retained bile duct stone. COMPARISON: Ultrasound 05/23/2023 TECHNIQUE: Real-time imaging of the right upper quadrant abdominal viscera. FINDINGS: LIVER: Normal. The liver is normal in size. The liver contour is normal. Parenchymal echogenicity is normal. No focal hepatic lesion. There is no intrahepatic biliary duct dilatation seen. GALLBLADDER: Gallbladder has been surgically removed. There is no fluid collection seen in the right upper quadrant to suspect any hematoma or biliary leak. COMMON BILE DUCT: CBD measures 0.7 cm in the extrahepatic segment and 0.5 cm and the pancreatic head level. No intraluminal filling defect seen. US/US abdomen limited IMPRESSION: 1. Status post cholecystectomy with no fluid collection seen in the right upper quadrant. 2. CBD is normal in size. No intraluminal filling defect seen.
--- NOTE | 2023-05-27 08:21 | ECG_ITS ---
Test Reason : epigastric pain Blood Pressure : / mmHG Vent. Rate : 077 BPM Atrial Rate : 077 BPM P-R Int : 150 ms QRS Dur : 076 ms QT Int : 382 ms P-R-T Axes : 070 015 043 degrees QTc Int : 432 ms Normal sinus rhythm Normal ECG When compared with ECG of 20-MAY-2023 13:59, No significant change was found Referred By: Generic ED Physician Electronically Signed By:MALENA ADAMS MD
[2023-05-27 08:56] LABS: MANUAL DIFF FLAG NO
--- NOTE | 2023-05-27 09:03 | PC.NURSE ---
Rpeorts had gall pbladder surgery x 1 week ago and around 7:30am had sudden onsen right sided abdominal pain that radiates to the right side of her back
[2023-05-27 09:04] LABS: Basophils Percent Auto 0.4 % (0-2); Eosinophils Absolute Auto 0.4 X10*3/uL (0.0-0.4); Eosinophils Percent Auto 3.5 % (0-4); Hematocrit 38.9 % (37.0-47.0); Hemoglobin 12.9 g/dl (12.0-16.0); Imm Gran Abs Auto 0.03 X10*3/uL (0.00-0.03); Imm Gran Pct Auto 0.3 % (0.0-0.4); Lymphocytes Absolute Auto 1.9 X10*3/uL (1.2-4.9); Lymphocytes Percent Auto 18.5 % (20-40); Mean Corpuscular HGB Conc 33.2 g/dl (31.0-35.0); Mean Corpuscular Hemoglobin 30.5 pg (27.0-33.0); Mean Platelet Volume 10.3 fL (9.4-12.3); Monocytes Absolute Auto 0.5 X10*3/uL (0.1-1.2); Monocytes Percent Auto 5.2 % (2-11); Neutrophils Absolute Auto 7.3 x10*3/uL (2.0-8.3); Neutrophils Percent Auto 72.1 % (45-73); Platelet Count 295 X10*3/uL (160-400); Red Blood Count 4.23 X10*6/uL (4.20-5.50); Red Cell Distribution Width 11.5 % (11.0-16.0); White Blood Count 10.1 X10*3/uL (4.8-10.8)
--- NOTE | 2023-05-27 09:11 | ED_ITS ---
HPI - General Adult General Chief complaint: Abdominal Pain Stated complaint: Abdominal Pain S/P Surgery 1 Wk Ago Time Seen by Provider: 05/27/23 09:10 Source: patient and family (multiple family members at the bed side) Mode of arrival: ambulatory Limitations: no limitations History of Present Illness HPI narrative: Patient is a 53 year old assigned female at with a history of a cholecystectomy on 05/20 presenting to the emergency department today with RUQ abdominal pain. Patient states that this morning she suddenly got RUQ abdominal pain that radiates to her back. Patient denies any dizziness, lightheadedness, vomiting, fever, chills, blurry vision, double vision, loss of vision, chest pain, difficulty breathing, shortness of breath, back pain, night sweats, pain with urination, increased urinary frequency, increased urinary urgency, blood in her urine or stool, syncope or a near syncopal episode, recent trauma or falls, bowel incontinence, bladder incontinence, bowel retention, bladder retention, or any other complaints at this time. Onset (ago): hour(s) Location: abdomen and right Radiation: back Severity: moderate Severity scale (1-10): 5 Quality: stabbing Pain Consistency: constant Relieving factors: none Exacerbating factors: none Associated symptoms: nausea/vomiting Treatments prior to arrival: none Related Data Home Medications Medication Instructions Recorded Confirmed albuterol sulfate 90 mcg/actuation 2 puff inhalation Q6H PRN Wheezing 05/24/20 05/20/23 aerosol inhaler sennosides 8.6 mg-docusate sodium 1 tab-cap PO BEDTIME 10/24/22 05/20/23 50 mg tablet hydroxyzine HCl 10 mg tablet 10 mg PO QID PRN itch 05/20/23 05/20/23 sennosides 8.6 mg-docusate sodium 2 tab PO DAILY 05/20/23 05/20/23 50 mg tablet (Senexon-S) Previous Rx's Medication Instructions Recorded linaclotide 290 mcg capsule 290 mcg PO QAM #30 caps 03/27/23 (Linzess) ondansetron 4 mg disintegrating 4 mg PO Q6H PRN nausea and 05/20/23 tablet vomiting #10 tabs tramadol 50 mg tablet 50 mg PO Q8H PRN pain #10 tabs 05/23/23 Allergies Allergy/AdvReac Type Severity Reaction Status Date / Time aspirin [ASPIRIN] Allergy Severe HIVES Verified 01/02/23 07:42 Fish Containing Products Allergy Severe HIVES/DYSPN Verified 01/02/23 07:42 EA oxycodone [From PERCOCET] Allergy Severe PALPITATION Verified 01/02/23 07:42 S/HIVES pumpkin Allergy Severe THROAT Verified 01/02/23 07:42 SWELLING squash Allergy Severe THROAT Verified 01/02/23 07:42 SWELLING Zucchini Allergy Mild Hives, Uncoded 12/30/22 09:59 Dysphagia Review of Systems 2 Constitutional: Constitutional: Reports no additional constitutional complaints, Denies chills, Denies fever(s) and Denies night sweats Eyes: Eyes: Reports no additional eye complaints, Denies blurry vision, Denies change in vision, Denies diplopia, Denies eye discharge, Denies loss of vision and Denies eye pain ENT: Denies dizziness Cardiovascular: Cardiovascular: Reports no additional cardiovascular complaints, Denies chest pain, Denies lightheadedness, Denies Loss of Consciousness and Denies dyspnea Respiratory: Respiratory: Reports no additional respiratory complaints and Denies dyspnea Gastrointestinal: Gastrointestinal: Reports no additional gastrointestinal complaints, Reports abdominal pain, Denies melena, Denies hematochezia, Denies change in bowel habits, Denies change in stool character, Reports nausea and Denies vomiting Genitourinary: Genitourinary: Denies hematuria, Denies urinary frequency, Denies dysuria, Denies urinary incontinence, Denies urinary hesitancy and Denies urinary urgency Musculoskeletal: Musculoskeletal: Reports no additional musculoskeletal complaints, Denies numbness and Denies tingling Neurologic: Denies dizziness, Denies loss of vision, Denies numbness and Denies tingling Psychiatric: Psychiatric: Reports no additional psychiatric complaints Endocrine: Endocrine: Reports no additional endocrine complaints Hematologic/Lymphatic: Hematologic/Lymphatic: Reports no additional hematologic/lymphatic complaints Allergic/Immunologic: Allergic/Immunologic: Reports no additional allergic/immunologic complaints PMFSH Past Medical History Attestation statement: The following information was validated with the patient. (all information validated with the multiple family members at the bed side) Source: old records reviewed, obtained from family (multiple family members at the bed side provided additional history and confirmed the history provided) and nursing notes reviewed Medical History Arthritis Anxiety Sleep apnea Adjustment disorder, unspecified GERD (gastroesophageal reflux disease) Asthma Bleeding hemorrhoids Irritable bowel syndrome Chronic constipation Admission for repair of scarred tissue Surgical History Hx of laparoscopic partial gastrectomy [place] teeth extracted Hx of breast reduction, elective Hx of hemorrhoidectomy History of arthroscopy of both knees Hx of appendectomy H/O eye surgery H/O colonoscopy History of esophagogastroduodenoscopy (EGD) H/O: hysterectomy Family History Family History Father Diabetes Brother Heart attack Paternal Grandmother Cancer Maternal Grandmother Cancer Social History Social History Household Members: Spouse Housing: House Are you a primary healthcare economics manager to a significant other at home: Yes Do you presently have visiting nurse or other home services: No Alcohol intake: never Patient Tobacco Use Status: Never used Tobacco Smoked in Last 30 Days: No Second Hand Smoke Exposure: No Advance Directives: Yes Advance Directives Information Provided: Yes Advance Directives on File: No service: No Current occupational status: employed Physical Exam ED Vital Signs: Vital Signs - 24 hr 05/27/23 08:16 05/27/23 09:24 Temperature 97.7 F Pulse Rate 82 Respiratory Rate 17 20 Blood Pressure 103/52 L Pulse Oximetry 99 Oxygen Delivery Method Room Air BMI result Body Mass Index 24.4 Const General: cooperative, no acute distress, alert and awake Nutritional Appearance: well nourished Orientation/consciousness: patient oriented x3 Limitations: no limitations HENMT Head: Yes normal to inspection and Yes atraumatic Ears: hearing grossly normal bilaterally and external ears normal General nose exam: Normal external nose present, no nasal discharge noted and no epistaxis Face and sinus: Yes normal facial exam, No abrasion and No laceration Mouth: Normal oral and palatal mucosa present, no drooling and no muffled voice Eyes General: appearance normal, both eyes and all related structures Periorbital: periorbital findings normal Eyelids: Yes eyelids normal Conjunctivae: conjunctivae normal Pupils: Equal, round and reactive pupils present EOM: EOMs intact bilaterally Neck Neck: Yes normal visual inspection, Yes full ROM and Yes no lymphadenopathy Chest Chest palpation & inspection: normal inspection of the chest Resp Effort & Inspection: normal respiratory effort and able to speak in complete sentences GI Other: dressed surgical incisions Palpation (GI): Soft to palpation, not firm, Tenderness to palpation present (GI) in the RUQ, no guarding and not rigid Neuro General: patient oriented x3 and moves all extremities Cranial nerves: Yes Equal, round and reactive pupils present Cognition (Neuro): normal cognition Motor exam (neuro): 5/5 motor strength present throughout Sensory Exam: Normal double simultaneous stimulation for sensation Coordination: [id number] test normal Extrem General: Yes normal to inspection, Yes full ROM and Yes capillary refill normal Psych Appearance: grossly normal Mental Status: mental status grossly normal Affect: normal affect Attitude: cooperative Thought process: Normal thought process present Thought content: Normal thought content present Insight: Good insight present (Psych) Medications Administered Discontinued Medications Generic Name Dose Route Start Last Admin Trade Name Luis Eduardoq PRN Reason Stop Dose Admin Glucagon 1 mg 05/27/23 10:18 05/27/23 10:38 Glucagon Hcl 1 Mg Vial IVPUSH 05/27/23 10:19 1 mg ONCE ONE Administration Hydromorphone HCl 1 mg 05/27/23 09:12 05/27/23 09:24 Hydromorphone Hcl 1 Mg/Ml Syringe IVPUSH 05/27/23 09:13 1 mg ONCE ONE Administration Protocol Ondansetron HCl 4 mg 05/27/23 09:12 05/27/23 09:24 Ondansetron Hcl 4 Mg/2 Ml Vial IVPUSH 05/27/23 09:13 4 mg ONCE ONE Administration Medical Decision Making Medical Decision Making [facility] Narrative: Patient is a 53 year old assigned female at with a history of recent cholecystectomy presenting to the emergency department today with RUQ abdominal pain. Patient's physical exam was as noted in the physical exam portion of this note. Patient's blood work showed a mild elevation compared to 05/23/2023 in AST, ALT, and bilirubin. Patient's labs were otherwise unremarkable. Patient's RUQ abdominal US showed no acute process. I consulted with the bariatric surgery PA who recommended ordered an MRCP and giving the patient 1mg of IV glucagon. Patient states that the glucagon helped her pain significantly. MRCP ordered. MRI staff informed me that since the patient ate this morning, she will have to wait until after 1630 to be scanned. Depending on the results of that scan, the patient will either be discharged home or admitted to the bariatric service. Patient will be signed out to the evening MARTINE. I explained my physical exam findings as well as all test results to the patient and the patient's multiple family members at the bed side. I answered all questions asked by the patient and the patient's multiple family members at the bed side. Patient and the patient's multiple family members at the bed side verbalized agreement and understanding with this treatment plan and awaiting the MRCP. Differential Diagnosis Differential Diagnoses: The differential diagnosis associated with the presentation includes Bile leak Abdominal pain Biliary duct stone Cholelithiasis Choledocolithiasis Admission/Observation Consideration of admission/observation: Escalation of care including admission/observation considered Patient's disposition will be determined after MRCP. Consult Healthcare Provider Management of the patient was discussed with: [employer] Sticker (spoke with the bariatric surgery PA as noted in the MDM Rationale portion of this note.) Lab Data [facility] Lab Attestation statement: I reviewed the patient's lab results. My interpretation of these results are in the MDM Rationale portion of this note. 05/27/23 08:48 05/27/23 08:48 Labs: Lab Results 05/27/23 Range/Units 08:48 WBC 10.1 (4.8-10.8) X10*3/uL RBC 4.23 (4.20-5.50) X10*6/uL Hgb 12.9 (12.0-16.0) g/dl Hct 38.9 (37.0-47.0) % MCV 92.0 (80.0-98.0) fL MCH 30.5 (27.0-33.0) pg MCHC 33.2 (31.0-35.0) g/dl RDW 11.5 (11.0-16.0) % Plt Count 295 (160-400) X10*3/uL MPV 10.3 (9.4-12.3) fL Immature Gran % (Auto) 0.3 (0.0-0.4) % Neut % (Auto) 72.1 (45-73) % Lymph % (Auto) 18.5 L (20-40) % George % (Auto) 5.2 (2-11) % Eos % (Auto) 3.5 (0-4) % Baso % (Auto) 0.4 (0-2) % Lymph # (Auto) 1.9 (1.2-4.9) X10*3/uL George # (Auto) 0.5 (0.1-1.2) X10*3/uL Eos # (Auto) 0.4 (0.0-0.4) X10*3/uL Baso # (Auto) 0.0 (0.0-0.2) X10*3/uL Abs Immat Gran (auto) 0.03 (0.00-0.03) X10*3/uL Absolute Neuts (auto) 7.3 (2.0-8.3) x10*3/uL Absolute Nucleated RBC 0.000 (0.0-0.012) X10*3/uL Nucleated RBC % (auto) 0.0 (0.0-0.2) /100WBC Sodium 139 (135-145) mmol/L Potassium 3.6 (3.3-5.1) mmol/L Chloride 103 (96-108) mmol/L Carbon Dioxide 29 (22-29) mmol/L Anion Gap 11 L (12-20) BUN 17 H (9-16) mg/dL Creatinine 0.72 (0.5-1.4) mg/dL Estim Creat Clear Calc 71.2 Estimated GFR > 60 Random Glucose 113 (60-115) mg/dL Calcium 9.7 (8.4-10.2) mg/dL Total Bilirubin 0.6 (0.0-1.0) mg/dL Direct Bilirubin 0.3 (0.0-0.5) mg/dL AST 196 H (5-31) U/L ALT 112 H (0-31) U/L Alkaline Phosphatase 109 (39-117) U/L Total Protein 7.6 (6.5-8.0) g/dL Albumin 4.2 (3.5-5.0) g/dL Amylase 53 (28-100) U/L Lipase 9 (8-78) U/L Independent Interpretation I performed an independent interpretation of an: Ultrasound Interpretation: My interpretation is in agreement with the radiologist's impression of this imaging study. - EXAMINATION: US ABDOMEN LIMITED CLINICAL INFORMATION: Right upper quadrant pain status post cholecystectomy.. Question retained bile duct stone. COMPARISON: Ultrasound 05/23/2023 TECHNIQUE: Real-time imaging of the right upper quadrant abdominal viscera. FINDINGS: LIVER: Normal. The liver is normal in size. The liver contour is normal. Parenchymal echogenicity is normal. No focal hepatic lesion. There is no intrahepatic biliary duct dilatation seen. GALLBLADDER: Gallbladder has been surgically removed. There is no fluid collection seen in the right upper quadrant to suspect any hematoma or biliary leak. COMMON BILE DUCT: CBD measures 0.7 cm in the extrahepatic segment and 0.5 cm and the pancreatic head level. No intraluminal filling defect seen. US/US abdomen limited IMPRESSION: 1. Status post cholecystectomy with no fluid collection seen in the right upper quadrant. 2. CBD is normal in size. No intraluminal filling defect seen. Dictated By: Juanito Piña MD Signed By: Electronically signed by Juanito Piña MD 05/27/23 1120 Radiology Impression Discussion of test interpretation with radiology: I have reviewed the radiologist's reading. Independent Historian Clinical information obtained from an independent historian. History obtained from or confirmed by: Other (multiple family members at the bed side provided additional history and confirmed the history provided by the patient.) Critical Care Time Critical Care Time Critical Care Time: Yes Total Critical Care Time: 178 Attestation: I spent 178 minutes of Critical Care Time with this patient. This does not include time spent on separately reported billable procedures. Discharge Plan Discharge Clinical Impression: Abdominal pain Patient Disposition: Still a Patient Prescriptions: No Action Linzess 290 mcg capsule 290 mcg PO QAM Qty: 30 3RF tramadol 50 mg tablet 50 mg PO Q8H PRN (Reason: pain) Qty: 10 0RF ondansetron 4 mg tablet,disintegrating 4 mg PO Q6H PRN (Reason: nausea and vomiting) Qty: 10 0RF hydroxyzine HCl 10 mg tablet 10 mg PO QID PRN (Reason: itch) sennosides-docusate sodium [Senexon-S] 8.6-50 mg tablet 2 tab PO DAILY albuterol sulfate 90 mcg/actuation HFA aerosol inhaler 2 puff inhalation Q6H PRN (Reason: Wheezing) sennosides-docusate sodium 8.6-50 mg tablet 1 tab-cap PO BEDTIME
[2023-05-27 09:12] LABS: Alanine Aminotransferase 112 U/L (0-31); Albumin Level 4.2 g/dL (3.5-5.0); Alkaline Phosphatase 109 U/L (39-117); Anion Gap 11 (12-20); Aspartate Amino Transferase 196 U/L (5-31); Bilirubin Direct 0.3 mg/dL (0.0-0.5); Bilirubin Total 0.6 mg/dL (0.0-1.0); Blood Urea Nitrogen 17 mg/dL (9-16); Calcium 9.7 mg/dL (8.4-10.2); Carbon Dioxide 29 mmol/L (22-29); Chloride 103 mmol/L (96-108); Creatinine Clr Calc Pharmacy 71.2; Estimated Glomerular Filt Rate > 60; Glucose Random 113 mg/dL (60-115); Lipase 9 U/L (8-78); Potassium 3.6 mmol/L (3.3-5.1); Sodium 139 mmol/L (135-145); Total Protein 7.6 g/dL (6.5-8.0)
[2023-05-27] MEDS: HYDROmorphone HCl 1 MG/ML SYRINGE IVPUSH ×2 (09:24→13:26)
[2023-05-27] MEDS: ondansetron HCL 4 MG/2 ML VIAL IVPUSH (09:24)
[2023-05-27 09:52] LABS: Amylase 53 U/L (28-100)
[2023-05-27] MEDS: glucagon HCL 1 MG VIAL IVPUSH ×2 (10:38→17:35)
[2023-05-27] MEDS: LORazepam 2 MG/ML VIAL 1 MG IVPUSH (15:50)
--- NOTE | 2023-05-27 17:40 | PC.NURSE ---
patient with elevated temp and headache, provider notified
[2023-05-27] MEDS: Acetaminophen 325 MG TABLET 975 MG PO (17:43)
[2023-05-27 20:27] LABS: Influenza A PCR NEGATIVE (Negative); Influenza B PCR NEGATIVE (Negative); Resp Syncy Virus RNA Qual PCR NEGATIVE (Negative); SARS COV2 PCR INHOUSE NEGATIVE (Negative)
== END 2023-05-27 20:47 | disposition home or self-care (01) ==
PROVIDERS: Nurse Practitioner Family; Physician Assistant Medical; Emergency Provider Emergency Medicine; PCP Student in an Organized Health Care Education/Training Program
DX: R10.11 Right upper quadrant pain (principal); Z90.49 Acquired absence of other specified parts of digestive tract; Z88.6 Allergy status to analgesic agent; Z03.818 Encounter for observation for suspected exposure to other biological agents ruled out
CPT/HCPCS: 0241U; 36415; 74181; 76705; 80048; 80076; 82150; 83690; 85025; 93005; 96374; 96375; 96376; 99285; J1170; J1610; J2060; J2405

== ENCOUNTER → 2023-05-27 08:21 | Outpatient (BNV) | payer OTHER, SELFPAY | PROVIDERS: Emergency Provider Emergency Medicine; PCP Student in an Organized Health Care Education/Training Program; Visit Provider Internal Medicine Cardiovascular Disease | DX: R10.13 Epigastric pain (principal) | CPT/HCPCS: 93010 ==

== ENCOUNTER 2023-05-29 12:28 | Outpatient (AMB) | payer OTHER, SELFPAY ==
--- NOTE | 2023-05-29 12:30 | MHC.OFFVISWM ---
Intake VS Expanded 05/29/23 12:35 BP 103/60 Blood Pressure Location Rt brachial Blood Pressure Position Sitting Pulse 87 Pulse Source Pulse Oximeter Temp 97.2 F Temperature Source Temporal Artery Scan Pulse Oximetry 97 Oxygen Delivery Method Room Air Height 5 ft Weight 121 lb 9.6 oz BMI 23.7 Body Fat % 29.9 Body Fat Mass 36.4 Fat Free Mass 85.0 Visceral Fat Rating 6.0 Body Water % 49.7 Body Water Mass 60.4 Muscle Mass/Score 80.6 Basal Metabolic Rate/Score 1,161 Intake Visit Reasons: (OV) Cholecystectomy Laparoscopic 05/21/23 Allergies aspirin [ASPIRIN] Allergy (Severe, Verified 05/29/23 12:32) HIVES Fish Containing Products Allergy (Severe, Verified 05/29/23 12:32) HIVES/DYSPNEA oxycodone [From PERCOCET] Allergy (Severe, Verified 05/29/23 12:32) PALPITATIONS/HIVES pumpkin Allergy (Severe, Verified 05/29/23 12:32) THROAT SWELLING squash Allergy (Severe, Verified 05/29/23 12:32) THROAT SWELLING Zucchini Allergy (Mild, Uncoded 12/30/22 09:59) Hives, Dysphagia Medication List - Last Reconciled 05/29/23 by BHARAT [place] albuterol sulfate 90 mcg/actuation 2 puffs inhalation Q6H PRN hydroxyzine HCl 10 mg PO QID PRN linaclotide (Linzess) 290 mcg PO QAM ondansetron 4 mg PO Q6H PRN sennosides-docusate sodium 8.6-50 mg (Senexon-S) 2 tabs PO DAILY sennosides-docusate sodium 8.6-50 mg 1 tab-cap PO BEDTIME tramadol 50 mg PO Q8H PRN HPI HPI Comments History of Present Illness Details Pt is 8 days s/p lap sara for acute cholecystitis. Was seen in ER earlier this week for abdominal pain; MRCP negative and pt was able to be discharged home from ER. Today, pt reports some discomfort but no pain like what she experienced on Friday. Minimal nausea, takes her meds which helps. No vomiting. Able to stay hydrated and has been taking some protein shakes. Normal BMs, had had some diarrhea on Friday but typical BMs since then. Has not been lifting anything heavy; no fevers at home. [facility] Medical History Arthritis Anxiety Sleep apnea Adjustment disorder, unspecified GERD (gastroesophageal reflux disease) Asthma Bleeding hemorrhoids Irritable bowel syndrome Chronic constipation Admission for repair of scarred tissue Surgical History Hx of laparoscopic partial gastrectomy [place] teeth extracted Hx of breast reduction, elective Hx of hemorrhoidectomy History of arthroscopy of both knees Hx of appendectomy H/O eye surgery H/O colonoscopy History of esophagogastroduodenoscopy (EGD) H/O: hysterectomy Family History Father Diabetes Brother Heart attack Paternal Grandmother Cancer Maternal Grandmother Cancer Social History Household Members: Spouse Housing: House Are you a primary careers adviser to a significant other at home: Yes Do you presently have visiting nurse or other home services: No Alcohol intake: never Patient Tobacco Use Status: Never used Tobacco Second Hand Smoke Exposure: No service: No Current occupational status: employed Physical Exam Const General: cooperative, comfortable and no acute distress Orientation/consciousness: patient oriented x3 GI Other: soft, nondistended, appropriately tender at incisions, no rebound or guarding, dressings from port sites removed with steris c/d/i Neuro General: patient oriented x3 Assessment & Plan Assessment & Plan (1) Acute cholecystitis: Code(s): K81.0 - Acute cholecystitis (2) S/P laparoscopic cholecystectomy: Code(s): Z90.49 - Acquired absence of other specified parts of digestive tract (3) S/P laparoscopic sleeve gastrectomy: Code(s): Z98.84 - Bariatric surgery status Plan Pt appears to be doing well, no reoccurence of abdominal pain, afebrile, VS WNL. Very minimal tenderness to palpation on abdominal exam, appropriate with all incisions healing well. She knows to call our office if anything changes. May shower, no baths, no heavy lifting. RTC 6 weeks with José for annual visit 1 year after LSG. Coding Level of Care Code Est Pt Level 4 (82851) Diagnoses Acute cholecystitis K81.0 S/P laparoscopic cholecystectomy Z90.49 S/P laparoscopic sleeve gastrectomy Z98.84
[2023-05-29 12:35] VITALS: BP 103/60; PULSE 87; TEMP 36.2; O2SAT 97; BMI 23.7
== END 2023-05-29 12:57 | disposition home or self-care (01) ==
PROVIDERS: PCP Student in an Organized Health Care Education/Training Program; Visit Provider Physician Assistant Surgical
DX: K81.0 Acute cholecystitis (principal); Z90.49 Acquired absence of other specified parts of digestive tract; Z98.84 Bariatric surgery status
CPT/HCPCS: 99024

== ENCOUNTER → 2023-05-29 12:28 | Outpatient (BNVA) | payer OTHER, SELFPAY | PROVIDERS: PCP Student in an Organized Health Care Education/Training Program; Visit Provider Physician Assistant Surgical ==

== ENCOUNTER 2023-07-23 10:28 | Outpatient (AMB) | payer OTHER, SELFPAY ==
--- NOTE | 2023-07-23 10:34 | A.OFFVIS_ITS ---
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 Allergies aspirin [ASPIRIN] Allergy (Severe, Verified 07/23/23 10:37) HIVES Fish Containing Products Allergy (Severe, Verified 07/23/23 10:37) HIVES/DYSPNEA oxycodone [From PERCOCET] Allergy (Severe, Verified 07/23/23 10:37) PALPITATIONS/HIVES pumpkin Allergy (Severe, Verified 07/23/23 10:37) THROAT SWELLING squash Allergy (Severe, Verified 07/23/23 10:37) THROAT SWELLING Zucchini Allergy (Mild, Uncoded 12/30/22 09:59) Hives, Dysphagia Medication List - Last Reconciled 07/23/23 by BHARAT Ramirez albuterol sulfate 90 mcg/actuation 2 puffs inhalation Q6H PRN hydroxyzine HCl 10 mg PO QID PRN linaclotide (Linzess) 290 mcg PO QAM ondansetron 4 mg PO Q6H PRN sennosides-docusate sodium 8.6-50 mg (Senexon-S) 2 tabs PO DAILY sennosides-docusate sodium 8.6-50 mg 1 tab-cap PO BEDTIME tramadol 50 mg PO Q8H PRN HPI Comments Details: This?a?52?yo female who is s/p LSG without hiatal hernia repair on?07/15/[address] Martin. Presents for 1 year post op visit. Weight today is 126.8 pounds, with a BMI of 24.8.? There has been a 67 pound weight loss,(initial weight 193.8 pounds) since starting the program on 02/27/22 reflecting a 34.5% total body weight loss and a weight loss of 43.1 pounds since surgery (operative weight 167.1 pounds) reflecting a 24.1% TBWL since surgery.? States she feels great, not winded when going up steps, has significantly improved energy levels and she is no longer using her CPAP machine and her states she no longer snores. She additionally underwent a laparoscopic cholecystectomy by Dr. Middleton on 05/21/2023 for symptomatic cholelithiasis. Present meal plan includes: 2 shakes Celebrate 4 in 1, w unsweetened almond milk 2 scoops each, 8-10 am, 1- 3 pm 1 containers [place] yogurt, noon, (3 of 7 days of the week) 7 forks protein 7 forks veg, 6 pm Drinking 64 oz water ? Exercise routine includes: none since march due to new custody of her [employer]: Cardio classes 45-60 min, 2-3 x per week, walking outside, 1-2 x per week, 60 minutes Any post op complications: none JOSE: resolved DM: never HTN: never Hyperlipidemia: never GERD:?0-5 scale ??0 = no symptoms ??1 = symptoms noticeable but not bothersome 2 =symptoms bothersome but not daily ? 3 = symptoms bothersome and daily 4 = symptoms affect daily activities 5 = symptoms are incapacitating, unable to do daily activities ? How bad is the heartburn: 0 ? Heartburn while lying down: 0 ? Heartburn when standing up: 0 ? Heartburn after meals: 0 ? Does heartburn change your diet: 0 ? Does heartburn wake you up from sleep: 0 ? Do you have difficulty swallowin ? Do you have pain with swallowin ? If you take medicine for your reflux, does this affect your daily life: 0 Satisfaction with present condition - satisfied or not satisfied: satisfied [facility] Medical History Arthritis Anxiety Sleep apnea Adjustment disorder, unspecified GERD (gastroesophageal reflux disease) Asthma Bleeding hemorrhoids Irritable bowel syndrome Chronic constipation Admission for repair of scarred tissue Surgical History Hx of laparoscopic partial gastrectomy [place] teeth extracted Hx of breast reduction, elective Hx of hemorrhoidectomy History of arthroscopy of both knees Hx of appendectomy H/O eye surgery H/O colonoscopy History of esophagogastroduodenoscopy (EGD) H/O: hysterectomy Family History Father Diabetes Brother Heart attack Paternal Grandmother Cancer Maternal Grandmother Cancer Social History Household Members: Spouse Housing: House 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 Do you presently have visiting nurse or other home services: No Alcohol intake: never Patient Tobacco Use Status: Never used Tobacco Second Hand Smoke Exposure: No service: No Current occupational status: employed Physical Exam Const General: cooperative and no acute distress Orientation/consciousness: patient oriented x3 Resp Effort & Inspection: normal respiratory effort Auscultation: clear to auscultation bilaterally Cardio Rate: regular rate Rhythm: regular rhythm GI Inspection: Yes normal to inspection and Yes incision (well healed) Palpation (GI): Soft to palpation and no masses Neuro General: patient oriented x3 Assessment & Plan Assessment & Plan (1) S/P laparoscopic sleeve gastrectomy: Code(s): Z98.84 - Bariatric surgery status Category: Surgical Plan: Patient was encouraged to either return to the gym were start exercising at home. Decrease meal to 6 forks of protein and 6 forks of vegetables, eliminate yogurt. One year post laparoscopic sleeve gastrectomy labs have been ordered. Return to clinic 3 months or sooner with any questions or concerns. Orders: Orders Lipid Panel Today D64.9 - Anemia, unspecified, Z98.84 - Bariatric surgery status IRON PROFILE Today D64.9 - Anemia, unspecified, Z98.84 - Bariatric surgery status Vitamin B1 Today D64.9 - Anemia, unspecified, Z98.84 - Bariatric surgery status Ferritin Today D64.9 - Anemia, unspecified, Z98.84 - Bariatric surgery status Basic Metabolic Panel Today D64.9 - Anemia, unspecified, Z98.84 - Bariatric surgery status Insulin Today D64.9 - Anemia, unspecified, Z98.84 - Bariatric surgery status Hemoglobin A1c Today D64.9 - Anemia, unspecified, Z98.84 - Bariatric surgery status Vitamin B12 and Folate Today D64.9 - Anemia, unspecified, Z98.84 - Bariatric surgery status Zinc Today D64.9 - Anemia, unspecified, Z98.84 - Bariatric surgery status C Reactive Protein Today D64.9 - Anemia, unspecified, Z98.84 - Bariatric surgery status Vitamin A Today D64.9 - Anemia, unspecified, Z98.84 - Bariatric surgery status TSH reflex Free T4 Today D64.9 - Anemia, unspecified, Z98.84 - Bariatric surgery status Vitamin D 25-OH Total Today D64.9 - Anemia, unspecified, Z98.84 - Bariatric surgery status
[2023-07-23 10:40] VITALS: BP 100/57; PULSE 67; TEMP 36.2; O2SAT 100; BMI 24.8
== END 2023-07-23 11:00 | disposition home or self-care (01) ==
PROVIDERS: PCP Student in an Organized Health Care Education/Training Program; Visit Provider Physician Assistant Surgical
DX: D64.9 Anemia, unspecified (principal); Z90.3 Acquired absence of stomach [part of]; Z98.84 Bariatric surgery status
CPT/HCPCS: 99024

== ENCOUNTER 2023-07-23 10:28 | Outpatient (REF) | payer OTHER, SELFPAY ==
[2023-07-23 12:52] LABS: Estimated Average Glucose 88 mg/dL; Hemoglobin A1c % 4.7 % (<6.0)
[2023-07-23 13:22] LABS: Anion Gap 15 (12-20); Blood Urea Nitrogen 14 mg/dL (9-16); C Reactive Protein 0.11 mg/dL (< or = 0.50); Calcium 9.7 mg/dL (8.4-10.2); Carbon Dioxide 20 mmol/L (22-29); Chloride 109 mmol/L (96-108); Cholesterol 168 mg/dL (<200); Estimated Glomerular Filt Rate > 60; Glucose Random 66 mg/dL (60-115); HDL Cholesterol 58 mg/dL (>40); Iron 117 mcg/dL (30-160); LDL Cholesterol Calculated 96 mg/dL (<100); Percent Iron Saturation 39 % (15-50); Potassium 4.2 mmol/L (3.3-5.1); Sodium 140 mmol/L (135-145); Total Iron Binding Capacity 303 mcg/dL (228-428); Triglycerides 73 mg/dL (<150); Unsaturated Iron Binding 186 ug/dL
[2023-07-23 13:43] LABS: Folate 12.8 ng/mL (> or = 4.0); Vitamin B12 988 pg/mL (200-900)
[2023-07-23 13:44] LABS: Ferritin 126 ng/mL (10-250); Insulin 2 uU/mL (2-29); TSH reflex Free T4 0.26 uIU/mL (0.32-4.0); Vitamin D 25-OH Total 29.4 ng/mL (>30)
[2023-07-23 14:17] LABS: Free T4 (Free Thyroxine) 1.06 ng/dL (0.71-1.85)
[2023-07-28 14:33] LABS: Zinc 77 mcg/dL (60-130)
[2023-07-28 15:29] LABS: Vitamin B1 17 nmol/L (8-30)
[2023-07-28 15:52] LABS: Vitamin A 29 mcg/dL (38-98)
== END 2023-07-23 10:29 | disposition home or self-care (01) ==
LOC: HO.LAB 10:28
PROVIDERS: PCP Student in an Organized Health Care Education/Training Program; Visit Provider Physician Assistant Surgical
DX: D64.9 Anemia, unspecified (principal); Z98.84 Bariatric surgery status
CPT/HCPCS: 36415; 80048; 80061; 82306; 82607; 82728; 82746; 83036; 83525; 83540; 84425; 84439; 84443; 84590; 84630; 86140

== ENCOUNTER 2023-10-20 09:19 | Outpatient (AMB) | payer OTHER, SELFPAY ==
--- NOTE | 2023-10-20 09:04 | A.OFFVIS_ITS ---
VS Expanded 10/20/23 09:05 BP 101/53 L Blood Pressure Location Rt brachial Blood Pressure Position Sitting Pulse 67 Pulse Source Pulse Oximeter Temp 97.3 F Temperature Source Temporal Artery Scan Pulse Oximetry 99 Oxygen Delivery Method Room Air Height 5 ft Weight 132 lb 9.6 oz BMI 25.9 Body Fat % 31.4 Body Fat Mass 41.6 Fat Free Mass 90.8 Visceral Fat Rating 7.0 Body Water % 48.6 Body Water Mass 64.4 Muscle Mass/Score 86.2 Basal Metabolic Rate/Score 1,235 Intake Visit Reasons: Cholecystectomy Laparoscopic 05/21/23 Allergies aspirin [ASPIRIN] Allergy (Severe, Verified 10/20/23 09:24) HIVES Fish Containing Products Allergy (Severe, Verified 10/20/23 09:24) HIVES/DYSPNEA oxycodone [From PERCOCET] Allergy (Severe, Verified 10/20/23 09:24) PALPITATIONS/HIVES pumpkin Allergy (Severe, Verified 10/20/23 09:24) THROAT SWELLING squash Allergy (Severe, Verified 10/20/23 09:24) THROAT SWELLING Zucchini Allergy (Mild, Uncoded 12/30/22 09:59) Hives, Dysphagia HPI Comments Details: This?a?53?yo female who is s/p LSG without hiatal hernia repair on?07/15/[address] Martin. Presents for 1 year 3 month post op visit. Weight today is 132.6 pounds, with a BMI of 25.9.? There has been a 61.2 pound weight loss,(initial weight 193.8 pounds) since starting the program on 02/27/22 reflecting a 31.5% total body weight loss and a weight loss of 34.5 pounds since surgery (operative weight 167.1 pounds) reflecting a 20.6% TBWL since surgery.? States she feels great, not winded when going up steps, has significantly improved energy levels and she is no longer using her CPAP machine and her states she no longer snores. She additionally underwent a laparoscopic cholecystectomy by Dr. Middleton on 05/21/2023 for symptomatic cholelithiasis. She has had her grandkids for 6 months and was unable to follow plan exactly. Present meal plan includes: 2 shakes Celebrate 4 in 1, w unsweetened almond milk 2 scoops each, 8-10 am, 1- 3 pm 6 forks protein 6 forks veg, 6 pm Drinking 64 oz water ? Exercise routine includes: gym: Cardio classes 45-60 min, 3 x per week, walking outside, 1-2 x per week, 60 minutes PFSH Medical History Arthritis Anxiety Sleep apnea Adjustment disorder, unspecified GERD (gastroesophageal reflux disease) Asthma Bleeding hemorrhoids Irritable bowel syndrome Chronic constipation Admission for repair of scarred tissue Surgical History Hx of laparoscopic partial gastrectomy [place] teeth extracted Hx of breast reduction, elective Hx of hemorrhoidectomy History of arthroscopy of both knees Hx of appendectomy H/O eye surgery H/O colonoscopy History of esophagogastroduodenoscopy (EGD) H/O: hysterectomy Family History Father Diabetes Brother Heart attack Paternal Grandmother Cancer Maternal Grandmother Cancer Social History Household Members: Spouse Housing: House Are you a primary primary care pediatrician to a significant other at home: Yes Do you presently have visiting nurse or other home services: No Alcohol intake: never Patient Tobacco Use Status: Never used Tobacco Second Hand Smoke Exposure: No service: No Current occupational status: employed Physical Exam Vital Signs: BMI result Body Mass Index 25.4 Const General: healthy appearing and no acute distress Resp Effort & Inspection: normal respiratory effort Auscultation: clear to auscultation bilaterally Cardio Rate: regular rate Rhythm: regular rhythm GI Auscultation: normal bowel sounds Extrem General: Yes normal to inspection Assessment & Plan Assessment & Plan (1) Overweight (BMI 25.0-29.9): Code(s): E66.3 - Overweight Category: Medical Plan: She will add 30 minutes of cardio after her circuit classes and do cardio on the off days. She will return to strict meal plan as she had skipped things sometimes as she was taking care of her grandkids. Her stress level has now decreased as her grandkids are now out of the house. We will have her return to the office in approximately 6 weeks. Encouraged to text weekly her weight and with any questions or concerns.
[2023-10-20 09:05] VITALS: BP 101/53; PULSE 67; TEMP 36.3; O2SAT 99; BMI 25.9
== END 2023-10-20 10:15 | disposition home or self-care (01) ==
PROVIDERS: PCP Student in an Organized Health Care Education/Training Program; Visit Provider Physician Assistant Surgical
DX: E66.3 Overweight (principal)
CPT/HCPCS: 99213

== ENCOUNTER → 2023-10-20 09:19 | Outpatient (BNVA) | payer OTHER, SELFPAY | PROVIDERS: PCP Student in an Organized Health Care Education/Training Program; Visit Provider Physician Assistant Surgical | DX: D64.9 Anemia, unspecified (principal); Z98.84 Bariatric surgery status ==

== ENCOUNTER 2023-11-20 07:43 | Outpatient (AMB) | payer OTHER, SELFPAY ==
[2023-11-20 07:52] VITALS: BP 87/47; PULSE 72; BMI 25.8
--- NOTE | 2023-11-20 07:52 | MHC.OFFVIS ---
Vital Signs 11/20/23 07:52 Height 5 ft Weight 132 lb BMI 25.8 BP 87/47 L Blood Pressure Location Lt brachial Position Sitting Pulse 72 Intake Visit Reasons: Follow up chronic constipation Intake Note: Patient follow up for Chronic Constipation and bloody hemorrhoids Patient denies any GI issues. 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 Accompanied by: Self / Same As Patient Allergies aspirin [ASPIRIN] Allergy (Severe, Verified 11/20/23 07:52) HIVES Fish Containing Products Allergy (Severe, Verified 11/20/23 07:52) HIVES/DYSPNEA oxycodone [From PERCOCET] Allergy (Severe, Verified 11/20/23 07:52) PALPITATIONS/HIVES pumpkin Allergy (Severe, Verified 11/20/23 07:52) THROAT SWELLING squash Allergy (Severe, Verified 11/20/23 07:52) THROAT SWELLING Zucchini Allergy (Mild, Uncoded 12/30/22 09:59) Hives, Dysphagia Medication List - Last Reconciled 11/20/23 by Abdoul Hickman MD albuterol sulfate 90 mcg/actuation 2 puffs inhalation Q6H PRN buspirone 5 mg PO TID hydrocortisone 2.5% appl topical hydroxyzine HCl 10 mg PO QID PRN linaclotide (Linzess) 290 mcg PO QAM ondansetron 4 mg PO Q6H PRN sennosides-docusate sodium 8.6-50 mg (Senexon-S) 2 tabs PO DAILY triamcinolone acetonide 0.025% appl topical HPI HPI Follow up chronic constipation: Details: GI clinic visit for this 53-year-old female for FU of right upper quadrant pain, IBS and rectal bleeding. Noted to have elevated LFTs since April, CHRONIC ILLNESSES:?Asthma, gastritis, NUD, colitis, morbid obesity, Eczema, history of colon polyps TODAY'S VISIT Doing well - able to have a BM daily by taking Linzess and Senna Heartburn improved with dietary modification RUQ pain resolved after GB surgery in Jun, 2023 PAST VISIT: Feeling better. Linzess is helping and has a BM daily. Taking Linzess and one Senna daily (if she takes two Senna then she is in the bathroom all morning) RUQ pain and nausea is better. Feels good since she lost weight. Not having a BM every day - has gone twice this week (Olesya and Manuel) Notes some nausea when she takes her medications in the morning Taking Senna 1 capsule three times daily Stool softeners 2 capsules twice daily Linzess 145 mcg daily for constipation Patient had gastric sleeve surgery on 07/17/2022 Seen at [facility] in [place], [place] on 08/23/22 after she had abdominal pain, nausea and vomiting and constipation.? Denies rectal bleeding. CT scan showed colitis - medical records were requested. Treated with IVF, potassium and pain improved. Using suppositories and still not using the bathroom. Senna increased to three times a day, Colace twice a day, MOM 5 ml every night and a suppositories. Had a BM at 7:30 am today.? BM was hard and dark. She is having issues with hard pellet it stool in taking 3 fiber gummies, p.r.n. docusate, 2 senna tablets daily.? She was instructed to purchase bisacodyl suppositories, which she is using occasionally.? She denies any chest pain, nausea, vomiting, dysphagia, odynophagia or hematemesis. Working with [employer] and has lost 30 lbs since Feb - weighs 168 lbs Was 194 lbs when she started working with [employer]. Has been taking protein shakes and small meals. Has been having constipation Taking 2 tablets of Senna for constipation. Intermittent pain due to hemorrhoids - takes preparation H GERD symptoms improved and only takes Omeprazole prn - has not taken it in a while. Pt changed appt to TV since she had some diarrhea when Has been she woke up. Continues to have chronic constipation and has a BM every other day with some straining. Denies recurrent rectal bleeding since hemorrhoid surgery Complains of heartburn and taking Omeprazole twice for the past 2-3 months Notes heartburn when she takes cheese, salad dressing (balsamic), eggs, strawberries and leeks. Also has fibromyalgia with aches and pains and takes tylenol prn ? ? ? Denies recurrent rectal bleeding since she had hemorrhoidectomy. ? ? ? Stomach gets upset sometimes. ? ? ? Intermittent constipation. ?? ? Complains of constant pain on the right side of the belly button for the past month. ?? ? No change in pain with eating or drinking. ? ? Hurts when she moves or tries to lift something. Sometimes it hurts when she has a BM. Past abd surgeries: appendectomy and C -section. ? Lost 11 lbs by eating more vegetables and fruits. ? Taking more fibre in her diet. ? Heartburn and dysphagia symptoms have resolved and takes lansoprazole and dicyclomine p.r.n. every few days and does not need to take it every day. ? 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 ? 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 ? Taking Lansoprazole twice a day and dicyclomine three times a day with decrease in episodes of throat closing. ? Notes episodes can be related to her diet - she took a grilled cheese sandwich and felt her throat closing LABS IN [facility]: 05/05/19 reviewed normal CBC and LFTs ? IMAGING STUDIES: 06/2018 HIDA SCAN WAS NORMAL. ? June [address] scan showed: ? No acute findings of the abdomen or pelvis. No inflammatory changes. ? There is a moderate colonic stool burden, mostly throughout the right hemicolon. ?07/30/19 BARIUM SWALLOW [place] [facility]VIEWED: ? Normal oral and pharyngeal phases with no laryngeal penetration or subglottic aspiration. ? Esophagus: Normal in contour and mucosal appearance. Tertiary contractions noted in the distal half of the esophagus with from transit of liquid barium into the stomach. No hiatal hernia. Despite the use of provocative maneuvers, no gastroesophageal reflux was appreciated during the study. A 13 mm barium tablet passed unimpeded into the stomach. No evidence of esophageal web, narrowing or outpouching. No esophageal obstruction. ? IMPRESSION: ? Mild dysmotility with no evidence of stricture. ?ENDOSCOPIC STUDIES: 04/23/19 PATIENT HAD AN EGD AND COLONOSCOPY : ? Endoscopy Findings: ? LARYNX: Changes suggestive of LPRD ? ESOPHAGUS: A single 1 cms healing erosion at the GE junction. ? STOMACH: Gastritis and gastric polyps ? DUODENUM: Two small erosions in the bulb ? Colonoscopy Findings: ? Four polyps removed ? Moderate diverticulosis seen in the sigmoid colon ? Moderate hemorrhoids on retroflexed exam. ? Plan:? Continue present medications (Omeprazole at 20 mg PO once daily) ? Patient has an appointment on 05/13/19 in the GI Clinic with Abdoul Hickman M.D. ? Repeat Colonoscopy interval based on path results - in 3-5 years if ? polyps are adenomatous and 10 years if polyps are hyperplastic. ? A. Small bowel, biopsies: Duodenal mucosa within normal limits; negative for active and chronic duodenitis, intraepithelial lymphocytosis, villous blunting, dysplasia, and carcinoma. ? B. Gastric, antrum, biopsies: Antral mucosa with mild chronic inactive gastritis; ? negative for intestinal metaplasia, dysplasia, carcinoma, and Helicobacter pylori. ? C. Gastric, polyps, polypectomies: Fragments of corpus mucosa with mild chronic inactive gastritis, minimal oxyntic glandular dilation, and changes consistent with a healing erosion/ulceration; negative for intestinal metaplasia, dysplasia, carcinoma, and Helicobacter pylori. ? D. Colon, transverse, polypectomy: Tubular adenoma; negative for high grade dysplasia and carcinoma. E. Colon, random, biopsies: Colonic mucosa within normal limits; negative for active and chronic colitis, microscopic colitis, granuloma formation, dysplasia, and carcinoma. ? F. Colon, descending, polypectomies: Fragments of hyperplastic polyp(s). Separate fragments of colonic mucosa within normal limits. ? AUGUST 2016 [facility] AND A TUBULAR ADENOMA WAS REMOVED. [facility] Medical History Arthritis Anxiety Sleep apnea Adjustment disorder, unspecified GERD (gastroesophageal reflux disease) Asthma Bleeding hemorrhoids Irritable bowel syndrome Chronic constipation Admission for repair of scarred tissue Surgical History Hx of laparoscopic partial gastrectomy [place] teeth extracted Hx of breast reduction, elective Hx of hemorrhoidectomy History of arthroscopy of both knees Hx of appendectomy H/O eye surgery H/O colonoscopy History of esophagogastroduodenoscopy (EGD) H/O: hysterectomy Family History Father Diabetes Brother Heart attack Paternal Grandmother Cancer Maternal Grandmother Cancer Social History Household Members: Spouse Housing: House Are you a primary medicare specialist to a significant other at home: Yes Do you presently have visiting nurse or other home services: No Alcohol intake: never Patient Tobacco Use Status: Never used Tobacco Second Hand Smoke Exposure: No service: No Current occupational status: employed [employer] Const Denies fever(s), Denies headache(s) and Reports weight loss (72 lbs wt loss after gastric sleeve) Eyes Denies eye discharge and Denies irritation ENT Reports Normal hearing present, Denies dysphagia, Denies dizziness and Denies headache(s) Card Denies chest pain, Denies leg edema and Denies dyspnea on exertion Resp Denies cough, Denies dyspnea on exertion, Denies wheezing and Reports other (sleep apnea) GI Denies abdominal pain, Denies change in bowel habits, Reports constipation, Denies dysphagia and Denies heartburn Denies difficulty voiding and Denies dysuria Musc Denies back pain, Denies arthralgias and Reports other (arthritis) Skin/Breast Denies pruritus, Reports rash and Denies jaundice Neuro Reports Normal hearing present, Denies Abnormal speech present, Denies dizziness, Denies headache(s) and Denies seizure-like activity Psych Denies anxiety, Denies depression and Denies panic attacks Endo Denies cold intolerance, Denies flushing and Denies heat intolerance Petar/Lymph Denies easy bleeding and Denies easy bruising Aller/Immun Denies wheezing Physical Exam Vital Signs: Last Vital Signs Pulse 72 11/20/23 07:52 BP 87/47 L 11/20/23 07:52 BMI result Body Mass Index 25.8 Const General: healthy appearing and no acute distress Nutritional Appearance: overweight Orientation/consciousness: patient oriented x3 Limitations: no limitations HEENT Head: Yes normal to inspection Ears: hearing grossly normal bilaterally Eyes Sclerae: sclerae normal Pupils: Equal, round and reactive pupils present Neck Neck: Yes normal visual inspection Chest Chest palpation & inspection: normal inspection of the chest Resp Effort & Inspection: normal respiratory effort Auscultation: clear to auscultation bilaterally Cardio Palpation: normal PMI Rate: regular rate Rhythm: regular rhythm Heart sounds: S1 normal heart sound present, S2 normal heart sound present and no murmurs GI Palpation (GI): Soft to palpation, nontender and No hepatosplenomegaly present Auscultation: normal bowel sounds Rectal Exam - Female: deferred Skin General skin exam: no rashes or lesions noted Neuro General: patient oriented x3, gait normal and moves all extremities Cranial nerves: Yes Equal, round and reactive pupils present and Yes Normal hearing present Speech: No Abnormal speech present Psych Appearance: grossly normal Mental Status: mental status grossly normal Assessment & Plan Assessment & Plan (1) Chronic constipation: Code(s): K59.09 - Other constipation Category: Medical (2) S/P laparoscopic sleeve gastrectomy: Code(s): Z98.84 - Bariatric surgery status Category: Surgical (3) History of colon polyps: Comment: 04/23/19 patient had a colonoscopy which showed moderate sigmoid diverticulosis and moderate hemorrhoids. Four polyps were removed and 1 was a tubular adenoma. Patient is advised repeat colonoscopy in 5 years (due 03/2024) Code(s): Z86.010 - Personal history of colonic polyps Category: Medical (4) Bleeding hemorrhoids: Code(s): K64.9 - Unspecified hemorrhoids Category: Medical (5) Elevated LFTs: Code(s): R79.89 - Other specified abnormal findings of blood chemistry Category: Medical Plan 53 YF with Asthma, gastritis, NUD, colitis, obesity, Eczema, history of colon polyps, epigastric/RUQ pain which may be likely due to obstipation. Abdominal CT scan and HIDA scan were normal. Patient complains of oropharyngeal dysphagia/globus sensation. 07/30/19 BARIUM SWALLOW FROM [facility] [place] REVIEWED: Normal oral and pharyngeal phases with no laryngeal penetration or subglottic aspiration. Esophagus: Normal in contour and mucosal appearance. Tertiary contractions noted in the distal half of the esophagus with from transit of liquid barium into the stomach. No hiatal hernia. Despite the use of provocative maneuvers, no gastroesophageal reflux was appreciated during the study. A 13 mm barium tablet passed unimpeded into the stomach. No evidence of esophageal web, narrowing or outpouching. No esophageal obstruction. IMPRESSION: Mild dysmotility with no evidence of stricture. Patient notes improvement in symptoms of heartburn since she changed her diet and lost 28 lbs. She is taking lansoprazole and dicyclomine p.r.n. every few days. Patient notes resolution of rectal bleeding. 09/05/22 Patient had gastric sleeve surgery on 07/17/2022 Seen at [facility] in [place], [place] on 08/23/22 after she had abdominal pain, nausea and vomiting and constipation.? Denies rectal bleeding. CT scan showed colitis - likely ischemic colitis - medical records were requested. Pt advised to FU with GI and schedule an EGD and colon Treated with IVF, potassium and pain improved. Using suppositories and still not using the bathroom. Senna increased to three times a day, Colace twice a day, MOM 5 ml every night and suppositories Pt advised to continue with above regimen for a week and if no improvement in constipation, to start Linzess Pt advised to stop sucralfate (after checking with Dr Martin) 09/26/22 Pt advised to: 1. Increase Linzess to 290 mcg daily 2. Take Senna 2 capsules twice a day 3. Decrease Marshall to 1 tablet twice a day 01/02/23 Feeling better. Linzess is helping and has a BM daily. Taking Linzess and one Senna daily (if she takes two Senna then she is in the bathroom all morning) RUQ pain and nausea is better. Feels good since she lost weight. 11/20/23 Doing well - able to have a BM daily by taking Linzess and Senna Heartburn improved with dietary modification RUQ pain resolved after GB surgery in Jun, 2023 Pt will be scheduled for endoscopy for surveillance for colon polyps - sutab prep since pt is status post gastric sleeve. (Of note - pt had a colonoscopy in 2019 and one adenomatous polyp and three hyerplastic polyps were removed - FU colon was advised in 5 yrs) Liver panel and hepatitis serologies for FU of elevated LFTs. FU appt in 6 months. Orders: Orders Hepatitis C Antibody Today R79.89 - Other specified abnormal findings of blood chemistry Hepatitis B Core Antibody Today R79.89 - Other specified abnormal findings of blood chemistry Liver Panel Today R79.89 - Other specified abnormal findings of blood chemistry Hepatitis B Surface Antibody Today R79.89 - Other specified abnormal findings of blood chemistry Hepatitis B Surface Antigen Today R79.89 - Other specified abnormal findings of blood chemistry Medications: New sod sulf-pot chloride-mag sulf 1.479-0.188- 0.225 gram (Sutab) orally per package directions; PO PER PKG DIR Please follow colonoscopy prep instructions, thanks 2 days 24 tabs 0RF colon prep Changed From sennosides-docusate sodium 8.6-50 mg (Senexon-S) 2 tabs PO DAILY K59.09 - Other constipation To sennosides-docusate sodium 8.6-50 mg (Senexon-S) 2 tabs PO DAILY 90 days 180 tabs 1RF K59.09 - Other constipation Coding Level of Care Code Est Pt Level 4 (49367) Diagnoses Chronic constipation K59.09 S/P laparoscopic sleeve gastrectomy Z98.84 History of colon polyps Z86.010 Bleeding hemorrhoids K64.9 Elevated LFTs R79.89 Time Spent (min) 22
== END 2023-11-20 09:00 | disposition home or self-care (01) ==
PROVIDERS: PCP Student in an Organized Health Care Education/Training Program; Visit Provider Internal Medicine Gastroenterology
DX: K59.09 Other constipation (principal); Z98.84 Bariatric surgery status; Z86.010 Personal history of colon polyps; K64.9 Unspecified hemorrhoids; R79.89 Other specified abnormal findings of blood chemistry
CPT/HCPCS: 99214

== ENCOUNTER → 2023-11-20 07:43 | Outpatient (BNVA) | payer OTHER, SELFPAY | PROVIDERS: PCP Student in an Organized Health Care Education/Training Program; Visit Provider Internal Medicine Gastroenterology ==

== ENCOUNTER 2023-12-10 09:39 | Outpatient (REF) | payer OTHER, SELFPAY ==
[2023-12-10 11:14] LABS: Alanine Aminotransferase 18 U/L (0-31); Albumin Level 4.7 g/dL (3.5-5.0); Alkaline Phosphatase 98 U/L (39-117); Aspartate Amino Transferase 24 U/L (5-31); Bilirubin Direct 0.2 mg/dL (0.0-0.5); Bilirubin Total 0.5 mg/dL (0.0-1.0); Total Protein 8.2 g/dL (6.5-8.0)
[2023-12-10 11:28] LABS: HBS Num1 483.64 mIU/mL (0-7.99); HBc Num1 0.12 S/CO (0.00-0.79); HBsAGNum1 0.33 S/CO (0.00-0.99); Hepatitis B Core Antibody Nonreactive (Nonreactive); Hepatitis B Surface Antigen Negative (Negative); ~HepC Num1 0.09 S/CO (0.00-0.79); ~Hepatitis B Surface Antibody REACTIVE (Nonreactive); ~Hepatitis C Antibody Nonreactive (Nonreactive)
== END 2023-12-10 09:40 | disposition home or self-care (01) ==
LOC: HO.LAB 09:39
PROVIDERS: PCP Student in an Organized Health Care Education/Training Program; Visit Provider Internal Medicine Gastroenterology
DX: R79.89 Other specified abnormal findings of blood chemistry (principal)
CPT/HCPCS: 36415; 80076; 86704; 86706; 86803; 87340

== ENCOUNTER 2024-04-08 12:50 | Outpatient (AMB) | payer OTHER, SELFPAY ==
--- NOTE | 2024-04-08 12:56 | A.OFFVIS_ITS ---
VS Expanded 04/08/24 13:03 BP 114/66 Blood Pressure Location Rt brachial Blood Pressure Position Sitting Pulse 84 Pulse Source Pulse Oximeter Temp 97.0 F Temperature Source Temporal Artery Scan Pulse Oximetry 98 Oxygen Delivery Method Room Air Height 5 ft Weight 136 lb 3.2 oz BMI 26.6 Body Fat % 32.6 Body Fat Mass 44.4 Fat Free Mass 91.8 Visceral Fat Rating 7.0 Body Water % 47.8 Body Water Mass 65.0 Muscle Mass/Score 87.0 Basal Metabolic Rate/Score 1,250 Intake Visit Reasons: (OV) PO LSG 07/17/22 Admissions Counselor Required: No Allergies aspirin [ASPIRIN] Allergy (Severe, Verified 04/08/24 13:01) HIVES Fish Containing Products Allergy (Severe, Verified 04/08/24 13:01) HIVES/DYSPNEA oxycodone [From PERCOCET] Allergy (Severe, Verified 04/08/24 13:01) PALPITATIONS/HIVES pumpkin Allergy (Severe, Verified 04/08/24 13:01) THROAT SWELLING squash Allergy (Severe, Verified 04/08/24 13:01) THROAT SWELLING Zucchini Allergy (Mild, Uncoded 12/30/22 09:59) Hives, Dysphagia Medication List - Last Reconciled 04/08/24 by BHARAT Ramirez albuterol sulfate 90 mcg/actuation 2 puffs inhalation Q6H PRN buspirone 5 mg PO TID gabapentin 100 mg PO DAILY hydrocortisone 2.5% appl topical hydroxyzine HCl 10 mg PO QID PRN linaclotide (Linzess) 290 mcg PO QAM 90 days sennosides-docusate sodium 8.6-50 mg (Senexon-S) 2 tabs PO DAILY 90 days triamcinolone acetonide 0.025% appl topical HPI Comments Details: This?a?53?yo female who is s/p LSG without hiatal hernia repair on?07/15/[address] Martin. Presents for 1 year 9 month post op visit. Weight today is 136.2 pounds, with a BMI of 26.6.? There has been a 57.6 pound weight loss,(initial weight 193.8 pounds) since starting the program on 02/27/22 reflecting a 29.7% total body weight loss and a weight loss of 30.9 pounds since surgery (operative weight 167.1 pounds) reflecting a 18.4% TBWL since surgery.? States she feels great, not winded when going up steps, has significantly improved energy levels and she is no longer using her CPAP machine and her states she no longer snores. She additionally underwent a laparoscopic cholecystectomy by Dr. Middleton on 05/21/2023 for symptomatic cholelithiasis. She has had to care for her dying sister in law. She also may have to care for her 5 grandkids, court is 04/15/24. Present meal plan includes: 2 shakes Celebrate 4 in 1, w unsweetened almond milk 2 scoops each, 8-10 am, 1- 3 pm 6 forks protein 6 forks veg, 6 pm Drinking 64 oz water ? Exercise routine includes: [facility] Cardio classes 45-60 min, daily [facility] Medical History Arthritis Anxiety Sleep apnea Adjustment disorder, unspecified GERD (gastroesophageal reflux disease) Asthma Bleeding hemorrhoids Irritable bowel syndrome Chronic constipation Admission for repair of scarred tissue Surgical History Hx of laparoscopic partial gastrectomy [place] teeth extracted Hx of breast reduction, elective Hx of hemorrhoidectomy History of arthroscopy of both knees Hx of appendectomy H/O eye surgery H/O colonoscopy History of esophagogastroduodenoscopy (EGD) H/O: hysterectomy Family History Father Diabetes Brother Heart attack Paternal Grandmother Cancer Maternal Grandmother Cancer Social History Household Members: Spouse Housing: House Are you a primary rn complex care to a significant other at home: Yes Do you presently have visiting nurse or other home services: No Alcohol intake: never Patient Tobacco Use Status: Never used Tobacco Second Hand Smoke Exposure: No service: No Current occupational status: employed Physical Exam Const General: healthy appearing and no acute distress Resp Effort & Inspection: normal respiratory effort Auscultation: clear to auscultation bilaterally Cardio Rate: regular rate Rhythm: regular rhythm GI Auscultation: normal bowel sounds Extrem General: Yes normal to inspection Assessment & Plan Assessment & Plan (1) S/P laparoscopic sleeve gastrectomy: Code(s): Z98.84 - Bariatric surgery status Category: Surgical Plan: Patient has been under significant amount of stress lately. Her daughter is involved in a court hearing and the patient may need to take care of her 5 kids. She has been also having to care for her [id number] who is dying of cancer. As a result she has been unable to go to the gym as much as she wishes. Additionally, she has not had time to get the protein shakes. She will obtain them today. She will resume her meal plan as listed above and I did encourage her to try to make time for herself to be able to go to the gym. She will additionally incorporate yoga 1-2 times per week. We will have her return to the office in 3 months for her 2 year follow-up. Obtain labs at that time. Encouraged to text weight is weekly and with any questions or concerns.
--- OUTSIDE RECORDS SUMMARY | 2024-04-08 12:56 | XMS_ITS | Clinical Summary ---
Author Organization [address] Address [address] [place] [address] Phone Care Team Providers Care Producer Name Role Phone José Davis MD Primary Care Provider Allergies Active Allergy Reactions Criticality Noted Date Comments Aspirin Hives High 08/23/2022 Nsaids (Non-Steroidal Anti-Inflammatory Drug) Other (See Comments) Medium 08/23/2022 D/t gastric bypass Medications ondansetron (ZOFRAN) 4 mg tablet Take 1 tablet (4 mg total) by mouth every 6 (six) hours as needed for nausea. Active cholecalciferol , vitamin D3, 125 mcg (5,000 unit) capsule Take 1 capsule (5,000 Units total) by mouth daily. 07/01/2022 Active pantoprazole (PROTONIX) 40 mg tablet Take 1 tablet (40 mg total) by mouth every morning. 07/08/2022 Active SENEXON-S 8.6-50 mg tablet Take 2 tablets by mouth at bedtime. 07/09/2022 Active sucralfate (CARAFATE) 100 mg/mL suspension Take 10 mLs (1 g total) by mouth 2 (two) times daily. 08/22/2022 Active trospium XR (SANCTURA XR) 60 mg 24 hr capsule Take 1 capsule (60 mg total) by mouth daily. 04/29/2022 Active Active Problems Problem Noted Date Diagnosed Date Constipation 08/27/2022 Generalized abdominal pain 08/27/2022 Intractable nausea and vomiting 08/27/2022 Overview (08/27/2022): Mostly nausea Colitis 08/23/2022 Social History Tobacco Use Types Packs/Day Years Used Date Smoking Tobacco: Never Tobacco Cessation:Counseling Given: Not Answered Alcohol Use Standard Drinks/Week Comments Not Currently 0 (1 standard drink = 0.6 oz pur e alcohol) AUDIT-C Answer Date Recorded Q1: How often do you have a drink containing alcohol? Never 08/23/2022 Q2: How many drinks containi ng alcohol do you have on a typical day when you are drinking? Patient does not drink Q3: How often do you have si x or more drinks on one occasion? Never 08/23/2022 Overall Financial Resource Strain (CARDIA) Answe r Date Recorded How hard is it for you to pa y for the very basics like food, housing, medical care, and heating? Patient declined 08/23/2022 PHQ-2 Answer Date Recorded PHQ-2 Total Score 0 08/23/2022 Hunger Vital Sign Answer Date Recorded Within the past 12 months, y ou worried that your food would run out before you got the money to buy more. Patient declined Within the past 12 months, t he food you bought just didn't last and you didn't have money to get more. Patient declined PRAPARE - Transportation Answer Date Re corded In the past 12 months, has l ack of transportation kept you from medical appointments or from getting medications? Patient declined 08/23/2022 In the past 12 months, has l ack of transportation kept you from meetings, work, or from getting things needed for daily living? Patient declined 08/23/2022 Housing Stability Answer Date Recorded Housing Stability I have a steady place to live 08/23/2022 Interpersonal Safety Answer Date Record ed Is there anyone in your life that is hurting or threatening you in anyway? Not on file 08/23/2022 Physical Indicators of Abuse No evidence of phys ical abuse 08/23/2022 Comments Unknown Sex and Gender Information Value Date Recorded Sex Assigned at Not on file Legal Sex Female 4:40 AM EDT Gender Identity Not on file Sexual Orientation Not on file Last Filed Vital Signs Vital Sign Reading Time Taken Comments Blood Pressure 104/63 08/27/2022 1:55 PM EDT Pulse 74 08/27/2022 1:55 PM EDT Temperature 36.6 ??C (97.9 ??F) 08/27/2022 1:55 PM ED T Respiratory Rate 18 08/27/2022 1:55 PM EDT Oxygen Saturation 98% 08/27/2022 1:55 PM EDT Inhaled Oxygen Concentration - - Weight 72.4 kg (159 lb 9.8 oz) 08/23/2022 9:20 A M EDT Height 152.4 cm (5') 08/23/2022 9:20 AM EDT Body Mass Index 31.17 08/23/2022 9:20 AM EDT Plan of Treatment Health Maintenance Due Date Last Done Comments HIV screening 05/07/1983 Hepatitis C screening 1988 Cervical cancer screening 05/07/1991 Breast cancer screening 2010 Lipid disorder screening 2010 Colon cancer screening, Colonoscopy 05/07/2015 Shingles vaccine (Shingrix) (1 of 2 - Shingrix (RZV) 2 Dose Standard Series) 2020 Influenza vaccine 09/25/2023 03/01/2022, , 03/02/2019, Additional history exists Covid-19 vaccine series ( season) 2023 04/13/2020, 03/16/2020 Diabetes screening 08/26/2025 08/26/2022, 0 08/25/2022, 08/24/2022, Additional history exists Tetanus adult (Td q 10,TDAP once) 01/30/2026 01/31/2016, 05/12/2002 RSV Discussion (1 - 1-dose 75+ series) 2045 Meningococcal Vaccine Aged Out No ed armin eligible based on patient's age to complete this topic Pneumococcal Vaccine Aged Out No long er eligible based on patient's age to complete this topic Procedures Procedure Name Priority Date/Time Associated Diagnosis Comments BASIC METABOLIC PANEL Routine 08/26/2022 6:35 AM EDT from Last 3 Months or Most Recently Relevant to Health Maintenance Results * (ABNORMAL) Basic metabolic panel (08/26/2022 6:35 AM EDT) [facility] Glucose 77 65 - 110 mg/dL 08/26/2022 7:28 AM EDT [facility] Comment: Non-fasting: ??65-110 mg/dL Fasting (minimum 6 hrs): ??65-99 mg/dL BUN 11 7 - 18 mg/dL 08/26/2022 7:28 AM EDT [facility] Creatinine 0.58 0.55 - 1.02 mg/dL 08/26/2022 7:28 AM EDT [facility] Sodium 139 136 - 145 mmol/L 08/26/2022 7:28 AM T [facility] Potassium 3.4(L) 3.5 - 5.1 mmol/L 08/26/2022 7:28 AM T [facility] Chloride 104 98 - 107 mmol/L 08/26/2022 7:28 AM [facility] CO2 24 21 - 32 mmol/L 08/26/2022 7:28 AM T [facility] Anion Gap 11 5 - 15 mmol/L 08/26/2022 7:28 AM T [facility] Calcium 9.5 8.5 - 10.1 mg/dL 08/26/2022 7:28 AM T [facility] eGFR (Creatinine) >60 >=60 mL/min/1.7 3m2 08/26/2022 7:28 AM EDT [facility] Comment: Values < 60 mL/min/1.73 m2 may indicate CKD if present for more than three months AND creatinine is at steady state. The eGFR provides a rough estimate of kidney function. On 10/09/21 all [facility] Clinical Labs and Epic began using a [id number] formula for estimating GFR called CKD-EPI Creatinine 2020. This equation reports eGFR based on creatinine, patient age, clinical sex, and is standardized to a body surface area of 1.73 m2. For the same creatinine, this new race-free eGFR will be lower than prior reported Black eGFR results and higher than prior Non-Black eGFR results. For further guidance, please refer to the CKD: Adult Assistant Athletic Trainer Signature pathway. Blood Venipuncture / Unknown 08/26/2022 6:35 AM EDT 08/26/2022 6:53 AM EDT [facility] [place] [facility] BLOOD ORDERABLES F inal Result L + M [facility] [address] [place] [address] from Last 3 Months or Most Recently Relevant to Health Maintenance Insurance Protein Bar on file Protein Bar on file Protein Bar on file Advance Directives * Full Code (Latest Code Status on File) Date Activated Date Inactivated Comments 08/23/2022 9:19 AM 08/27/2022 11:53 PM Question Answer Comments With Whom was the Code Status Discussed? Patient Care Teams Producer Relationship Specialty Start Date End Date José Davis MD [address] [place] [address] PCP - General Internal Medicine 08/23/22
--- OUTSIDE RECORDS SUMMARY | 2024-04-08 12:56 | XMS_ITS ---
Author Organization [facility] Address [address] [address] Care Team Providers Care Licensed Physical Therapist Name Role Phone CAITIE SLOAN Primary Care Provider Kalyani Ellsworth Unavailable [phone] Allergies Allergen (clinical drug ingredient) Drug/Non Drug Allergy documented on EMR Reaction Allergy Type Onset Date Status aspirin ASPIRIN Skin Rash Drug Allergy Active Results Component Value Reference Range Notes Urinalysis Reviewed date:01/08/2024 12:51:11 PM Interpretation: Performing Lab: Notes/Report: PH 5.0 PROTEIN Neg GLUCOSE Neg BLOOD Trace REASON FOR VISIT Annual FREELANCE INTERPRETER/TRANSLATOR Physical, Annual FREELANCE INTERPRETER/TRANSLATOR Physical 50-59* Medications Medication SIG (Take, Route, Frequency, Duration) Notes Start Date End Date Status Albuterol Active Senna - as directed Orally A ctive Triamcinolone Acetonide 0.025 % APPLY TOPICALLY 2 TIMES A DAY TO AFFECTED AREA FOR 14 DAYS. DO NOT USE LONGER THAN 14 DAYS IN A ROW External for 30 Days Active Linzess 290 MCG TAKE 1 CAPSULE BY [facility] EVERY MORNING Oral for 30 Active Social History Tobacco Use: Social History Observation Description Date Details (start date - stop date) Never Smoker NA - NA Sexual History Question Answer Notes Had sex in the past 12 months (vaginal, oral, or anal)? Yes with Men only Prevention strategies discussed: Other AUDIT-C (Standard) Question Answer Notes Did you have a drink containing alcohol in the p ast year? No Points 0 Interpretation Negative Tobacco Control (Standard) Question Answer Notes Tobacco use: Nonsmoker Problems Problem Type SNOMED Code ICD Code Onset Dates Problem Status W/U Status Risk Notes Problem Menopause (942463816) Menopausal and female climacteric states (N95.1) Active confirmed Vital Signs Temperature 97.7 degrees Fahrenheit 01/08/20 24 Blood pressure systolic 100 mm Hg 01/08/20 24 Blood pressure diastolic 68 mm Hg 024 Height 60 in 01/08/2024 Weight 138 lbs 01/08/2024 BMI 26.95 kg/m2 01/08/2024 Encounters Encounter Location Date Provider Diagnosis [address] [place] [address] 01/08/2024 Kalyani Colby Encounter for gynecological examination (general) (routine) without abnormal findings Z01.419 ; Encounter for screening mammogram for malignant neoplasm of breast Z12.31 ; Menopausal and female climacteric states N95.1 ; Personal history of cervical dysplasia Z87.410 and Family history of malignant neoplasm of breast Z80.3 Assessments Encounter Date Diagnosis (ICD Code) Assessment Notes Treatment Notes Treatment Clinical Notes Section Notes 01/08/2024 Encounter for gynecological examination (general) (routine) without abnormal findings (ICD-10 - Z01.419) NO PAP TEST, DUE IN 2025. 01/08/2024 Encounter for screening mammogram for malignant neoplasm of breast (ICD-10 - Z12.31) REGULAR MAMMOGRAMS AND SBE'S WERE RECOMMENDED. 01/08/2024 Menopausal and female climacteric states (ICD-10 - N95.1) DISCUSSED MENOPAUSE AND SYMPTOMS ASSOCIATED WITH THIS. ESTROVEN FOR HOT FLASHES. CALL IF NOT BETTER. 01/08/2024 Personal history of cervical dysplasia (ICD-10 - Z87.410) DISCUSSED PREVIOUS BRII. WILL REPEAT PAP TESTS REGULARLY UNTIL 25 YEARS AFTER TX. REPEAT PAP IN 2025. 01/08/2024 Family history of malignant neoplasm of breast (ICD-10 - Z80.3) PAT'S AFFECTED SISTER MAY HAVE HAD GENETIC STUDIES DONE IN [place]. PAT WILL FIND OUT. IF NOT, PAT MAY BE A CANDIDATE FOR GENETIC TESTING. Plan Of Treatment Treatment Notes Assessment Notes Encounter for gynecological examination (general) (routine) without abnormal findings NO PAP TEST, DUE IN 2025. Encounter for screening mamm ogram for malignant neoplasm of breast REGULAR MAMMOGRAMS AND SBE'S WERE RECOMMENDED. Menopausal and female climacteric states DISCUSSED MENOPAUSE AND SYMPTOMS ASSOCIATED WITH THIS. ESTROVEN FOR HOT FLASHES. CALL IF NOT BETTER. Personal history of cervical dysplasia DISCUSSED PREVIOUS BRII. WILL REPEAT PAP TESTS REGULARLY UNTIL 25 YEARS AFTER TX. REPEAT PAP IN 2025. Family history of malignant neoplasm of breast PAT'S AFFECTED SISTER MAY HAVE HAD GENETIC STUDIES DONE IN [place]. PAT WILL FIND OUT. IF NOT, PAT MAY BE A CANDIDATE FOR GENETIC TESTING. Pending Test Test Name Order Date MM Digital Mammo Screening 01/08/2024 Next Appt Details Follow Up: 1 Year, Reason: Provider Name:Kalyani brooks, 01/13/2025 08:00:00 AM, [address], [address], [place], [address], Progress Notes * CLIFFORD LAECHDOB:[birth year] (53 yo F)Acc No.[id number]:01/08/2024 PROGRESS NOTES Patient:?CLIFFORD LEACH Appointment Provider:?Kalyani brooks M.D. :1970???Age:53 Y???Sex:Female D ate:01/08/2024 Address:[address] [place], [place] [id number] Pcp:BHARAT GARRETT Subjective: * Chief Complaints: * ???Annual FREELANCE INTERPRETER/TRANSLATOR PhysicalAnnual FREELANCE INTERPRETER/TRANSLATOR Physical 50-59* * HPI: ???New/Follow-up Patient Consult:? S/P [facility]H IN 2006 FOR MENORRHAGIA AND CERVICAL DYSPLASIA.? SHE STARTED TO HAVE HOT FLASHES AND NIGHT SWEATS JUST RECENTLY.? ? SHE DENIES OTHER POST MENOPAUSAL SYMPTOMS. SHE UNDERWENT GASTRIC BYPASS SURFERY IN 2022 AND LOST ABOUT 70 LBS.? SHE HAS KEPT THE WEIGHT OFF. A LEFT OVARIAN CYST WAS NOTED IN 2021 BUT THIS HAS RESOLVED. HEMATURIA WORK UP IN 2018 WAS NEGATIVE. HER OLDER SISTER NAZANIN IS 60 YEARS OLD,??UNDERWENT DOUBLE MASTECTOMY IN [place] THIS MAY FOR BREAST CA.? ?A MATERNA COUSIN ALSO HAD BREAST CA.? A MATERNAL GRAND AUNT HAD UTERINE CA.? SHE WILL FIND OUT IF HER SISTER HAD GENETIC STUDIES DONE. HER LAST MAMMOGRAM DONE IN JULY 2021 SHOWED BREASTS ARE NOT DENSE AND WAS NORMAL.? SHE HAS ANOTHER MAMMOGRAM APPT THIS MONTH. HER LAST PAP TEST IN 2023 WAS NEGATIVE AND HPV NEGATIVE. SHE HAD A COLONOSCOPY DONE IN 2020. ???Annual:? Patient presents for annual exam, ages 50-59. ?General Health Maintenance:?Current breast complaints:?no breast pain, mass, discharge, or skin changes ?Urinary problems:?patient reports no urinary health problems or bowel health problems ?Calcium intake:?takes adequate calcium via diet and supplementation ?Significant FREELANCE INTERPRETER/TRANSLATOR problems:?no significant handyman symptoms or problems * ROS:?general:?no?chest pain.?no?palpitations.?no?headache.?no?cough.?no?shortness of breath.?no?fever.?no?unexplained weight loss.?no?nausea/vomiting.?no?change in bowel movements.?no blood in stool.?no?genitourinary complaints.?no?skin complaints.? 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 * Hamper Maker History:?/ Para?4/3.?Sexual activity?currently sexually active, with men.?Last Pap Smear:?12/27/22 NIL, NEG HPV, 03/27/17 NIL, NEG HPV, 08/2012 neg, 05/2006, neg, NEG HRHPV.?Mammogram:?07/30/21 < 50% density, 2016, normal.?Abnormal Pap Smear:?HGSIL- BRII 3 or CIS, treated with LEEP.?LMP and menses?hysterectomy.?History of STD's:?Human Papilloma Virus (HPV).? Control:?hysterectomy.?Hysterectomy:?[facility].?Colonoscopy?yes 2016.? * OB History:?Total pregnancies?4.?Total living children?3.?NVD?3.?Miscarriage(s)?1.? * Surgical History:?Hysterecto my 2007Appendectomy 1986Breast Reduction 1994Bilateral Knee - Meniscus Colposcopy Leep Colonoscopy Gastric Sleeve 07/17/22Cholecystectomy * Hospitalization/Major Diagno stic Procedure:?3 Vaginal Deliveries See Surgical Hx * Family History:?Mother: goldie salcido?Father: alive, Type II DM.? * Social History:?Tobacco Use:?Tobacco Control (Standard)?Tobacco use:?Nonsmoker ???Sexual History:?Sexual History?Had sex in the past 12 months (vaginal, oral, or anal)??Yes ?with?Men only ?Prevention strategies discussed:?Other ?Details of Sexual History?Are you sexually active??Yes ???Drugs/Alcohol:?Drugs?Have you used drugs other than those for medical reasons in the past 12 months??No ???Drug/Alcohol:?AUDIT-C (Standard)?Did you have a drink containing alcohol in the past year??No ?Points?0 ?Interpretation?Negative * Medications:?TakingSenna - T ablet as directed Orally Albuterol Linzess 290 MCG Capsule TAKE 1 CAPSULE BY MOUTH EVERY MORNING Oral Triamcinolone Acetonide 0.025 % Cream APPLY TOPICALLY 2 TIMES A DAY TO AFFECTED AREA FOR 14 DAYS. DO NOT USE LONGER THAN 14 DAYS IN A ROW External Medication List reviewed and reconciled with the patientTaking Senna - Tablet as directed Orally Taking Albuterol Taking Linzess 290 MCG Capsule TAKE 1 CAPSULE BY MOUTH EVERY MORNING Oral Taking Triamcinolone Acetonide 0.025 % Cream APPLY TOPICALLY 2 TIMES A DAY TO AFFECTED AREA FOR 14 DAYS. DO NOT USE LONGER THAN 14 DAYS IN A ROW External Medication List reviewed and reconciled with the patient * Allergies:?ASPIRIN: Skin Giancarlo h - Allergyno[Allergies Verified] Objective: * Vitals:?Ht: 60 in, Wt:138lbs , BMI:26.95Index, BP:100/68mm Hg, Temp:97.7F. * Examination: ???General Exam: ?CONSTITUTIONAL:?NECK/THYROID:?RESPIRATORY:?Auscultation: clear to auscultation bilaterally, Respiratory Effort: normal.?CARDIOVASCULAR:?Auscultation: regular rate and rhythm.?BREAST, Right:?BREAST, Left:?GASTROINTESTINAL:?MUSCULOSKELETAL:?SKIN:?NEURO/PSYCH:?Genitourinary: ?EXTERNAL GENITALIA:?VAGINA:?BLADDER:?URETHRA:?CERVIX:?UTERUS:?ADNEXA:?ANUS AND PERINEUM:? Assessment: * Assessment: 1.?Encounter for gynecologic al examination (general) (routine) without abnormal findings - Z01.419???2.?Encounter for screening mammogram for malignant neoplasm of breast - Z12.31???3.?Menopausal and female climacteric states - N95.1???4. Personal history of cervical dysplasia - Z87.410???5.?Family history of malignant neoplasm of breast - Z80.3??? Plan: * Treatment: ? Value Reference Range ?PH 5.0 * ?PROTEIN Neg * ?GLUCOSE Neg * ?BLOOD Trace * DMARILIN Up 01/08/2024 08:19:3 5 AM EST > Hx of Hematuria Notes: NO PAP TEST, DUE IN 2025.??2.?Encounter for screening mammogram for malignant neoplasm of breast?Imaging: MM Digital Mammo Screening Notes: REGULAR MAMMOGRAMS AND SBE'S WERE RECOMMENDED.??3.?Menopausal and female climacteric states? Notes: DISCUSSED MENOPAUSE AND SYMPTOMS ASSOCIATED WITH THIS. ESTROVEN FOR HOT FLASHES. CALL IF NOT BETTER.??4.?Personal history of cervical dysplasia? Notes: DISCUSSED PREVIOUS BRII. WILL REPEAT PAP TESTS REGULARLY UNTIL 25 YEARS AFTER TX. REPEAT PAP IN 2025.??5.?Family history of malignant neoplasm of breast? Notes: PAT'S AFFECTED SISTER MAY HAVE HAD GENETIC STUDIES DONE IN [place]. PAT WILL FIND OUT. IF NOT, PAT MAY BE A CANDIDATE FOR GENETIC TESTING.?? * Procedure Codes:? * Preventive Medicine:? ??YOUR PREVENTIVE WELLNESS PLAN:?Osteoporosis prevention?Calcium, D, strength training.?Breast Cancer Screening (Mammogram):?annually.?Cervical Cancer Screening (Pap Smear):?q 3 years with HPV screen.?Colorectal Cancer Screening:?q 10 years.? * Follow Up:?1 Year * Images: Billing Information: * Visit Code:? [id number] Preventive Care New Pt. Age 40-64. 07000 Preventive Care Est Pt. Age 40-64. * Procedure Codes:? * Sign off status: Completed true * Appointment Provider:?Kalyani Colby M.D. Date:?01/08/2024 Generated for Manish avery/Meggan/Monishaitting on:?04/08/2024 12:56 PM EST History and Physical Notes * HPI (History of Present Illness) Category Sub-Category Detail Notes Category Not es New/Follow-up Patient Consult S/P [facility] IN 2006 FOR MENORRHAGIA AND CERVICAL DYSPLASIA. SHE STARTED TO HAVE HOT FLASHES AND NIGHT SWEATS JUST RECENTLY. SHE DENIES OTHER POST MENOPAUSAL SYMPTOMS. SHE UNDERWENT GASTRIC BYPASS SURFERY IN 2022 AND LOST ABOUT 70 LBS. SHE HAS KEPT THE WEIGHT OFF. A LEFT OVARIAN CYST WAS NOTED IN 2021 BUT THIS HAS RESOLVED. HEMATURIA WORK UP IN 2018 WAS NEGATIVE. HER OLDER SISTER NAZANIN IS 60 YEARS OLD, UNDERWENT DOUBLE MASTECTOMY IN [place] THIS MAY FOR BREAST CA. A MATERNA COUSIN ALSO HAD BREAST CA. A MATERNAL GRAND AUNT HAD UTERINE CA. SHE WILL FIND OUT IF HER SISTER HAD GENETIC STUDIES DONE. HER LAST MAMMOGRAM DONE IN JULY 2021 SHOWED BREASTS ARE NOT DENSE AND WAS NORMAL. SHE HAS ANOTHER MAMMOGRAM APPT THIS MONTH. HER LAST PAP TEST IN 2022 WAS NEGATIVE AND HPV NEGATIVE. SHE HAD A COLONOSCOPY DONE IN 2020. Annual General Health Maintenance: Current breast complaints:: no breast pain, mass, discharge, or skin changes Urinary problems:: patient william krueger no urinary health problems or bowel health problems Calcium intake:: takes adequ ate calcium via diet and supplementation Significant FREELANCE INTERPRETER/TRANSLATOR problems:: n o significant handyman symptoms or problems Examination Category Sub-Category Detail Notes Category Not es General Exam CONSTITUTIONAL: General Appearan ce:: alert, in no acute distress, normal, well nourished NECK/THYROID: Thyroid:: normal size and shape Inspection/Palpation:: normal RESPIRATORY: Auscultation: clear to auscultation bilaterally, Respiratory Effort: normal CARDIOVASCULAR: Auscultation: regula r rate and rhythm GASTROINTESTINAL: Hernias:: no hernias present, no inguinal adenopathy Liver and Spleen:: normal Abdomen:: no masses, nontender, nondiste nded MUSCULOSKELETAL: Inspection/Palpation:: no clubb ing, cyanosis, or edema SKIN: Skin:: normal NEURO/PSYCH: Mood/Affect:: normal Orientation:: time , place, person BREAST, Right: Inspection/Palpation :: no discharge, no masses present, no nipple retraction, no skin changes, no skin dimpling, no tenderness, no lymphadenopathy, no axillary mass, no axillary tenderness BREAST, Left: Inspection/Palpation :: no discharge, no masses present, no nipple retraction, no skin changes, no skin dimpling, no tenderness, no lymphadenopathy, no axillary mass, no axillary tenderness Genitourinary EXTERNAL GENITALIA: External Genitalia:: nor mal, no lesions VAGINA: Vagina:: normal appearance, no a bnormal discharge, no lesions BLADDER: Bladder:: no mass, nontender URETHRA: Urethra:: no erythema or lesions present CERVIX: Cervix:: surgically absent UTERUS: Uterus:: surgically absent ADNEXA: Adnexa:: no masses, no tendernes s ANUS AND PERINEUM: Anus/Perineum:: visually norm al
--- OUTSIDE RECORDS SUMMARY | 2024-04-08 12:57 | XMS_ITS | Continuity of Care Document ---
Author Organization [facility] Adult Address [address] [place] [id number]- Care Team Providers Care Optometric Assistant Name Role Phone Vianney Plummer Primary Care Connor scott Encounter [facility] Date(s): 03/18/24 - 03/25/[address] [address]- Encounter Diagnosis Bacterial sinusitis(Discharge Diagnosis) - 03/18/24 Nonulcer dyspepsia(Discharge Diagnosis) - 03/18/24 Attending Physician: Not on Staff, Attending MD Encounter Type: Office Visit Allergies, Adverse Reactions, Alerts Substance Criticality Severity Reaction Reaction Severity Status aspirin hives Active narcotic analgesics Active traMADol hallucinations Activ e Percocet 5/325 palpitations Ac tive Fish hives Active Pollen Active Other Food Allergy pumpkin, zuchinni, squash Active Immunizations Given and Recorded Vaccine Date Status Refusal Reason influenza virus vaccine, inactivated 1 12/12/23 Gi jb influenza virus vaccine, inactivated 12/04/22 Give n influenza virus vaccine, inactivated 03/01/22 Give n influenza virus vaccine, inactivated 2 12/28/19 Gi jb influenza virus vaccine, inactivated 3 03/02/19 Gi jb influenza virus vaccine, inactivated 01/27/18 Give n influenza virus vaccine, inactivated 01/31/16 Give n influenza virus vaccine, inactivated 11/23/13 Give n influenza virus vaccine, inactivated 03/09/12 Give n zoster vaccine, inactivated 02/19/23 Recorded SARS-CoV-2(COVID-19)mRNA-LNP vac([id number]) 02/19/23 Recorded pneumococcal 20-valent conjugate vaccine 4 03/01/22 Given [id number] bivalent booster vax 11/15/21 Recorded SARS-CoV-2 (COVID-19) mRNA-1273 vaccine 04/13/20 R ecorded SARS-CoV-2 (COVID-19) mRNA-1273 vaccine 03/16/20 R ecorded pneumococcal 23-valent vaccine 06/04/17 Given tetanus/diphtheria/pertussis, acel(Tdap) 01/31/16 Given tetanus-diphtheria toxoids (Td) 05/12/02 Given 1Result Comment: [facility]# 13520-979-65 2Result Comment: [facility] 89878-332-84 3Result Comment: FL[facility] 93566-970-14 4Result Comment: [facility] 0609-3859-07 Medications Albuterol (Eqv-ProAir HFA) 90 mcg/inh inhalation aerosol 1 puffs, Inhalation, 4 times a day, PRN NEEDED FOR WHEEZING, # 8.5 each, 0 Refills, Maintenance,11/15/22 11:38:00 AM EDT, [facility], 30, INHALE 1 PUFF BY MOUTH 4 TIMES A DAY NEEDED FOR WHEEZING, 152, cm, 09/04/22 10:17:00 EDT, Height Start Date: 11/15/22 Status: Ordered Quantity: 8.5 Unit: each Repeat number: 1 busPIRone 5 mg oral tablet See Instructions, 1 tablet by mouth in the morning, 1 tablet by mouth in the afternoon, 2 tablets at bedtime., # 360 tablet, Refills 1, Tot. Refills 1, Maintenance, 03/18/24 1:11:00 PM EST, Instructions Replace Required Details, Route to Pharmacy Electronically, [facility]/pharmacy #[id number], 152, cm, 03/18/2512:06:00 EST, Height Start Date: 03/18/24 Status: Ordered Quantity: 360.0 Unit: tablet Repeat number: 2 doxycycline hyclate 100 mg oral capsule 1 capsule = 100 mg, By Mouth, 2 times a day, for 10 days, # 20 capsule, 0 Refills, Acute 03/28/24 1:18:00 PM EST, 03/18/24 1:18:00 PM EST, Capsule, [facility]/pharmacy #[id number], Partial fill upon patient request if the prescription is for a schedule II opioid drug., 152, cm, 03/18/24 13:06:00 EST, Height Start Date: 03/18/24 Stop Date: 03/28/24 Status: Ordered Quantity: 20.0 Unit: capsule Repeat number: 1 fluticasone CFC free 110 mcg/inh inhalation aerosol 2 puffs, Inhalation, 2 times a day, # 3 each, 3 Refills, Maintenance, 12/12/23 8:59:00 AM EDT, Aerosol, [facility]/pharmacy #[id number], 152, cm, 12/12/23 8:44:00 EDT, Height Start Date: 12/12/23 Status: Ordered Quantity: 3.0 Unit: each Repeat number: 4 gabapentin 100 mg oral capsule 100 mg, 1, capsule, By Mouth, Daily, # 30 capsule, Refills 1, Tot. Refills 1, Maintenance, :06:00 AM EDT, Route to Pharmacy Electronically, [facility]/pharmacy #[id number], Partial fill upon patient request if the prescription is for a schedule II opioid drug., 152, cm, 12/12/23 8:44:00 EDT, Height Start Date: 12/12/23 Status: Ordered Quantity: 30.0 Unit: capsule Repeat number: 2 hydrOXYzine hydrochloride 10 mg oral tablet 1 tablet, By Mouth, 4 times a day, PRN NEEDED FOR ITCHING, # 90 tablet, 1 Refills, Maintenance, 06/12/23 8:28:00 AM EDT, [facility]/pharmacy #[id number], 152, cm, 06/12/23 8:07:00 EDT, Height Start Date: 06/12/23 Status: Ordered Quantity: 90.0 Unit: tablet Repeat number: 2 Linzess 290 mcg oral capsule TAKE 1 CAPSULE BY MOUTH EVERY MORNING Start Date: 12/04/22 Status: Ordered Repeat number: 1 omeprazole 20 mg oral enteric coated capsule 1 capsule = 20 mg, By Mouth, Daily, PRN Other, as needed for heart burn, # 30 capsule, 0 Refills, Maintenance, 03/18/24 1:20:00 PM EST, EC Capsule, [facility]/pharmacy #[id number], Partial fill upon patient request if the prescription is for a schedule II opioid drug., 152, cm, 03/18/24 13:06:00 EST, Height Start Date: 03/18/24 Status: Ordered Quantity: 30.0 Unit: capsule Repeat number: 1 Senna Plus 50 mg-8.6 mg oral tablet 1 tablet, By Mouth, 2 times a day, 0 Refills, Maintenance, 03/02/19 2:15:00 PM EST Start Date: 03/02/19 Status: Ordered Repeat number: 1 Problem List Condition Confirmation Course Effective Dates Status Health St atus Informant Adjustment disorder with anxiety Confirmed Active Asthma Confirmed Active Dysplasia of cervix, high grade BRII 2 1 Confirmed 2005 Active ; Chronic urticaria Confirmed 02/2005 Active Constipation, chronic Confirmed Active Eczema Confirmed Active Fibromyalgia Confirmed Active History of adenomatous polyp of colon 2 Confirmed 09/22/16 Active S/P gastric sleeve procedure Confirmed Active Microscopic hematuria Confirmed 1999 Active Migraine Confirmed 2005 Active Nonulcer dyspepsia Confirmed 2003 Active Obsessive behavior Confirmed Active Obstructive sleep apnea (AH! 16.4, O2 85%) Confirmed 10/23/19 Active Overweight Confirmed Active Paresthesia Confirmed Active 1Status post hysterectomy 2tubular and serrated Diagnosis Diagnosis Type Effective Dates Health Status Cl inical Service Informant Bacterial sinusitis Discharge Diagnosis 03/18/24 Nonulcer dyspepsia Discharge Diagnosis 03/18/24 Vital Signs Most recent to oldest [Reference Range]: 1 Height 152 cm (03/18/24 1:06 PM) Weight 62.4 kg (03/18/24 1:06 PM) Oxygen Saturation [94-100 %] 96 % (03/18/24 1:06 PM) Pulse Rate [55-90 bpm] 101 bpm *H* (03/18/24 1:06 PM) Body Mass Index [18.5-24.99 kg/m2] 27.01 kg/m2 *H* (03/18/24 1:06 PM) Blood Pressure [90-138/55-84 mm Hg] 94/5 9mm Hg (03/18/24 1:06 PM) Temperature [96.8-100.4 DegF] 98.1 DegF (03/18/24 1:06 PM) Mode of Delivery (Oxygen) Room air (03/18/24 1:06 PM) Blood pressure sites Arm, left (03/18/24 1:06 PM) Temperature Route Oral (03/18/24 1:06 PM) Weight Obtained Via Standing scale (03/18/24 1:06 PM) Social History Social History Type Response Smoking Status Never smoker entered on: 05/21/13 Sex Sex Representation Female (finding) Note * Victor Manuel Ordonez: PERFORM Event Display: Patient Education/Instruction Authored Date: [id number] Ambulatory Adult Visit Summary [facility] [address] [place] [address] Name: CLIFFORD LEACH : 1970?? Visit: 03/18/2024 12:49?? Ambulatory Visit Instructions ?? Your Care Team Primary Care Provider Felipa NICHOLSON, Vianney Eisenberg? This Visit Provider Sweetie Wilson NP Your Diagnosis Bacterial sinusitis Nonulcer dyspepsia Other specified bacterial agents as the cause of diseases classified elsewhere Vitals Signs Temperature: 98.1 DegF Height: 152 cm Pulse Rate:??101 bpm??High Weight: 62.4 kg Systolic Blood Pressure: 94 mm Hg Body Mass Index:??27.01 kg/m2??High Diastolic Blood Pressure: 59 mm Hg Body surface area: 1.62 Oxygen Saturation: 96 % ?? What to do next Scheduled Follow-Up Appointments Friday 8:40 AM EDT ?? With: Felipa NICHOLSON, Vianney Eisenberg Where: [facility] [address] [place] [address]- Status: Pending Medications The list below reflects the information in our records and provided by you today along with any changes made during this visit. Please continue your medications until treatment is completed or stopped by your provider. If this is different from the information you have or there are other questions,please contact the prescribing provider. What How Much When Instructions New Doxycycline (doxycycline hyclate 100 mg oral capsule) 1 capsule Oral Twice a day Duration: 10 Days Pickup at [facility]/pharmacy #[id number] New Omeprazole (omeprazole 20 mg oral enteric coated capsule) 1 capsule Oral Daily as needed for Other as needed for heart burn ?? Pickup at [facility]/pharmacy #[id number] Unchanged Albuterol (Albuterol (Eqv-ProAir HFA) 90 mcg/ inh inhalation aerosol) 1 puff(s) Inhalation 4 times a day as needed for NEEDED FOR WHEEZING Unchanged BusPIRone (busPIRone 5 mg oral tablet) See instructions 1 tablet by mouth in the morning, 1 tablet by mouth in the afternoon, 2 tablets at bedtime. ?? Pickup at [facility]/pharmacy #[id number] Unchanged Docusate-Senna (Senna Plus 50 mg-8.6 mg oral tablet) 1 tab(s) Oral Twice a day Unchanged Fluticasone (fluticasone CFC free 110 mcg/ inh inhalation aerosol) 2 puff(s) Inhalation Twice a day Unchanged Gabapentin (gabapentin 100 mg oral capsule) 1 capsule Oral Daily Unchanged HydrOXYzine (hydrOXYzine hydrochloride 10 mg oral tablet) 1 tab(s) Oral 4 times a day as needed for NEEDED FOR ITCHING Unchanged linaclotide (Linzess 290 mcg oral capsule) TAKE 1 CAPSULE BY MOUTH EVERY MORNING ?? Pharmacy Information [facility]/pharmacy #[id number]: [address], [place] [id number] [phone] Medications and Immunizations Administered Medications Given During Visit No medications given during this visit.?? Allergies (NKA means No Known Allergies) Fish??(hives) Other Food Allergy??(pumpkin, zuchinni, squash) Percocet 5/325??(palpitations) Pollen aspirin??(hives) narcotic analgesics traMADol??(hallucinations) Common Emergency Awareness Tips IS IT A STROKE? Act FAST and Check for these signs: FACE Does the face look uneven? ARM Does one arm drift down? SPEECH Does their speech sound strange? TIME Call at any sign of stroke ?? Heart Attack Signs Chest discomfort: Most heart attacks involve discomfort in the center of the chest and lasts more than a few minutes, or goes away and comes back. It can feel like uncomfortable pressure, squeezing, fullness or pain. Discomfort in upper body: Symptoms can include pain or discomfort in one or both arms, back, neck, jaw or stomach. Shortness of breath: With or without discomfort. Other signs: Breaking out in a cold sweat, nausea, or lightheaded. Remember, MINUTES DO MATTER. If you experience any of these heart attack warning signs, call to get immediate medical attention! ?? Smoking can increase your chances of developing chronic health problems and can cause harmful effects to other family members in your house. If you smoke, you are strongly encouraged to quit. Please call [facility] Link at [phone] or [phone] ([phone]) or log in to [email or web address] for referrals to smoking cessation programs. ?? The National Suicide Prevention Hotline is available 16/09 if you or someone you know needs to find a reason to keep living. By calling 9-460-327-[employer] (4261) you'll be connected to a skilled, trained counselor at a crisis center in your area. [employer] [facility] You can view and manage your care through the patient portal or by using a health care sugey of your choosing. [employer] is a website that allows you to securely view your medical information including your hospital discharge summary, office visit summaries, medications and follow-up visits. You can also request appointments, renew medications, and request access to your medical information using a health care sugey of your choosing, or just ask a question. You can enroll at [email or web address] or register during your next office visit. [facility], in keeping with [facility] guidance, no longer requires face masks for staff, patientsor visitors in most situations. Similiar to time spent indoors at other locations, there is the chance that you were exposed to repiratory viruses during your time with us (such as flu or COVID-19). If you develop symptoms concerning for a viral respiratory infection, please seek testing (and treatment if indicated) from your medical provider or home test kit. ?? Disclaimer: The information provided is of a general nature and is intended to be used in conjunction with the recommendations and advice of your health care practitioner. Every effort has been made to ensure that the information provided is accurate and complete at the time it is provided to you however, as your needs change, or, as new information becomes available, different or additional instructions may be required. ?? If you have questions, please consult with your primary care provider or pharmacist, as appropriate. This information is not intended to serve as substitution for assessment and evaluation by a qualified health care provider. If you do not have a primary care provider, you may find a [facility] [employer] provider by calling [facility] at [phone]. Patient Care team information Care Team Personnel Name: Felipa NICHOLSON, Vianney Eisenberg Position: S PCO Associate Professional Member Role: PCP Address: [address] [place] [address]. [address] [place] [address]- Telecom: Care Team Related Persons Name: MIKE LEACH Insurance Providers Guarantor name: CLIFFORD LEACH Health Plan Information #: 1 Payer: [facility] Member Number: [id number] Policy Number: NA Group Number: [id number] Health Plan Information #: 2 Payer: [facility] Member Number: [id number] Policy Number: NA Group Number: NA
--- OUTSIDE RECORDS SUMMARY | 2024-04-08 12:57 | XMS_ITS ---
Author Name [facility] Organization Unknown Results Test Name/Text Value Interpretation Date Range Source HCO3 SerPl-sCnc 24mmol/L Normal [id number] 21 - 32 Y [facility] Glucose SerPl-mCnc 77mg/dL Normal [id number] 65 - 110 [facility] eGFRcr SerPlBld CKD-EPI 1 60mL/min/1.73m2 Normal [id number] - [facility] Creat SerPl-mCnc 0.58mg/dL Normal [id number] 0.55 - 1.0 2 [facility] Calcium SerPl-mCnc 9.5mg/dL Normal [id number] 8.5 - 10 .1 [facility] Sodium SerPl-sCnc 139mmol/L Normal [id number] 136 - 145 [facility] BUN SerPl-mCnc 11mg/dL Normal [id number] 7 - 18 [facility] Anion Gap3 SerPl-sCnc 11mmol/L Normal [id number] 5 - 15 [facility] Chloride SerPl-sCnc 104mmol/L Normal [id number] 98 - 10 7 [facility] Potassium SerPl-sCnc 3.4mmol/L Below low normal [id number] 3.5 - 5.1 [facility] MCV RBC Auto 91.6fL Normal [id number] 80 - 100 [facility] Lymphocytes # Bld Auto 2.82i8708/uL Normal [id number] 0.6 - 3.7 [facility] WBC # Bld Auto 11.3s2393/uL Above high normal [id number] 4 - 11 [facility] Monocytes/leuk NFr Bld Auto 5.5% Normal [id number] 4 - 12 [facility] Imm Granulocytes/leuk NFr Bld Auto 0.4% Normal [id number] 0 - 1 [facility] Platelet # Bld Auto 733b1162/uL Normal [id number] 150 - 420 [facility] PMV Bld Auto 12.3fL Above high normal [id number] 8 - 12 [facility] MCH RBC Qn Auto 30.4pg Normal [id number] 27 - 33 Y [facility] Eosinophil # Bld Auto 0.59e0677/uL Normal [id number] 0 - 1 [facility] Neutrophils/leuk NFr Bld Auto 68.4% Normal [id number] 39 - 72 [facility] Imm Granulocytes # Bld Auto 0.25o4111/uL Normal [id number] 0 - 0.3 [facility] RBC # Bld Auto 3.82M/uL Below low normal [id number] 4 - 6 [facility] Monocytes # Bld Auto 0.87w6887/uL Normal [id number] 0 - 1 [facility] RDW RBC Auto-Rto 12.6% Normal [id number] 11 - 15 [facility] Lymphocytes/leuk NFr Bld Auto 22.5% Normal [id number] 17 - 50 [facility] Eosinophil/leuk NFr Bld Auto 2.8% Normal [id number] 0 - 5 [facility] nRBC/100 WBC Bld Auto-Rto 0% Normal [id number] 0 - 1 [facility] Hct VFr Bld Auto 35% Normal [id number] 35 - 45 [facility] BKR WAM ABSOLUTE NEUTROPHIL COUNT. 7.73h6287/uL Above high normal [id number] 2 - 7.6 [facility] BKR WAM BASOPHIL ABSOLUTE COUNT. 0.18b8404/uL Normal [id number] 0 - 1 [facility] Hgb Bld-mCnc 11.6g/dL Below low normal [id number] 11.7 - 15.5 [facility] MCHC RBC Auto-mCnc 33.1g/dL Normal [id number] 31 - 36 [facility] Basophils/leuk NFr Bld Auto 0.4% Normal [id number] 0 - 1.4 [facility] HCO3 SerPl-sCnc 24mmol/L Normal [id number] 21 - 32 Y [facility] Glucose SerPl-mCnc 83mg/dL Normal [id number] 65 - 110 [facility] eGFRcr SerPlBld CKD-EPI 2020 60mL/min/1.73m2 Normal [id number] - [facility] Creat SerPl-mCnc 0.69mg/dL Normal [id number] 0.55 - 1.0 2 [facility] Calcium SerPl-mCnc 8.8mg/dL Normal [id number] 8.5 - 10 .1 [facility] Sodium SerPl-sCnc 138mmol/L Normal [id number] 136 - 145 [facility] BUN SerPl-mCnc 9mg/dL Normal [id number] 7 - 18 [facility] Anion Gap3 SerPl-sCnc 9mmol/L Normal [id number] 5 - 15 [facility] Chloride SerPl-sCnc 105mmol/L Normal [id number] 98 - 10 7 [facility] Potassium SerPl-sCnc 3.6mmol/L Normal [id number] 3.5 - 5.1 [facility] MCV RBC Auto 91.7fL Normal [id number] 80 - 100 [facility] Lymphocytes # Bld Auto 2.34b9033/uL Normal [id number] 0.6 - 3.7 [facility] WBC # Bld Auto 15.1w7795/uL Above high normal [id number] 4 - 11 [facility] Monocytes/leuk NFr Bld Auto 6.4% Normal [id number] 4 - 12 [facility] Imm Granulocytes/leuk NFr Bld Auto 0.4% Normal [id number] 0 - 1 [facility] Platelet # Bld Auto 281w9755/uL Normal [id number] 150 - 420 [facility] PMV Bld Auto 12.4fL Above high normal [id number] 8 - 12 [facility] MCH RBC Qn Auto 30.2pg Normal [id number] 27 - 33 Y [facility] Eosinophil # Bld Auto 0.82f6521/uL Normal [id number] 0 - 1 [facility] Neutrophils/leuk NFr Bld Auto 75.1% Above high normal [id number] 39 - 72 [facility] Imm Granulocytes # Bld Auto 0.16n1316/uL Normal [id number] 0 - 0.3 [facility] RBC # Bld Auto 4.11M/uL Normal [id number] 4 - 6 [facility] Monocytes # Bld Auto 0.39r5635/uL Normal [id number] 0 - 1 [facility] RDW RBC Auto-Rto 12.4% Normal [id number] 11 - 15 [facility] Lymphocytes/leuk NFr Bld Auto 16.1% Below low normal [id number] 17 - 50 [facility] Eosinophil/leuk NFr Bld Auto 1.7% Normal [id number] 0 - 5 [facility] nRBC/100 WBC Bld Auto-Rto 0% Normal [id number] 0 - 1 [facility] Hct VFr Bld Auto 37.7% Normal [id number] 35 - 45 [facility] BKR WAM ABSOLUTE NEUTROPHIL COUNT. 11.42h1487/uL Above high normal [id number] 2 - 7.6 [facility] BKR WAM BASOPHIL ABSOLUTE COUNT. 0.17z9718/uL Normal [id number] 0 - 1 [facility] Hgb Bld-mCnc 12.4g/dL Normal [id number] 11.7 - 15.5 [facility] MCHC RBC Auto-mCnc 32.9g/dL Normal [id number] 31 - 36 [facility] Basophils/leuk NFr Bld Auto 0.3% Normal [id number] 0 - 1.4 [facility] HCO3 SerPl-sCnc 21mmol/L Normal [id number] 21 - 32 Y [facility] Glucose SerPl-mCnc 88mg/dL Normal [id number] 65 - 110 [facility] eGFRcr SerPlBld CKD-EPI 2021 60mL/min/1.73m2 Normal [id number] - [facility] Creat SerPl-mCnc 0.62mg/dL Normal [id number] 0.55 - 1.0 2 [facility] Calcium SerPl-mCnc 9.6mg/dL Normal [id number] 8.5 - 10 .1 [facility] Sodium SerPl-sCnc 134mmol/L Below low normal [id number] 13 6 - 145 [facility] BUN SerPl-mCnc 9mg/dL Normal [id number] 7 - 18 [facility] Anion Gap3 SerPl-sCnc 9mmol/L Normal [id number] 5 - 15 [facility] Chloride SerPl-sCnc 104mmol/L Normal [id number] 98 - 10 7 [facility] Potassium SerPl-sCnc 4.2mmol/L Normal [id number] 3.5 - 5.1 [facility] MCV RBC Auto 90.4fL Normal [id number] 80 - 100 [facility] Lymphocytes # Bld Auto 1.32e1282/uL Normal [id number] 0.6 - 3.7 [facility] WBC # Bld Auto 15.9q7158/uL Above high normal [id number] 4 - 11 [facility] Monocytes/leuk NFr Bld Auto 6.3% Normal [id number] 4 - 12 [facility] Imm Granulocytes/leuk NFr Bld Auto 0.5% Normal [id number] 0 - 1 [facility] Platelet # Bld Auto 916f7635/uL Normal [id number] 150 - 420 [facility] PMV Bld Auto 12.2fL Above high normal [id number] 8 - 12 [facility] MCH RBC Qn Auto 29.6pg Normal [id number] 27 - 33 Y [facility] Eosinophil # Bld Auto 0.00v1263/uL Normal [id number] 0 - 1 [facility] Neutrophils/leuk NFr Bld Auto 83.4% Above high normal [id number] 39 - 72 [facility] Imm Granulocytes # Bld Auto 0.88v7042/uL Normal [id number] 0 - 0.3 [facility] RBC # Bld Auto 4.49M/uL Normal [id number] 4 - 6 [facility] Monocytes # Bld Auto 0.56j4502/uL Normal [id number] 0 - 1 [facility] RDW RBC Auto-Rto 12.2% Normal [id number] 11 - 15 [facility] Lymphocytes/leuk NFr Bld Auto 9.5% Below low normal 17 - 50 [facility] Eosinophil/leuk NFr Bld Auto 0.1% Normal [id number] 0 - 5 [facility] nRBC/100 WBC Bld Auto-Rto 0% Normal 0 - 1 [facility] Hct VFr Bld Auto 40.6% Normal 35 - 45 [facility] BKR WAM ABSOLUTE NEUTROPHIL COUNT. 12.96u0662/uL Above high normal 2 - 7.6 [facility] BKR WAM BASOPHIL ABSOLUTE COUNT. 0.76b8821/uL Normal 0 - 1 [facility] Hgb Bld-mCnc 13.3g/dL Normal 11.7 - 15.5 [facility] MCHC RBC Auto-mCnc 32.8g/dL Normal 31 - 36 [facility] Basophils/leuk NFr Bld Auto 0.2% Normal 0 - 1.4 [facility] Lactate SerPl-sCnc 0.9mmol/L Normal [id number] 0.4 - 2 [facility] BKR WBC/HPF INSTRUMENT 1/HPF Normal [id number] 0 - 5 [facility] BKR RBC/HPF INSTRUMENT 8/HPF Above high normal [id number] 0 - 2 [facility] BKR URINE SQUAMOUS EPITHELIAL CELLS, UA (NUMERIC) 1/HPF Normal [id number] 0 - 5 [facility] Glucose Ur Strip.auto-mCnc Negative Normal [id number] - [facility] Hgb Ur Ql Strip.auto 1+ Abnormal [id number] - [facility] Color Ur Auto Yellow Normal [id number] - [facility] Bilirub Ur Ql Strip.auto Negative Normal [id number] - [facility] Clarity Ur Refract.auto Clear Normal [id number] - [facility] Prot Ur Strip.auto-mCnc Trace Normal [id number] - [facility] Nitrite Ur Ql Strip.auto Negative Normal [id number] - [facility] Ketones Ur Strip.auto-mCnc 4+ Abnormal [id number] - [facility] WBC # Ur Strip 2+ Abnormal [id number] - [facility] Sp Gr Ur Refract.auto 1.05 Above high normal [id number] 1.005 - 1.03 [facility] Urobilinogen Ur Strip-mCnc 2mg/dL Normal [id number] - [facility] pH Ur Strip.auto 5.5 Normal [id number] 5.5 - 7.5 [facility] Glucose SerPl-mCnc 106mg/dL Normal [id number] 65 - 110 [facility] AST SerPl w P-5'-P-cCnc 23U/L Normal [id number] 15 - 37 [facility] Calcium SerPl-mCnc 9.3mg/dL Normal [id number] 8.5 - 10 .1 [facility] ALT SerPl w/o P-5'-P-cCnc 21U/L Normal [id number] 13 - 56 [facility] Sodium SerPl-sCnc 137mmol/L Normal [id number] 136 - 145 [facility] BUN SerPl-mCnc 23mg/dL Above high normal [id number] 7 - 18 [facility] ALP SerPl-cCnc 79U/L Normal [id number] 45 - 117 [facility] Globulin Plas-mCnc 4g/dL Normal [id number] 2.5 - 5 [facility] HCO3 SerPl-sCnc 23mmol/L Normal [id number] 21 - 32 Y [facility] eGFRcr SerPlBld CKD-EPI 2020 60mL/min/1.73m2 Normal [id number] - [facility] Creat SerPl-mCnc 0.74mg/dL Normal [id number] 0.55 - 1.0 2 [facility] Anion Gap3 SerPl-sCnc 10mmol/L Normal [id number] 5 - 15 [facility] Albumin SerPl BCG-mCnc 3.8g/dL Normal [id number] 3.4 - 5 [facility] Bilirub SerPl-mCnc 0.4mg/dL Normal [id number] - 1 [facility] Chloride SerPl-sCnc 104mmol/L Normal [id number] 98 - 10 7 [facility] Potassium SerPl-sCnc 3.4mmol/L Below low normal [id number] 3.5 - 5.1 [facility] Prot SerPl-mCnc 7.8g/dL Normal [id number] 6.4 - 8.2 Y [facility] Lipase SerPl-cCnc 78U/L Normal [id number] 73 - 393 [facility] MCV RBC Auto 93.4fL Normal [id number] 80 - 100 [facility] Lymphocytes # Bld Auto 1.0f4876/uL Normal [id number] 0.6 - 3.7 [facility] WBC # Bld Auto 00y3518/uL Above high normal [id number] 4 - 11 [facility] Monocytes/leuk NFr Bld Auto 5% Normal [id number] 4 - 12 [facility] Imm Granulocytes/leuk NFr Bld Auto 0.5% Normal [id number] 0 - 1 [facility] Platelet # Bld Auto 843a5116/uL Normal [id number] 150 - 420 [facility] PMV Bld Auto 12.3fL Above high normal [id number] 8 - 12 [facility] MCH RBC Qn Auto 30pg Normal [id number] 27 - 33 Y [facility] Eosinophil # Bld Auto 0.32i2456/uL Normal [id number] 0 - 1 [facility] Neutrophils/leuk NFr Bld Auto 84.7% Above high normal [id number] 39 - 72 [facility] Imm Granulocytes # Bld Auto 0.66o0877/uL Normal [id number] 0 - 0.3 [facility] RBC # Bld Auto 4.1M/uL Normal [id number] 4 - 6 [facility] Monocytes # Bld Auto 0.57b5418/uL Normal [id number] 0 - 1 [facility] RDW RBC Auto-Rto 12.4% Normal [id number] 11 - 15 [facility] Lymphocytes/leuk NFr Bld Auto 9.3% Below low normal [id number] 17 - 50 [facility] Eosinophil/leuk NFr Bld Auto 0.2% Normal [id number] 0 - 5 [facility] nRBC/100 WBC Bld Auto-Rto 0% Normal [id number] 0 - 1 [facility] Hct VFr Bld Auto 38.3% Normal [id number] 35 - 45 [facility] BKR WAM ABSOLUTE NEUTROPHIL COUNT. 10.48x8408/uL Above high normal [id number] 2 - 7.6 [facility] BKR WAM BASOPHIL ABSOLUTE COUNT. 0.76c6271/uL Normal [id number] 0 - 1 [facility] Hgb Bld-mCnc 12.3g/dL Normal [id number] 11.7 - 15.5 [facility] MCHC RBC Auto-mCnc 32.1g/dL Normal [id number] 31 - 36 [facility] Basophils/leuk NFr Bld Auto 0.3% Normal [id number] 0 - 1.4 [facility] Problems Problem Status Onset Date Problem Type Date of Resoluti on Source Constipation active 2022-08-27 ProblemAct [facility] S/P gastric sleeve procedure active EncounterDiagnosisAct [facility] Intractable nausea and vomiting active 2022-08-27 ProblemAct [facility] Colitis active 2022-08-23 ProblemAct [facility] Generalized abdominal pain active 2022-08-27 ProblemAct [facility]
--- OUTSIDE RECORDS SUMMARY | 2024-04-08 12:57 | XMS_ITS | Encounter Summary ---
Author Organization [facility] Address [address] [place] [address] Care Team Providers Care Automation Tender Name Role Phone Unavailable Primary Care Provider Unavailabl e Encounter Details Date Type Department Care Team (Late st Contact Info) Description 08/23/2022 Scanned Document [facility] [address] [place] [address] Rosendo See, RESEARCH KENNEL SUPERVISOR [address] [phone] Social History Tobacco Use Types Packs/Day Years Used Date Smoking Tobacco: Never Assessed Sex and Gender Information Value Date Recorded Sex Assigned at Not on file Gender Identity Not on file Sexual Orientation Not on file documented as of this encounter Plan of Treatment Not on file documented as of this encounter Visit Diagnoses Not on filedocumented in this encounter
--- OUTSIDE RECORDS SUMMARY | 2024-04-08 12:57 | XMS_ITS | Clinical Summary ---
Author Organization [facility] Address [address] [place] [address] Care Team Providers Care Board Catcher Name Role Phone Unavailable Primary Care Provider Unavailabl e Social History Tobacco Use Types Packs/Day Years Used Date Smoking Tobacco: Never Assessed Sex and Gender Information Value Date Recorded Sex Assigned at Not on file Gender Identity Not on file Sexual Orientation Not on file Plan of Treatment Health Maintenance Due Date Last Done Comments Hepatitis C Virus Screening 1970 HIV Screening 05/07/1983 DTaP/Tdap/Td Vaccines (1 - Tdap) 1989 Hepatitis B Vaccines (1 of 3 - 19+ 3-dose series) 1989 Pap Smear (Ages 21-65) 05/07/1991 Mammogram 2010 Colonoscopy 05/07/2015 Pneumococcal Vaccines 50+ (1 of 1 - PCV) 2020 Zoster (Shingles) Vaccine (1 of 2) 2020 Influenza Vaccine 09/25/2023 COVID-19 Vaccine (1 - 2023-2 5 season) 2023 Pneumococcal Vaccine: Pediat gene (0-5 Years) and At-Risk Patients (6 to 49 Years) Aged Out No longer eligible b ased on patient's age to complete this topic
--- OUTSIDE RECORDS SUMMARY | 2024-04-08 12:57 | XMS_ITS ---
Author Organization [facility] Address [address] [facility] [address] [place] [address] Care Team Providers Care Panel Coverer Name Role Phone CAITIE SLOAN Primary Care Provider Kalyani Ellsworth [phone] REASON FOR VISIT ULTRA- F/U LT OVARIAN CYST Medications Medication SIG (Take, Route, Fr equency, Duration) Notes Start Date End Date Status Linzess 290 MCG TAKE 1 CAPSULE BY MO UTH EVERY MORNING Oral for 30 Active Albuterol Active Senna - as directed Orally A ctive Encounters Encounter Location Date Provider Diagnosis [facility] [address] [place] [address] 01/03/2023 Kalyani Colby Plan Of Treatment Next Appt Details Provider Name:Kalyani brooks, 01/13/2025 08:00:00 AM, [address] [place] [address], [address], [place], [address], Progress Notes * CLIFFORD LEACHDOB:[birth year] (53 yo F)Acc No.[id number]:01/03/2023 PROGRESS NOTES Patient:?CLIFFORD LEACH Appointment Provider:?Kalyani brooks M.D. :1970???Age:52 Y???Sex:Female D ate:01/03/2023 Address:[address] [place] [address], Laura KHAN [facility] Pcp:BHARAT GARRETT Subjective: * Chief Complaints: * ???1. ULTRA- F/U LT OVARIAN CYST. 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 * Medications:?Taking Senna - Tablet as directed Orally , Taking Albuterol , Taking Linzess 290 MCG Capsule TAKE 1 CAPSULE BY MOUTH EVERY MORNING Oral Objective: * Vitals:? Assessment: Plan: * Treatment: * Images: Billing Information: * Visit Code:? * Procedure Codes:? * Electronic signature of Anil Colby MD on 04/08/2024 at 12:56 PM EST Sign off status: Pending * Appointment Provider:?Kalyani Colby M.D. Date:?01/03/2023 Generated for Manish avery/Meggan/Monishaitting on:?04/08/2024 12:56 PM EST
--- OUTSIDE RECORDS SUMMARY | 2024-04-08 12:57 | XMS_ITS | Patient Health Record ---
Author Organization [employer] [facility] Address [address] [place] [address] Care Team Providers Care Box Inspector Name Role Phone CAITIE SLOAN Primary Care Provider Kalyani Ellsworth Unavailable [phone] Allergies Allergen (clinical drug ingredient) Drug/Non Drug Allergy documented on EMR Reaction Allergy Type Onset Date Status aspirin ASPIRIN Skin Rash Drug Allergy Active Results Component Value Reference Range Notes Urinalysis Reviewed date:01/08/2024 12:51:11 PM Interpretation: Performing Lab: Notes/Report: PH 5.0 PROTEIN Neg GLUCOSE Neg BLOOD Trace Reason For Referral No Information Medications Medication SIG (Take, Route, Frequency, Duration) Notes Start Date End Date Status Albuterol Active Senna - as directed Orally A ctive Triamcinolone Acetonide 0.025 % APPLY TOPICALLY 2 TIMES A DAY TO AFFECTED AREA FOR 14 DAYS. DO NOT USE LONGER THAN 14 DAYS IN A ROW External for 30 Days Active Linzess 290 MCG TAKE 1 CAPSULE BY [facility] EVERY MORNING Oral for 30 Active Social [...] Problem Status W/U Status Risk Notes Problem Mixed incontinence (605571628) Mixed incontinence (N39.46) Active confirmed Problem Urinary incontinence (028345829) Unspecified urinary incontinence (R32) Active confirmed Problem Asthma (896870899) Other asthma (J45.998) Active confirmed Problem Gastroduodenitis (032100247) Gastritis, unspecified, without bleeding (K29.70) Active confirmed Problem Osteoarthritis (940716390) Unspecified osteoarthritis, unspecified site (M19.90) Active confirmed Problem Fibromyalgia (910454373) Fibromyalgia (M79.7) Active confirmed Problem Unspecified menopausal and perimenopausal disorder (N95.9) Active confirmed Problem History of dysplasia of cervix (476120966) Personal history of cervical dysplasia (Z87.410) Active confirmed Problem Menopause (491380282) Menopausal and female climacteric states (N95.1) Active confirmed Problem Gynecological examination normal (802706292646466) Routine gynecological examination (V72.31) Active confirmed Diag Vital Signs Temperature 97.7 degrees Fahrenheit 01/08/2024 Blood pressure diastolic 68 mm Hg 01/08/2024 Height 60 in 01/08/2024 Blood pressure systolic 100 mm Hg 01/08/2024 Weight 138 lbs 01/08/2024 BMI 26.95 kg/m2 01/08/2024 Encounters Encounter Location Date Provider Diagnosis [address] [place] [address] 01/08/2024 Kalyani Colby Encounter for gynecological examination [...] MAY HAVE HAD GENETIC STUDIES DONE IN [place]. PAT WILL FIND OUT. IF NOT, PAT MAY BE A CANDIDATE FOR GENETIC TESTING. Plan Of Treatment Pending Test Test Name Order Date Urinalysis 03/12/2017 Urinalysis 03/27/2017 THIN PREP,HPV,TYSON IF HPV+/CYT- (>29YR)( SCRN) 03/27/2017 MM Digital Mammo Screening 12/27/2022 MM Digital Mammo Screening 01/08/2024 MM Digital Mammo Screening 03/12/2017 Next Appt Details Provider Name:Kalyani brooks, 01/13/2025 08:00:00 AM, [address] [facility], [address], [place], [address], Insurance Providers Payer Name Payer Address Payer Phone Subscriber Number Group Number Insured Name Patient Relationship to Insured Coverage Start Date Coverage End Date [employer] [address] [place] [address] [id number] CLIFFORD HOLLOWAY Self - patient is the insured Medical (General) History Medical History History ICD Code Mixed incontinence N39.46 Unspecified urinary incontinence R32 Personal history of cervical dysplasia Z 87.410 Other asthma J45.998 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
--- OUTSIDE RECORDS SUMMARY | 2024-04-08 12:57 | XMS_ITS | Clinical Summary ---
Author Organization [facility] Address [address] [place] [address] Care Team Providers Care Boat Canvas Maker And Installer Name Role Phone José Davis MD Primary Care Provider [phone] Surgical History Surgery Date Site/Laterality Comments APPENDECTOMY PROCEDURE: AL APPENDECTOMY OTHER SURGICAL HISTORY 1991 PROCEDURE: AL OTHER CAROTID STENT IPSIL TIA/STRK 120 DAYS/>; COMMENT: tubal ligation HYSTERECTOMY PROCEDURE: HISTORICAL HYSTERECTOMY OTHER SURGICAL HISTORY 2020 PROCEDURE: AL OTHER CAROTID STENT IPSIL TIA/STRK 120 DAYS/>; COMMENT: hemorrhoidectomy Social History Tobacco Use Types Packs/Day Years Used Date Smoking Tobacco: Never Assessed Alcohol Use Standard Drinks/Week Comments Never 0 (1 standard drink = 0.6 oz pur e alcohol) Comments Unknown Sex and Gender Information Value Date Recorded Sex Assigned at Not on file Legal Sex Female 4:55 AM EST Gender Identity Not on file Sexual Orientation Not on file Obstetrics History Last Filed Vital Signs Vital Sign Reading Time Taken Comments Blood Pressure 124/76 01/03/2022 3:22 PM EST Pulse 101 01/03/2022 3:22 PM EST Temperature - - Respiratory Rate - - Oxygen Saturation - - Inhaled Oxygen Concentration - - Weight 88.3 kg (194 lb 9.6 oz) 01/03/2022 3:22 P M EST Height 152.4 cm (5') 01/03/2022 3:22 PM EST Body Mass Index 38.01 01/03/2022 3:22 PM EST Plan of Treatment Health Maintenance Due Date Last Done Comments Breast Cancer Screening 1970 DTaP,Tdap,and Td Vaccines (1 - Tdap) 1989 Hepatitis B Vaccines (1 of 3 - 19+ 3-dose series) 1989 Cervical Cancer Screening: P ap Smear 05/07/1991 Zoster Vaccines (1 of 2) 2020 Colorectal Cancer Screening: Colonoscopy 01/27/2022 Depression Screening 01/27/2022 HIV Screening 01/27/2022 Hepatitis C Screening 01/27/2022 Social Influencers of Health Screening 01/27/2022 COVID-19 Vaccine ( - 2023-2 5 season) 2023 Influenza Vaccine (#1) 2023 HIB Vaccines Aged Out No longer eligi ble based on patient's age to complete this topic HPV Vaccines Aged Out No longer eligi ble based on patient's age to complete this topic Hepatitis A Vaccines Aged Out No long er eligible based on patient's age to complete this topic IPV Vaccines Aged Out No longer eligi ble based on patient's age to complete this topic MMR Vaccines Aged Out No longer eligi ble based on patient's age to complete this topic Meningococcal ACWY Vaccine Aged Out N o longer eligible based on patient's age to complete this topic Pneumococcal Vaccine: Pediat rics (0 to 5 Years) and At-Risk Patients (6 to 64 Years) Aged Out No longer eligible b ased on patient's age to complete this topic RSV Immunization Patients Un cordell 20 months Aged Out No longer eligible b ased on patient's age to complete this topic Varicella Vaccines Aged Out No longer eligible based on patient's age to complete this topic Care Teams Boat Canvas Maker And Installer Relationship Specialty Start Date End Date José Davis MD [address] [place] [id number] PCP - General Internal Medicine 02/28/21
--- OUTSIDE RECORDS SUMMARY | 2024-04-08 12:57 | XMS_ITS ---
Author Organization [facility] Address [address] [facility] [address] [place] [address] Care Team Providers Care Hospital Clerk Name Role Phone CAITIE SLOAN Primary Care Provider Kalyani Ellsworth Unavailable [phone] Allergies Allergen (clinical drug ingredient) Drug/Non Drug Allergy documented on EMR Reaction Allergy Type Onset Date Status aspirin ASPIRIN Skin Rash Drug Allergy Active Results Component Value Reference Range Notes Urinalysis Reviewed date:12/27/2022 09:03:40 AM Interpretation: Performing Lab: Notes/Report: PH 5.0 PROTEIN Neg GLUCOSE Neg BLOOD Trace THIN PREP,HPV,TYSON IF HPV+ ( >29YR)(DIAG) Reviewed date:01/03/2023 03:50:03 PM Interpretation: Performing Lab:Testing performed or reported by [facility], a Service of [facility], [address] [place] [address] Tank Mon MD, Roll Clamp Operator [facility]# [id number] Notes/Report: Patient Name: CLIFFORD LEACH Patient : 1970 (Age: 52) Lab Collection Date: 12/27/2022 Accession Date: 12/27/2022 Sign Out Date: 01/03/2023 Tissue Source: 1: THINPREP HOSPITAL CLERK PAP TEST, CERVICAL/VAGINAL: Final Diagnosis: NEGATIVE FOR INTRAEPITHELIAL LESION OR MALIGNANCY. Satisfactory for evaluation. Endocervical/transformation zone ABSENT. Procedures/Addenda: Human Papilloma Virus, High-Risk(Reflex GT) Status: Signed Out Interpretation: Negative Methodology: Grid Mobile Aptima HPV mRNA assay (Nucleic Acid Amplification Test, NAAT) Clinical History: Date of Last Menstrual Period: not available Menstrual History: Hysterectomy Contraceptive History: not available Ancillary Testing: HPV (Reflex GT) Case imaged by the ThinPrep Imaging System with manual rescreening or review. Performed at [facility] department of Cytology, Masoud Tavarez [place] Clinical History (other): Z01.419 Phone #: [phone], On-Call Pathologist: [id number] REASON FOR VISIT Annual HOSPITAL CLERK Physical, Annual HOSPITAL CLERK Physical 50-59* Medications Medication SIG (Take, Route, Fr equency, Duration) Notes Start Date End Date Status Linzess 290 MCG TAKE 1 CAPSULE BY [facility] EVERY MORNING Oral for 30 Active Senna - as directed Orally A ctive Albuterol Active Social History Tobacco Use: Social History Observation Description Date Details (start date - stop date) Never Smoker NA - NA Tobacco Use/Smoking Question Answer Notes Are you a nonsmoker Alcohol Screen (Audit-C) Question Answer Notes Did you have a drink containing alcohol in the p ast year? No Points 0 Interpretation Negative Sexual History Question Answer Notes Had sex in the past 12 months (vaginal, oral, or anal)? Yes with Men only Prevention strategies discussed: Other Vital Signs Temperature 97.7 degrees Fahrenheit 12/28/19 23 Blood pressure systolic 96 mm Hg 12/28/19 23 Blood pressure diastolic 64 mm Hg 023 Height 5 ft 0 in in 12/27/2022 Weight 126 lbs 12/27/2022 BMI 24.61 kg/m2 12/27/2022 Encounters Encounter Location Date Provider Diagnosis [address] [id number] 12/27/2022 Kalyani Colby Encounter for gynecological examination (general) (routine) without abnormal findings Z01.419 ; Encounter for screening mammogram for malignant neoplasm of breast Z12.31 ; Personal history of cervical dysplasia Z87.410 and Personal history of other diseases of the female genital tract Z87.42 Assessments Encounter Date Diagnosis (ICD Code) Assessment Notes Treatment Notes Treatment Clinical Notes Section Notes 12/27/2022 Encounter for gynecological examination (general) (routine) without abnormal findings (ICD-10 - Z01.419) PAP TEST WITH HPV TYPING WAS OBTAINED. 12/27/2022 Encounter for screening mammogram for malignant neoplasm of breast (ICD-10 - Z12.31) REGULAR MAMMOGRAMS AND SBE'S WERE RECOMMENDED. 12/27/2022 Personal history of cervical dysplasia (ICD-10 - Z87.410) DISCUSSED PREVIOUS HX OF ABNORMAL PAP TESTS WITH NEGATIVE COLPOSCOPIES AMD LVH. PAP TEST WITH HPV TYPING WAS REPEATED. 12/27/2022 Personal history of other diseases of the female genital tract (ICD-10 - Z87.42) DISCUSSED PREVIOUS HX OF DOMINANT FOLLICLE AND PHYSIOLOGIC CYST. Plan Of Treatment Treatment Notes Assessment Notes Encounter for gynecological examination (general) (routine) without abnormal findings PAP TEST WITH HPV TYPING WAS OBTAINED. Encounter for screening mamm ogram for malignant neoplasm of breast REGULAR MAMMOGRAMS AND SBE'S WERE RECOMMENDED. Personal history of cervical dysplasia DISCUSSED PREVIOUS HX OF ABNORMAL PAP TESTS WITH NEGATIVE COLPOSCOPIES AMD LVH. PAP TEST WITH HPV TYPING WAS REPEATED. Personal history of other di seases of the female genital tract DISCUSSED PREVIOUS HX OF DOMINANT FOLLIC LE AND PHYSIOLOGIC CYST. Pending Test Test Name Order Date MM Digital Mammo Screening 12/27/2022 Next Appt Details Follow Up: 1 Year, Reason: Provider Name:Kalyani brooks, 01/13/2025 08:00:00 AM, [employer] [facility], [address], [place], [address], Progress Notes * CLIFFORD LEACHDOB:[birth year] (52 yo F)Acc No.[id number]:12/27/2022 PROGRESS NOTES Patient:?CLIFFORD LEACH Appointment Provider:?Kalyani brooks M.D. :1970???Age:52 Y???Sex:Female D ate:12/27/2022 Address:[address] [place], [place] [id number] Pcp:BHARAT GARRETT Subjective: * Chief Complaints: * ???Annual HOSPITAL CLERK PhysicalAnnual HOSPITAL CLERK Physical 50-59* * HPI: ???New/Follow-up Patient Consult:? PAT UNDERWENT GASTRIC BYPASS SURGERY IN JUNE 2022 AND HAS LOST ABOUT 70 LBS. SHE FEELS SO MUCH BETTER AND A LOT OF HER PREVIOUS MEDICAL ISSUES HAVE RESOLVED. ?S/P TVH FOR MENORRHAGIA AND CERVICAL DYSPLASIA IN 2006. HER SUBSEQUENT PAP TESTS WERE NEGATIVE. HER LAST ONE IN 2017 WAS NEGATIVE AND HPV NEGATIVE. ?PELVIC ULTRASOUND IN NOV 2021 SHOWED A LEFT DOMINANT CYST AND REPEAT SCAN IN JAN 2022 SHOWED SIGNIFICAN DECREASE IN SIZE. THE DOMINANT FOLLICLE HAD REGRESSED. ?SHE C/O MILD HOT FLASHES A YEAR AGO BUT THESE HAVE RESOLVED. ?WORK UP FOR HEMATURIA D[place] [address] FLORES WAS NEGATIVE. ?HER LAST MAMMOGRAM DONE IN JULY 2021 SHOWED BREASTS ARE NOT DENSE AND WAS NORMAL. ?SHE HAD A COLONOSCOPY DONE IN 2020. ?MODERNA X 4. ???Annual:? Patient presents for annual exam, ages 50-59. ?General Health Maintenance:?Current breast complaints:?no breast pain, mass, discharge, or skin changes ?Urinary problems:?patient reports no urinary health problems or bowel health problems ?Calcium intake:?takes adequate calcium via diet and supplementation ?Significant HOSPITAL CLERK problems:?no significant health manager symptoms or problems * ROS:?general:?no?chest pain.?no?palpitations.?no?headache.?no?cough.?no?shortness of breath.?no?fever.?no?unexplained weight loss.?no?nausea/vomiting.?no?change in bowel movements.?no blood in stool.?no?genitourinary complaints.?no?skin complaints.? 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 Control:?hysterectomy.?Hysterectomy:?TVH.?Colonoscopy?yes 2016.? * OB History:?Total pregnancies?4.?Total living children?3.?NVD?3.?Miscarriage(s)?1.? * Surgical History:?Hysterecto my 2007Appendectomy 1986Breast Reduction 1994Bilateral Knee - Meniscus Colposcopy Leep Colonoscopy Gastric Sleeve 07/17/22 * Hospitalization/Major Diagno stic Procedure:?3 Vaginal Deliveries See Surgical Hx * Family History:?Mother: goldie putnam.?Father: alive, Type II DM.? * Social History:?Tobacco Use:?Tobacco Use/Smoking?Are you a?nonsmoker ???Sexual History:?Sexual History?Had sex in the past 12 months (vaginal, oral, or anal)??Yes ?with?Men only ?Prevention strategies discussed:?Other ?Details of Sexual History?Are you sexually active??Yes ???Drugs/Alcohol:?Drugs?Have you used drugs other than those for medical reasons in the past 12 months??No ?Alcohol Screen (Audit-C)?Did you have a drink containing alcohol in the past year??No ?Points?0 ?Interpretation?Negative ???Miscellaneous:?Children: yes, 3. ?no Exercise. ?Living with: spouse. ?Marital status: . ?Natural support system: yes. 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 ?Sexually active: yes, monogamous relationship. * Medications:?TakingSenna - T ablet as directed Orally Albuterol Linzess 290 MCG Capsule TAKE 1 CAPSULE BY MOUTH EVERY MORNING Oral Medication List reviewed and reconciled with the patientTaking Senna - Tablet as directed Orally Taking Albuterol Taking Linzess 290 MCG Capsule TAKE 1 CAPSULE BY MOUTH EVERY MORNING Oral Medication List reviewed and reconciled with the patient * Allergies:?ASPIRIN: Skin Giancarlo h - Allergyno[Allergies Verified] Objective: * Vitals:?Ht: 5 ft 0 in, Wt:12 6 lbs, BMI:24.61 Index, BP:96/64 mm Hg, Temp:97.7 F. * Examination: ???General Exam: ?CONSTITUTIONAL:?NECK/THYROID:?RESPIRATORY:?Auscultation: clear to auscultation bilaterally, Respiratory Effort: normal.?CARDIOVASCULAR:?Auscultation: regular rate and rhythm.?BREAST, Right:?BREAST, Left:?GASTROINTESTINAL:?MUSCULOSKELETAL:?SKIN:?NEURO/PSYCH:?Genitourinary: ?EXTERNAL GENITALIA:?VAGINA:?BLADDER:?URETHRA:?CERVIX:?UTERUS:?ADNEXA:?ANUS AND PERINEUM:? Assessment: * Assessment: 1.?Encounter for gynecologic al examination (general) (routine) without abnormal findings - Z01.419?2.?Encounter for screening mammogram for malignant neoplasm of breast - Z12.31?3.?Personal history of cervical dysplasia - Z87.410?4.?Personal history of other diseases of the female genital tract - Z87.42? Plan: * Treatment: ?LAB: Urinalysis* ? Value Reference Range ?PH 5.0 * ?PROTEIN Neg * ?GLUCOSE Neg * ?BLOOD Trace * D.MARILIN 12/27/2022 9:00:14 A M > Notes: PAP TEST WITH HPV TYPING WAS OBTAINED.??2.?Encounter for screening mammogram for malignant neoplasm of breast?Imaging: MM Digital Mammo Screening Notes: REGULAR MAMMOGRAMS AND SBE'S WERE RECOMMENDED.??3.?Personal history of cervical dysplasia? Notes: DISCUSSED PREVIOUS HX OF ABNORMAL PAP TESTS WITH NEGATIVE COLPOSCOPIES AMD LVH. PAP TEST WITH HPV TYPING WAS REPEATED.??4.?Personal history of other diseases of the female genital tract? Notes: DISCUSSED PREVIOUS HX OF DOMINANT FOLLICLE AND PHYSIOLOGIC CYST.?? * Procedure Codes:? * Preventive Medicine:? ??YOUR PREVENTIVE WELLNESS PLAN:?Osteoporosis prevention?Calcium, D, strength training.?Breast Cancer Screening (Mammogram):?annually.?Cervical Cancer Screening (Pap Smear):?q 3 years with HPV screen.?Colorectal Cancer Screening:?q 10 years.? * Follow Up:?1 Year * Images: Billing Information: * Visit Code:? 10261 Preventive Care New Pt. Age 40-64. 14554 Preventive Care Est Pt. Age 40-64. * Procedure Codes:? * Sign off status: Completed true * Appointment Provider:?Kalyani Colby M.D. Date:?12/27/2022 Generated for Manish avery/Meggan/eTransmitting on:?04/08/2024 12:56 PM EST History and Physical Notes * HPI (History of Present Illness) Category Sub-Category Detail Notes Category Not es New/Follow-up Patient Consult PAT UNDERWENT GASTRIC BYPASS SURGERY IN JUNE 2022 AND HAS LOST ABOUT 70 LBS. SHE FEELS SO MUCH BETTER AND A LOT OF HER PREVIOUS MEDICAL ISSUES HAVE RESOLVED. S/P TVH FOR MENORRHAGIA AND CERVICAL DYSPLASIA IN 2006. HER SUBSEQUENT PAP TESTS WERE NEGATIVE. HER LAST ONE IN 2017 WAS NEGATIVE AND HPV NEGATIVE. PELVIC ULTRASOUND IN NOV 2021 SHOWED A LEFT DOMINANT CYST AND REPEAT SCAN IN JAN 2022 SHOWED SIGNIFICAN DECREASE IN SIZE. THE DOMINANT FOLLICLE HAD REGRESSED. SHE C/O MILD HOT FLASHES A YEAR AGO BUT THESE HAVE RESOLVED. WORK UP FOR HEMATURIA DONE [place] [address] FLORES WAS NEGATIVE. HER LAST MAMMOGRAM DONE IN JULY 2021 SHOWED BREASTS ARE NOT DENSE AND WAS NORMAL. SHE HAD A COLONOSCOPY DONE IN 2020. MODERNA X 4. Annual General Health Maintenance: Current breast complaints:: no breast pain, mass, discharge, or skin changes Urinary problems:: patient r pati no urinary health problems or bowel health problems Calcium intake:: takes adequ ate calcium via diet and supplementation Significant HOSPITAL CLERK problems:: n o significant health manager symptoms or problems Examination Category Sub-Category Detail [...]
[2024-04-08 13:03] VITALS: BP 114/66; PULSE 84; TEMP 36.1; O2SAT 98; BMI 26.6
== END 2024-04-08 13:26 | disposition home or self-care (01) ==
PROVIDERS: PCP Student in an Organized Health Care Education/Training Program; Visit Provider Physician Assistant Surgical
DX: E66.3 Overweight (principal); Z68.26 Body mass index [BMI] 26.0-26.9, adult; Z90.3 Acquired absence of stomach [part of]; Z98.84 Bariatric surgery status
CPT/HCPCS: 99213

== ENCOUNTER → 2024-04-08 12:50 | Outpatient (BNVA) | payer OTHER, SELFPAY | PROVIDERS: PCP Student in an Organized Health Care Education/Training Program; Visit Provider Physician Assistant Surgical ==

== ENCOUNTER 2024-04-26 09:30 | Day surgery (SDC) | payer OTHER, SELFPAY ==
[2024-04-22 15:48] VITALS: BMI 26.6
--- NOTE | 2024-04-23 10:18 | HO.ANESPROP2 ---
Documented by User: Zahra Nascimento NP 04/23/24 10:18 HPI - Anesthesia Eval Consult details Narrative: 53yo F for Upper Endoscopy and Colonoscopy PMF Active Problems Active Problems: All Active Problems Elevated LFTs (Acute) S/P laparoscopic cholecystectomy (Acute) Shoulder pain (Acute) Acute cholecystitis (Acute) Excess skin (Acute) Anemia (Acute) Dehydration (Acute) Overweight (BMI 25.0-29.9) (Acute) S/P laparoscopic sleeve gastrectomy (Acute) JOSE (obstructive sleep apnea) (Acute) History of colon polyps (Acute) Internal hemorrhoids (Acute) Oropharyngeal dysphagia (Acute) Obesity (BMI 30-39.9) (Acute) Chronic constipation (Acute) Bleeding hemorrhoids (Acute) Past Medical History Medical History Arthritis Anxiety Sleep apnea Adjustment disorder, unspecified GERD (gastroesophageal reflux disease) Asthma Bleeding hemorrhoids Irritable bowel syndrome Chronic constipation Admission for repair of scarred tissue Family History Family History Father Diabetes Brother Heart attack Paternal Grandmother Cancer Maternal Grandmother Cancer Family history of problems with anesthesia: No Surgical History Surgical History Hx laparoscopic cholecystectomy (05/21/23) Hx of laparoscopic partial gastrectomy [place] teeth extracted Hx of breast reduction, elective Hx of hemorrhoidectomy History of arthroscopy of both knees Hx of appendectomy H/O eye surgery H/O colonoscopy History of esophagogastroduodenoscopy (EGD) H/O: hysterectomy History of Problems with Anesthesia: No Social History Social History Household Members: Spouse Housing: House Are you a primary resident care technician to a significant other at home: Yes Do you presently have visiting nurse or other home services: No Alcohol intake: never Patient Tobacco Use Status: Never used Tobacco Second Hand Smoke Exposure: No service: No Current occupational status: employed Meds Allergies Allergy/AdvReac Type Severity Reaction Status Date / Time aspirin [ASPIRIN] Allergy Severe HIVES Verified 04/08/24 13:01 Fish Containing Products Allergy Severe HIVES/DYSPN Verified 04/08/24 13:01 EA oxycodone [From PERCOCET] Allergy Severe PALPITATION Verified 04/08/24 13:01 S/HIVES pumpkin Allergy Severe THROAT Verified 04/08/24 13:01 SWELLING squash Allergy Severe THROAT Verified 04/08/24 13:01 SWELLING Zucchini Allergy Mild Hives, Uncoded 12/30/22 09:59 Dysphagia Home Medications ?Medication ?Instructions ?Recorded ?Confirmed ?Last Taken ?Type albuterol sulfate 90 mcg/actuation 2 puff inhalation Q6H PRN Wheezing 05/24/20 04/08/24 Unknown History aerosol inhaler hydroxyzine HCl 10 mg tablet 10 mg PO QID PRN itch 05/20/23 04/08/24 05/19/23 History buspirone 5 mg tablet 5 mg PO TID 11/20/23 04/08/24 Unknown History hydrocortisone 2.5 % topical cream appl topical 11/20/23 04/08/24 Unknown History triamcinolone acetonide 0.025 % appl topical 11/20/23 04/08/24 Unknown History topical cream gabapentin 100 mg capsule 100 mg PO DAILY 04/08/24 04/08/24 Unknown History Exam Height,Weight and Vital Signs: Height 5 ft Weight 61.689 kg Assessment and Plan Assessment Anesthesia Assessment: Chart Reviewed Final Anesthetic Review Family History of Problems with Anesthesia: No History of Problems with Anesthesia: No Documented by User: Mel Lebron MD 04/26/24 11:00 [facility] Past Medical History Medical History Arthritis Anxiety Sleep apnea Adjustment disorder, unspecified GERD (gastroesophageal reflux disease) Asthma Bleeding hemorrhoids Irritable bowel syndrome Chronic constipation Admission for repair of scarred tissue Family History Family History Father Diabetes Brother Heart attack Paternal Grandmother Cancer Maternal Grandmother Cancer Surgical History Surgical History Hx laparoscopic cholecystectomy (05/21/23) Hx of laparoscopic partial gastrectomy [place] teeth extracted Hx of breast reduction, elective Hx of hemorrhoidectomy History of arthroscopy of both knees Hx of appendectomy H/O eye surgery H/O colonoscopy History of esophagogastroduodenoscopy (EGD) H/O: hysterectomy Social History Social History Household Members: Spouse Housing: House Are you a primary resident care technician to a significant other at home: Yes Do you presently have visiting nurse or other home services: No Alcohol intake: never Patient Tobacco Use Status: Never used Tobacco Second Hand Smoke Exposure: No service: No Current occupational status: employed Meds Allergies Allergy/AdvReac Type Severity Reaction Status Date / Time aspirin [ASPIRIN] Allergy Severe HIVES Verified 04/08/24 13:01 Fish Containing Products Allergy Severe HIVES/DYSPN Verified 04/08/24 13:01 EA oxycodone [From PERCOCET] Allergy Severe PALPITATION Verified 04/08/24 13:01 S/HIVES pumpkin Allergy Severe THROAT Verified 04/08/24 13:01 SWELLING squash Allergy Severe THROAT Verified 04/08/24 13:01 SWELLING Zucchini Allergy Mild Hives, Uncoded 12/30/22 09:59 Dysphagia Home Medications ?Medication ?Instructions ?Recorded ?Confirmed ?Last Taken ?Type albuterol sulfate 90 mcg/actuation 2 puff inhalation Q6H PRN Wheezing 05/24/20 04/08/24 Unknown History aerosol inhaler hydroxyzine HCl 10 mg tablet 10 mg PO QID PRN itch 05/20/23 04/08/24 05/19/23 History buspirone 5 mg tablet 5 mg PO TID 11/20/23 04/08/24 Unknown History hydrocortisone 2.5 % topical cream appl topical 11/20/23 04/08/24 Unknown History triamcinolone acetonide 0.025 % appl topical 11/20/23 04/08/24 Unknown History topical cream gabapentin 100 mg capsule 100 mg PO DAILY 04/08/24 04/08/24 Unknown History Exam Airway Mallampati Class: II TM Dist: >3cm Neck ROM: Full Loose/Missing/Broken Teeth: No Heart: RRR Lungs: CTA Assessment and Plan Assessment Anesthesia Assessment: Anesthesia Plan Discussed Final Anesthetic Review NPO: Yes ASA Class: II Final Preanesthetic Review: Meds/Allgs Chart Reviewed, Consent Obtained/Reviewed and Anes Risks/Benef Reviewed Patient Risk: Low Procedure Risk: Intermediate Anesthetic Plan Anesthetic Plan: MAC: Disposition: Standard PACU
--- OUTSIDE RECORDS SUMMARY | 2024-04-23 11:17 | XMS_ITS ---
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 DO NOT USE LONGER THAN 14 DAYS IN A ROW External for 30 Days Active Linzess 290 MCG TAKE 1 CAPSULE BY [facility] MORNING Oral for 30 Active Social [...] Status W/U Status Risk Notes Problem Menopause (469701703) Menopausal and female climacteric states (N95.1) Active confirmed Vital Signs Temperature 97.7 degrees Fahrenheit 01/08/20 24 Blood pressure systolic 100 mm Hg 01/08/20 24 Blood pressure diastolic 68 mm Hg 024 Height 60 in 01/08/2024 Weight 138 lbs 01/08/2024 BMI 26.95 kg/m2 01/08/2024 Encounters Encounter Location Date Provider Diagnosis [address] [place] [address] 01/08/2024 Kalyani Colby Encounter for gynecological examination [...] MAY HAVE HAD GENETIC STUDIES DONE IN [place]. PAT WILL FIND OUT. IF NOT, PAT [...] MAY HAVE HAD GENETIC STUDIES DONE IN [place]. PAT WILL FIND OUT. IF NOT, PAT MAY BE A CANDIDATE FOR GENETIC TESTING. Pending Test Test Name Order Date MM Digital Mammo Screening 01/08/2024 Next Appt Details Follow Up: 1 Year, Reason: Provider Name:Kalyani brooks, 01/13/2025 08:00:00 AM, [address], [address], [place], [address], Progress Notes * CLIFFORD LEACHDOB:[birth year] (53 yo F)Acc No.[id number]:01/08/2024 PROGRESS NOTES Patient:?CLIFFORD LEACH Appointment Provider:?Kalyani brooks M.D. :1970???Age:53 Y???Sex:Female D ate:01/08/2024 Address:[address] [place], [place] [id number] Pcp:BHARAT GARRETT Subjective: * Chief Complaints: * ???Annual OTOLARYNGOLOGY TEACHER PhysicalAnnual OTOLARYNGOLOGY TEACHER Physical 50-59* * HPI: ???New/Follow-up Patient Consult:? [...] IS 60 YEARS OLD,??UNDERWENT DOUBLE MASTECTOMY IN [place] THIS MAY FOR BREAST CA.? ?A MATERNA [...] adequate calcium via diet and supplementation ?Significant OTOLARYNGOLOGY TEACHER problems:?no significant automation controls expert symptoms or problems * ROS:?general:?no?chest pain.?no?palpitations.?no?headache.?no?cough.?no?shortness of breath.?no?fever.?no?unexplained weight loss.?no?nausea/vomiting.?no?change in bowel movements.?no blood in stool.?no?genitourinary complaints.?no?skin complaints.? 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 * Examination: ???General Exam: ?CONSTITUTIONAL:?General Appearance:?alert, in no acute distress, normal, well nourished ?NECK/THYROID:?Inspection/Palpation:?normal ?Thyroid:?normal size and shape ?RESPIRATORY:?Auscultation: clear to auscultation bilaterally, Respiratory Effort: normal.?CARDIOVASCULAR:?Auscultation: regular rate and rhythm.?BREAST, Right:?Inspection/Palpation:?no discharge, no masses present, no nipple retraction, no skin changes, no skin dimpling, no tenderness, no lymphadenopathy, no axillary mass, no axillary tenderness ?BREAST, Left:?Inspection/Palpation:?no discharge, no masses present, no nipple retraction, no skin changes, no skin dimpling, no tenderness, no lymphadenopathy, no axillary mass, no axillary tenderness ?GASTROINTESTINAL:?Abdomen:?no masses, nontender, nondistended ?Liver and Spleen:?normal ?Hernias:?no hernias present, no inguinal adenopathy ?MUSCULOSKELETAL:?Inspection/Palpation:?no clubbing, cyanosis, or edema ?SKIN:?Skin:?normal ?NEURO/PSYCH:?Orientation:?time , place, person ?Mood/Affect:?normal?Genitourinary: ?EXTERNAL GENITALIA:?External Genitalia:?normal, no lesions ?VAGINA:?Vagina:?normal appearance, no abnormal discharge, no lesions ?BLADDER:?Bladder:?no mass, nontender ?URETHRA:?Urethra:?no erythema or lesions present ?CERVIX:?Cervix:?surgically absent ?UTERUS:?Uterus:?surgically absent ?ADNEXA:?Adnexa:?no masses, no tenderness ?ANUS AND PERINEUM:?Anus/Perineum:?visually normal??? Assessment: * Assessment: 1.?Encounter for gynecologic al [...] MAY HAVE HAD GENETIC STUDIES DONE IN [place]. PAT WILL FIND OUT. IF NOT, PAT MAY BE A CANDIDATE FOR GENETIC TESTING.?? * Procedure Codes:? * Preventive Medicine:? ??YOUR PREVENTIVE WELLNESS PLAN:?Osteoporosis prevention?Calcium, D, strength training.?Breast Cancer Screening (Mammogram):?annually.?Cervical Cancer Screening (Pap Smear):?q 3 years with HPV screen.?Colorectal Cancer Screening:?q 10 years.? * Follow Up:?1 Year * Images: Billing Information: * Visit Code:? 70679 Preventive Care New Pt. Age 40-64. 93572 Preventive Care Est Pt. Age 40-64. * Procedure Codes:? * Sign off status: Completed true * Appointment Provider:?Kalyani Colby M.D. Date:?01/08/2024 Generated for Manish avery/Meggan/eTclaribelsmitting on:?04/23/2024 11:17 AM EST History and Physical Notes * HPI [...] 60 YEARS OLD, UNDERWENT DOUBLE MASTECTOMY IN [place] THIS JUNE FOR BREAST CA. A MATERNA COUSIN ALSO [...] or skin changes Urinary problems:: patient r eports no urinary health problems or bowel health problems Calcium intake:: takes adequ ate calcium via diet and supplementation Significant OTOLARYNGOLOGY TEACHER problems:: n o significant automation controls expert symptoms or problems Examination Category Sub-Category Detail [...]
--- OUTSIDE RECORDS SUMMARY | 2024-04-23 11:17 | XMS_ITS | Clinical Summary ---
Author Organization [address] Address [address] [place] [address] Phone Care Team Providers Care Director Of Surgery Name Role Phone José Davis MD Primary Care Provider [phone] Allergies Active Allergy Reactions Criticality Noted Date [...] Discussion (1 - 1-dose 75+ series) 2045 Pneumococcal Vaccine (50+ years) Completed 03/01/2022, 06/04/2017 Meningococcal Vaccine Aged Out No ed armin eligible based on patient's age to complete this topic Pneumococcal Vaccine (2 - 49 years) Aged Out No longer eligible based on patient's age to complete this topic Procedures Procedure Name Priority Date/Time Associated Diagnosis Comments BASIC METABOLIC PANEL Routine 08/26/2022 6:35 AM EDT from Last 3 Months or Most Recently Relevant to Health Maintenance Results * (ABNORMAL) Basic metabolic panel (08/26/2022 6:35 AM EDT) Glucose 77 65 - 110 mg/dL 08/26/2022 7:28 AM EDT [facility] Comment: Non-fasting: ??65-110 mg/dL Fasting (minimum 6 hrs): ??65-99 mg/dL BUN 11 7 - 18 mg/dL 08/26/2022 7:28 AM EDT [facility] Creatinine 0.58 0.55 - 1.02 mg/dL 08/26/2022 7:28 AM EDT [facility] Sodium 139 136 - 145 mmol/L 08/26/2022 7:28 AM EDT [facility] Potassium 3.4(L) 3.5 - 5.1 mmol/L 08/26/2022 7:28 AM EDT [facility] Chloride 104 98 - 107 mmol/L 08/26/2022 7:28 AM EDT [facility] CO2 24 21 - 32 mmol/L 08/26/2022 7:28 AM EDT [facility] Anion Gap 11 5 - 15 mmol/L 08/26/2022 7:28 AM T [facility] Calcium 9.5 8.5 - 10.1 mg/dL 08/26/2022 7:28 AM EDT [facility] eGFR (Creatinine) >60 >=60 mL/min/1.7 3m2 08/26/2022 7:28 AM EDT [facility] Comment: Values < 60 mL/min/1.73 m2 may indicate CKD if present for more than three months AND creatinine is at steady state. The eGFR provides a rough estimate of kidney function. On 10/09/21 all [facility] Clinical Labs and Epic began using a jen-tdhi-acere formula for estimating GFR called CKD-EPI Creatinine 2020. This equation reports eGFR based on creatinine, patient age, clinical sex, and is standardized to a body surface area of 1.73 m2. For the same creatinine, this new race-free eGFR will be lower than prior reported Black eGFR results and higher than prior Non-Black eGFR results. For further guidance, please refer to the CKD: Adult Ammonia Solution Preparer Signature pathway. Blood Venipuncture / Unknown 08/26/2022 6:35 AM EDT 08/26/2022 6:53 AM EDT [facility] LAB BLOOD ORDERABLES F inal Result Performing Organization Address City/State/[facility] Co de Phone Number L + M [facility] [address] [place] [address] from Last 3 Months or Most Recently Relevant to Health Maintenance Insurance Mayomi on file [employer] on file [employer] on file Advance Directives * Full Code (Latest Code Status on File) Date Activated Date Inactivated Comments 08/23/2022 9:19 AM 08/27/2022 11:53 PM Question Answer Comments With Whom was the Code Status Discussed? Patient Care Teams Director Of Surgery Relationship Specialty Start Date End Date José Davis MD [address] [place] [address] PCP - General Internal Medicine 08/23/22
--- OUTSIDE RECORDS SUMMARY | 2024-04-23 11:17 | XMS_ITS ---
Author Organization [employer] Address [address] [facility] [address] [place] [address] Care Team Providers Care Meat Packer Name Role Phone CAITIE SLOAN Primary Care Provider Kalyani Ellsworth Unavailable [phone] Allergies Allergen (clinical drug ingredient) Drug/Non Drug [...] Interpretation: Performing Lab:Testing performed or reported by [facility], a Service of [facility], [address] [place] [address] Tank Mon MD, Blueprint Assembler [facility]# [id number] Notes/Report: Patient Name: CLIFFORD LEACH Patient : 1970 (Age: 52) Lab Collection Date: 12/27/2022 Accession Date: 12/27/2022 Sign Out Date: 01/03/2023 Tissue Source: 1: THINPREP BICYCLE COURIER PAP TEST, CERVICAL/VAGINAL: Final Diagnosis: NEGATIVE FOR INTRAEPITHELIAL LESION OR MALIGNANCY. Satisfactory for evaluation. Endocervical/transformation zone ABSENT. Procedures/Addenda: Human Papilloma Virus, High-Risk(Reflex GT) Status: Signed Out Interpretation: Negative Methodology: [employer] Aptima HPV mRNA assay (Nucleic Acid Amplification Test, NAAT) Clinical History: Date of Last Menstrual Period: not available Menstrual History: Hysterectomy Contraceptive History: not available Ancillary Testing: HPV (Reflex GT) Case imaged by the ThinPrep Imaging System with manual rescreening or review. Performed at [facility] department of Cytology, Masoud Tavarez [place] Clinical History (other): Z01.419 Phone #: [phone], On-Call Pathologist: [id number] REASON FOR VISIT Annual BICYCLE COURIER Physical, Annual BICYCLE COURIER Physical 50-59* Medications Medication SIG (Take, Route, Fr equency, Duration) Notes Start Date End Date Status Linzess 290 MCG TAKE [address] CAPSU[address] [facility] EVERY MORNING Oral for [...] 12/27/2022 Encounters Encounter Location Date Provider Diagnosis [address] [address] 12/27/2022 Kalyani Colby Encounter for gynecological examination [...] Reason: Provider Name:Kalyani brooks, 01/13/2025 08:00:00 AM, [facility], [address], [place], [address], Progress Notes * CLIFFORD LEACHDOB:[birth year] (52 yo F)Acc No.[id number]:12/27/2022 PROGRESS NOTES Patient:?CLIFFORD LEACH Appointment Provider:?Kalyani brooks M.D. :1970???Age:52 Y???Sex:Female D ate:12/27/2022 Address:[address] [place], [place] [id number] Pcp:BHARAT GARRETT Subjective: * Chief Complaints: * ???Annual BICYCLE COURIER PhysicalAnnual BICYCLE COURIER Physical 50-59* * HPI: ???New/Follow-up Patient Consult:? [...] adequate calcium via diet and supplementation ?Significant BICYCLE COURIER problems:?no significant program aide group work symptoms or problems * ROS:?general:?no?chest pain.?no?palpitations.?no?headache.?no?cough.?no?shortness of breath.?no?fever.?no?unexplained weight loss.?no?nausea/vomiting.?no?change in bowel movements.?no blood in stool.?no?genitourinary complaints.?no?skin complaints.? 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 * Tailer In History:?/ Para?4/3.?Sexual activity?currently sexually active, with men.?Last [...] ?Natural support system: yes. 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 ?Sexually active: yes, monogamous relationship. * [...] Hg, Temp:97.7 F. * Examination: ???General Exam: ?CONSTITUTIONAL:?General Appearance:?alert, in [...] * Images: Billing Information: * Visit Code:? 39994 Preventive Care New Pt. Age 40-64. 12254 Preventive Care Est Pt. Age 40-64. * Procedure Codes:? * Sign off status: Completed true * Appointment Provider:?Kalyani Colby M.D. Date:?12/27/2022 Generated for Manish avery/Meggan/Monishaitting on:?04/23/2024 11:17 AM EST History and Physical [...] TESTS WERE NEGATIVE. HER LAST ONE IN 2018 WAS NEGATIVE AND HPV NEGATIVE. PELVIC ULTRASOUND [...] ate calcium via diet and supplementation Significant BICYCLE COURIER problems:: n o significant program aide group work symptoms or problems Examination Category Sub-Category Detail [...]
--- OUTSIDE RECORDS SUMMARY | 2024-04-23 11:17 | XMS_ITS | Patient Health Record ---
Author Organization [employer] [facility] Address [address] [facility] [address] [place] [address] Care Team Providers Care Explosives Worker Name Role Phone CAITIE SLOAN Primary Care Provider Kalyani Ellsworth Unavailable [phone] Allergies Allergen (clinical drug ingredient) Drug/Non Drug [...] Linzess 290 MCG TAKE 1 CAPSULE BY [facility] EVERY MORNING Oral for 30 Active Social [...] W/U Status Risk Notes Problem Mixed incontinence (942659252) Mixed incontinence (N39.46) Active confirmed Problem Urinary incontinence (041084789) Unspecified urinary incontinence (R32) Active confirmed Problem Asthma (003603745) Other asthma (J45.998) Active confirmed Problem Gastroduodenitis (605300515) Gastritis, unspecified, without bleeding (K29.70) Active confirmed Problem Osteoarthritis (378843051) Unspecified osteoarthritis, unspecified site (M19.90) Active confirmed Problem Fibromyalgia (870860929) Fibromyalgia (M79.7) Active confirmed Problem Unspecified menopausal and perimenopausal disorder (N95.9) Active confirmed Problem History of dysplasia of cervix (070169383) Personal history of cervical dysplasia (Z87.410) Active confirmed Problem Menopause (824842927) Menopausal and female climacteric states (N95.1) Active confirmed Problem Gynecological examination normal (258874302974078) Routine gynecological examination (V72.31) Active confirmed Diag Vital Signs Temperature 97.7 degrees Fahrenheit 01/08/2024 Blood pressure diastolic 68 mm Hg 01/08/2024 Height 60 in 01/08/2024 Blood pressure systolic 100 mm Hg 01/08/2024 Weight 138 lbs 01/08/2024 BMI 26.95 kg/m2 01/08/2024 Encounters Encounter Location Date Provider Diagnosis [address] [place] [address] 01/08/2024 Kalyani Colby Encounter for gynecological examination [...] MAY HAVE HAD GENETIC STUDIES DONE IN [place]. PAT WILL FIND OUT. IF NOT, PAT MAY BE A CANDIDATE FOR GENETIC TESTING. Plan Of Treatment Pending Test Test Name Order Date Urinalysis 03/12/2017 Urinalysis 03/27/2017 THIN PREP,HPV,TYSON IF HPV+/CYT- (>29YR)( SCRN) 03/27/2017 MM Digital Mammo Screening 12/27/2022 MM Digital Mammo Screening 01/08/2024 MM Digital Mammo Screening 03/12/2017 Next Appt Details Provider Name:Kalyani brooks, 01/13/2025 08:00:00 AM, [address] [facility], [address], [place], [address], Insurance Providers Payer Name Payer Address Payer Phone Subscriber Number Group Number Insured Name Patient Relationship to Insured Coverage Start Date Coverage End Date [facility] [address] [place] [address] [id number] CLIFFORD HOLLOWAY Self - patient is [...]
--- OUTSIDE RECORDS SUMMARY | 2024-04-23 11:18 | XMS_ITS | Clinical Summary ---
Author Organization [facility] Address [address] [place] [address] Care Team Providers Care Manager Critical Care Name Role Phone Unavailable Primary Care Provider [...] (1 of 3 - 19+ 3-dose series) 04/24 Pap Smear (Ages 21-65) 05/07/1991 Mammogram 2010 Colonoscopy 05/07/2015 Pneumococcal Vaccines 50+ (1 of 1 - PCV) 2020 Zoster (Shingles) Vaccine (1 of 2) 2020 Influenza Vaccine 09/25/2023 COVID-19 Vaccine ( - 2023- season) 2023
--- OUTSIDE RECORDS SUMMARY | 2024-04-23 11:18 | XMS_ITS | Continuity of Care Document ---
Author Organization [facility] Address [address] [place] [address]- Care Team Providers Care Bar Finish Operator Name Role Phone Vianney Plummer Primary Care P tyler Encounter [facility] Date(s): 03/18/24 - 04/17/[address] [address]- Encounter Diagnosis Viral respiratory infection(Discharge Diagnosis) - 02/09/21 Urinary urgency(Discharge Diagnosis) - 02/09/21 Attending Physician: Admtr, Ar8 Encounter Type: Triage Allergies, Adverse Reactions, Alerts Substance Criticality Severity Reaction Reaction Severity Status aspirin hives Active narcotic analgesics Active Fish hives Active Other Food Allergy pumpkin, zuchinni, squash Active traMADol hallucinations Activ e Percocet 5/325 palpitations Ac tive Pollen Active Immunizations Given and Recorded Vaccine [...] n zoster vaccine, inactivated 02/19/23 Recorded SARS-CoV-2(COVID-19)mRNA-LNP vac(rww154) 02/19/23 Recorded pneumococcal 20-valent conjugate vaccine 4 03/01/22 Given [id number]-[id number] bivalent booster vax 11/15/21 Recorded SARS-CoV-2 (COVID-19) mRNA-1273 vaccine 04/13/20 R ecorded SARS-CoV-2 (COVID-19) mRNA-1273 vaccine 03/16/20 R ecorded pneumococcal 23-valent vaccine 06/04/17 Given tetanus/diphtheria/pertussis, acel(Tdap) 01/31/16 Given tetanus-diphtheria toxoids (Td) 05/12/02 Given 1Result Comment: [facility]# [phone] 2Result Comment: FLU [facility] [id number] 3Result Comment: FLU [facility] [id number] 4Result Comment: [facility] [id number] Medications Albuterol (Eqv-ProAir HFA) 90 mcg/inh inhalation aerosol 1 puffs, Inhalation, 4 times a day, PRN NEEDED FOR WHEEZING, # 8.5 each, 0 Refills, Maintenance,11/15/22 11:38:00 AM EDT, [facility], 30, INHALE 1 PUFF BY MOUTH 4 [...] Replace Required Details, Route to Pharmacy Electronically, [facility]/pharmacy #[id number], 152, cm, 03/18/2512:06:00 EST, Height Start Date: 03/18/24 Status: Ordered Quantity: 360.0 Unit: tablet Repeat number: 2 fluticasone CFC free 110 mcg/inh inhalation aerosol 2 puffs, Inhalation, 2 times a day, # 3 each, 3 Refills, Maintenance, 12/12/23 8:59:00 AM EDT, Aerosol, [facility]/pharmacy #[id number], 152, cm, 12/12/23 8:44:00 EDT, Height Start Date: 12/12/23 Status: Ordered Quantity: 3.0 Unit: each Repeat number: 4 gabapentin 100 mg oral capsule 100 mg, 1, capsule, By Mouth, Daily, # 30 capsule, Refills 1, Tot. Refills 1, Maintenance, :06:00 AM EDT, Route to Pharmacy Electronically, [facility]/pharmacy #[id number], Partial fill upon patient request if the prescription is for a schedule II opioid drug., 152, cm, 12/12/23 8:44:00 EDT, Height Start Date: 12/12/23 Status: Ordered Quantity: 30.0 Unit: capsule Repeat number: 2 hydrOXYzine hydrochloride 10 mg oral tablet 1 tablet, By Mouth, 4 times a day, PRN NEEDED FOR ITCHING, # 90 tablet, 1 Refills, Maintenance, 06/12/23 8:28:00 AM EDT, [facility]/pharmacy #[id number], 152, cm, 06/12/23 8:07:00 EDT, Height Start Date: 06/12/23 Status: Ordered Quantity: 90.0 Unit: tablet Repeat number: 2 Linzess 290 mcg oral capsule TAKE 1 CAPSULE BY MOUTH EVERY MORNING Start Date: 12/04/22 Status: Ordered Repeat number: 1 omeprazole 20 mg oral enteric coated capsule 1 capsule = 20 mg, By Mouth, Daily, PRN Other, as needed for heart burn, # 90 capsule, 1 Refills, Maintenance, 04/09/24 3:24:00 PM EST, EC Capsule, [facility]/pharmacy #[id number], Partial fill upon patient request if the prescription is for a schedule II opioid drug., 152, cm, 03/18/24 13:06:00 EST, Height Start Date: 04/09/24 Status: Ordered Quantity: 90.0 Unit: capsule Repeat number: 2 Senna Plus 50 mg-8.6 mg oral tablet [...] on: 05/21/13 Sex Sex Representation Female (finding) EKG study * Event Display: EKG Authored Date: Laboratory * Event Display: Non BH Lab Results Authored Date: * Event Display: Non BH Lab Results Authored Date: * Event Display: Non BH Lab Results Authored Date: * Event Display: Non BH Lab Results Authored Date: * Event Display: Non BH Lab Results Authored Date: * Event Display: Non BH Lab Results Authored Date: Radiology * Event Display: Radiology Result Scanned Authored Date: * Rafat Mack: PERFORM Event Display: Radiology Results Scanned Authored Date: * Claudia Zhao: PERFORM Event Display: Radiology Results Scanned Authored Date: Patient Care team information Care Team Personnel Name: Vianney Plummer Position: S PCO Associate Professional Member Role: PCP Address: [address] [place] [address]. [address] [place] [address]- Telecom: Care Team Related Persons Name: MIKE LEACH Insurance Providers Guarantor name: CLIFFORD LEACH On License Of [facility] Information #: 1 Payer: [facility] Member Number: NA Policy Number: NA Group Number: NA
--- OUTSIDE RECORDS SUMMARY | 2024-04-23 11:18 | XMS_ITS | Continuity of Care Document ---
Author Organization [facility] Adult Address [address] [place] [address]- Care Team Providers Care Musical Performer Name Role Phone Vianney Plummer Primary Care P tyler [place] [facility] [place]17[place] - 04/16/24 [facility] Adult [address] [place] [address]- Encounter Type: Triage Allergies, Adverse Reactions, Alerts Substance Criticality Severity Reaction Reaction Severity Status aspirin hives Active narcotic analgesics Active Fish hives Active Pollen Active Other Food Allergy pumpkin, zuchinni, squash Active Percocet 5/325 palpitations Ac tive traMADol hallucinations Activ e Immunizations Given and Recorded Vaccine Date Status [...] n zoster vaccine, inactivated 02/19/23 Recorded SARS-CoV-2(COVID-19)mRNA-LNP vac(onb643) 02/19/23 Recorded pneumococcal 20-valent conjugate vaccine 4 03/01/22 Given [id number] bivalent booster vax 11/15/21 Recorded SARS-CoV-2 (COVID-19) mRNA-1273 vaccine 04/13/20 R ecorded SARS-CoV-2 (COVID-19) mRNA-1273 vaccine 03/16/20 R ecorded pneumococcal 23-valent vaccine 06/04/17 Given tetanus/diphtheria/pertussis, acel(Tdap) 01/31/16 Given tetanus-diphtheria toxoids (Td) 05/12/02 Given 1Result Comment: [facility]# [id number] 2Result Comment: FLU [facility] [id number] 3Result Comment: FLU [facility] [id number] 4Result Comment: [facility] [id number] Medications Albuterol (Eqv-ProAir HFA) 90 mcg/inh inhalation aerosol 1 puffs, Inhalation, 4 times a day, PRN NEEDED FOR WHEEZING, # 8.5 each, 0 Refills, Maintenance,11/15/22 11:38:00 AM EDT, [facility] [id number], 30, INHALE 1 PUFF BY MOUTH 4 [...] Replace Required Details, Route to Pharmacy Electronically, [facility]/pharmacy #[id number], 152, cm, 03/18/2512:06:00 EST, Height Start Date: 03/18/24 Status: Ordered Quantity: 360.0 Unit: tablet Repeat number: 2 fluticasone CFC free 110 mcg/inh inhalation aerosol 2 puffs, Inhalation, 2 times a day, # 3 each, 3 Refills, Maintenance, 12/12/23 8:59:00 AM EDT, Aerosol, [facility]/pharmacy #[id number], 152, cm, 12/12/23 8:44:00 EDT, Height Start Date: 12/12/23 Status: Ordered Quantity: 3.0 Unit: each Repeat number: 4 gabapentin 100 mg oral capsule 100 mg, 1, capsule, By Mouth, Daily, # 30 capsule, Refills 1, Tot. Refills 1, Maintenance, 249:06:00 AM EDT, Route to Pharmacy Electronically, [facility]/pharmacy #[id number], Partial fill upon [...] 1 Refills, Maintenance, 06/12/23 8:28:00 AM EDT, [facility]/pharmacy #[id number], 152, cm, 06/12/23 8:07:00 EDT, Height [...] Maintenance, 04/09/24 3:24:00 PM EST, EC Capsule, [facility]/pharmacy #[id number], Partial fill upon [...] on: 05/21/13 Sex Sex Representation Female (finding) Patient Care team information Care Team Personnel Name: Felipa NICHOLSON, Vianney Eisenberg Position: S PCO Associate Professional Member Role: PCP Address: [address] [place] [address]. [address] [place] [address]- Telecom: Care Team Related Persons Name: MIKE LEACH Insurance Providers Guarantor name: CLIFFORD LEACH Health Plan Information #: 1 Payer: [facility] Member Number: NA Policy Number: NA Group Number: NA
--- OUTSIDE RECORDS SUMMARY | 2024-04-23 11:18 | XMS_ITS ---
Author Organization [employer] Address [address] [facility] [address] [place] [address] Care Team Providers Care Fast Food Assistant Restaurant Manager Name Role Phone CAITIE SLOAN Primary Care Provider Kalyani Ellsworth [phone] REASON FOR VISIT ULTRA- F/U LT OVARIAN CYST Medications Medication SIG (Take, Route, Fr equency, Duration) Notes Start Date End Date Status Linzess 290 MCG TAKE 1 CAPSULE BY MO UTH EVERY MORNING Oral for 30 Active Albuterol Active Senna - as directed Orally A ctive Encounters Encounter Location Date Provider Diagnosis [facility] [address] [place] [address] 01/03/2023 Kalyani Colby Plan Of Treatment Next Appt Details Provider Name:Kalyani brooks, 01/13/2025 08:00:00 AM, [address] [place] [address], [address], [place], [address], Progress Notes * CLIFFORD LEACHDOB:[birth year] (53 yo F)Acc No.[id number]:01/03/2023 PROGRESS NOTES Patient:?CLIFFORD LEACH Appointment Provider:?Kalyani brooks M.D. :1970???Age:52 Y???Sex:Female D ate:01/03/2023 Address:[address] [place] [address], Laura [id number] Pcp:BHARAT GARRETT Subjective: * Chief Complaints: * [...] Electronic signature of Anil Colby MD on 04/23/2024 at 11:17 AM EST Sign off status: Pending * Appointment Provider:?Kalyani Colby M.D. Date:?01/03/2023 Generated for Manish avery/Meggan/Monishaitting on:?04/23/2024 11:17 AM EST
--- OUTSIDE RECORDS SUMMARY | 2024-04-23 11:18 | XMS_ITS | Encounter Summary ---
Author Organization [facility] Address [address] [place] [address] Care Team Providers Care Bread Supervisor Name Role Phone Unavailable Primary Care Provider Unavailabl e Encounter Details Date Type Department Care Team (Late st Contact Info) Description 08/23/2022 Scanned Document [facility] [address] [place] [address] Rosendo See, METALIZING MACHINE OPERATOR AUTOMATIC [address] [phone] Social History Tobacco Use Types Packs/Day Years [...]
--- OUTSIDE RECORDS SUMMARY | 2024-04-23 11:18 | XMS_ITS | Clinical Summary ---
Author Organization [facility] Address [address] [place] [address] Care Team Providers Care [address] And Building Decorator Name Role Phone José Davis MD Primary Care Provider [phone] Surgical History Surgery Date Site/Laterality Comments APPENDECTOMY PROCEDURE: ID APPENDECTOMY OTHER SURGICAL HISTORY 1991 PROCEDURE: ID OTHER CAROTID STENT IPSIL TIA/STRK 120 DAYS/>; COMMENT: tubal ligation HYSTERECTOMY PROCEDURE: HISTORICAL HYSTERECTOMY OTHER SURGICAL HISTORY 2020 PROCEDURE: ID OTHER CAROTID STENT IPSIL TIA/STRK 120 DAYS/>; [...] Cervical Cancer Screening: P ap Smear 05/07/1991 Pneumococcal Vaccine: 50+ Ye ars (1 of 1 - PCV) 2020 Zoster Vaccines (1 of 2) 2020 Colorectal Cancer Screening: Colonoscopy 01/27/2022 Depression Screening 01/27/2022 HIV Screening 01/27/2022 Hepatitis C Screening 01/27/2022 Social Influencers of Health Screening 01/27/2022 COVID-19 Vaccine (1 - 2023-2 5 season) 2023 Influenza Vaccine [...] patient's age to complete this topic Meningococcal B Vacine Aged Out No lo nger eligible based on patient's age to complete [...] age to complete this topic Care Teams Street And Building Decorator Relationship Specialty Start Date End Date José Davis MD [address] [place] [address] PCP - General Internal Medicine 02/28/21
[2024-04-26 10:37] VITALS: BMI 26.7
[2024-04-26 10:45] VITALS: BP 90/51; PULSE 65; RESP 16; TEMP 36.4; O2SAT 99
[2024-04-26] MEDS: Lactated Ringers 1,000 ML 100 ML IVCONT (10:53)
--- NOTE | 2024-04-26 10:54 | MHC.SHP ---
Pre-Procedural Eval Section A - 24 Hr Update-Section A only Date of Service: 04/26/24 The patient is an INPATIENT: No The patient has been examined within 24 hours of the surgical procedure. The History & Physical has been completed within 30 days and I have reviewed it.: No Section B - Complete if H&P > 30 days Chief Complaint: Personal history of colonic polyps Relevant Family History (Specify if Yes): No Relevant Social History: None Present Medications: see Short Stay Collaborative assessment Medical History: Significant History (Sleep apnea Adjustment disorder, unspecified GERD (gastroesophageal reflux disease) Asthma Bleeding hemorrhoids Irritable bowel syndrome Chronic constipation) History of Previous Operations: Relevant previous surgery/procedure and date(s) (Hx of laparoscopic partial gastrectomy [place] teeth extracted Hx of breast reduction, elective Hx of hemorrhoidectomy History of arthroscopy of both knees Hx of appendectomy H/O eye surgery H/O colonoscopy History of esophagogastroduodenoscopy (EGD) H/O: hysterectomy) Allergies: Allergies Allergy/AdvReac Type Severity Reaction Status Date / Time aspirin [ASPIRIN] Allergy Severe HIVES Verified 04/08/24 13:01 Fish Containing Products Allergy Severe HIVES/DYSPN Verified 04/08/24 13:01 EA oxycodone [From PERCOCET] Allergy Severe PALPITATION Verified 04/08/24 13:01 S/HIVES pumpkin Allergy Severe THROAT Verified 04/08/24 13:01 SWELLING squash Allergy Severe THROAT Verified 04/08/24 13:01 SWELLING Zucchini Allergy Mild Hives, Uncoded 12/30/22 09:59 Dysphagia Review of Systems Sugical H&P ROS: Negative: Constitution, Cardiovascular, Respiratory and Gastrointestinal Exam Surgical H&P Exam: Normal: Heart, Normal: Lungs, Normal: Extremities and Normal: Abdomen Plan Diagnosis/Plan: Unchanged I have reviewed the history and physical and performed a pertinent physical examination on my patient. No changes have occurred unless specified. Time Spent With Patient Time: Total time managing care of this patient today ____ minutes.
--- NOTE | 2024-04-26 11:01 | P.OPN-COLO_ITS ---
Colonoscopy Operative Note Operative Note Date of Service: 04/26/24 Narrative: FLEXIBLE TRANSORAL UPPER GASTROINTESTINAL ENDOSCOPY WITH BIOPSIES AND ESOPHAGEAL BALLOON DILATION AND COLONOSCOPY TILL CECUM WITH SNARE POLYPECTOMY Pre-op diagnosis: Surveillance for colon polyps, GERD, dysphagia Patient is status post sleeve Gastrectomy in Jun, 2022 RUQ pain resolved after GB surgery in Jun, 2023 Post-op diagnosis: Hiatal hernia, Schatzki's ring, Gastritis, Colon Polyps, Div erticulosis, hemorrhoids Endoscopist:? Abdoul Hickman MD Anesthesia:?MAC UPPER ENDOSCOPY Consent: Indications for the procedure and potential complications of bleeding, perforation, reaction to medications and missed diagnosis were discussed with the patient and informed consent was obtained. Instrument: Olympus GIF H 190 mid size upper endoscope Monitoring: Vital signs and clinical assessment, continuous EKG monitoring, Pulse oximetry, Carbon Dioxide monitoring and blood pressure monitoring were done throughout the procedure. Procedure: The patient was placed in the left lateral decubitis position and pre-procedure medications were administered and a bite block was placed. The endoscope was inserted into the mouth and advanced under direct vision to the third part of duodenum. A careful inspection was made as the upper endoscope was withdrawn including a retroflexed examination of the proximal stomach; Findings and interventions are described below. Findings: Larynx: Normal Esophagus: GE junction at 33 cms, small hiatal hernia 33 to 35 cms. A non- obstructing Schatzki;s ring. No esophagitis or Doe's. Balloon dilation of the distal esophagus was performed with a 20 mm (60 F) CRE balloon x 60 seconds Stomach: Moderate diffuse gastric erythema of the gastric pouch - biopsies were obtained from the gastric body and antrum. Grade 2 flap valve on retroflexed examination of the cardia. Duodenum: Normal bulb and descending duodenum Intervention: Biopsies as noted above COLONOSCOPY PROCEDURE NOTE Instrument: Olympus PCF H 190 L variable stiffness pediatric colonoscope Monitoring: Vital signs and clinical assessment, intermittent blood pressure monitoring, continuous EKG monitoring, Pulse oximetry and Carbon Dioxide monitoring were done throughout the procedure. Please see anesthesia flowsheet. Colon withdrawl time was 15 minutes. Procedure: The patient was placed in the left lateral decubitis position and pre-procedure medications were administered. After a digital rectal examination of the ano-rectum, the video colonoscope was inserted into the rectum and advanced through the colon to the cecum. The colonoscope was slowly withdrawn in a retrograde panoramic fashion and the colon mucosa was carefully examined including a retroflexed view of the rectum. Findings and interventions are described below. Procedure Difficulty: Colon was long and tortuous and there was some loop Findings: Terminal Ileum: Not evaluated Cecum: Normal Ascending Colon: Mild melanosis coli in the right colon Transverse Colon: A 3-4 mm sessile polyp - removed with a cold snare Descending Colon: Moderate diverticulosis Sigmoid Colon: A 10-12 mm sessile polyp - removed with a hot snare. Severe diverticulosis with luminal narrowing Rectum: Normal Ano-rectum: Small internal hemorrhoids Colon preparation: Good after copious irrigation. [place] Bowel Preparation Scale Right colon; 2 Transverse colon: 2 Left colon; 2 (0 = Unprepared colon segment with mucosa not seen due to solid stool that cannot be cleared. 1 = Portion of mucosa of the colon segment seen, but other areas of the colon segment not well seen due to staining, residual stool and/or opaque liquid. 2 = Minor amount of residual staining, small fragments of stool and/or opaque liquid, but mucosa of colon segment seen well. 3 = Entire mucosa of colon segment seen well with no residual staining, small fragments of stool or opaque liquid) Impression and Post Procedure Diagnosis: Endoscopy Findings: ESOPHAGUS: Small hiatal hernia, non-obstructing Schatzki's ring - dilated to 60 F STOMACH: Moderate diffuse gastric erythema of the gastric pouch DUODENUM: Normal Colonoscopy Findings: Two small to medium sized polyps were removed Moderate diverticulosis seen in the left colon Small hemorrhoids on retroflexed exam. Plan: Pt has a FU appointment on 05/13/[address] Hickman Repeat Colonoscopy in 3-5 years if polyps are adenomatous and 10 year if polyps are hyperplastic. Above findings were reviewed with the patient and relevant handouts were given and the discharge area. BIOPSIES SHOWED: A. Stomach, antrum, biopsy: Gastric antral mucosa with mild chronic inactive gastritis; negative for Helicobacter pylori, intestinal metaplasia and dysplasia. B. Stomach, body, biopsy: Gastric body mucosa within normal limits; negative for Helicobacter pylori, intestinal metaplasia and dysplasia. C. Colon, transverse, polypectomy: Tubular adenoma; negative for high-grade dysplasia. D. Colon, sigmoid, polypectomy: Tubular adenoma; negative for high-grade dysplasia Letter sent with biopsy results. Patient was placed on the colonoscopy recall list for repeat colonoscopy in 3 years.
[2024-04-26 12:06] VITALS: BP 94/49; PULSE 68; RESP 18; TEMP 36.1; O2SAT 100
[2024-04-26 12:21] VITALS: BP 106/49; PULSE 59; RESP 18; TEMP 36.8; O2SAT 100
== END 2024-04-26 13:06 | disposition home or self-care (01) ==
PROVIDERS: PCP Student in an Organized Health Care Education/Training Program; Visit Provider Internal Medicine Gastroenterology
PROC: (CPT 45385; principal; 2024-04-26 11:10)
DX: Z12.11 Encounter for screening for malignant neoplasm of colon (principal); Z86.0101 Personal history of adenomatous and serrated colon polyps; D12.3 Benign neoplasm of transverse colon; D12.5 Benign neoplasm of sigmoid colon; K57.30 Diverticulosis of large intestine without perforation or abscess without bleeding; K64.8 Other hemorrhoids; K63.89 Other specified diseases of intestine; R13.10 Dysphagia, unspecified; K21.9 Gastro-esophageal reflux disease without esophagitis; K22.2 Esophageal obstruction; K29.50 Unspecified chronic gastritis without bleeding; K44.9 Diaphragmatic hernia without obstruction or gangrene; Z98.84 Bariatric surgery status
CPT/HCPCS: 45385; 43249; 43239; 88305; 88313; 88342; C1726; J2003; J2704

== ENCOUNTER → 2024-04-26 09:30 | Outpatient (BNV) | payer OTHER, SELFPAY | PROVIDERS: PCP Student in an Organized Health Care Education/Training Program; Visit Provider Internal Medicine Gastroenterology | DX: Z12.11 Encounter for screening for malignant neoplasm of colon (principal); Z86.0100 Personal history of colon polyps, unspecified; K63.89 Other specified diseases of intestine; D12.3 Benign neoplasm of transverse colon; K21.9 Gastro-esophageal reflux disease without esophagitis; K22.2 Esophageal obstruction; K29.70 Gastritis, unspecified, without bleeding; Z90.3 Acquired absence of stomach [part of] | CPT/HCPCS: 43239; 43249; 45385 ==

== ENCOUNTER 2024-05-13 09:14 | Outpatient (AMB) | payer OTHER, SELFPAY ==
--- NOTE | 2024-05-13 09:18 | MHC.OFFVIS ---
Vital Signs 05/13/24 09:20 Height 5 ft Weight 141 lb BMI 27.5 BP 98/52 L Blood Pressure Location Lt brachial Position Sitting Pulse Oximetry (%) 99 Oxygen Delivery Method Room Air Intake Visit Reasons: s/p colon Intake Note: Patient follow up for bleeding hemorrhoids and EGD/Colonoscopy results. Patient cc: constipation with middle abdominal pain/discomfort and bloating, some swallowing difficulty on and off. 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 And Fish Butcher Required: No Accompanied by: Self / Same As Patient Allergies aspirin [ASPIRIN] Allergy (Severe, Verified 05/13/24 09:18) HIVES Fish Containing Products Allergy (Severe, Verified 05/13/24 09:18) HIVES/DYSPNEA oxycodone [From PERCOCET] Allergy (Severe, Verified 05/13/24 09:18) PALPITATIONS/HIVES pumpkin Allergy (Severe, Verified 05/13/24 09:18) THROAT SWELLING squash Allergy (Severe, Verified 05/13/24 09:18) THROAT SWELLING Zucchini Allergy (Mild, Uncoded 12/30/22 09:59) Hives, Dysphagia Medication List - Last Reconciled 05/13/24 by Abdoul Hickman MD albuterol sulfate 90 mcg/actuation 2 puffs inhalation Q6H PRN buspirone 5 mg PO TID gabapentin 100 mg PO DAILY hydrocortisone 2.5% appl topical hydroxyzine HCl 10 mg PO QID PRN linaclotide (Linzess) 290 mcg PO QAM 90 days sennosides-docusate sodium 8.6-50 mg (Senexon-S) 2 tabs PO DAILY 90 days sod picosulf-mag ox-citric ac 10 mg-3.5 gram- 12 gram/175 mL (Clenpiq) 175 mL PO ONCE 2 doses triamcinolone acetonide 0.025% appl topical HPI HPI s/p colon: Details: GI clinic visit for this 54-year-old female for FU of right upper quadrant pain, IBS and rectal bleeding. Noted to have elevated LFTs since April, CHRONIC ILLNESSES:?Asthma, gastritis, NUD, colitis, morbid obesity, Eczema, history of colon polyps TODAY'S VISIT Patient cc: constipation with middle abdominal pain/discomfort and bloating, some swallowing difficulty on and off. EGD and colon results were reviewed. Taking Linzess and Senna 3 times a day and no BM x 3 days Getting heartburn again - and notes nausea Notes constant upper abd discomfort (no change with eating) which is chronic since prior to her GB surgery - attributes to her past bariatric surgery. Constipation after she started taking gabapentin Doing well - able to have a BM daily by taking Linzess and Senna Heartburn improved with dietary modification RUQ pain resolved after GB surgery in Jun, 2023 PAST VISIT: Feeling better. Linzess is helping and has a BM daily. Taking Linzess and one Senna daily (if she takes two Senna then she is in the bathroom all morning) RUQ pain and nausea is better. Feels good since she lost weight. Not having a BM every day - has gone twice this week (Sun and Manuel) Notes some nausea when she takes her medications in the morning Taking Senna 1 capsule three times daily Stool softeners 2 capsules twice daily Linzess 145 mcg daily for constipation Patient had gastric sleeve surgery on 07/17/2022 Seen at [facility] in [place], [place] on 08/23/22 after she had abdominal pain, nausea and vomiting and constipation.? Denies rectal bleeding. CT scan showed colitis - medical records were requested. Treated with IVF, potassium and pain improved. Using suppositories and still not using the bathroom. Senna increased to three times a day, Colace twice a day, MOM 5 ml every night and a suppositories. Had a BM at 7:30 am today.? BM was hard and dark. She is having issues with hard pellet it stool in taking 3 fiber gummies, p.r.n. docusate, 2 senna tablets daily.? She was instructed to purchase bisacodyl suppositories, which she is using occasionally.? She denies any chest pain, nausea, vomiting, dysphagia, odynophagia or hematemesis. Working with wt management and has lost 30 lbs since Feb - weighs 168 lbs Was 194 lbs when she started working with [employer]. Has been taking protein shakes and small meals. Has been having constipation Taking 2 tablets of Senna for constipation. Intermittent pain due to hemorrhoids - takes preparation H GERD symptoms improved and only takes Omeprazole prn - has not taken it in a while. Pt changed appt to TV since she had some diarrhea when Has been she woke up. Continues to have chronic constipation and has a BM every other day with some straining. Denies recurrent rectal bleeding since hemorrhoid surgery Complains of heartburn and taking Omeprazole twice for the past 2-3 months Notes heartburn when she takes cheese, salad dressing (balsamic), eggs, strawberries and leeks. Also has fibromyalgia with aches and pains and takes tylenol prn ? ? ? Denies recurrent rectal bleeding since she had hemorrhoidectomy. ? ? ? Stomach gets upset sometimes. ? ? ? Intermittent constipation. ?? ? Complains of constant pain on the right side of the belly button for the past month. ?? ? No change in pain with eating or drinking. ? ? Hurts when she moves or tries to lift something. Sometimes it hurts when she has a BM. Past abd surgeries: appendectomy and C -section. ? Lost 11 lbs by eating more vegetables and fruits. ? Taking more fibre in her diet. ? Heartburn and dysphagia symptoms have resolved and takes lansoprazole and dicyclomine p.r.n. every few days and does not need to take it every day. ? 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 ? 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 ? Taking Lansoprazole twice a day and dicyclomine three times a day with decrease in episodes of throat closing. ? Notes episodes can be related to her diet - she took a grilled cheese sandwich and felt her throat closing LABS IN [facility]: 05/05/19 reviewed normal CBC and LFTs ? IMAGING STUDIES: 06/2018 HIDA SCAN WAS NORMAL. ? June [address] scan showed: ? No acute findings of the abdomen or pelvis. No inflammatory changes. ? There is a moderate colonic stool burden, mostly throughout the right hemicolon. ?07/30/19 BARIUM SWALLOW FROM [facility]VIEWED: ? Normal oral and pharyngeal phases with no laryngeal penetration or subglottic aspiration. ? Esophagus: Normal in contour and mucosal appearance. Tertiary contractions noted in the distal half of the esophagus with from transit of liquid barium into the stomach. No hiatal hernia. Despite the use of provocative maneuvers, no gastroesophageal reflux was appreciated during the study. A 13 mm barium tablet passed unimpeded into the stomach. No evidence of esophageal web, narrowing or outpouching. No esophageal obstruction. ? IMPRESSION: ? Mild dysmotility with no evidence of stricture. ?ENDOSCOPIC STUDIES: 04/23/19 PATIENT HAD AN EGD AND COLONOSCOPY : ? Endoscopy Findings: ? LARYNX: Changes suggestive of LPRD ? ESOPHAGUS: A single 1 cms healing erosion at the GE junction. ? STOMACH: Gastritis and gastric polyps ? DUODENUM: Two small erosions in the bulb ? Colonoscopy Findings: ? Four polyps removed ? Moderate diverticulosis seen in the sigmoid colon ? Moderate hemorrhoids on retroflexed exam. ? Plan:? Continue present medications (Omeprazole at 20 mg PO once daily) ? Patient has an appointment on 05/13/19 in the GI Clinic with Abdoul Hickman M.D. ? Repeat Colonoscopy interval based on path results - in 3-5 years if ? polyps are adenomatous and 10 years if polyps are hyperplastic. ? A. Small bowel, biopsies: Duodenal mucosa within normal limits; negative for active and chronic duodenitis, intraepithelial lymphocytosis, villous blunting, dysplasia, and carcinoma. ? B. Gastric, antrum, biopsies: Antral mucosa with mild chronic inactive gastritis; ? negative for intestinal metaplasia, dysplasia, carcinoma, and Helicobacter pylori. ? C. Gastric, polyps, polypectomies: Fragments of corpus mucosa with mild chronic inactive gastritis, minimal oxyntic glandular dilation, and changes consistent with a healing erosion/ulceration; negative for intestinal metaplasia, dysplasia, carcinoma, and Helicobacter pylori. ? D. Colon, transverse, polypectomy: Tubular adenoma; negative for high grade dysplasia and carcinoma. E. Colon, random, biopsies: Colonic mucosa within normal limits; negative for active and chronic colitis, microscopic colitis, granuloma formation, dysplasia, and carcinoma. ? F. Colon, descending, polypectomies: Fragments of hyperplastic polyp(s). Separate fragments of colonic mucosa within normal limits. ? AUGUST 2016 [facility] AND A TUBULAR ADENOMA WAS REMOVED [facility] Medical History (Updated 05/13/24 @ 10:13 by Abdoul Hickman MD) Arthritis Anxiety Sleep apnea Adjustment disorder, unspecified GERD (gastroesophageal reflux disease) Asthma Bleeding hemorrhoids Irritable bowel syndrome Chronic constipation Admission for repair of scarred tissue Surgical History Hx laparoscopic cholecystectomy (05/21/23) Hx of laparoscopic partial gastrectomy B[place] teeth extracted Hx of breast reduction, elective Hx of hemorrhoidectomy History of arthroscopy of both knees Hx of appendectomy H/O eye surgery H/O colonoscopy History of esophagogastroduodenoscopy (EGD) H/O: hysterectomy Family History Father Diabetes Brother Heart attack Paternal Grandmother Cancer Maternal Grandmother Cancer Social History Household Members: Spouse Housing: House Are you a primary lawn care specialist to a significant other at home: Yes Do you presently have visiting nurse or other home services: No Alcohol intake: never Patient Tobacco Use Status: Never used Tobacco Second Hand Smoke Exposure: No service: No Current occupational status: employed Physical Exam Vital Signs: Last Vital Signs BP 98/52 L 05/13/24 09:20 Pulse Ox 99 05/13/24 09:20 Oxygen Delivery Method Room Air 05/13/24 09:20 BMI result Body Mass Index 27.5 Const General: healthy appearing and no acute distress Nutritional Appearance: overweight Orientation/consciousness: patient oriented x3 Limitations: no limitations HEENT Head: Yes normal to inspection Ears: hearing grossly normal bilaterally Eyes Sclerae: sclerae normal Pupils: Equal, round and reactive pupils present Neck Neck: Yes normal visual inspection Chest Chest palpation & inspection: normal inspection of the chest Resp Effort & Inspection: normal respiratory effort Auscultation: clear to auscultation bilaterally Cardio Palpation: normal PMI Rate: regular rate Rhythm: regular rhythm Heart sounds: S1 normal heart sound present, S2 normal heart sound present and no murmurs GI Palpation (GI): Soft to palpation, Tenderness to palpation present (GI) (Mild epigastric tenderness without rebound) and No hepatosplenomegaly present Auscultation: normal bowel sounds Rectal Exam - Female: deferred Skin General skin exam: no rashes or lesions noted Neuro General: patient oriented x3, gait normal and moves all extremities Cranial nerves: Yes Equal, round and reactive pupils present Psych Appearance: grossly normal Mental Status: mental status grossly normal Assessment & Plan Assessment & Plan (1) Chronic constipation: Code(s): K59.09 - Other constipation Category: Medical (2) History of colon polyps: Comment: 04/23/19 patient had a colonoscopy which showed moderate sigmoid diverticulosis and moderate hemorrhoids. Four polyps were removed and 1 was a tubular adenoma. Patient is advised repeat colonoscopy in 5 years (due 03/2024) Code(s): Z86.010 - Personal history of colon polyps Category: Medical (3) Bleeding hemorrhoids: Code(s): K64.9 - Unspecified hemorrhoids Category: Medical (4) S/P laparoscopic sleeve gastrectomy: Code(s): Z98.84 - Bariatric surgery status Category: Surgical (5) Elevated LFTs: Code(s): R79.89 - Other specified abnormal findings of blood chemistry Category: Medical (6) GERD (gastroesophageal reflux disease): Code(s): K21.9 - Gastro-esophageal reflux disease without esophagitis Category: Medical Plan 54 YF with Asthma, gastritis, NUD, colitis, obesity, Eczema, history of colon polyps, epigastric/RUQ pain which may be likely due to obstipation. Abdominal CT scan and HIDA scan were normal. Patient complains of oropharyngeal dysphagia/globus sensation. 07/30/19 BARIUM SWALLOW FROM [facility] [place] WAS REVIEWED: Normal oral and pharyngeal phases with no laryngeal penetration or subglottic aspiration. Esophagus: Normal in contour and mucosal appearance. Tertiary contractions noted in the distal half of the esophagus with from transit of liquid barium into the stomach. No hiatal hernia. Despite the use of provocative maneuvers, no gastroesophageal reflux was appreciated during the study. A 13 mm barium tablet passed unimpeded into the stomach. No evidence of esophageal web, narrowing or outpouching. No esophageal obstruction. IMPRESSION: Mild dysmotility with no evidence of stricture. Patient notes improvement in symptoms of heartburn since she changed her diet and lost 28 lbs. She is taking lansoprazole and dicyclomine p.r.n. every few days. Patient notes resolution of rectal bleeding. 09/05/22 Patient had gastric sleeve surgery on 07/17/2022 Seen at [facility] in [place], [place] on 08/23/22 after she had abdominal pain, nausea and vomiting and constipation.? Denies rectal bleeding. CT scan showed colitis - likely ischemic colitis - medical records were requested. Pt advised to FU with GI and schedule an EGD and colon Treated with IVF, potassium and pain improved. Using suppositories and still not using the bathroom. Senna increased to three times a day, Colace twice a day, MOM 5 ml every night and suppositories Pt advised to continue with above regimen for a week and if no improvement in constipation, to start Linzess Pt advised to stop sucralfate (after checking with Dr Martin) 09/26/22 Pt advised to: 1. Increase Linzess to 290 mcg daily 2. Take Senna 2 capsules twice a day 3. Decrease Marshall to 1 tablet twice a day 01/02/23 Feeling better. Linzess is helping and has a BM daily. Taking Linzess and one Senna daily (if she takes two Senna then she is in the bathroom all morning) RUQ pain and nausea is better. Feels good since she lost weight. 11/20/23 Doing well - able to have a BM daily by taking Linzess and Senna Heartburn improved with dietary modification RUQ pain resolved after GB surgery in Jun, 2023 Pt will be scheduled for endoscopy for surveillance for colon polyps - sutab prep since pt is status post gastric sleeve. (Of note - pt had a colonoscopy in 2019 and one adenomatous polyp and three hyerplastic polyps were removed - FU colon was advised in 5 yrs) Liver panel and hepatitis serologies for FU of elevated LFTs. 05/13/24 Taking Linzess and Senna 3 times a day and no BM x 3 days Advised to stop Linzess and start a Probiotic + Amitiza 16 mcg twice daily (if covered by her insurance) Omeprazole 40 mg daily for GERD FU appt in 4 months Medications: New omeprazole 40 mg PO DAILY 90 days 90 caps 1RF K21.9 - Gastro-esophageal reflux disease without esophagitis lubiprostone (Amitiza) 16 mcg (2 x 8 mcg) PO BID 30 days 120 caps 3RF K59.09 - Other constipation Lactobacillus rhamnosus GG (Culturelle) 1 cap PO DAILY 30 days 30 caps 3RF K59.09 - Other constipation Coding Level of Care Code Est Pt Level 4 (82947) Diagnoses Chronic constipation K59.09 History of colon polyps Z86.010 Bleeding hemorrhoids K64.9 S/P laparoscopic sleeve gastrectomy Z98.84 Elevated LFTs R79.89 GERD (gastroesophageal reflux disease) K21.9 Time Spent (min) 24
[2024-05-13 09:20] VITALS: BP 98/52; O2SAT 99; BMI 27.5
--- OUTSIDE RECORDS SUMMARY | 2024-05-13 09:58 | XMS_ITS | Clinical Summary ---
Author Organization [facility] Address [address] [place] [address] Care Team Providers Care Tug Boat Engineer Name Role Phone José Davis MD Primary Care Provider [phone] Surgical History Surgery Date Site/Laterality Comments APPENDECTOMY PROCEDURE: [place] APPENDECTOMY OTHER SURGICAL HISTORY 1991 PROCEDURE: OH OTHER CAROTID STENT IPSIL TIA/STRK 120 DAYS/>; COMMENT: tubal ligation HYSTERECTOMY PROCEDURE: HISTORICAL HYSTERECTOMY OTHER SURGICAL HISTORY 2020 PROCEDURE: [place] OTHER CAROTID STENT IPSIL TIA/STRK 120 DAYS/>; [...] age to complete this topic Care Teams Tug Boat Engineer Relationship Specialty Start Date End Date José Davis MD [address] [place] [address] PCP - General Internal Medicine 02/28/21
--- OUTSIDE RECORDS SUMMARY | 2024-05-13 09:58 | XMS_ITS | Clinical Summary ---
Author Organization [address] Address [address] [place] [address] Phone Care Team Providers Care Lead Man Over All Dies In Pattern Shop Name Role Phone José Davis MD Primary Care Provider [phone] Allergies Active Allergy Reactions Criticality Noted Date [...] - 1-dose 75+ series) 2045 Pneumococcal Vaccine (2 - 49 years) Discontinued 03/01/2022, 06/04/2017 Pneumococcal Vaccine (50+ years) Completed 03/01/2022, 06/04/2017 [...] - 110 mg/dL 08/26/2022 7:28 AM EDT [facility] Comment: Non-fasting: ??65-110 mg/dL Fasting (minimum 6 hrs): ??65-99 mg/dL BUN 11 7 - 18 mg/dL 08/26/2022 7:28 AM EDT [facility] Creatinine 0.58 0.55 - 1.02 mg/dL 08/26/2022 7:28 AM EDT [facility] Sodium 139 136 - 145 mmol/L 08/26/2022 7:28 AM T [facility] Potassium 3.4(L) 3.5 - 5.1 mmol/L 08/26/2022 7:28 AM EDT [facility] Chloride 104 98 - 107 mmol/L 08/26/2022 7:28 AM T [facility] CO2 24 21 - 32 mmol/L 08/26/2022 7:28 AM T [facility] Anion Gap 11 5 - 15 mmol/L 08/26/2022 7:28 AM T [facility] Calcium 9.5 8.5 - 10.1 mg/dL 08/26/2022 7:28 AM T [facility] eGFR (Creatinine) >60 >=60 mL/min/1.7 3m2 08/26/2022 7:28 AM T [facility] Comment: Values < 60 mL/min/1.73 m2 may indicate CKD if present for more than three months AND creatinine is at steady state. The eGFR provides a rough estimate of kidney function. On 10/09/21 all [facility] and Epic began using a [id number] formula for estimating GFR called CKD-EPI Creatinine 2020. This equation reports eGFR based on creatinine, patient age, clinical sex, and is standardized to a body surface area of 1.73 m2. For the same creatinine, this new race-free eGFR will be lower than prior reported Black eGFR results and higher than prior Non-Black eGFR results. For further guidance, please refer to the CKD: Adult Cutter Hot Knife Signature pathway. Blood Venipuncture / Unknown 08/26/2022 6:35 AM EDT 08/26/2022 6:53 AM EDT [facility] BLOOD ORDERABLES F inal Result [facility] [address] [place] [address] from Last 3 Months or Most Recently Relevant to Health Maintenance Insurance [employer] on file [employer] on file [employer] on file Advance Directives * Full Code (Latest Code Status on File) Date Activated Date Inactivated Comments 08/23/2022 9:19 AM 08/27/2022 11:53 PM Question Answer Comments With Whom was the Code Status Discussed? Patient Care Teams Lead Man Over [employer] Relationship Specialty Start Date End Date José Davis MD [address] [place] [address] PCP - General Internal Medicine 08/23/22
--- OUTSIDE RECORDS SUMMARY | 2024-05-13 09:58 | XMS_ITS | Patient Health Record ---
Author Organization [facility] Address [address] [place] [address] Care Team Providers Care Marble And Granite Polisher Name Role Phone CAITIE SLOAN Primary Care Provider Kalyani Ellsworth Unavailable [phone] Allergies Allergen (clinical drug ingredient) Drug/Non Drug [...] Linzess 290 MCG TAKE 1 CAPSULE BY [facility] EVERY MORNING Oral for [...] W/U Status Risk Notes Problem Mixed incontinence (281601083) Mixed incontinence (N39.46) Active confirmed Problem Urinary incontinence (321711672) Unspecified urinary incontinence (R32) Active confirmed Problem Asthma (524695033) Other asthma (J45.998) Active confirmed Problem Gastroduodenitis (374464095) Gastritis, unspecified, without bleeding (K29.70) Active confirmed Problem Osteoarthritis (292769816) Unspecified osteoarthritis, unspecified site (M19.90) Active confirmed Problem Fibromyalgia (486585106) Fibromyalgia (M79.7) Active confirmed Problem Unspecified menopausal and perimenopausal disorder (N95.9) Active confirmed Problem History of dysplasia of cervix (866910631) Personal history of cervical dysplasia (Z87.410) Active confirmed Problem Menopause (792212779) Menopausal and female climacteric states (N95.1) Active confirmed Problem Gynecological examination normal (151547151411102) Routine gynecological examination (V72.31) Active confirmed Diag Vital Signs Temperature 97.7 degrees Fahrenheit 01/08/2024 Blood pressure diastolic 68 mm Hg 01/08/2024 Height 60 in 01/08/2024 Blood pressure systolic 100 mm Hg 01/08/2024 Weight 138 lbs 01/08/2024 BMI 26.95 kg/m2 01/08/2024 Encounters Encounter Location Date Provider Diagnosis [address] [place] [address] 01/08/2024 Kalyani Colby Encounter for gynecological examination [...] MAY HAVE HAD GENETIC STUDIES DONE IN [place]. PAT WILL FIND OUT. IF NOT, PAT MAY BE A CANDIDATE FOR GENETIC TESTING. Plan Of Treatment Pending Test Test Name Order Date Urinalysis 03/12/2017 Urinalysis 03/27/2017 THIN PREP,HPV,TYSON IF HPV+/CYT- (>29YR)( SCRN) 03/27/2017 MM Digital Mammo Screening 12/27/2022 MM Digital Mammo Screening 01/08/2024 MM Digital Mammo Screening 03/12/2017 Next Appt Details Provider Name:Kalyani brooks, 01/13/2025 08:00:00 AM, [address] [facility], [address], [place], [address], Insurance Providers Payer Name Payer Address Payer Phone Subscriber Number Group Number Insured Name Patient Relationship to Insured Coverage Start Date Coverage End Date [employer] [address] [place] [address] [id number] Self - patient is [...]
--- OUTSIDE RECORDS SUMMARY | 2024-05-13 09:58 | XMS_ITS ---
Author Organization [facility] Address [address] [facility] [address] [place] [address] Care Team Providers Care Partner Management Consultant Name Role Phone CAITIE SLOAN Primary Care Provider Kalyani Ellsworth Unavailable [phone] Allergies Allergen (clinical drug ingredient) Drug/Non Drug [...] Interpretation: Performing Lab:Testing performed or reported by [facility], a Service of [facility], [address] [place] [address] Tank Mon MD, Administrator Pesticide [facility]# [id number] Notes/Report: Patient Name: CLIFFORD LEACH Patient : 1970 (Age: 52) Lab Collection Date: 12/27/2022 Accession Date: 12/27/2022 Sign Out Date: 01/03/2023 Tissue Source: 1: THINPREP PUBLIC HEALTH ENGINEER PAP TEST, CERVICAL/VAGINAL: Final Diagnosis: NEGATIVE FOR INTRAEPITHELIAL LESION OR MALIGNANCY. Satisfactory for evaluation. Endocervical/transformation zone ABSENT. Procedures/Addenda: Human Papilloma Virus, High-Risk(Reflex GT) Status: Signed Out Interpretation: Negative Methodology: DineGasm Aptima HPV mRNA assay (Nucleic Acid Amplification Test, NAAT) Clinical History: Date of Last Menstrual Period: not available Menstrual History: Hysterectomy Contraceptive History: not available Ancillary Testing: HPV (Reflex GT) Case imaged by the ThinPrep Imaging System with manual rescreening or review. Performed at [facility] department of Cytology, Masoud Tavarez MA Clinical History (other): Z01.419 Phone #: [phone], On-Call Pathologist: [id number] REASON FOR VISIT Annual PUBLIC HEALTH ENGINEER Physical, Annual PUBLIC HEALTH ENGINEER Physical 50-59* Medications Medication SIG (Take, Route, Fr equency, Duration) Notes Start Date End Date Status Linzess 290 MCG TAKE 1 CAPSULE BY [facility] EVERY MORNING Oral for [...] 12/27/2022 Encounters Encounter Location Date Provider Diagnosis [address] [address] 12/27/2022 Kalyani Colby Encounter for gynecological examination [...] Reason: Provider Name:Kalyani brooks, 01/13/2025 08:00:00 AM, [employer] [facility], [address], [place], [address], Progress Notes * CLIFFORD LEACHDOB:[birth year] (52 yo F)Acc No.[id number]:12/27/2022 PROGRESS NOTES Patient:?CLIFFORD LEACH Appointment Provider:?Kalyani brooks M.D. :1970???Age:52 Y???Sex:Female D ate:12/27/2022 Address:[address] [place], [place] [id number] Pcp:BHARAT GARRETT Subjective: * Chief Complaints: * ???Annual PUBLIC HEALTH ENGINEER PhysicalAnnual PUBLIC HEALTH ENGINEER Physical 50-59* * HPI: ???New/Follow-up Patient Consult:? [...] adequate calcium via diet and supplementation ?Significant PUBLIC HEALTH ENGINEER problems:?no significant it project lead symptoms or problems * ROS:?general:?no?chest pain.?no?palpitations.?no?headache.?no?cough.?no?shortness of breath.?no?fever.?no?unexplained weight loss.?no?nausea/vomiting.?no?change in bowel movements.?no blood in stool.?no?genitourinary complaints.?no?skin complaints.? 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 ?Sexually active: yes, monogamous relationship. * [...] * Images: Billing Information: * Visit Code:? 17385 Preventive Care New Pt. Age 40-64. 84104 Preventive Care Est Pt. Age 40-64. * Procedure Codes:? * Sign off status: Completed true * Appointment Provider:?Kalyani Colby M.D. Date:?12/27/2022 Generated for Manish avery/Meggan/eTmargaretitting on:?05/13/2024 09:58 AM EDT History and Physical Notes * HPI (History [...] ate calcium via diet and supplementation Significant PUBLIC HEALTH ENGINEER problems:: n o significant it project lead symptoms or problems Examination Category Sub-Category Detail [...]
--- OUTSIDE RECORDS SUMMARY | 2024-05-13 09:58 | XMS_ITS | Continuity of Care Document ---
Author Organization [facility] Adult Address [address] [place] [address]- Care Team Providers Care Inspector Elevators Name Role Phone Felipa NICHOLSON, Vianney Eisenberg Primary Care P [id number] Date([facility] 05/05/24 - 05/12/[address] [address]- Encounter Diagnosis Adjustment disorder with anxiety(Discharge Diagnosis) - 05/05/24 Paresthesia(Discharge Diagnosis) - 05/05/24 Asthma(Discharge Diagnosis) - 05/05/24 Attending Physician: Vianney Plummer Encounter Type: Office Visit Allergies, Adverse Reactions, [...] n zoster vaccine, inactivated 02/19/23 Recorded SARS-CoV-2(COVID-19)mRNA-LNP vac(say493) 02/19/23 Recorded pneumococcal 20-valent conjugate vaccine 4 03/01/22 Given [id number] bivalent booster vax 11/15/21 Recorded SARS-CoV-2 (COVID-19) mRNA-1273 vaccine 04/13/20 R ecorded SARS-CoV-2 (COVID-19) mRNA-1273 vaccine 03/16/20 R ecorded pneumococcal 23-valent vaccine 06/04/17 Given tetanus/diphtheria/pertussis, acel(Tdap) 01/31/16 Given tetanus-diphtheria toxoids (Td) 05/12/02 Given 1Result Comment: [facility]# 12622-259-50 2Result Comment: FLU [facility] 83442-960-77 3Result Comment: FLU [facility] 36059-212-90 4Result Comment: [facility] 9733-5179-76 Medications Albuterol (Eqv-ProAir HFA) 90 mcg/inh inhalation aerosol 1 puffs, Inhalation, 4 times a day, PRN NEEDED FOR WHEEZING, # 8.5 each, 0 Refills, Maintenance,11/15/22 11:38:00 AM EDT, [facility], 30, INHALE 1 PUFF BY MOUTH 4 [...] tablet, Refills 1, Tot. Refills 1, Maintenance, 05/05/24 9:21:00 AM EDT, Instructions Replace Required Details, Route to Pharmacy Electronically, [facility]/pharmacy #[id number], 152, cm, 258:57:00 EDT, Height Start Date: 05/05/24 Status: Ordered Quantity: 360.0 Unit: tablet Repeat number: 2 fluticasone CFC free 110 mcg/inh inhalation aerosol 2 puffs, Inhalation, 2 times a day, # 3 each, 3 Refills, Maintenance, 12/12/23 8:59:00 AM EDT, Aerosol, [facility]/pharmacy #[id number], 152, cm, 12/12/23 8:44:00 EDT, Height Start Date: 12/12/23 Status: Ordered Quantity: 3.0 Unit: each Repeat number: 4 gabapentin 100 mg oral capsule 100 mg, 1, capsule, By Mouth, 3 times a day, PRN, # 270 capsule, Refills 1, Tot. Refills 1, Maintenance, Pain , Severe, 05/05/24 9:21:00 AM EDT, Route to Pharmacy Electronically, [facility]/pharmacy #207, Partial fill upon patient request if the prescription is for a schedule II opioid drug., 152, cm, 05/05/24 8:57:00 EDT, Height Start Date: 05/05/24 Status: Ordered Quantity: 270.0 Unit: capsule Repeat number: 2 hydrOXYzine hydrochloride 10 mg oral tablet 1 tablet, By Mouth, 4 times a day, PRN NEEDED FOR ITCHING, # 90 tablet, 1 Refills, Maintenance, 06/12/23 8:28:00 AM EDT, [facility]/pharmacy #207, 152, cm, 06/12/23 8:07:00 EDT, Height Start [...] Maintenance, 04/09/24 3:24:00 PM EST, EC Capsule, [facility]/pharmacy #207, Partial fill upon patient request if the [...] Informant Adjustment disorder with anxiety Discharge Diagnosis 05/05/24 Paresthesia Discharge Diagnosis 05/05/24 Asthma Discharge Diagnosis 05/05/24 Vital Signs Most recent to oldest [Reference Range]: 1 Height 152 cm (05/05/24 8:57 AM) Weight 64.8 kg (05/05/24 8:57 AM) Oxygen Saturation [94-100 %] 100 % (05/05/24 8:57 AM) Pulse Rate [55-90 bpm] 76 bpm (05/05/24 8:57 AM) Body Mass Index [18.5-24.99 kg/m2] 28.05 kg/m2 *H* (05/05/24 8:57 AM) Blood Pressure [90-138/55-84 mm Hg] 98/6 1mm Hg (05/05/24 8:57 AM) Temperature [96.8-100.4 DegF] 97.8 DegF (05/05/24 8:57 AM) Mode of Delivery (Oxygen) Room air (05/05/24 8:57 AM) Blood pressure sites Arm, left (05/05/24 8:57 AM) Temperature Route Temporal (05/05/24 8:57 AM) Weight Obtained Via Standing scale (05/05/24 8:57 AM) Social History Social History Type Response Smoking Status Never smoker entered on: 05/21/13 Sex Sex Representation Female (finding) Note * Perlita Rod: PERFORM Event Display: Patient Education/Instruction Authored Date: Ambulatory Adult Visit Summary [facility] Adlt [facility] [address] [id number] Name: CLIFFORD LEACH : 1970?? Visit: 05/05/2024 08:40?? Ambulatory Visit Instructions ?? Your Care Team Primary Care Provider Felipa NICHOLSON, Vianney Eisenberg? This Visit Provider Vianney Plummer Your Diagnosis Adjustment disorder with anxiety Paresthesia Asthma Vitals Signs Temperature: 97.8 DegF Height: 152 cm Pulse Rate: 76 bpm Weight: 64.8 kg Systolic Blood Pressure: 98 mm Hg Body Mass Index:??28.05 kg/m2??High Diastolic Blood Pressure: 61 mm Hg Body surface area: 1.65 Oxygen Saturation: 100 % ?? What to do next Scheduled Follow-Up Appointments 2024 8:15 AM EDT ?? Where: [facility] Radiology [facility] [address] [facility] [address], [address] [place] [address]- Status: Pending Follow-Up Appointments Follow Up with??Felipa NICHOLSON, Vianney Eisenberg When:??04/07/2025 08:00 AM EST Why: PHY Where: [address] [place] [address]. 3rd [place] [address]- Medications The list below reflects the information in our records and provided by you today along with any changes made during this visit. Please continue your medications until treatment is completed or stopped by your provider. If this is different from the information you have or there are other questions,please contact the prescribing provider. What How Much When Instructions New BusPIRone (busPIRone 5 mg oral tablet) See instructions Refills: 1 1 tablet by mouth in the morning, 1 tablet by mouth in the afternoon, 2 tablets at bedtime. ?? Pickup at [facility]/pharmacy #4 New Gabapentin (gabapentin 100 mg oral capsule) 1 capsule Oral 3 times a day as needed for Pain , Severe Refills: 1 Pickup at [facility]/pharmacy #2 Unchanged Albuterol (Albuterol (Eqv-ProAir HFA) 90 mcg/ inh inhalation aerosol) 1 puff(s) Inhalation 4 times a day as needed for NEEDED FOR WHEEZING Unchanged Docusate-Senna (Senna Plus 50 mg-8.6 mg oral tablet) 1 tab(s) Oral Twice a day Unchanged Fluticasone (fluticasone CFC free 110 mcg/ inh inhalation aerosol) 2 puff(s) Inhalation Twice a day Unchanged HydrOXYzine (hydrOXYzine hydrochloride 10 mg oral tablet) 1 tab(s) Oral 4 times a day as needed for NEEDED FOR ITCHING Unchanged linaclotide (Linzess 290 mcg oral capsule) TAKE 1 CAPSULE BY MOUTH EVERY MORNING ?? Unchanged Omeprazole (omeprazole 20 mg oral enteric coated capsule) 1 capsule Oral Daily as needed for Other as needed for heart burn ?? Pharmacy Information [facility]/pharmacy #[id number]: [address] [place] [id number] [phone] Medications and Immunizations Administered Medications Given During [...] are strongly encouraged to quit. Please call [employer] [facility] at [phone] or [phone] ([phone]) or log in to [email or web address] for referrals to smoking cessation programs. ?? The National Suicide Prevention Hotline is available 16/09 if you or someone you know needs to find a reason to keep living. By calling 6-174-356-ecgj (0217) you'll be connected to a skilled, trained counselor at a crisis center in your area. [facility] [employer] Portal You can view and manage your care through the patient portal or by using a health care sugey of your choosing. [employer] is a website that allows you to securely view your medical information including your hospital discharge summary, office visit summaries, medications and follow-up visits. You can also request appointments, renew medications, and request access to your medical information using a health care sugey of your choosing, or just ask a question. You can enroll at [email or web address] or register during your next office visit. [facility], in keeping with [facility] guidance, no longer requires face masks for [...] primary care provider, you may find a [facility] provider by calling [facility] [employer] Link at [phone]. Patient Care team information Care Team Personnel Name: Vianney Plummer Position: [facility] PCO Associate Professional Member Role: PCP Address: [address] [place] [address]. 3rd [place] [address]- Telecom: Care Team Related Persons Name: MIKE LEACH Insurance Providers Guarantor name: CLIFFORD LEACH Health Plan Information #: 1 Payer: [facility] Member Number: [id number] Policy Number: NA Group Number: [id number] Health Plan Information #: 2 Payer: [facility] Member Number: [id number] Policy Number: NA Group Number: [id number]
--- OUTSIDE RECORDS SUMMARY | 2024-05-13 09:58 | XMS_ITS ---
Author Organization [facility] Address [address] [facility] [address] [place] [address] Care Team Providers Care Warehouse Attendant Name Role Phone CAITIE SLOAN Primary Care Provider Kalyani Ellsworth [phone] REASON FOR VISIT ULTRA- F/U LT OVARIAN CYST Medications Medication SIG (Take, Route, Fr equency, Duration) Notes Start Date End Date Status Linzess 290 MCG TAKE 1 CAPSULE BY MO [facility] EVERY MORNING Oral for 30 Active Albuterol Active Senna - as directed Orally A ctive Encounters Encounter Location Date Provider Diagnosis [facility] [employer] [address] [address] 01/03/2023 Kalyani Colby Plan Of Treatment Next Appt Details Provider Name:Kalyani brooks, 01/13/2025 08:00:00 AM, [address] [place] [address], [address], [place], [address], Progress Notes * CLIFFORD LEACHDOB:[birth year] (54 yo F)Acc No.[id number]:01/03/2023 PROGRESS NOTES Patient:?CLIFFORD LEACH Appointment Provider:?Kalyani brooks M.D. :1970???Age:52 Y???Sex:Female D ate:01/03/2023 Address:[address] [place] [address], [facility] Pcp:BHARAT GARRETT Subjective: * Chief Complaints: * [...] Electronic signature of Anil Colby MD on 05/13/2024 at 09:58 AM EDT Sign off status: Pending * Appointment Provider:?Kalyani Colby M.D. Date:?01/03/2023 Generated for Manish avery/Meggan/Monishaitting on:?05/13/2024 09:58 AM EDT
--- OUTSIDE RECORDS SUMMARY | 2024-05-13 09:58 | XMS_ITS | Clinical Summary ---
Author Organization [facility] Address [address] [place] [address] Care Team Providers Care Pediatric Geneticist Name Role Phone Unavailable Primary Care Provider [...]
--- OUTSIDE RECORDS SUMMARY | 2024-05-13 09:58 | XMS_ITS | Continuity of Care Document ---
Author Organization [facility] Adult Address [address] [place] [address]- Care Team Providers Care Room Maid Name Role Phone Vianney Plummer Primary Care P tyler Encounter [facility] Date(s): 04/09/24 - 05/09/[address] [address]- Encounter Type: Triage Allergies, Adverse Reactions, Alerts [...] n zoster vaccine, inactivated 02/19/23 Recorded SARS-CoV-2(COVID-19)mRNA-LNP vac(gbp100) 02/19/23 Recorded pneumococcal 20-valent conjugate vaccine 4 03/01/22 Given [id number] bivalent booster vax 11/15/21 Recorded SARS-CoV-2 (COVID-19) mRNA-1273 vaccine 04/13/20 R ecorded SARS-CoV-2 (COVID-19) mRNA-1273 vaccine 03/16/20 R ecorded pneumococcal 23-valent vaccine 06/04/17 Given tetanus/diphtheria/pertussis, acel(Tdap) 01/31/16 Given tetanus-diphtheria toxoids (Td) 05/12/02 Given 1Result Comment: [facility]# 61081-819-44 2Result Comment: FLU [facility] 11415-427-00 3Result Comment: FLU [facility] 37347-944-85 4Result Comment: [facility] [id number] Medications Albuterol (Eqv-ProAir HFA) 90 mcg/inh inhalation aerosol 1 puffs, Inhalation, 4 times a day, PRN NEEDED FOR WHEEZING, # 8.5 each, 0 Refills, Maintenance,11/15/22 11:38:00 AM EDT, [facility] 47646, 30, INHALE 1 PUFF BY MOUTH 4 [...] Replace Required Details, Route to Pharmacy Electronically, [facility]/pharmacy #[id number], 152, cm, 258:57:00 EDT, Height Start Date: 05/05/24 Status: Ordered Quantity: 360.0 Unit: tablet Repeat number: 2 fluticasone CFC free 110 mcg/inh inhalation aerosol 2 puffs, Inhalation, 2 times a day, # 3 each, 3 Refills, Maintenance, 12/12/23 8:59:00 AM EDT, Aerosol, [facility]/pharmacy #[id number], 152, cm, 12/12/23 8:44:00 EDT, Height Start Date: 12/12/23 Status: Ordered Quantity: 3.0 Unit: each Repeat number: 4 gabapentin 100 mg oral capsule 100 mg, 1, capsule, By Mouth, 3 times a day, PRN, # 270 capsule, Refills 1, Tot. Refills 1, Maintenance, Pain , Severe, 05/05/24 9:21:00 AM EDT, Route to Pharmacy Electronically, [facility]/pharmacy #[id number], Partial fill upon patient request if the prescription is for a schedule II opioid drug., 152, cm, 05/05/24 8:57:00 EDT, Height Start Date: 05/05/24 Status: Ordered Quantity: 270.0 Unit: capsule Repeat number: 2 hydrOXYzine hydrochloride 10 mg oral tablet 1 tablet, By Mouth, 4 times a day, PRN NEEDED FOR ITCHING, # 90 tablet, 1 Refills, Maintenance, 06/12/23 8:28:00 AM EDT, [facility]/pharmacy #[id number], 152, cm, 06/12/23 8:07:00 EDT, Height [...] Maintenance, 04/09/24 3:24:00 PM EST, EC Capsule, [facility]/pharmacy #[id number], Partial fill upon patient request if [...] Personnel Name: Felipa NICHOLSON, Vianney Eisenberg Position: [facility] PCO Associate Professional Member Role: PCP Address: [address] [place] [address]. [address] [place] [address]- Telecom: Care Team Related Persons Name: MIKE LEACH Insurance Providers Guarantor name: CLIFFORD LEACH Health Plan Information #: 1 Payer: [facility] [place] Member Number: NA Policy Number: NA Group Number: NA
--- OUTSIDE RECORDS SUMMARY | 2024-05-13 09:58 | XMS_ITS | Encounter Summary ---
Author Organization [facility] Address [address] [place] [address] Care Team Providers Care Photo Journalist Name Role Phone Unavailable Primary Care Provider Unavailabl e Encounter Details Date Type Department Care Team (Late st Contact Info) Description 08/23/2022 Scanned Document [facility] [address] [place] [address] Rosendo See, WEB RETAILER [address] [phone] Social History Tobacco Use Types Packs/Day Years [...]
--- OUTSIDE RECORDS SUMMARY | 2024-05-13 09:58 | XMS_ITS ---
Author Organization [facility] Address [address] [address] Care Team Providers Care Angle Shear Set Up Operator Name Role Phone CAITIE SLOAN Primary Care Provider Kalyani Ellsworth Unavailable [phone] Allergies Allergen (clinical drug ingredient) Drug/Non Drug Allergy documented on EMR Reaction Allergy Type Onset Date Status aspirin ASPIRIN Skin Rash Drug Allergy Active Results Component Value Reference Range Notes Urinalysis Reviewed date:01/08/2024 12:51:11 PM Interpretation: Performing Lab: Notes/Report: PH 5.0 PROTEIN Neg GLUCOSE Neg BLOOD Trace REASON FOR VISIT Annual CARPET RENOVATOR Physical, Annual CARPET RENOVATOR Physical 50-59* Medications Medication SIG (Take, Route, Frequency, Duration) Notes Start Date End Date Status Albuterol Active Senna - as directed Orally A ctive Triamcinolone Acetonide 0.025 % APPLY TOPICALLY 2 TIMES A DAY TO AFFECTED AREA FOR 14 DAYS. DO NOT USE LONGER THAN 14 DAYS IN A ROW External for 30 Days Active Linzess 290 MCG TAKE 1 CAPSULE BY [facility] EVERY MORNING Oral for 30 Active Social [...] Status W/U Status Risk Notes Problem Menopause (798499530) Menopausal and female climacteric states (N95.1) Active confirmed Vital Signs Temperature 97.7 degrees Fahrenheit 01/08/20 24 Blood pressure systolic 100 mm Hg 01/08/20 24 Blood pressure diastolic 68 mm Hg 024 Height 60 in 01/08/2024 Weight 138 lbs 01/08/2024 BMI 26.95 kg/m2 01/08/2024 Encounters Encounter Location Date Provider Diagnosis [address] [place] [address] 01/08/2024 Kalyani Colby Encounter for gynecological examination [...] MAY HAVE HAD GENETIC STUDIES DONE IN [place]. PAT WILL FIND OUT. IF NOT, PAT [...] MAY HAVE HAD GENETIC STUDIES DONE IN [place]. PAT WILL FIND OUT. IF NOT, PAT MAY BE A CANDIDATE FOR GENETIC TESTING. Pending Test Test Name Order Date MM Digital Mammo Screening 01/08/2024 Next Appt Details Follow Up: 1 Year, Reason: Provider Name:Kalyani brooks, 01/13/2025 08:00:00 AM, [address], [address], [place], [address], Progress Notes * CLIFFORD LEACHDOB:[birth year] (53 yo F)Acc No.[id number]:01/08/2024 PROGRESS NOTES Patient:?CLIFFORD LEACH Appointment Provider:?Kalyani brooks M.D. :1970???Age:53 Y???Sex:Female D ate:01/08/2024 Address:[address] [place], [place] [address] Pcp:BHARAT GARRETT Subjective: * Chief Complaints: * ???Annual CARPET RENOVATOR PhysicalAnnual CARPET RENOVATOR Physical 50-59* * HPI: ???New/Follow-up Patient Consult:? [...] IS 60 YEARS OLD,??UNDERWENT DOUBLE MASTECTOMY IN [place] THIS MAY FOR BREAST CA.? ?A MATERNA [...] adequate calcium via diet and supplementation ?Significant CARPET RENOVATOR problems:?no significant hide shaker symptoms or problems * ROS:?general:?no?chest pain.?no?palpitations.?no?headache.?no?cough.?no?shortness of breath.?no?fever.?no?unexplained weight loss.?no?nausea/vomiting.?no?change in bowel movements.?no blood in stool.?no?genitourinary complaints.?no?skin complaints.? 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 PAT WILL FIND OUT. IF NOT, PAT MAY BE A CANDIDATE FOR GENETIC TESTING.?? * Procedure Codes:? * Preventive Medicine:? ??YOUR PREVENTIVE WELLNESS PLAN:?Osteoporosis prevention?Calcium, D, strength training.?Breast Cancer Screening (Mammogram):?annually.?Cervical Cancer Screening (Pap Smear):?q 3 years with HPV screen.?Colorectal Cancer Screening:?q 10 years.? * Follow Up:?1 Year * Images: Billing Information: * Visit Code:? 69622 Preventive Care New Pt. Age 40-64. 15446 Preventive Care Est Pt. Age 40-64. * Procedure Codes:? * Sign off status: Completed true * Appointment Provider:?Kalyani Colby M.D. Date:?01/08/2024 Generated for Manish avery/Meggan/eTransmitting on:?05/13/2024 09:58 AM EDT History and Physical [...] 60 YEARS OLD, UNDERWENT DOUBLE [place]STECTOMY IN [place] THIS MAY FOR BREAST CA. A MATERNA [...] ate calcium via diet and supplementation Significant CARPET RENOVATOR problems:: n o significant hide shaker symptoms or problems Examination Category Sub-Category Detail [...]
== END 2024-05-13 10:21 | disposition home or self-care (01) ==
LOC: HO.HGI 09:15
PROVIDERS: PCP Student in an Organized Health Care Education/Training Program; Visit Provider Internal Medicine Gastroenterology
DX: K59.09 Other constipation (principal); Z86.0100 Personal history of colon polyps, unspecified; K64.9 Unspecified hemorrhoids; Z98.84 Bariatric surgery status; R79.89 Other specified abnormal findings of blood chemistry; K21.9 Gastro-esophageal reflux disease without esophagitis
CPT/HCPCS: 99214

== ENCOUNTER 2024-07-16 13:00 | Outpatient (AMB) | payer OTHER, SELFPAY ==
[2024-07-16 09:01] VITALS: BMI 26.8
--- NOTE | 2024-07-16 09:01 | A.OFFVIS_ITS ---
VS Expanded 07/16/24 09:01 Height 5 ft Weight 137 lb BMI 26.8 Intake Visit Reasons: (TV) PO LSG 07/17/22 Allergies aspirin [ASPIRIN] Allergy (Severe, Verified 05/13/24 09:18) HIVES Fish Containing Products Allergy (Severe, Verified 05/13/24 09:18) HIVES/DYSPNEA oxycodone [From PERCOCET] Allergy (Severe, Verified 05/13/24 09:18) PALPITATIONS/HIVES pumpkin Allergy (Severe, Verified 05/13/24 09:18) THROAT SWELLING squash Allergy (Severe, Verified 05/13/24 09:18) THROAT SWELLING Zucchini Allergy (Mild, Uncoded 12/30/22 09:59) Hives, Dysphagia HPI Comments Details: This?a?54?yo female who is s/p LSG without hiatal hernia repair on?07/15/[address] Martin. Presents for 2 year post op visit. Weight today is 137 pounds, with a BMI of 26.8.? There has been a 56.8 pound weight loss,(initial weight 193.8 pounds) since starting the program on 02/27/22 reflecting a 29.3% total body weight loss and a weight loss of 30.1 pounds since surgery (operative weight 167.1 pounds) reflecting a 18.1% TBWL since surgery.? States she feels great, not winded when going up steps, has significantly improved energy levels and she is no longer using her CPAP machine and her states she no longer snores. She additionally underwent a laparoscopic cholecystectomy by Dr. Middleton on 05/21/2023 for symptomatic cholelithiasis. She reports that she has been following the meal plan most of the time although sometimes going out to dinner with her . She has not been able to exercise in the last 3 weeks. She has been working a lot and has been under increased stress. Discussed the importance of exercise and how it directly relates not only to weight loss but improved mental health. Present meal plan includes: 2 shakes Celebrate 4 in 1, w unsweetened almond milk 2 scoops each, 8-10 am, 1- 3 pm 6 forks protein 6 forks veg, 6 pm Drinking 64 oz water ? Exercise routine includes: none in 3 weeks gym health traxs Cardio classes 45-60 min, daily Any post op complications: none JOSE: resolved DM: never HTN: never Hyperlipidemia: never GERD:?0-5 scale ??0 = no symptoms ??1 = symptoms noticeable but not bothersome 2 =symptoms bothersome but not daily ? 3 = symptoms bothersome and daily 4 = symptoms affect daily activities 5 = symptoms are incapacitating, unable to do daily activities ? How bad is the heartburn: 0 ? Heartburn while lying down: 0 ? Heartburn when standing up: 0 ? Heartburn after meals: 0 ? Does heartburn change your diet: 0 ? Does heartburn wake you up from sleep: 0 ? Do you have difficulty swallowin ? Do you have pain with swallowin ? If you take medicine for your reflux, does this affect your daily life: 0 Satisfaction with present condition - satisfied or not satisfied: satisfied [facility] Medical History Arthritis Anxiety Sleep apnea Adjustment disorder, unspecified GERD (gastroesophageal reflux disease) Asthma Bleeding hemorrhoids Irritable bowel syndrome Chronic constipation Admission for repair of scarred tissue Surgical History Hx laparoscopic cholecystectomy (05/21/23) Hx of laparoscopic partial gastrectomy Deer teeth extracted Hx of breast reduction, elective Hx of hemorrhoidectomy History of arthroscopy of both knees Hx of appendectomy H/O eye surgery H/O colonoscopy History of esophagogastroduodenoscopy (EGD) H/O: hysterectomy Family History Father Diabetes Brother Heart attack Paternal Grandmother Cancer Maternal Grandmother Cancer Social History Household Members: Spouse Housing: House Are you a primary care transport nurse to a significant other at home: Yes Do you presently have visiting nurse or other home services: No Alcohol intake: never Patient Tobacco Use Status: Never used Tobacco Second Hand Smoke Exposure: No service: No Current occupational status: employed Telehealth Telehealth Telehealth Platform: Telephone Location of provider rendering services: practice address Location of patient: address on file Patient Identification confirmed using: Name, : Yes Telehealth method: voice only Patient verbally consented to treatment: Yes Patient verbally consented to billing insurance company: Yes Patient informed of any privacy concerns related to visit: Yes Minutes spent on Phone/Video with Pt.: 15 Assessment & Plan Assessment & Plan (1) S/P laparoscopic sleeve gastrectomy: Code(s): Z98.84 - Bariatric surgery status Category: Surgical Plan: Check 2 year postop labs. Encouraged to text weights weekly. Encouraged to return to the gym as she had been doing previously, with a goal of burning 2000 calories per week. Follow meal plan consistently Return to clinic 3 months. Orders: Orders Insulin Today D64.9 - Anemia, unspecified, R79.89 - Other specified abnormal findings of blood chemistry, Z98.84 - Bariatric surgery status Hemoglobin A1c Today D64.9 - Anemia, unspecified, R79.89 - Other specified abnormal findings of blood chemistry, Z98.84 - Bariatric surgery status IRON PROFILE Today D64.9 - Anemia, unspecified, R79.89 - Other specified abnormal findings of blood chemistry, Z98.84 - Bariatric surgery status Vitamin B12 and Folate Today D64.9 - Anemia, unspecified, R79.89 - Other specified abnormal findings of blood chemistry, Z98.84 - Bariatric surgery status Zinc Today D64.9 - Anemia, unspecified, R79.89 - Other specified abnormal findings of blood chemistry, Z98.84 - Bariatric surgery status C Reactive Protein Today D64.9 - Anemia, unspecified, R79.89 - Other specified abnormal findings of blood chemistry, Z98.84 - Bariatric surgery status Vitamin B1 Today D64.9 - Anemia, unspecified, R79.89 - Other specified abnormal findings of blood chemistry, Z98.84 - Bariatric surgery status Vitamin A Today D64.9 - Anemia, unspecified, R79.89 - Other specified abnormal findings of blood chemistry, Z98.84 - Bariatric surgery status Vitamin D 25-OH Total Today D64.9 - Anemia, unspecified, R79.89 - Other specified abnormal findings of blood chemistry, Z98.84 - Bariatric surgery status Complete Blood Count Auto Diff Today D64.9 - Anemia, unspecified, R79.89 - Other specified abnormal findings of blood chemistry, Z98.84 - Bariatric surgery status Lipid Panel Today D64.9 - Anemia, unspecified, R79.89 - Other specified abnormal findings of blood chemistry, Z98.84 - Bariatric surgery status Comprehensive Met. Panel Today D64.9 - Anemia, unspecified, R79.89 - Other specified abnormal findings of blood chemistry, Z98.84 - Bariatric surgery status TSH reflex Free T4 Today D64.9 - Anemia, unspecified, R79.89 - Other specified abnormal findings of blood chemistry, Z98.84 - Bariatric surgery status Ferritin Today D64.9 - Anemia, unspecified, R79.89 - Other specified abnormal findings of blood chemistry, Z98.84 - Bariatric surgery status
--- OUTSIDE RECORDS SUMMARY | 2024-07-16 13:13 | XMS_ITS | Clinical Summary ---
Author Organization [address] Address [address] [place] [address] Phone Care Team Providers Care Chief Guard Name Role Phone José Davis MD Primary Care Provider [phone] Allergies Active Allergy Reactions Criticality Noted Date [...] Shingrix (RZV) 2 Dose Standard Series) 2020 Covid-19 vaccine series (3 - season) 2023 04/13/2020, 03/16/2020 Influenza vaccine 10/25/2024 03/01/2022, , 03/02/2019, Additional history exists Diabetes screening 08/26/2025 08/26/2022, 0 08/25/2022, 08/24/2022, Additional history exists Tetanus adult (Td q 10,TDAP once) 01/30/2026 01/31/2016, 05/12/2002 RSV Immunization (1 - 1-dose 75+ series) 2045 Pneumococcal [...] - 110 mg/dL 08/26/2022 7:28 AM EDT [facility] Comment: Non-fasting: ??65-110 mg/dL Fasting (minimum 6 hrs): ??65-99 mg/dL BUN 11 7 - 18 mg/dL 08/26/2022 7:28 AM EDT [facility] Creatinine 0.58 0.55 - 1.02 mg/dL 08/26/2022 7:28 AM EDT [facility] Sodium 139 136 - 145 mmol/L 08/26/2022 7:28 AM T [facility] Potassium 3.4(L) 3.5 - 5.1 mmol/L 08/26/2022 7:28 AM EDT [facility] Chloride 104 98 - 107 mmol/L 08/26/2022 7:28 AM T [facility] CO2 24 21 - 32 mmol/L 08/26/2022 7:28 AM T [facility] Anion Gap 11 5 - 15 mmol/L 08/26/2022 7:28 AM T [facility] Calcium 9.5 8.5 - 10.1 mg/dL 08/26/2022 7:28 AM T [facility] eGFR (Creatinine) >60 >=60 mL/min/1.7 3m2 08/26/2022 7:28 AM T [facility] Comment: Values < 60 mL/min/1.73 m2 may indicate CKD if present for more than three months AND creatinine is at steady state. The eGFR provides a rough estimate of kidney function. On 10/09/21 all [facility] Clinical Labs and Epic began using a [id number] formula for estimating GFR called CKD-EPI Creatinine 2020. This equation reports eGFR based on creatinine, patient age, clinical sex, and is standardized to a body surface area of 1.73 m2. For the same creatinine, this new race-free eGFR will be lower than prior reported Black eGFR results and higher than prior Non-Black eGFR results. For further guidance, please refer to the CKD: Adult Energy Conservation Specialist Signature pathway. Blood Venipuncture / Unknown 08/26/2022 6:35 AM EDT 08/26/2022 6:53 AM EDT [facility] B[facility] ORDERABLES F inal Result L + M [facility] [address] [place] [address] from Last 3 Months or Most Recently Relevant to Health Maintenance Insurance [employer] on file [employer] on file [employer] on file Advance Directives * Full Code (Latest Code Status on File) Date Activated Date Inactivated Comments 08/23/2022 9:19 AM 08/27/2022 11:53 PM Question Answer Comments With Whom was the Code Status Discussed? Patient Care Teams Chief Guard Relationship Specialty Start Date End Date José Davis MD [address] [place] [address] PCP - General Internal Medicine 08/23/22
== END 2024-07-16 13:13 | disposition home or self-care (01) ==
LOC: HO.HBS 13:10
PROVIDERS: PCP Student in an Organized Health Care Education/Training Program; Visit Provider Physician Assistant Surgical
DX: E66.3 Overweight (principal); Z68.26 Body mass index [BMI] 26.0-26.9, adult; Z90.3 Acquired absence of stomach [part of]; Z98.84 Bariatric surgery status
CPT/HCPCS: 98012

== ENCOUNTER → 2024-07-16 13:00 | Outpatient (BNVA) | payer OTHER, SELFPAY | PROVIDERS: PCP Student in an Organized Health Care Education/Training Program; Visit Provider Physician Assistant Surgical | DX: Z98.84 Bariatric surgery status (principal); D64.9 Anemia, unspecified; R79.89 Other specified abnormal findings of blood chemistry ==

== ENCOUNTER 2024-09-09 10:32 | Outpatient (AMB) | payer OTHER, SELFPAY ==
--- NOTE | 2024-09-09 10:34 | A.OFFVIS_ITS ---
Vital Signs 09/09/24 10:40 Height 5 ft Weight 150 lb BMI 29.3 BP 95/52 L Blood Pressure Location Lt brachial Position Sitting Pulse 67 Pulse Oximetry (%) 96 Oxygen Delivery Method Room Air Intake Visit Reasons: 4m Intake Note: Patient follow up for Bleeding hemorrhoids Patient cc: constipation on and off and bleeding hemorrhoids are better /no bleeding. Denies any other GI issues. Skilled Helper Required: No Accompanied by: Self / Same As Patient Allergies aspirin (ASPIRIN) Allergy (Severe, Verified 09/14/24 11:27) HIVES Fish Containing Products Allergy (Severe, Verified 09/14/24 11:27) HIVES/DYSPNEA oxycodone (From PERCOCET) Allergy (Severe, Verified 09/14/24 11:27) PALPITATIONS/HIVES pumpkin Allergy (Severe, Verified 09/14/24 11:27) THROAT SWELLING squash Allergy (Severe, Verified 09/14/24 11:27) THROAT SWELLING Zucchini Allergy (Mild, Uncoded 12/30/22 09:59) Hives, Dysphagia Medication List - Last Reconciled 09/09/24 by Abdoul Hickman MD albuterol sulfate 90 mcg/actuation 2 puffs inhalation Q6H PRN buspirone 5 mg PO TID gabapentin 100 mg PO DAILY hydrocortisone 2.5% appl topical hydroxyzine HCl 10 mg PO QID PRN Lactobacillus rhamnosus GG (Culturelle) 1 cap PO DAILY 30 days lubiprostone (Amitiza) 16 mcg (2 x 8 mcg) PO BID 30 days omeprazole 40 mg PO DAILY 90 days sennosides-docusate sodium 8.6-50 mg (Senna Plus) 2 tabs PO DAILY 90 days sod picosulf-mag ox-citric ac 10 mg-3.5 gram- 12 gram/175 mL (Clenpiq) 175 mL PO ONCE 2 doses triamcinolone acetonide 0.025% appl topical HPI HPI 4m: Details: GI clinic visit for this 54-year-old female for FU of right upper quadrant pain, IBS and rectal bleeding. Noted to have elevated LFTs since April, CHRONIC ILLNESSES:?Asthma, gastritis, NUD, colitis, morbid obesity, Eczema, history of colon polyps TODAY'S VISIT Patient complains of constipation on and off and bleeding hemorrhoids are better /no bleeding. Taking Amitiza 2 tab once a day and advised to increase to twice a day Complains of a constant low grade pain/discomfort in the LUQ worse with movement - likely musculoskeletal in etiology PAST VISIT: EGD and colon results were reviewed. Taking Linzess and Senna 3 times a day and no BM x 3 days Getting heartburn again - and notes nausea Notes constant upper abd discomfort (no change with eating) which is chronic since prior to her GB surgery - attributes to her past bariatric surgery. Constipation after she started taking gabapentin Doing well - able to have a BM daily by taking Linzess and Senna Heartburn improved with dietary modification RUQ pain resolved after GB surgery in Jun, 2023 Feeling better. Linzess is helping and has a BM daily. Taking Linzess and one Senna daily (if she takes two Senna then she is in the bathroom all morning) RUQ pain and nausea is better. Feels good since she lost weight. Not having a BM every day - has gone twice this week (Olesya and Manuel) Notes some nausea when she takes her medications in the morning Taking Senna 1 capsule three times daily Stool softeners 2 capsules twice daily Linzess 145 mcg daily for constipation Patient had gastric sleeve surgery on 07/17/2022 Seen at [facility] in [place], [place] on 08/23/22 after she had abdominal pain, nausea and vomiting and constipation.? Denies rectal bleeding. CT scan showed colitis - medical records were requested. Treated with IVF, potassium and pain improved. Using suppositories and still not using the bathroom. Senna increased to three times a day, Colace twice a day, MOM 5 ml every night and a suppositories. Had a BM at 7:30 am today.? BM was hard and dark. She is having issues with hard pellet it stool in taking 3 fiber gummies, p.r.n. docusate, 2 senna tablets daily.? She was instructed to purchase bisacodyl suppositories, which she is using occasionally.? She denies any chest pain, nausea, vomiting, dysphagia, odynophagia or hematemesis. Working with [employer] and has lost 30 lbs since Feb - weighs 168 lbs Was 194 lbs when she started working with [employer]. Has been taking protein shakes and small meals. Has been having constipation Taking 2 tablets of Senna for constipation. Intermittent pain due to hemorrhoids - takes preparation H GERD symptoms improved and only takes Omeprazole prn - has not taken it in a while. Pt changed appt to TV since she had some diarrhea when Has been she woke up. Continues to have chronic constipation and has a BM every other day with some straining. Denies recurrent rectal bleeding since hemorrhoid surgery Complains of heartburn and taking Omeprazole twice for the past 2-3 months Notes heartburn when she takes cheese, salad dressing (balsamic), eggs, strawberries and leeks. Also has fibromyalgia with aches and pains and takes tylenol prn ? ? ? Denies recurrent rectal bleeding since she had hemorrhoidectomy. ? ? ? Stomach gets upset sometimes. ? ? ? Intermittent constipation. ?? ? Complains of constant pain on the right side of the belly button for the past month. ?? ? No change in pain with eating or drinking. ? ? Hurts when she moves or tries to lift something. Sometimes it hurts when she has a BM. Past abd surgeries: appendectomy and C -section. ? Lost 11 lbs by eating more vegetables and fruits. ? Taking more fibre in her diet. ? Heartburn and dysphagia symptoms have resolved and takes lansoprazole and dicyclomine p.r.n. every few days and does not need to take it every day. ? 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 ? 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 ? Taking Lansoprazole twice a day and dicyclomine three times a day with decrease in episodes of throat closing. ? Notes episodes can be related to her diet - she took a grilled cheese sandwich and felt her throat closing [facility]: 05/05/19 reviewed normal CBC and LFTs ? IMAGING STUDIES: 06/2018 HIDA SCAN WAS NORMAL. ? June [address] scan showed: ? No acute findings of the abdomen or pelvis. No inflammatory changes. ? There is a moderate colonic stool burden, mostly throughout the right hemicolon. ?07/30/19 BARIUM SWALLOW FROM [facility] WAS REVIEWED: ? Normal oral and pharyngeal phases with no laryngeal penetration or subglottic aspiration. ? Esophagus: Normal in contour and mucosal appearance. Tertiary contractions noted in the distal half of the esophagus with from transit of liquid barium into the stomach. No hiatal hernia. Despite the use of provocative maneuvers, no gastroesophageal reflux was appreciated during the study. A 13 mm barium tablet passed unimpeded into the stomach. No evidence of esophageal web, narrowing or outpouching. No esophageal obstruction. ? IMPRESSION: ? Mild dysmotility with no evidence of stricture. ?ENDOSCOPIC STUDIES: 04/23/19 PATIENT HAD AN EGD AND COLONOSCOPY : ? Endoscopy Findings: ? LARYNX: Changes suggestive of LPRD ? ESOPHAGUS: A single 1 cms healing erosion at the GE junction. ? STOMACH: Gastritis and gastric polyps ? DUODENUM: Two small erosions in the bulb ? Colonoscopy Findings: ? Four polyps removed ? Moderate diverticulosis seen in the sigmoid colon ? Moderate hemorrhoids on retroflexed exam. ? Plan:? Continue present medications (Omeprazole at 20 mg PO once daily) ? Patient has an appointment on 05/13/19 in the GI Clinic with Abdoul Hickamn M.D. ? Repeat Colonoscopy interval based on path results - in 3-5 years if ? polyps are adenomatous and 10 years if polyps are hyperplastic. ? A. Small bowel, biopsies: Duodenal mucosa within normal limits; negative for active and chronic duodenitis, intraepithelial lymphocytosis, villous blunting, dysplasia, and carcinoma. ? B. Gastric, antrum, biopsies: Antral mucosa with mild chronic inactive gastritis; ? negative for intestinal metaplasia, dysplasia, carcinoma, and Helicobacter pylori. ? C. Gastric, polyps, polypectomies: Fragments of corpus mucosa with mild chronic inactive gastritis, minimal oxyntic glandular dilation, and changes consistent with a healing erosion/ulceration; negative for intestinal metaplasia, dysplasia, carcinoma, and Helicobacter pylori. ? D. Colon, transverse, polypectomy: Tubular adenoma; negative for high grade dysplasia and carcinoma. E. Colon, random, biopsies: Colonic mucosa within normal limits; negative for active and chronic colitis, microscopic colitis, granuloma formation, dysplasia, and carcinoma. ? F. Colon, descending, polypectomies: Fragments of hyperplastic polyp(s). Separate fragments of colonic mucosa within normal limits. ? AUGUST 2016 [facility] AND A TUBULAR ADENOMA WAS REMOV [facility] Medical History Arthritis Anxiety Sleep apnea Adjustment disorder, unspecified GERD (gastroesophageal reflux disease) Asthma Bleeding hemorrhoids Irritable bowel syndrome Chronic constipation Admission for repair of scarred tissue Surgical History Hx laparoscopic cholecystectomy (05/21/23) Hx of laparoscopic partial gastrectomy [place] teeth extracted Hx of breast reduction, elective Hx of hemorrhoidectomy History of arthroscopy of both knees Hx of appendectomy H/O eye surgery H/O colonoscopy History of esophagogastroduodenoscopy (EGD) H/O: hysterectomy Family History Father Diabetes Brother Heart attack Paternal Grandmother Cancer Maternal Grandmother Cancer Social History Household Members: Spouse Housing: House Are you a primary care coordinator to a significant other at home: Yes Do you presently have visiting nurse or other home services: No Alcohol intake: never Patient Tobacco Use Status: Never used Tobacco Second Hand Smoke Exposure: No service: No Current occupational status: employed Review of Systems Const All systems reviewed & are unremarkable except as noted in HPI and below Physical Exam Vital Signs: Last Vital Signs Pulse 67 09/09/24 10:40 BP 95/52 L 09/09/24 10:40 Pulse Ox 96 09/09/24 10:40 Oxygen Delivery Method Room Air 09/09/24 10:40 BMI result Body Mass Index 29.3 Const General: healthy appearing and no acute distress Nutritional Appearance: overweight Orientation/consciousness: patient oriented x3 Limitations: no limitations HEENT Head: Yes normal to inspection Ears: hearing grossly normal bilaterally Eyes Sclerae: sclerae normal Pupils: Equal, round and reactive pupils present Neck Neck: Yes normal visual inspection Chest Chest palpation & inspection: normal inspection of the chest Resp Effort & Inspection: normal respiratory effort Auscultation: clear to auscultation bilaterally Cardio Palpation: normal PMI Rate: regular rate Rhythm: regular rhythm Heart sounds: S1 normal heart sound present, S2 normal heart sound present and no murmurs GI Palpation (GI): Soft to palpation, nontender and No hepatosplenomegaly present Auscultation: normal bowel sounds Rectal Exam - Female: deferred Skin General skin exam: no rashes or lesions noted Neuro General: patient oriented x3, gait normal and moves all extremities Cranial nerves: Yes Equal, round and reactive pupils present Psych Appearance: grossly normal Mental Status: mental status grossly normal Assessment & Plan Assessment & Plan (1) Oropharyngeal dysphagia: Code(s): R13.12 - Dysphagia, oropharyngeal phase Category: Medical (2) Chronic constipation: Code(s): K59.09 - Other constipation Category: Medical (3) History of colon polyps: Comment: 04/23/19 patient had a colonoscopy which showed moderate sigmoid diverticulosis and moderate hemorrhoids. Four polyps were removed and 1 was a tubular adenoma. Patient is advised repeat colonoscopy in 5 years (due 03/2024) Code(s): Z86.010 - Personal history of colon polyps Category: Medical (4) Bleeding hemorrhoids: Code(s): K64.9 - Unspecified hemorrhoids Category: Medical (5) GERD (gastroesophageal reflux disease): Code(s): K21.9 - Gastro-esophageal reflux disease without esophagitis Category: Medical (6) Elevated LFTs: Code(s): R79.89 - Other specified abnormal findings of blood chemistry Category: Medical Plan 54 YF with Asthma, gastritis, NUD, colitis, obesity, Eczema, history of colon polyps, epigastric/RUQ pain which may be likely due to obstipation. Abdominal CT scan and HIDA scan were normal. Patient complains of oropharyngeal dysphagia/globus sensation. 07/30/19 BARIUM SWALLOW FROM [facility] WAS REVIEWED: Normal oral and pharyngeal phases with no laryngeal penetration or subglottic aspiration. Esophagus: Normal in contour and mucosal appearance. Tertiary contractions noted in the distal half of the esophagus with from transit of liquid barium into the stomach. No hiatal hernia. Despite the use of provocative maneuvers, no gastroesophageal reflux was appreciated during the study. A 13 mm barium tablet passed unimpeded into the stomach. No evidence of esophageal web, narrowing or outpouching. No esophageal obstruction. IMPRESSION: Mild dysmotility with no evidence of stricture. Patient notes improvement in symptoms of heartburn since she changed her diet and lost 28 lbs. She is taking lansoprazole and dicyclomine p.r.n. every few days. Patient notes resolution of rectal bleeding. 09/05/22 Patient had gastric sleeve surgery on 07/17/2022 Seen at [facility] in [place], [place] on 08/23/22 after she had abdominal pain, nausea and vomiting and constipation.? Denies rectal bleeding. CT scan showed colitis - likely ischemic colitis - medical records were requested. Pt advised to FU with GI and schedule an EGD and colon Treated with IVF, potassium and pain improved. Using suppositories and still not using the bathroom. Senna increased to three times a day, Colace twice a day, MOM 5 ml every night and suppositories Pt advised to continue with above regimen for a week and if no improvement in constipation, to start Linzess Pt advised to stop sucralfate (after checking with Dr Martin) 09/26/22 Pt advised to: 1. Increase Linzess to 290 mcg daily 2. Take Senna 2 capsules twice a day 3. Decrease Marshall to 1 tablet twice a day 01/02/23 Feeling better. Linzess is helping and has a BM daily. Taking Linzess and one Senna daily (if she takes two Senna then she is in the bathroom all morning) RUQ pain and nausea is better. Feels good since she lost weight. 11/20/23 Doing well - able to have a BM daily by taking Linzess and Senna Heartburn improved with dietary modification RUQ pain resolved after GB surgery in Jun, 2023 Pt will be scheduled for endoscopy for surveillance for colon polyps - sutab prep since pt is status post gastric sleeve. (Of note - pt had a colonoscopy in 2019 and one adenomatous polyp and three hyerplastic polyps were removed - FU colon was advised in 5 yrs) Liver panel and hepatitis serologies for FU of elevated LFTs. 05/13/24 Taking Linzess and Senna 3 times a day and no BM x 3 days Advised to stop Linzess and start a Probiotic + Amitiza 16 mcg twice daily (if covered by her insurance) Omeprazole 40 mg daily for GERD 09/09/24 Taking Amitiza 2 tab once a day and advised to increase to twice a day Complains of a constant low grade pain/discomfort in the LUQ worse with movement - likely musculoskeletal in etiology FU appt in 6 months Medications: Refilled lubiprostone (Amitiza) 16 mcg (2 x 8 mcg) PO BID 120 caps 3RF 30 days K59.09 - Other constipation Discontinued sod picosulf-mag ox-citric ac 10 mg-3.5 gram- 12 gram/175 mL take first bottle at 4PM evening before colonoscopy follow with at least 5cups (40oz) of clear liquids within 5 hour. AT 10PM drink second bottle fo llowed by 4cups (32oz) of clear liquids- need to finish the 4cups of clear liquids before midnight. Discontinued Reason: Patient Completed Course 175 mL PO ONCE 350 mL 0RF Coding Level of Care Code Est Pt Level 3 (43736) Diagnoses Oropharyngeal dysphagia R13.12 Chronic constipation K59.09 History of colon polyps Z86.010 Bleeding hemorrhoids K64.9 GERD (gastroesophageal reflux disease) K21.9 Elevated LFTs R79.89 Time Spent (min) 18
[2024-09-09 10:40] VITALS: BP 95/52; PULSE 67; O2SAT 96; BMI 29.3
--- OUTSIDE RECORDS SUMMARY | 2024-09-09 11:04 | XMS_ITS | Clinical Summary ---
Author Organization [address] Address [address] [place] [address] Phone Care Team Providers Care Information Technology Auditor Name Role Phone José Davis MD Primary Care Provider [phone] Allergies Active Allergy Reactions Criticality Noted Date [...] 74 08/27/2022 1:55 PM EDT Temperature 36.6 C (97.9 F) 08/27/2022 1:55 PM EDT Respiratory Rate 18 08/27/2022 1:55 PM EDT [...] - 110 mg/dL 08/26/2022 7:28 AM EDT [facility] Comment: Non-fastin-110 mg/dL Fasting (minimum 6 hrs): 65-99 mg/dL BUN 11 7 - 18 mg/dL 08/26/2022 7:28 AM EDT [facility] Creatinine 0.58 0.55 - 1.02 mg/dL 08/26/2022 7:28 AM EDT [facility] Sodium 139 136 - 145 mmol/L 08/26/2022 7:28 AM EDT [facility] Potassium 3.4(L) 3.5 - 5.1 mmol/L 08/26/2022 7:28 AM EDT [facility] Chloride 104 98 - 107 mmol/L 08/26/2022 7:28 AM EDT [facility] CO2 24 21 - 32 mmol/L 08/26/2022 7:28 AM T [facility] Anion Gap 11 5 - 15 mmol/L 08/26/2022 7:28 AM T [facility] Calcium 9.5 8.5 - 10.1 mg/dL 08/26/2022 7:28 AM T [facility] eGFR (Creatinine) >60 >=60 mL/min/1.7 3m2 08/26/2022 7:28 AM EDT [facility] Comment: Values < 60 mL/min/1.73 m2 may indicate CKD if present for more than three months AND creatinine is at steady state. The eGFR provides a rough estimate of kidney function. On 10/09/21 all [facility] Clinical Labs and Epic began using a [id number] formula for estimating GFR called CKD-EPI Creatinine 2020. This equation reports eGFR based on creatinine, patient age, clinical sex, and is standardized to a body surface area of 1.73 m2. For the same creatinine, this new race-free eGFR will be lower than prior reported Black eGFR results and higher than prior Non-Black eGFR results. For further guidance, please refer to the CKD: Adult Design Maker Signature pathway. Blood Venipuncture / Unknown 08/26/2022 6:35 AM EDT 08/26/2022 6:53 AM EDT [facility] BLOOD ORDERABLES F inal Result L + M [facility] [address] [place] [address] from Last 3 Months or Most Recently Relevant to Health Maintenance Insurance [employer] on file [employer] on file [employer] on file Advance Directives * Full Code (Latest Code Status on File) Date Activated Date Inactivated Comments 08/23/2022 9:19 AM 08/27/2022 11:53 PM Question Answer Comments With Whom was the Code Status Discussed? Patient Care Teams Information Technology Auditor Relationship Specialty Start Date End Date José Davis MD [address] [place] [id number] PCP - General Internal Medicine 08/23/22
--- OUTSIDE RECORDS SUMMARY | 2024-09-09 11:04 | XMS_ITS | Clinical Summary ---
Author Organization [facility] Address [address] [place] [address] Care Team Providers Care Gear Room Keeper Name Role Phone Unavailable Primary Care Provider Unavailabl e Social History Tobacco Use Types Packs/Day Years Used Date Smoking Tobacco: Never Assessed Comments Unknown Sex and Gender Information Value Date Recorded Sex Assigned at Not on file Legal Sex Female 11:11 AM EDT Gender Identity Not on file [...] Zoster (Shingles) Vaccine (1 of 2) 2020 COVID-19 Vaccine (1 - 2023- season) 2023 Influenza Vaccine 09/24/2024 Insurance [facility] [place] [id number]
--- OUTSIDE RECORDS SUMMARY | 2024-09-09 11:04 | XMS_ITS | Clinical Summary ---
Author Organization [facility] Address [address] [place] [address] Care Team Providers Care Legal Summer Intern Name Role Phone José Davis MD Primary Care Provider [phone] Surgical History Surgery Date Site/Laterality Comments APPENDECTOMY PROCEDURE: [place] APPENDECTOMY OTHER SURGICAL HISTORY 1991 PROCEDURE: WI OTHER CAROTID STENT IPSIL TIA/STRK 120 DAYS/>; COMMENT: tubal ligation HYSTERECTOMY PROCEDURE: HISTORICAL HYSTERECTOMY OTHER SURGICAL HISTORY 2020 PROCEDURE: WI OTHER CAROTID STENT IPSIL TIA/STRK 120 DAYS/>; [...] 2023-2 5 season) 2023 Influenza Vaccine (#1) 2024 HIB Vaccines Aged Out No longer eligi [...] age to complete this topic Meningococcal B Vaccine Aged Out No l onger eligible based on patient's age to complete this topic RSV Immunization Patients Un cordell 20 months Aged Out No longer eligible b ased on patient's age to complete this topic Varicella Vaccines Aged Out No longer eligible based on patient's age to complete this topic Care Teams Legal Summer Intern Relationship Specialty Start Date End Date José Davis MD [address], [place] [id number] PCP - General Internal Medicine 02/28/21
== END 2024-09-09 11:31 | disposition home or self-care (01) ==
LOC: HO.HGI 10:32
PROVIDERS: PCP Student in an Organized Health Care Education/Training Program; Visit Provider Internal Medicine Gastroenterology
DX: R13.12 Dysphagia, oropharyngeal phase (principal); K59.09 Other constipation; Z86.0100 Personal history of colon polyps, unspecified; K64.9 Unspecified hemorrhoids; K21.9 Gastro-esophageal reflux disease without esophagitis; R79.89 Other specified abnormal findings of blood chemistry
CPT/HCPCS: 99499

== ENCOUNTER 2024-09-14 11:21 | Outpatient (AMB) | payer OTHER, SELFPAY ==
--- NOTE | 2024-09-14 11:23 | A.OFFVIS_ITS ---
VS Expanded 09/14/24 11:33 BP 108/57 L Blood Pressure Location Rt brachial Blood Pressure Position Sitting Pulse 87 Pulse Source Pulse Oximeter Temp 98.0 F Temperature Source Temporal Artery Scan Pulse Oximetry 95 Oxygen Delivery Method Room Air Height 5 ft Weight 149 lb 9.8 oz BMI 29.2 Body Fat % 35.8 Body Fat Mass 53.6 Fat Free Mass 96.2 Visceral Fat Rating 8.0 Body Water % 45.7 Body Water Mass 68.4 Muscle Mass/Score 91.2 Basal Metabolic Rate/Score 1,315 Intake Visit Reasons: (OV) PO LSG 07/17/22 Allergies aspirin (ASPIRIN) Allergy (Severe, Verified 09/14/24 11:27) HIVES Fish Containing Products Allergy (Severe, Verified 09/14/24 11:27) HIVES/DYSPNEA oxycodone (From PERCOCET) Allergy (Severe, Verified 09/14/24 11:27) PALPITATIONS/HIVES pumpkin Allergy (Severe, Verified 09/14/24 11:27) THROAT SWELLING squash Allergy (Severe, Verified 09/14/24 11:27) THROAT SWELLING Zucchini Allergy (Mild, Uncoded 12/30/22 09:59) Hives, Dysphagia HPI Comments Details: This?a?54?yo female who is s/p LSG without hiatal hernia repair on?07/15/[address] Martin. Presents for 2 year 2 month post op visit. Weight today is 149.8 pounds, with a BMI of 29.2.? There has been a 56.8 pound weight loss,(initial weight 193.8 pounds) since starting the program on 02/27/22 reflecting a 29.3% total body weight loss and a weight loss of 30.1 pounds since surgery (operative weight 167.1 pounds) reflecting a 18.1% TBWL since surgery.? States she feels great, not winded when going up steps, has significantly improved energy levels and she is no longer using her CPAP machine and her states she no longer snores. She additionally underwent a laparoscopic cholecystectomy by Dr. Middleton on 05/21/2023 for symptomatic cholelithiasis. She reports that she has been following the meal plan most of the time although sometimes going out to dinner with her . She has not been able to exercise in the last 3 weeks. She has been working a lot and has been under increased stress. Discussed the importance of exercise and how it directly relates not only to weight loss but improved mental health. Currently doing celebrate 4 in 1 2 scoops in 10 oz almond milk at 730-8 lunch at 12 meal w mozambican yogurt or crackers or cheese or skip dinner at 6 pm meat and veggies drinking 96 oz water previous recommended meal plan includes: 2 shakes Celebrate 4 in 1, w unsweetened almond milk 2 scoops each, 8-10 am, 1- 3 pm 6 forks protein 6 forks veg, 6 pm Drinking 64 z water ? Exercise routine includes: classes at gym 2 x per week gym health traxs Cardio classes 45-60 min, daily PFSH Medical History Arthritis Anxiety Sleep apnea Adjustment disorder, unspecified GERD (gastroesophageal reflux disease) Asthma Bleeding hemorrhoids Irritable bowel syndrome Chronic constipation Admission for repair of scarred tissue Surgical History Hx laparoscopic cholecystectomy (05/21/23) Hx of laparoscopic partial gastrectomy [place] teeth extracted Hx of breast reduction, elective Hx of hemorrhoidectomy History of arthroscopy of both knees Hx of appendectomy H/O eye surgery H/O colonoscopy History of esophagogastroduodenoscopy (EGD) H/O: hysterectomy Family History Father Diabetes Brother Heart attack Paternal Grandmother Cancer Maternal Grandmother Cancer Social History Household Members: Spouse Housing: House Are you a primary resident care director to a significant other at home: Yes Do you presently have visiting nurse or other home services: No Alcohol intake: never Patient Tobacco Use Status: Never used Tobacco Second Hand Smoke Exposure: No service: No Current occupational status: employed Physical Exam Const General: healthy appearing and no acute distress Resp Effort & Inspection: normal respiratory effort Auscultation: clear to auscultation bilaterally Cardio Rate: regular rate Rhythm: regular rhythm GI Auscultation: normal bowel sounds Extrem General: Yes normal to inspection Assessment & Plan Assessment & Plan (1) S/P laparoscopic sleeve gastrectomy: Code(s): Z98.84 - Bariatric surgery status Category: Surgical Plan: Discussed the critical nature of following a meal plan. Given information regarding right BMI sugey. discussed the importance of exercising regularly. Encouraged to stop intermittent classes and to start regular cardiovascular activity with stationary bike, treadmill, elliptical machine, tracking calories with a goal of burning 400 per day. Discussed slowing down drinking her shake, measuring accurately her food portions and to follow a meal plan consistently. We will have her return to the office in approximately 1 month
[2024-09-14 11:33] VITALS: BP 108/57; PULSE 87; TEMP 36.7; O2SAT 95; BMI 29.2
--- OUTSIDE RECORDS SUMMARY | 2024-09-14 12:39 | XMS_ITS | Clinical Summary ---
Author Organization [facility] Address [address] [place] [address] Care Team Providers Care Customs Opener Verifier Packer Name Role Phone José Davis MD Primary Care Provider [phone] Surgical History Surgery Date Site/Laterality Comments APPENDECTOMY PROCEDURE: [place] APPENDECTOMY OTHER SURGICAL HISTORY 1991 PROCEDURE: [place] OTHER CAROTID STENT IPSIL TIA/STRK 120 DAYS/>; COMMENT: tubal ligation HYSTERECTOMY PROCEDURE: HISTORICAL HYSTERECTOMY OTHER SURGICAL HISTORY 2020 PROCEDURE: [place] OTHER CAROTID STENT IPSIL TIA/STRK 120 DAYS/>; [...] 2) 2020 Colorectal Cancer Screening: Colonoscopy 01/27/2022 HIV Screening 01/27/2022 Hepatitis C Screening 01/27/2022 Social Influencers of Health Screening 01/27/2022 COVID-19 Vaccine (1 - 2023-2 5 season) 2023 Depression Screening 02/25/2024 Influenza Vaccine (#1) 2024 HIB Vaccines Aged [...] age to complete this topic Care Teams Customs Opener Verifier Packer Relationship Specialty Start Date End Date José Davis MD [address] [place] [id number] PCP - General Internal Medicine 02/28/21
--- OUTSIDE RECORDS SUMMARY | 2024-09-14 12:39 | XMS_ITS | Clinical Summary ---
Author Organization [address] Address [address] [place] [address] Phone Care Team Providers Care Special Education Superintendent Name Role Phone José Davis MD Primary Care Provider [phone] Allergies Active Allergy Reactions Criticality Noted Date [...] EDT [facility] Comment: Non-fastin-110 mg/dL Fasting (minimum 6 hrs): 65-99 mg/dL BUN 11 7 - 18 mg/dL 08/26/2022 7:28 AM EDT [facility] Creatinine 0.58 0.55 - 1.02 mg/dL 08/26/2022 7:28 AM EDT [facility] Sodium 139 136 - 145 mmol/L 08/26/2022 7:28 AM EDT [facility] Potassium 3.4(L) 3.5 - 5.1 mmol/L 08/26/2022 7:28 AM EDT [facility] Chloride 104 98 - 107 mmol/L 08/26/2022 7:28 AM EDT [facility] CO2 24 21 - 32 mmol/L 08/26/2022 7:28 AM T [facility] Anion Gap 11 5 - 15 mmol/L 08/26/2022 7:28 AM T [facility] Calcium 9.5 8.5 - 10.1 mg/dL 08/26/2022 7:28 AM T [facility] eGFR (Creatinine) >60 >=60 mL/min/1.7 3m2 08/26/2022 7:28 AM EDT [facility] Comment: Values < 60 mL/min/1.73 m2 may indicate CKD if present for more than three months AND creatinine is at steady state. The eGFR provides a rough estimate of kidney function. On 10/09/21 all [facility] Clinical Labs and Epic began using a [id number]-[id number] formula for estimating GFR called CKD-EPI Creatinine 2020. This equation reports eGFR based on creatinine, patient age, clinical sex, and is standardized to a body surface area of 1.73 m2. For the same creatinine, this new race-free eGFR will be lower than prior reported Black eGFR results and higher than prior Non-Black eGFR results. For further guidance, please refer to the CKD: Adult Hydroelectric Machinery Mechanic Signature pathway. Blood Venipuncture / Unknown 08/26/2022 6:35 AM EDT 08/26/2022 6:53 AM EDT [facility] BLOOD ORDERABLES F inal Result L + M [facility] [address] [place] [address] from Last 3 Months or Most Recently Relevant to Health Maintenance Insurance [employer] on file [employer] on file [employer] on file Advance Directives * Full Code (Latest Code Status on File) Date Activated Date Inactivated Comments 08/23/2022 9:19 AM 08/27/2022 11:53 PM Question Answer Comments With Whom was the Code Status Discussed? Patient Care Teams Special Education Superintendent Relationship Specialty Start Date End Date José Davis MD [address] [place] [address] PCP - General Internal Medicine 08/23/22
--- OUTSIDE RECORDS SUMMARY | 2024-09-14 12:39 | XMS_ITS | Encounter Summary ---
Author Organization [facility] Address [facility] and [facility] [address] [place] [address] Phone Care Team Providers Care Macaroni Press Operator Name Role Phone José Davis MD Primary Care Provider [phone] Encounter Details Date Type Department Care Team (Late st Contact Info) Description 10/30/2020 Procedure Pass [facility], Ct Scan - [address] [address] Social History Tobacco Use Types Packs/Day Years Used Date Smoking Tobacco: Never Smokeless Tobacco: Never Alcohol Use Standard Drinks/Week Comments Not Currently 0 (1 standard drink = 0.6 oz pur e alcohol) Comments No Sex and Gender Information Value Date Recorded Sex Assigned at Female 10/30/2020 4:59 PM EDT Legal Sex Female 4:50 PM EDT Gender Identity Female 10/30/2020 4:59 PM EDT Sexual Orientation Straight 01/27/2021 7: 29 PM EST documented as of this encounter Functional Status * Calculated C-SSRS Risk Score (Lifetime/Recent) Answer Date of Assessment Author No Risk Indicated 10/30/2020 4:59 PM EDT Roopa Valdez RN * [place] Suicide Severity Rating Scale (Screener/Recent Self-Report) Question Answer Date of Assessment Author 1. Wish to be (Past 1 Month) No 10/30/2020 4:59 PM EDT Roe Gonzalez RN 2. Non-Specific Active Suicidal Thoughts (Past 1 Month) No 10/30/2020 4:59 PM EDT Roe Gonzalez, RN 6. Suicidal Behavior (Lifetime) No 10/30/2020 4:59 PM EDT Roe Gonzalez RN documented as of this encounter Plan of Treatment Not on file documented as of this encounter Visit Diagnoses Not on filedocumented in this encounter Additional Health Concerns Infection Onset Date Last Indicated Resolved Time CoV-Risk 01/27/2021 01/29/2021 02/08/2021 1:22 AM EST documented as of this encounter Care Teams Macaroni Press Operator Relationship Specialty Start Date End Date José Davis MD [address] [place] [address] PCP - General Internal Medicine 10/30/20 documented as of this encounter Additional Source Comments The information contained in this document represents components of the legal health record. It is not the complete legal health record.[facility]
--- OUTSIDE RECORDS SUMMARY | 2024-09-14 12:39 | XMS_ITS | Clinical Summary ---
Author Organization [facility] Address [address] [place] [address] Care Team Providers Care Barge Captain Name Role Phone Unavailable Primary Care Provider [...] 2023- season) 2023 Influenza Vaccine 09/24/2024 Insurance [facility] [place] [phone]
--- OUTSIDE RECORDS SUMMARY | 2024-09-14 12:39 | XMS_ITS ---
Author Name [facility] Organization Unknown Allergies Allergen Reaction Severity Comment Documented Date Source Statu s NSAIDS (NON-STEROIDAL ANTI-INFLAMMATOR Y DRUG) OTHER (SEE COMMENTS) Moderate D/t gastric bypass 08/23/2022 [facility] active ASPIRIN HIVES Severe [facility] Problems Problem Status Onset Date Problem Type Date of Resoluti on Source Constipation active 2022-08-27 ProblemAct [facility] Colitis active 2022-08-23 ProblemAct [facility] S/P gastric sleeve procedure active EncounterDiagnosisAct [facility] Generalized abdominal pain active 2022-08-27 ProblemAct [facility] Intractable nausea and vomiting active 2022-08-27 ProblemAct [facility] Encounters Encounter Type Encounter Reason Primary Diagnosis Location Date Inpatient Other and unspec ified noninfectious gastroenteritis and colitis(558.9) [facility] 08/23/2022 Care Team Organization Name Specialty Phone Email Start Date End Da main [facility] 08/23/2022 10/13/2023 [facility] DAYAN RIBEIRO Primary Care 08/23/2022 3 [facility]
== END 2024-09-14 12:12 | disposition home or self-care (01) ==
LOC: HO.HBS 11:21
PROVIDERS: PCP Student in an Organized Health Care Education/Training Program; Visit Provider Physician Assistant Surgical
DX: E66.3 Overweight (principal); Z68.29 Body mass index [BMI] 29.0-29.9, adult; Z90.3 Acquired absence of stomach [part of]; Z98.84 Bariatric surgery status
CPT/HCPCS: 99213

== ENCOUNTER 2024-10-07 09:04 | Outpatient (AMB) | payer OTHER, SELFPAY ==
[2024-10-07 08:14] VITALS: BMI 29.3
--- NOTE | 2024-10-07 08:14 | MHC.OFFVISWM ---
VS Expanded 10/07/24 08:14 Height 5 ft Weight 150 lb BMI 29.3 Intake Visit Reasons: (TV) PO LSG 07/17/22 Allergies aspirin (ASPIRIN) Allergy (Severe, Verified 09/14/24 11:27) HIVES Fish Containing Products Allergy (Severe, Verified 09/14/24 11:27) HIVES/DYSPNEA oxycodone (From PERCOCET) Allergy (Severe, Verified 09/14/24 11:27) PALPITATIONS/HIVES pumpkin Allergy (Severe, Verified 09/14/24 11:27) THROAT SWELLING squash Allergy (Severe, Verified 09/14/24 11:27) THROAT SWELLING Zucchini Allergy (Mild, Uncoded 12/30/22 09:59) Hives, Dysphagia HPI Comments Details: This?a?54?yo female who is s/p LSG without hiatal hernia repair on?07/15/[address] Martin. Presents for 2 year 3 month post op visit. Weight today is 150 pounds, with a BMI of 29.3.? There has been a 56.8 pound weight loss,(initial weight 193.8 pounds) since starting the program on 02/27/22 reflecting a 29.3% total body weight loss and a weight loss of 30.1 pounds since surgery (operative weight 167.1 pounds) reflecting a 18.1% TBWL since surgery.? States she feels great, not winded when going up steps, has significantly improved energy levels and she is no longer using her CPAP machine and her states she no longer snores. She additionally underwent a laparoscopic cholecystectomy by Dr. Middleton on 05/21/2023 for symptomatic cholelithiasis. She reports that she has been following the meal plan most of the time although sometimes going out to dinner with her . She has not been able to exercise in the last 3 weeks. She has been working a lot and has been under increased stress. Discussed the importance of exercise and how it directly relates not only to weight loss but improved mental health. Currently doing celebrate 4 in 1 2 scoops in 10 oz almond milk at 730-8 lunch at 12 meal w luxembourgish yogurt or crackers or cheese or skip dinner at 6 pm meat and veggies drinking 96 oz water previous recommended meal plan includes: 2 shakes Celebrate 4 in 1, w unsweetened almond milk 2 scoops each, 8-10 am, 1-3 pm (sometimes 1 and sometimes 2, when she only has 1 she skips the other one) 6 forks protein 6 forks veg, 6 pm Drinking 64 z water ? Exercise routine includes: zoomba 2-3 x at home classes at gym 2 x per week gym health traxs Cardio classes 45-60 min, daily PFSH Medical History Arthritis Anxiety Sleep apnea Adjustment disorder, unspecified GERD (gastroesophageal reflux disease) Asthma Bleeding hemorrhoids Irritable bowel syndrome Chronic constipation Admission for repair of scarred tissue Surgical History Hx laparoscopic cholecystectomy (05/21/23) Hx of laparoscopic partial gastrectomy [place] teeth extracted Hx of breast reduction, elective Hx of hemorrhoidectomy History of arthroscopy of both knees Hx of appendectomy H/O eye surgery H/O colonoscopy History of esophagogastroduodenoscopy (EGD) H/O: hysterectomy Family History Father Diabetes Brother Heart attack Paternal Grandmother Cancer Maternal Grandmother Cancer Social History Household Members: Spouse Housing: House Are you a primary assisted living care manager to a significant other at home: Yes Do you presently have visiting nurse or other home services: No Alcohol intake: never Patient Tobacco Use Status: Never used Tobacco Second Hand Smoke Exposure: No service: No Current occupational status: employed Telehealth Telehealth Telehealth Platform: Telephone Location of provider rendering services: practice address Location of patient: address on file Patient Identification confirmed using: Name, : Yes Telehealth method: voice only Patient verbally consented to treatment: Yes Patient verbally consented to billing insurance company: Yes Patient informed of any privacy concerns related to visit: Yes Minutes spent on Phone/Video with Pt.: 15 Assessment & Plan Assessment & Plan (1) S/P laparoscopic sleeve gastrectomy: Code(s): Z98.84 - Bariatric surgery status Category: Surgical Plan: 2 shakes Celebrate 4 in 1, w unsweetened almond milk 1.5 scoops each, 8-10 am, 1-3 pm (sometimes 1 and sometimes 2, when she only has 1 she she will have 1 scoop in the morning and a protein 2.0 water) 6 forks protein 6 forks veg, 6 pm Discussed the importance of exercising regularly. Recommended going to [facility] and utilizing the cardiovascular equipment 5 days a week with a goal of burning 400 calories per session. Discussed this as a barrier to her success, she does need to exercise more regularly and she states that she will try. Additionally, discussed the importance of not skipping any meals or shakes as this is also detrimental. We will have her return to clinic in 2 months. Suggest texting regularly and with any questions or concerns
--- OUTSIDE RECORDS SUMMARY | 2024-10-07 09:23 | XMS_ITS | Clinical Summary ---
Author Organization [facility] Address [address] [place] [address] Care Team Providers Care Technical Clerk Name Role Phone José Davis MD Primary Care Provider [phone] Surgical History Surgery Date Site/Laterality Comments APPENDECTOMY PROCEDURE: [place] APPENDECTOMY OTHER SURGICAL HISTORY 1991 PROCEDURE: [place] OTHER CAROTID STENT IPSIL TIA/STRK 120 DAYS/>; COMMENT: tubal ligation HYSTERECTOMY PROCEDURE: HISTORICAL HYSTERECTOMY OTHER SURGICAL HISTORY 2020 PROCEDURE: MD OTHER CAROTID STENT IPSIL TIA/STRK 120 DAYS/>; [...] age to complete this topic Care Teams Technical Clerk Relationship Specialty Start Date End Date José Davis MD [address] [place] [address] PCP - General Internal Medicine 02/28/21
--- OUTSIDE RECORDS SUMMARY | 2024-10-07 09:23 | XMS_ITS | Clinical Summary ---
Author Organization [address] Address [address] [place] [address] Phone Care Team Providers Care Relations Manager Name Role Phone José Davis MD Primary Care Provider [phone] Allergies Active Allergy Reactions Criticality Noted Date [...] kidney function. On 10/09/21 all [facility] Clinical Labs and Epic began using a yec-zogb-dklum formula for estimating GFR called CKD-EPI Creatinine 2020. This equation reports eGFR based on creatinine, patient age, clinical sex, and is standardized to a body surface area of 1.73 m2. For the same creatinine, this new race-free eGFR will be lower than prior reported Black eGFR results and higher than prior Non-Black eGFR results. For further guidance, please refer to the CKD: Adult Lockstitch Sleeve Setter Signature pathway. Blood Venipuncture / Unknown 08/26/2022 6:35 AM EDT 08/26/2022 6:53 AM EDT [facility] BLOOD ORDERABLES F inal Result L + M [facility] [address] [place] [address] from Last 3 Months or Most Recently Relevant to Health Maintenance Insurance [employer] on file [employer] on file [employer] on file Advance Directives * Full Code (Latest Code Status on File) Date Activated Date Inactivated Comments 08/23/2022 9:19 AM 08/27/2022 11:53 PM Question Answer Comments With Whom was the Code Status Discussed? Patient Care Teams Relations Manager Relationship Specialty Start Date End Date José Davis MD [address] [place] [phone] PCP - General Internal Medicine 08/23/22
--- OUTSIDE RECORDS SUMMARY | 2024-10-07 09:23 | XMS_ITS | Clinical Summary ---
Author Organization [facility] Address [address] [place] [address] Care Team Providers Care Telecommunications Engineer Name Role Phone Unavailable Primary Care Provider [...] 2023- season) 2023 Influenza Vaccine 09/24/2024 [facility] [place] [phone]
--- OUTSIDE RECORDS SUMMARY | 2024-10-07 09:23 | XMS_ITS | Encounter Summary ---
Author Organization [facility] Address [facility] [address] [place] [address] Phone Care Team Providers Care Cable Dispatcher Name Role Phone José Davis MD Primary Care Provider [phone] Encounter Details Date Type Department Care Team (Late st Contact Info) Description 10/30/2020 Procedure Pass [facility], Ct Scan - [address] [address] Social History Tobacco Use Types Packs/Day Years [...] 4:59 PM EDT Roopa Valdez RN * [place] Suicide Severity Rating Scale (Screener/Recent Self-Report) Question [...] documented as of this encounter Care Teams Cable Dispatcher Relationship Specialty Start Date End Date José Davis MD [address] [place] [address] PCP - General Internal Medicine 10/30/20 documented as of this encounter Additional Source Comments The information contained in this document represents components of the legal health record. It is not the complete legal health record.[facility]
== END 2024-10-07 09:05 | disposition home or self-care (01) ==
LOC: HO.HBS 09:04
PROVIDERS: PCP Student in an Organized Health Care Education/Training Program; Visit Provider Physician Assistant Surgical
DX: E66.3 Overweight (principal); Z68.29 Body mass index [BMI] 29.0-29.9, adult; Z90.3 Acquired absence of stomach [part of]; Z98.84 Bariatric surgery status
CPT/HCPCS: 98013